=== PATIENT | male | born 1955 | race Caucasian/White ===

== ENCOUNTER 2023-06-02 18:58 | Emergency (ER) | payer MEDICARE, OTHER, SELFPAY ==
[2023-06-02 19:00] VITALS: BP 124/78
[2023-06-02 23:23] VITALS: BP 130/84
[2023-06-02 23:24] VITALS: BMI 22.1
[2023-06-02] MEDS: NSS 500 IV (23:45)
[2023-06-02] MEDS: DILAUDID 0.5 MG IV (23:45)
--- NOTE | 2023-06-02 23:48 | ED.GENMED ---
History of Present Illness
General
Chief Complaint: Abdominal Pain
Source: patient
Exam Limitations: none
Time Seen by Provider: 06/02/23 23:02
Nursing documentation reviewed up to this point in time: agreed with
Travel History
Have you had any contact with someone who has COVID-19?: No
Do you have any symptoms of coronavirus? Fever > 100 degrees, chills, cough, shortness of breath, sore throat, loss of taste or smell, muscle aches, or headache?: No
History of Present Illness
History of Present Illness:
Patient with history of colon cancer, currently receiving chemotherapy, and diverticulitis, presents to ED secondary to persistent left-sided abdominal pain over the past 2 days. Denies fever or chills. Denies nausea or vomiting. Denies loss of
appetite. Denies trauma. Denies back pain. Denies difficulty with urination. Abdominal pain described as sharp, nonradiating, without any alleviating or exacerbating factors. Patient states that his symptoms are similar to an episode of
diverticulitis 1 year ago. Patient does report having had bowel movement today, which did not change his symptoms.
Past History
Past History
ED Past Medical History: Cancer (Colon cancer), HTN, Psychiatric (Anxiety, depression), Other (Diverticulitis) and Other (Sciatica)
ED Past Surgical History: Bowel resection, Orthopedic (Left hand surgery, laminectomy), Urological (Vasectomy) and Other (Left arm cyst)
Review of Systems
Review of Systems
Allergies reviewed?: Yes
All Other Systems: ROS reviewed and negative except as documented in HPI and ROS
Constitutional: Reports no symptoms; Denies fever or chills
ABD/GI: Reports abdominal pain; Denies nausea, vomiting, diarrhea or bloody stools
: Reports no symptoms
Musculoskeletal: Reports no symptoms
Skin: Reports no symptoms
Neurological: Reports no symptoms
Phy Exam
Physical Exam
Physical Exam:
Physical Exam
General: mild painful distress, not acutely ill. afebrile
Head: nc/at. eomi
Neck: supple. no meningeal signs.
Heart: s1/s2 regular rate and rhythm, no murmur. equal radial pulses.
Lungs: no acute respiratory distress. clear bilaterally
Abdomen: normal bowel sounds. no distention. mild LLQ tenderness to palpation.
Neuro: alert and oriented. no focal neurological deficits
Skin: no rash
Psychiatric: well kept. interactive and cooperative
Extremities: no edema. no calf tenderness.
Course
Orders/Labs/Results
Orders:
Orders
06/02/23 23:17
0.9% Sodium Chloride 500 ml [Nss] 500 ml IV BOLUS
HYDROmorphone [Dilaudid] 0.5 mg IV NOW STA
06/02/23 23:44
Complete Blood Count/With Diff Urgent
Comprehensive Metabolic Panel Urgent
Lipase Urgent
06/03/23 00:00
CT Abd/pelvis W Iv Cont Urgent
Reason For Exam: LLQ pain
Abnormal Lab Results
06/02/23
23:44
WBC 16.6 H 10^3/uL
(4.8-10.8)
RBC 3.21 L 10^6/uL
(4.70-6.10)
Hgb 10.9 L g/dL
(13.0-18.0)
Hct 32.5 L %
(39.0-52.0)
MCV 101.2 H fL
(80.0-94.0)
MCH 34.0 H pg
(27.0-31.0)
RDW 14.6 H %
(11.5-14.5)
MPV 10.9 H fL
(7.4-10.4)
Abs Immat Gran (auto) 0.4 H 10^3/uL
(0-0.05)
Absolute Neuts (auto) 13.0 H 10^3/uL
(1.4-6.5)
Absolute Monos (auto) 1.0 H 10^3/uL
(0.1-0.6)
Immature Gran % 2.1 H %
(0-0.5)
Neutrophils % 78.3 H %
(42.2-75.2)
Lymphocytes % 10.5 L %
(20.5-51.1)
Sodium 134 L mmol/L
(135-145)
Alkaline Phosphatase 186 H U/L
(38-126)
06/02/23 23:44
06/02/23 23:44
Vital Signs
Initial and Last Documented VS:
Initial Vital Signs
Temp Pulse Resp BP Pulse Ox
97.9 F 70 18 124/78 100
06/02/23 19:00 06/02/23 19:00 06/02/23 19:00 06/02/23 19:00 06/02/23 19:00
Last Documented Vital Signs
Temp Pulse Resp BP Pulse Ox
97.9 F 68 16 120/81 98
06/02/23 19:00 06/03/23 01:44 06/02/23 23:24 06/03/23 01:44 06/03/23 01:44
MDM/Problems Addressed
MDM/Problems Addressed:
CT abdomen pelvis: Possible enteritis noted, without any evidence diverticulitis nor any obstructive signs.
Patient is afebrile, hemodynamically stable, and nontoxic-appearing, at time of discharge, to the care of his family. Advised PCP follow-up as an outpatient or return to ED with worsening symptoms, i.e. fever/worsening pain/vomiting. However, in
light of patient's previous history of diverticulitis, with clinical concern for potentially early diverticulitis, not seen on initial CT scan, patient given prescription for Augmentin, to be taken in 24 hours, if symptoms persist.
*Critical Care Note
Total Time (30-74mins, 75-104mins- exclusive of procedures): Not Applicable
ED Attending Note
-
Portions of this chart may have been created with voice recognition software.� Occasional wrong word or��sound alike� substitutions may have occurred due to the inherent limitations of voice recognition software.
Discharge Plan
Departure
Patient Disposition: Home (Routine Discharge)
Date of Disposition: 06/03/23
Time of Disposition: 01:33
Patient with high blood pressure during this ER visit?: Yes
Condition: Good
Discharge Problem:
Abdominal pain, Enteritis
Instructions: Abdominal Pain
Prescriptions:
No Action
lamotrigine 100 MG tablet
200 mg PO DAILY
metoprolol succinate 100 MG tablet extended release 24 hr
100 mg PO DAILY
mirtazapine 30 mg Tablet
15 mg PO HS
doxylamine succinate 25 mg Tablet
25 mg PO HS PRN (Reason: sleep aide)
acetaminophen [Tylenol] 325 mg Capsule
650 mg PO Q6H PRN (Reason: pain)
Referrals:
Jacky Guillaume MD [Family Provider] -
Activity Restrictions/Additional Instructions:
As discussed, please follow-up with your primary care physician for reevaluation next week. Please consider returning to ED with worsening symptoms, i.e. fever/worsening pain/vomiting.
Interventions
Interventions:
*Risk Screen - Suicide Last Done: 06/02/23 19:00
*General Assessment Last Done: 06/02/23 19:00
*Neglect/Abuse Screening Last Done: 06/02/23 19:00
*ED COVID-19 Vaccine History Last Done: 06/02/23 19:00
*Nursing Disposition Last Done: 06/03/23 01:58
GI-Dddwvn-Cncfjwbodj Assessment Last Done: 06/02/23 23:24
Discharge Date and Time
Discharge Date/Time: 06/03/23 01:59
[2023-06-02 23:54] LABS: % Basophils 0.8 % (0-2); % Eosinophils 2.5 % (0-6); % Immature Granulocytes 2.1 % (0-0.5); % Lymphocytes 10.5 % (20.5-51.1); % Monocytes 5.8 % (1.7-9.3); % Neutrophils 78.3 % (42.2-75.2); Absolute Basophils 0.1 10^3/uL (0-0.2); Absolute Eosinophils 0.4 10^3/uL (0-0.7); Absolute Immature Granulocytes 0.4 10^3/uL (0-0.05); Absolute Lymphocytes 1.7 10^3/uL (1.2-3.4); Hematocrit 32.5 % (39.0-52.0); Hemoglobin 10.9 g/dL (13.0-18.0); Mean Corp Hgb Conc. 33.5 g/dL (33.0-37.0); Mean Corpuscular Volume 101.2 fL (80.0-94.0); Mean Platelet Volume 10.9 fL (7.4-10.4); Nucleated Red Blood Cells % 0.1 % (-); Platelet Count 244 10^3/uL (130-400); Red Blood Cell Count 3.21 10^6/uL (4.70-6.10); Red Cell Dist. Width 14.6 % (11.5-14.5); White Blood Cell Count 16.6 10^3/uL (4.8-10.8)
[2023-06-03 00:14] LABS: ALT (SGPT) 16 U/L (0-50); AST (SGOT) 27 U/L (17-59); Albumin 4.1 g/dl (3.5-5.0); Alkaline Phosphatase 186 U/L (38-126); Blood Urea Nitrogen 15 mg/dl (9-20); Carbon Dioxide 22 mmol/L (22-30); Chloride 105 mmol/L (98-107); Estimated Creatinine Clearance 62 ml/min; Glucose 75 mg/dl (70-99); Lipase 260 U/L (23-300); Potassium 4.5 mmol/L (3.5-5.1); Sodium 134 mmol/L (135-145); Total Bilirubin 0.7 mg/dl (0.2-1.3); Total Protein 6.5 g/dl (6.3-8.2); eGFR > 60.00
[2023-06-03 01:44] VITALS: BP 120/81
== END 2023-06-03 01:59 | disposition home or self-care (01) ==
LOC: EMR 18:58
PROVIDERS: Student in an Organized Health Care Education/Training Program; EMERGENCY PHYSICIAN Emergency Medicine; FAMILY PHYSICIAN Internal Medicine
DX: R10.32 Left lower quadrant pain (principal); K52.9 Noninfective gastroenteritis and colitis, unspecified; C18.9 Malignant neoplasm of colon, unspecified; K57.92 Diverticulitis of intestine, part unspecified, without perforation or abscess without bleeding; I10 Essential (primary) hypertension; F41.9 Anxiety disorder, unspecified; F32.A Depression, unspecified; M54.30 Sciatica, unspecified side; Z98.0 Intestinal bypass and anastomosis status
CPT/HCPCS: 99285; 96374; 74177; 80053; 83690; 85025; Q9967

== ENCOUNTER → 2023-06-18 12:48 | Outpatient (REF) | payer MEDICARE, OTHER, SELFPAY ==
[2023-06-18 14:14] LABS: % Basophils 1.6 % (0-2); % Eosinophils 5.6 % (0-6); % Immature Granulocytes 8.1 % (0-0.5); % Lymphocytes 13.5 % (20.5-51.1); % Neutrophils 64.2 % (42.2-75.2); Absolute Basophils 0.2 10^3/uL (0-0.2); Absolute Eosinophils 0.6 10^3/uL (0-0.7); Absolute Immature Granulocytes 0.9 10^3/uL (0-0.05); Absolute Lymphocytes 1.5 10^3/uL (1.2-3.4); Absolute Monocytes 0.8 10^3/uL (0.1-0.6); Absolute Neutrophils 6.9 10^3/uL (1.4-6.5); Hematocrit 35.3 % (39.0-52.0); Hemoglobin 11.7 g/dL (13.0-18.0); Mean Corp Hgb Conc. 33.1 g/dL (33.0-37.0); Mean Corpuscular Hgb 33.7 pg (27.0-31.0); Mean Corpuscular Volume 101.7 fL (80.0-94.0); Mean Platelet Volume 10.4 fL (7.4-10.4); Nucleated Red Blood Cells % 0.2 % (-); Platelet Count 285 10^3/uL (130-400); Red Blood Cell Count 3.47 10^6/uL (4.70-6.10); Red Cell Dist. Width 14.3 % (11.5-14.5); White Blood Cell Count 10.7 10^3/uL (4.8-10.8)
[2023-06-18 14:34] LABS: ALT (SGPT) 15 U/L (0-50); AST (SGOT) 27 U/L (17-59); Alkaline Phosphatase 175 U/L (38-126); Blood Urea Nitrogen 19 mg/dl (9-20); Calcium 9.1 mg/dl (8.4-10.2); Carbon Dioxide 28 mmol/L (22-30); Chloride 102 mmol/L (98-107); Glucose 104 mg/dl (70-99); Potassium 3.9 mmol/L (3.5-5.1); Sodium 136 mmol/L (135-145); Total Bilirubin 0.4 mg/dl (0.2-1.3); Total Protein 6.5 g/dl (6.3-8.2); eGFR > 60.00
== END ==
LOC: REG 12:48
PROVIDERS: ATTENDING PHYSICIAN Internal Medicine Hematology & Oncology; FAMILY PHYSICIAN Internal Medicine
DX: C18.2 Malignant neoplasm of ascending colon (principal); D50.9 Iron deficiency anemia, unspecified; D69.3 Immune thrombocytopenic purpura
CPT/HCPCS: 36415; 80053; 85025

== ENCOUNTER → 2023-06-19 14:53 | Outpatient (REF) | payer MEDICARE, OTHER, SELFPAY ==
[2023-06-19 16:30] LABS: Protein/creatinine Ratio 0.5; Urine Protein 69 mg/dl
== END ==
LOC: OIDL 14:53
PROVIDERS: ATTENDING PHYSICIAN Internal Medicine Hematology & Oncology
DX: C18.2 Malignant neoplasm of ascending colon (principal)
CPT/HCPCS: 82570; 84156

== ENCOUNTER → 2023-07-09 13:45 | Outpatient (REF) | payer MEDICARE, OTHER, SELFPAY ==
[2023-07-09 12:52] LABS: % Basophils 1.4 % (0-2); % Eosinophils 5.3 % (0-6); % Immature Granulocytes 1.2 % (0-0.5); % Lymphocytes 11.8 % (20.5-51.1); % Monocytes 5.7 % (1.7-9.3); % Neutrophils 74.6 % (42.2-75.2); Absolute Basophils 0.1 10^3/uL (0-0.2); Absolute Eosinophils 0.4 10^3/uL (0-0.7); Absolute Immature Granulocytes 0.1 10^3/uL (0-0.05); Absolute Monocytes 0.5 10^3/uL (0.1-0.6); Absolute Neutrophils 6.1 10^3/uL (1.4-6.5); Hematocrit 34.1 % (39.0-52.0); Hemoglobin 11.2 g/dL (13.0-18.0); Mean Corp Hgb Conc. 32.8 g/dL (33.0-37.0); Mean Corpuscular Hgb 33.1 pg (27.0-31.0); Mean Corpuscular Volume 100.9 fL (80.0-94.0); Mean Platelet Volume 10.5 fL (7.4-10.4); Nucleated Red Blood Cells % 0 % (-); Platelet Count 195 10^3/uL (130-400); Red Blood Cell Count 3.38 10^6/uL (4.70-6.10); Red Cell Dist. Width 14.3 % (11.5-14.5); White Blood Cell Count 8.1 10^3/uL (4.8-10.8)
[2023-07-09 13:03] LABS: ALT (SGPT) 17 U/L (0-50); AST (SGOT) 26 U/L (17-59); Albumin 4.2 g/dl (3.5-5.0); Alkaline Phosphatase 150 U/L (38-126); Blood Urea Nitrogen 17 mg/dl (9-20); Calcium 9.3 mg/dl (8.4-10.2); Carbon Dioxide 24 mmol/L (22-30); Chloride 101 mmol/L (98-107); Glucose 153 mg/dl (70-99); Potassium 4.3 mmol/L (3.5-5.1); Sodium 131 mmol/L (135-145); Total Bilirubin 0.5 mg/dl (0.2-1.3); Total Protein 6.7 g/dl (6.3-8.2); eGFR > 60.00
[2023-07-09 13:58] LABS: Protein/creatinine Ratio 0.3; Urine Protein 28 mg/dl
== END ==
LOC: OIDL 13:45
PROVIDERS: ATTENDING PHYSICIAN Internal Medicine Hematology & Oncology
DX: C18.2 Malignant neoplasm of ascending colon (principal)
CPT/HCPCS: 80053; 82570; 84156; 85025

== ENCOUNTER → 2023-07-23 12:54 | Outpatient (REF) | payer MEDICARE, OTHER, SELFPAY ==
[2023-07-23 13:15] LABS: % Basophils 1.4 % (0-2); % Eosinophils 3.4 % (0-6); % Immature Granulocytes 1.5 % (0-0.5); % Lymphocytes 9.2 % (20.5-51.1); % Monocytes 4.4 % (1.7-9.3); % Neutrophils 80.1 % (42.2-75.2); Absolute Basophils 0.2 10^3/uL (0-0.2); Absolute Eosinophils 0.5 10^3/uL (0-0.7); Absolute Immature Granulocytes 0.2 10^3/uL (0-0.05); Absolute Lymphocytes 1.2 10^3/uL (1.2-3.4); Absolute Monocytes 0.6 10^3/uL (0.1-0.6); Absolute Neutrophils 10.5 10^3/uL (1.4-6.5); Hematocrit 34.4 % (39.0-52.0); Hemoglobin 11.4 g/dL (13.0-18.0); Mean Corp Hgb Conc. 33.1 g/dL (33.0-37.0); Mean Corpuscular Hgb 32.7 pg (27.0-31.0); Mean Corpuscular Volume 98.6 fL (80.0-94.0); Mean Platelet Volume 10.3 fL (7.4-10.4); Nucleated Red Blood Cells % 0 % (-); Platelet Count 208 10^3/uL (130-400); Red Blood Cell Count 3.49 10^6/uL (4.70-6.10); White Blood Cell Count 13.1 10^3/uL (4.8-10.8)
[2023-07-23 13:52] LABS: ALT (SGPT) 13 U/L (0-50); AST (SGOT) 24 U/L (17-59); Albumin 4.2 g/dl (3.5-5.0); Alkaline Phosphatase 159 U/L (38-126); Blood Urea Nitrogen 15 mg/dl (9-20); Calcium 8.8 mg/dl (8.4-10.2); Carbon Dioxide 23 mmol/L (22-30); Chloride 106 mmol/L (98-107); Glucose 102 mg/dl (70-99); Potassium 3.4 mmol/L (3.5-5.1); Sodium 136 mmol/L (135-145); Total Bilirubin 0.4 mg/dl (0.2-1.3); Total Protein 6.8 g/dl (6.3-8.2); eGFR > 60.00
== END ==
LOC: REG 12:54
PROVIDERS: ATTENDING PHYSICIAN Internal Medicine Hematology & Oncology; FAMILY PHYSICIAN Internal Medicine
DX: C18.2 Malignant neoplasm of ascending colon (principal); D50.9 Iron deficiency anemia, unspecified; D69.3 Immune thrombocytopenic purpura
CPT/HCPCS: 36415; 80053; 85025

== ENCOUNTER → 2023-08-06 12:23 | Outpatient (REF) | payer MEDICARE, OTHER, SELFPAY ==
[2023-08-06 13:22] LABS: % Basophils 1.5 % (0-2); % Eosinophils 4.5 % (0-6); % Immature Granulocytes 6.4 % (0-0.5); % Lymphocytes 9.7 % (20.5-51.1); % Monocytes 8.8 % (1.7-9.3); % Neutrophils 69.1 % (42.2-75.2); Absolute Basophils 0.2 10^3/uL (0-0.2); Absolute Eosinophils 0.5 10^3/uL (0-0.7); Absolute Immature Granulocytes 0.7 10^3/uL (0-0.05); Absolute Monocytes 0.9 10^3/uL (0.1-0.6); Absolute Neutrophils 7.1 10^3/uL (1.4-6.5); Hematocrit 32.8 % (39.0-52.0); Hemoglobin 10.9 g/dL (13.0-18.0); Mean Corp Hgb Conc. 33.2 g/dL (33.0-37.0); Mean Corpuscular Hgb 33.4 pg (27.0-31.0); Mean Corpuscular Volume 100.6 fL (80.0-94.0); Mean Platelet Volume 10.2 fL (7.4-10.4); Nucleated Red Blood Cells % 0 % (-); Platelet Count 170 10^3/uL (130-400); Red Blood Cell Count 3.26 10^6/uL (4.70-6.10); White Blood Cell Count 10.2 10^3/uL (4.8-10.8)
[2023-08-06 13:46] LABS: ALT (SGPT) 14 U/L (0-50); AST (SGOT) 22 U/L (17-59); Albumin 3.9 g/dl (3.5-5.0); Alkaline Phosphatase 164 U/L (38-126); Blood Urea Nitrogen 15 mg/dl (9-20); Carbon Dioxide 27 mmol/L (22-30); Chloride 102 mmol/L (98-107); Glucose 101 mg/dl (70-99); Potassium 3.9 mmol/L (3.5-5.1); Sodium 133 mmol/L (135-145); Total Bilirubin 0.4 mg/dl (0.2-1.3); Total Protein 6.3 g/dl (6.3-8.2); eGFR > 60.00
== END ==
LOC: REG 12:23
PROVIDERS: ATTENDING PHYSICIAN Internal Medicine Hematology & Oncology; FAMILY PHYSICIAN Internal Medicine
DX: C18.2 Malignant neoplasm of ascending colon (principal); D50.9 Iron deficiency anemia, unspecified; D69.3 Immune thrombocytopenic purpura
CPT/HCPCS: 36415; 80053; 85025

== ENCOUNTER 2023-08-16 04:07 | Inpatient (IN) | payer MEDICARE, OTHER, SELFPAY ==
[2023-08-15 16:50] VITALS: BP 143/88
--- NOTE | 2023-08-15 21:12 | ED.GENMED ---
History of Present Illness
General
Chief Complaint: Esophageal Problem
Source: patient
Exam Limitations: none
Time Seen by Provider: 08/15/23 20:33
Travel History
Have you had any contact with someone who has COVID-19?: No
Do you have any symptoms of coronavirus? Fever > 100 degrees, chills, cough, shortness of breath, sore throat, loss of taste or smell, muscle aches, or headache?: No
History of Present Illness
History of Present Illness:
This is a 68 year old male that comes in with c/o heart burn. States that he has heart burn that doesn't stop. States that this has been going on for the past month on and off. States that now it is so bad that he can't eat or drink. State that even
if he stands he has pain. State that [facility] sent him in. States that none of the medication he has been given helps. States that he feels SOB and that he also has sores in his mouth. Patient is getting chemo and his Pump came off on
. States that he is due next week for Chemo. Denies any fever, chills, chest pain, abd pain, nausea, vomiting, diarrhea, headache, dizziness, urinary burning.
Past History
Past History
ED Past Medical History: Cancer (Colon cancer), HTN, Psychiatric (Anxiety, depression, bipolar), Other (Diverticulitis, Sciatica, Anemia, ) and Other (Sciatica)
ED Past Surgical History: Bowel resection, Orthopedic (Left hand surgery, laminectomy), Urological (Vasectomy) and Other (Left arm cyst, Port)
Social History
Tobacco: Former smoker
Alcohol: Former
Personal:
Living: alone
Review of Systems
Review of Systems
All Other Systems: ROS reviewed and negative except as documented in HPI and ROS
Constitutional: Reports no symptoms; Denies fever or chills
EENT: Reports other (the worse heart burn that doesn't stop)
Respiratory: Reports trouble breathing; Denies cough
Cardiac: Reports no symptoms; Denies chest pain
ABD/GI: Denies abdominal pain, nausea, vomiting or diarrhea
: Reports no symptoms; Denies dysuria, frequency or urgency
Musculoskeletal: Reports no symptoms
Skin: Reports no symptoms
Neurological: Reports no symptoms; Denies dizzy or headache
Psychiatric: Reports no symptoms
Phy Exam
General Physical Exam
General Presentation: no apparent distress
General age: appears stated age
General Skin: warm and dry
General Habitus: normal
General Mental: alert
General Hydration: appears well hydrated
ENT Exam
ENT Exam: TM's normal, pharynx normal and neck supple
Eye Exam
Eye Exam: EOMI
Cardiovascular Exam
Cardiovascular Exam: regular rate/rhythm, no edema, no murmur and normal peripheral pulses
Pulmonary Exam
Pulmonary Exam: lungs clear, no respiratory distress, no rales, chest non tender, no crackles, no rhonchi, no wheezing and no cough
Gastrointestinal Exam
Gastrointestinal Exam: non tender, soft, no organomegaly, no pulsatile mass, non distended and other (Hyperactive bowel sounds)
Musculoskeletal Exam
Musculoskeletal Exam: full ROM and no edema
Skin Exam
Skin Exam: normal color, warm/dry and no petechia
Psychiatric Exam
Psychiatric Exam: normal mood/affect
Course
Orders/Labs/Results
Orders:
Orders
08/15/23 16:42
EKG [Electrocardiogram (*1)] Urgent
Reason for Study: Chest Pain
EKG- Treatment ONCE
08/15/23 20:48
0.9% Sodium Chloride 1000 ml [Nss] 1,000 ml IV BOLUS
Pantoprazole [Protonix IV] 40 mg IV NOW STA
Sucralfate Suspension [Carafate Suspension] 1 gm PO NOW STA
08/15/23 21:13
Complete Blood Count/With Diff Urgent
Comprehensive Metabolic Panel Urgent
08/15/23 21:24
Troponin I Urgent
Abnormal Lab Results
08/15/23
21:13
WBC 16.1 H 10^3/uL
(4.8-10.8)
RBC 3.27 L 10^6/uL
(4.70-6.10)
Hgb 10.7 L g/dL
(13.0-18.0)
Hct 31.2 L %
(39.0-52.0)
MCV 95.4 H fL
(80.0-94.0)
MCH 32.7 H pg
(27.0-31.0)
MPV 10.9 H fL
(7.4-10.4)
Abs Immat Gran (auto) 0.2 H 10^3/uL
(0-0.05)
Absolute Neuts (auto) 13.4 H 10^3/uL
(1.4-6.5)
Absolute Lymphs (auto) 1.0 L 10^3/uL
(1.2-3.4)
Absolute Monos (auto) 1.0 H 10^3/uL
(0.1-0.6)
Immature Gran % 1.2 H %
(0-0.5)
Neutrophils % 83.2 H %
(42.2-75.2)
Lymphocytes % 6.4 L %
(20.5-51.1)
Sodium 131 L mmol/L
(135-145)
Carbon Dioxide 21 L mmol/L
(22-30)
Alkaline Phosphatase 171 H U/L
(38-126)
08/15/23 21:13
08/15/23 21:13
Leukocytosis, H/H low but consistent with prior labs. Anemia, Sodium slightly low. Alk phos elevation. Troponin <0.012
Vital Signs
Initial and Last Documented VS:
Initial Vital Signs
Temp Pulse Resp BP Pulse Ox
98.3 F 60 16 143/88 97
08/15/23 16:50 08/15/23 16:50 08/15/23 16:50 08/15/23 16:50 08/15/23 16:50
Last Documented Vital Signs
Temp Pulse Resp BP Pulse Ox
98.3 F 70 13 146/105 97
08/15/23 16:50 08/15/23 22:15 08/15/23 22:15 08/15/23 22:00 08/15/23 22:15
MDM/Problems Addressed
Differential Diagnosis Includes:
Esophageal cancer, GERD, Esophagitis
MDM/Problems Addressed:
This is a 68 year old male that comes in with c/o the worst heart burn that never goes away. States that he is actively getting chemo. States that this started a month ago after his Chemo started. States that he can't eat or drink and they have
tried all kind of medication but nothing works.
Will get labs, Medicate with Protonix and Carafate. Explained to patient that since he is unable to eat or drink he may need admission for further evaluation with the GI specialist for Endoscopy.
Back into see patient. Patient states that the medication he was given did not help. Will admit patient for further evaluation.
Chronic conditions affecting care: Cancer
Acute Exacerbation and/or Progression of Chronic Illness: Cancer
*Pulse Oximetry
Patient hypoxic: no
*EKG
Interpreted by ED Provider?: Yes
Heart Rate: 58
Rate: bradycardiac
Rhythm: sinus
Speed: normal axis
Interval: normal interval
QRS Pattern: right bundle branch block (incomplete)
Ischemia: T-wave inversion (I, V1, V2, V4, V5, V6, )
*Loss Prevention Coordinator Interpretation
Rate: bradycardiac
Heart Rate: 59
Rhythm: sinus (Roque) and PAC's
*Critical Care Note
Total Time (30-74mins, 75-104mins- exclusive of procedures): Not Applicable
ED Attending Note
-
Portions of this chart may have been created with voice recognition software.� Occasional wrong word or��sound alike� substitutions may have occurred due to the inherent limitations of voice recognition software.
Discharge Plan
Departure
Patient Disposition: Admit
Date of Disposition: 08/15/23
Time of Disposition: 23:26
Admit to: Med/Surg
Presentation/result/management discussed w/ accepting MD/DO: Hospitalist
Patient with high blood pressure during this ER visit?: Yes
Condition: Good
Covid-19: Not Applicable
Discharge Problem:
Throat pain acute
Prescriptions:
No Action
lamotrigine 100 MG tablet
200 mg PO DAILY
metoprolol succinate 100 MG tablet extended release 24 hr
100 mg PO DAILY
mirtazapine 30 mg Tablet
15 mg PO HS
doxylamine succinate 25 mg Tablet
25 mg PO HS PRN (Reason: sleep aide)
acetaminophen [Tylenol] 325 mg Capsule
650 mg PO Q6H PRN (Reason: pain)
Referrals:
Jacky Guillaume MD [Family Provider] -
Interventions
Interventions:
*Risk Screen - Suicide Last Done: 08/15/23 21:29
*General Assessment Last Done: 08/15/23 21:25
*Neglect/Abuse Screening Last Done: 08/15/23 21:29
ED- Fall Risk Assessment Last Done: 08/15/23 21:29
*ED COVID-19 Vaccine History Last Done: 08/15/23 21:25
UN-Zmqfvp-Xopicbdtgl Assessment Last Done: 08/15/23 21:26
ED- Cardiac Assessment Last Done: 08/15/23 21:26
ED-EENT Assessment Last Done: 08/15/23 21:26
Discharge Date and Time
Print Language: MALTESE
[2023-08-15] MEDS: NSS 1000 IV (21:17)
[2023-08-15 21:21] LABS: % Basophils 0.2 % (0-2); % Eosinophils 2.6 % (0-6); % Immature Granulocytes 1.2 % (0-0.5); % Lymphocytes 6.4 % (20.5-51.1); % Monocytes 6.4 % (1.7-9.3); % Neutrophils 83.2 % (42.2-75.2); Absolute Eosinophils 0.4 10^3/uL (0-0.7); Absolute Immature Granulocytes 0.2 10^3/uL (0-0.05); Absolute Neutrophils 13.4 10^3/uL (1.4-6.5); Hematocrit 31.2 % (39.0-52.0); Hemoglobin 10.7 g/dL (13.0-18.0); Mean Corp Hgb Conc. 34.3 g/dL (33.0-37.0); Mean Corpuscular Hgb 32.7 pg (27.0-31.0); Mean Corpuscular Volume 95.4 fL (80.0-94.0); Mean Platelet Volume 10.9 fL (7.4-10.4); Nucleated Red Blood Cells % 0 % (-); Platelet Count 161 10^3/uL (130-400); Red Blood Cell Count 3.27 10^6/uL (4.70-6.10); Red Cell Dist. Width 14.1 % (11.5-14.5); White Blood Cell Count 16.1 10^3/uL (4.8-10.8)
[2023-08-15] MEDS: CARAFATE SUSPENSION 1 GM PO (21:21)
[2023-08-15] MEDS: PROTONIX IV 40 MG IV (21:21)
[2023-08-15 21:25] VITALS: BMI 20.8
[2023-08-15 21:44] LABS: ALT (SGPT) 13 U/L (0-50); AST (SGOT) 20 U/L (17-59); Albumin 4.1 g/dl (3.5-5.0); Alkaline Phosphatase 171 U/L (38-126); Blood Urea Nitrogen 18 mg/dl (9-20); Calcium 9.1 mg/dl (8.4-10.2); Carbon Dioxide 21 mmol/L (22-30); Chloride 103 mmol/L (98-107); Estimated Creatinine Clearance 71 ml/min; Glucose 76 mg/dl (70-99); Potassium 3.6 mmol/L (3.5-5.1); Sodium 131 mmol/L (135-145); Total Bilirubin 0.6 mg/dl (0.2-1.3); Total Protein 6.5 g/dl (6.3-8.2); eGFR > 60.00
[2023-08-15 22:00] VITALS: BP 146/105
[2023-08-15 22:42] LABS: Troponin I < 0.012 ng/ml
[2023-08-15 23:00] VITALS: BP 124/69
[2023-08-16] VITALS (8 sets, daily range): BP systolic 119–138; BP diastolic 69–81; BMI 19.6
--- NOTE | 2023-08-16 01:50 | HPS.HSE ---
Family Physician
-
Family Physician: Jacky Guillaume
Chief Complaint
-
Odynophagia
History of Present Illness
Patient is a 68y M with PMH significant for colon cancer who presents to ED complaining of pain with swallowing. Pateint reports 'heartburn' symptoms for the past several weeks. He notes that his symptoms have gradually progressed. He has been
tried on PPI, Carafate, etc with no improvement in his symptoms. He reports pain in this mid chest that occurs with any swallowing - solids or liquids. He has no difficulty swallowing other than the discomfort. No N/V. No hematemesis.
Patient is currently on chemotherapy for colon cancer. His last session ended last . he has some oral pain that he attributes to the chemo, but he feels that the chest / heartburn symptoms are distinct from this.
No fevers or chills.
Patient does not smoke, does not currently drink alcohol or coffee - mostly due to his symptoms.
Medical History
Past Medical History
Past Medical History: Reports Other
Additional Past Medical History:
Colon Cancer with Recurrence
Hypertension
GERD
Anxiety / Depression
Past Surgical History: Reports Other
Additional Past Surgical History:
Robotic Right Hemicolectomy
Chemo Port Placement
Lumbar Laminectomy
Vasectomy
Social History
Tobacco: Non-smoker
Alcohol: Occasional
Drug: None
Family History
Family History: Not pertinent
Allergies / Home Medications
Allergies reflects when Allergies were last updated in [facility].
Home Medications with original date entered in [facility]
Allergy/Medication List:
Allergies
Allergy/AdvReac Type Severity Reaction Status Date / Time
No Known Allergies Allergy Verified 03/19/23 09:21
Home Medications
lamotrigine 100 mg tablet 200 mg PO DAILY Mental Health/Anxiety 01/19/21
metoprolol succinate 100 mg tablet,extended release 24 hr 100 mg PO DAILY Blood pressure 10/05/21
mirtazapine 30 mg tablet 30 mg PO HS 05/02/22
doxylamine succinate 25 mg tablet 25 mg PO HS PRN sleep 05/04/22
acetaminophen 325 mg capsule (Tylenol) 650 mg PO Q6H PRN mild pain 03/21/23
dexamethasone 4 mg tablet 4 mg PO . DIRECTED 08/15/23
esomeprazole magnesium 40 mg capsule,delayed release 40 mg PO BID 08/15/23
sucralfate 1 gram tablet 1 g PO ACHS 08/15/23
Review of Systems
-
History Source: Patient
A 12 point ROS was completed and negative except as noted: Yes
Constitutional: Denies Fever or Chills
EENT: Reports Sore Throat and Mouth Pain
Respiratory: Denies Cough or Trouble Breathing
Cardiac: Reports Chest Pain; Denies Diaphoresis, Palpitations or Syncope
Abdomen/GI: Reports Constipated; Denies Abdominal Pain, Nausea, Vomiting, Diarrhea, Bloody Stools or Black Stools
: Denies Dysuria or Frequency
Musculoskeletal: Denies Joint Pain or Edema
Neurological: Denies Dizzy or Headache
Physical Exam
Vital Signs
Vital Signs
Temp Pulse Resp BP Pulse Ox
98.3 F 66 22 138/72 98
08/15/23 16:50 08/16/23 01:15 08/16/23 01:15 08/16/23 00:00 08/16/23 01:15
Physical Exam
General: Other (68y M in no acute distress.)
HEENT: Moist mucous membranes and PERRLA
Respiratory: Clear; No Wheezes, Rales or Rhonchi
Cardiac: S1/S2 and Regular Rhythm; No Murmur
GI: Soft, Non Tender, Non Distended and Normal Bowel Sounds
Musculoskeletal: No Clubbing, No Cyanosis and No Edema
Neuro: AO x 3
Laboratory Results
-
08/15/23 21:13
08/15/23 21:13
Laboratory Results
Total Bilirubin 0.6 mg/dl (0.2-1.3) 08/15/23 21:13
AST 20 U/L (17-59) 08/15/23 21:13
ALT 13 U/L (0-50) 08/15/23 21:13
Alkaline Phosphatase 171 U/L (38-126) H 08/15/23 21:13
Troponin I < 0.012 ng/ml 08/15/23 21:24
Impression/Plan
-
A/P: Patient is a 68y M with PMH significant for colon cancer on active chemotherapy who presents to ED complaining of pain with swallowing.
Esophagitis / Odynophagia
- Admit for further evaluation and treatment.
- No improvement with symptoms as an outpatient on acid-suppression regimen.
- Continue BID PPI, Carafate, etc.
- GI evaluation for additional recommendations / possible endoscopic examination.
- On active chemo ? infectious etiology such as ortega, HSV, etc.
- Follow for any new / worsening symptoms.
Benign Hypertension
- Stable. Continue home med regimen.
Colon Cancer on Chemotherapy
Chronic Anemia
- Stable. Scheduled for last session of chemo to begin next week.
- Follow for changes in H&H / cell counts during stay.
- Follow-up with Oncology as an outpatient.
Anxiety / Depression
Insomnia
- Stable. Continue home med regimen.
DVT Prophylaxis: SCDs
Code Status: Full
[2023-08-16] MEDS: REMERON 30 MG PO ×2 (02:19→21:26)
[2023-08-16] MEDS: NSS 1000 IV ×2 (02:26→11:53)
[2023-08-16] MEDS: NSS IV (05:17)
[2023-08-16 05:51] LABS: Hematocrit 29.7 % (39.0-52.0); Hemoglobin 10.1 g/dL (13.0-18.0); Mean Corpuscular Hgb 32.9 pg (27.0-31.0); Mean Corpuscular Volume 96.7 fL (80.0-94.0); Mean Platelet Volume 10.7 fL (7.4-10.4); Platelet Count 161 10^3/uL (130-400); Red Blood Cell Count 3.07 10^6/uL (4.70-6.10)
[2023-08-16 06:26] LABS: Blood Urea Nitrogen 15 mg/dl (9-20); Calcium 8.3 mg/dl (8.4-10.2); Carbon Dioxide 22 mmol/L (22-30); Chloride 104 mmol/L (98-107); Estimated Creatinine Clearance 71 ml/min; Glucose 68 mg/dl (70-99); Potassium 3.6 mmol/L (3.5-5.1); Sodium 133 mmol/L (135-145); eGFR > 60.00
[2023-08-16] MEDS: CARAFATE 1 GRAM PO ×3 (08:29→16:59)
[2023-08-16] MEDS: NSS (PRESERVATIVE FREE) 10 ML IV ×2 (08:29→20:31)
[2023-08-16] MEDS: PROTONIX IV 40 MG IV ×2 (08:30→20:31)
--- NOTE | 2023-08-16 08:30 | W.PN.HOSP.TC ---
Today's Communication/Plan
-
GI consult. Plan for EGD
Assessment / Plan
Assessment / Plan
Physical Exam
General: Other (68y M in no acute distress.)
HEENT: Moist mucous membranes and PERRLA
Respiratory: Clear; No Wheezes, Rales or Rhonchi
Cardiac: S1/S2 and Regular Rhythm; No Murmur
GI: Soft, Non Tender, Non Distended and Normal Bowel Sounds
Musculoskeletal: No Clubbing, No Cyanosis and No Edema
Neuro: AO x 3
A/P:
Esophagitis / Odynophagia
- Admit for further evaluation and treatment.
- No improvement with symptoms as an outpatient on acid-suppression regimen.
- Continue BID PPI, Carafate, etc.
- GI consult appreciated. Plan for upper endoscopy today
- On active chemo ? infectious etiology such as ortega, HSV, etc.
- Follow for any new / worsening symptoms.
Benign Hypertension
- Stable. Continue home med regimen.
Colon Cancer on Chemotherapy
Chronic Anemia
- Stable. Scheduled for last session of chemo to begin next week.
- Follow for changes in H&H / cell counts during stay.
- Follow-up with Oncology as an outpatient.
Anxiety / Depression
Insomnia
- Stable. Continue home med regimen.
DVT Prophylaxis: SCDs
Code Status: Full
Anticipated Discharge: 24 - 48 hours
Subjective/Interval History
-
Date of Service: August 16, 2023
pte with odynophagia, c/o abd pain. Afebrile
Objective Data
-
Labs:
Laboratory Results
08/15/23 08/16/23
21:13 05:39
WBC 16.1 H 11.0 H
Hgb 10.7 L 10.1 L
Hct 31.2 L 29.7 L
Plt Count 161 161
Sodium 131 L 133 L
Potassium 3.6 3.6
Chloride 103 104
Carbon Dioxide 21 L 22
BUN 18 15
Creatinine 0.9 0.9
Glucose 76 68 L
Calcium 9.1 8.3 L
Total Bilirubin 0.6
AST 20
ALT 13
Alkaline Phosphatase 171 H
Vital Signs:
Vital Signs
Temp Pulse Resp BP Pulse Ox
98.3 F 64 9 127/69 99
08/15/23 16:50 08/16/23 08:15 08/16/23 08:15 08/16/23 08:00 08/16/23 08:00
[2023-08-16] MEDS: DILAUDID 0.5 MG IV ×3 (08:31→16:59)
--- NOTE | 2023-08-16 08:57 | CON.GI ---
Addendum entered and electronically signed by Priscilla Krishnan DO 08/16/23 13:37:
Patient seen and examined independently of ELIZABETH. I agree with her note with my additions below
Gavin is a 68-year-old male with recurrent stage IV colon cancer on chemotherapy with recurrence in February 2023. He is in the emergency room for 1 month of odynophagia. Feels pain in the mid to distal chest every time he swallows both food and
liquid. It is a burning sensation. He denies any dysphagia. No history of reflux. Has tried multiple different medications including PPIs, sucralfate, steroids. Unclear if he was treated for candidiasis. Unclear if he is use viscous lidocaine.
No oral thrush or ulcers inside the mouth.
Reviewed labs which includes some mild anemia, mild leukocytosis otherwise nothing significant.
Plan:
EGD with biopsies
EGD done. See report for details but overall, this does not appear to be typical mucositis as it does not involve his mouth or proximal esophagus. The proximal esophagus showed some very scant white lesions that may be mild yeast but that is
unlikely the cause of his odynophagia. In the mid esophagus there is roughly a 4 cm area of thickened ulcerated esophagus. This area was biopsied for CMV/HSV. Small hiatal hernia otherwise no significant findings. The distal esophagus mucosa was
normal.
--Twice daily PPI, sucralfate 4 times daily, viscous lidocaine every 3 as needed and await biopsies.
--Discussed with Dr. Venegas including pictures
Original Note:
Consultation
-
Date/Time Consultation Requested: 08/16/23 0210
Date/Time Consultation Performed: 08/16/23 0900
Requesting Provider: Dr. Richmond
Performing Provider: Dr. Krishnan / Ilene Adams PA-C
Reason for Consultation: painful swallowing
Medical History
Chief Complaint / HPI
Chief Complaint: painful swallowing, heartburn
History of Present Illness:
This is a 68 year old male with a past medical history of recurrent stage 4 colon cancer, diagnosed initially in 2020 s/p right hemicolectomy and chemo with recurrence 02/2023 and now on chemotherapy, who presents to the hospital for heartburn and
painful swallowing for the past month. He states he feels pain in the lower chest/distal sternum any time he swallows - both food and liquids. The pain is described as a 'burning' discomfort, that does not radiate anywhere and without associated
nausea, vomiting or abdominal pain. He denies dysphagia or food sticking sensation. He has no prior history of reflux, states he would very rarely feel heartburn. Symptoms have progressively worsened over the past month. He has had difficulty
eating/drinking due to the pain and also complains of mouth sores. He was recently prescribed course of steroids. He believes he has lost weight but is uncertain as he does not weigh himself at home. He tried multiple therapies - omeprazole, Nexium,
Pepcid, carafate - all without any relief. He has never had an endoscopy. He does not smoke. He drinks 2 beers/day. He occasionally takes cannabis gummies, but denies other drug use. He does take NSAIDs - takes ibuprofen before and during hikes and
states he has been hiking more recently. There is no family history of GI malignancies. He follows with Oncology, Dr. Venegas, as well as Dr. Granger at [facility]. Labs reviewed: WBC on admission 16.1, down to 11.0 today; Hgb 10.1, MCV 96.7, MCH 32.9,
platelets 161, PT 13.1, INR 1.02, Na 133, K 3.6, BUN 15, creatinine 0.9. His other medical history includes HTN, anxiety, depression, bipolar disorder, sciatica.
Past Medical History
Past Medical History: HTN and Other (recurrent stage 4 colon cancer, anxiety, depression, bipolar disorder, sciatica)
Past Surgical History: Other (right hemicolectomy (2020), left hand surgery, laminectomy, vasectomy, chemo port)
Social History
Tobacco: Non-Smoker
Alcohol: Former (none now due to his symptoms, but was previously drinking 2 beers/day)
Drug: Marijuana (gummies - occasional)
Living: Alone
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
Family History
Family History: Other (No family history of GI malignancies)
Allergies / Home Medications
Allergy/AdvReac Type Severity Reaction Status Date / Time
No Known Allergies Allergy Verified 03/19/23 09:21
�Medication �Instructions �Recorded
lamotrigine 100 mg tablet 200 mg PO DAILY Mental 01/19/21
Health/Anxiety
metoprolol succinate 100 mg 100 mg PO DAILY Blood pressure 02/08/21
tablet,extended release 24 hr
mirtazapine 30 mg tablet 30 mg PO HS 05/02/22
doxylamine succinate 25 mg tablet 25 mg PO HS PRN sleep 05/04/22
acetaminophen 325 mg capsule 650 mg PO Q6H PRN mild pain 03/21/23
(Tylenol)
dexamethasone 4 mg tablet 4 mg PO UD 08/15/23
esomeprazole magnesium 40 mg 40 mg PO BID 08/15/23
capsule,delayed release
sucralfate 1 gram tablet 1 g PO ACHS 08/15/23
Review of Systems
-
History Source: Patient
All other systems: A 12 pt ROS was Negative except as stated above in HPI
Abdomen/GI: Reports Constipated (chronic, managed with stool softeners/Miralax )
Vital Signs
Temp Pulse Resp BP Pulse Ox
98.3 F 64 9 127/69 99
08/15/23 16:50 08/16/23 08:15 08/16/23 08:15 08/16/23 08:00 08/16/23 08:00
Physical Exam
Exam
General: No Apparent Distress and Other (thin-appearing male)
HEENT: Normocephalic
Respiratory: Clear
Cardiac: Regular Rhythm
GI: Soft, Non Tender, Non Distended and Normal Bowel Sounds
Skin: Warm, Dry and Other (+dry, peeling lips with scabs)
Neuro: Awake, Alert and Oriented
Psych: Calm
Results
WBC 11.0 10^3/uL (4.8-10.8) H 08/16/23 05:39
Hgb 10.1 g/dL (13.0-18.0) L 08/16/23 05:39
Hct 29.7 % (39.0-52.0) L 08/16/23 05:39
MCV 96.7 fL (80.0-94.0) H 08/16/23 05:39
Plt Count 161 10^3/uL (130-400) 08/16/23 05:39
Absolute Neuts (auto) 13.4 10^3/uL (1.4-6.5) H 08/15/23 21:13
Sodium 133 mmol/L (135-145) L 08/16/23 05:39
Potassium 3.6 mmol/L (3.5-5.1) 08/16/23 05:39
Chloride 104 mmol/L (98-107) 08/16/23 05:39
Carbon Dioxide 22 mmol/L (22-30) 08/16/23 05:39
BUN 15 mg/dl (9-20) 08/16/23 05:39
Creatinine 0.9 mg/dL (0.7-1.3) 08/16/23 05:39
Calcium 8.3 mg/dl (8.4-10.2) L 08/16/23 05:39
Total Bilirubin 0.6 mg/dl (0.2-1.3) 08/15/23 21:13
AST 20 U/L (17-59) 08/15/23 21:13
ALT 13 U/L (0-50) 08/15/23 21:13
Alkaline Phosphatase 171 U/L (38-126) H 08/15/23 21:13
Diagnostic Image Results:
Chest x-ray: 03/21/2023
-Right-sided port has been placed with its tip within the SVC.
-There is no evidence for pneumothorax.
-There is a thin oblique band of increased opacity in the lateral aspect of the left lower lung, which is likely discoid atelectasis.
-Overall cardiac silhouette size is within normal limits with no evidence for pulmonary edema. No significant pleural effusion is evident.
Prior GI Procedures:
EGD: Never
Colonoscopy:
02/21/2023: Flexible sigmoidoscopy, Dr. Simeon: Indication: abnormal CT of GI tract.
+extrinsic moderate stenosis measuring of unknown length x 6 mm (inner diameter) was found in the proximal sigmoid colon and was non-traversed. Diverticulosis.
08/31/2021: Colonoscopy, Dr. Simeon: Indication: high risk colon cancer surveillance (personal history of colon cancer), follow up of diverticulitis.
- Patent [id number] ileo-colonic anastomosis,
characterized by healthy appearing mucosa.
- Diverticulosis in the entire examined colon.
- The examination was otherwise normal.
04/29/2012: Colonoscopy, Dr. Carrillo: Indication: clinically significant diarrhea of unexplained origin
- Diverticulosis in the sigmoid colon.
- Diffuse mild inflammation was found in the sigmoid
colon secondary to colitis. Biopsied.
- The examination was otherwise normal.
- Several biopsies were obtained randomly.
Assessment / Plan
-
68 yo male with a history of recurrent stage 4 colon cancer, diagnosed initially in 2020 s/p right hemicolectomy and chemo with recurrence 02/2023 and now on chemotherapy, who presents to the hospital for heartburn and painful swallowing for the
past month. He states he feels pain in the lower chest/distal sternum any time he swallows - both food and liquids. The pain is described as a 'burning' discomfort, that does not radiate anywhere and without associated nausea, vomiting or abdominal
pain. No dysphagia or food sticking. No prior history of reflux. Symptoms progressively worsened over the past month, now with difficulty eating/drinking due to the pain and also complains of mouth sores. He was recently prescribed course of
steroids. He believes he has lost weight but is uncertain as he does not weigh himself at home. He tried multiple therapies - omeprazole, Nexium, Pepcid, carafate - all without any relief. Pt has never had an endoscopy. He does not smoke. He drinks
2 beers/day. He occasionally takes cannabis gummies, but denies other drug use. He does take NSAIDs - takes ibuprofen before and during hikes and states he has been hiking more recently. There is no family history of GI malignancies. He follows with
Oncology, Dr. Venegas, as well as Dr. Granger at [facility].
Labs reviewed: WBC on admission 16.1, down to 11.0 today; Hgb 10.1, MCV 96.7, MCH 32.9, platelets 161, PT 13.1, INR 1.02, Na 133, K 3.6, BUN 15, creatinine 0.9. His other medical history includes HTN, anxiety, depression, bipolar disorder, sciatica.
IMPRESSION / PLAN:
Odynophagia - suspect esophagitis, possible etiologies include ortega, HSV, CMV as he is immunosuppressed/on chemotherapy
-continue Protonix IV
-NPO
-will plan for endoscopy today for further evaluation
Colon Cancer, stage 4 recurrent, on chemo
-Followed by Oncology, Dr. Venegas and Dr. Granger
Chronic Constipation
-managed at home with stool softeners, Miralax
-continue bowel regimen while admitted
Other medical issues managed as per hospitalist.
-
-
Thank you for consultation and allowing me to participate in the patient's care. Please call the contact center assistant GI physician during the after hours with any questions or concerns.
[2023-08-16] MEDS: TOPROL XL PO (09:09)
[2023-08-16] MEDS: LAMICTAL 200 MG PO (09:12)
--- NOTE | 2023-08-16 18:19 | PTCARENOTE ---
pt arrived to unit at 1400 via stretcher from GI lab post endoscopy. Pt AAOx3, but drowsy from sedation, pulled over from stretcher to bed. VSS. NSS running. Admission and assessment completed.
[2023-08-16] MEDS: CARAFATE SUSPENSION 1 GM PO (21:26)
[2023-08-17] MEDS: NSS 1000 IV ×2 (01:08→10:20)
[2023-08-17 05:34] LABS: % Basophils 0.7 % (0-2); % Eosinophils 1.5 % (0-6); % Immature Granulocytes 2.2 % (0-0.5); % Lymphocytes 6.2 % (20.5-51.1); % Monocytes 7.8 % (1.7-9.3); % Neutrophils 81.6 % (42.2-75.2); Absolute Basophils 0.1 10^3/uL (0-0.2); Absolute Eosinophils 0.2 10^3/uL (0-0.7); Absolute Immature Granulocytes 0.3 10^3/uL (0-0.05); Absolute Lymphocytes 0.8 10^3/uL (1.2-3.4); Hematocrit 30.3 % (39.0-52.0); Hemoglobin 9.8 g/dL (13.0-18.0); Mean Corp Hgb Conc. 32.3 g/dL (33.0-37.0); Mean Platelet Volume 10.6 fL (7.4-10.4); Nucleated Red Blood Cells % 0 % (-); Platelet Count 158 10^3/uL (130-400); Red Blood Cell Count 3.06 10^6/uL (4.70-6.10); Red Cell Dist. Width 14.2 % (11.5-14.5); White Blood Cell Count 12.3 10^3/uL (4.8-10.8)
[2023-08-17 05:59] LABS: Blood Urea Nitrogen 8 mg/dl (9-20); Calcium 8.3 mg/dl (8.4-10.2); Carbon Dioxide 18 mmol/L (22-30); Chloride 107 mmol/L (98-107); Estimated Creatinine Clearance 86 ml/min; Glucose 86 mg/dl (70-99); Potassium 3.3 mmol/L (3.5-5.1); Sodium 133 mmol/L (135-145); eGFR > 60.00
[2023-08-17 06:52] VITALS: BMI 20.2
[2023-08-17 07:31] VITALS: BP 140/80
--- NOTE | 2023-08-17 08:40 | W.PN.HOSP.TC ---
Addendum entered and electronically signed by David Winkler MD 08/17/23 14:25:
Hyponatremia
Original Note:
Today's Communication/Plan
-
Continue current management.
Assessment / Plan
Assessment / Plan
Physical Exam
General: Other (68y M in no acute distress.)
HEENT: Moist mucous membranes and PERRLA
Respiratory: Clear; No Wheezes, Rales or Rhonchi
Cardiac: S1/S2 and Regular Rhythm; No Murmur
GI: Soft, Non Tender, Non Distended and Normal Bowel Sounds
Musculoskeletal: No Clubbing, No Cyanosis and No Edema
Neuro: AO x 3
EGD:
Normal oropharynx - no mucosal ulcerations and no
thrush. Not typical for mucositis
- Very few specks of white material in the proximal
esophagus. Doubt this is the cause of his odynophagia.
- Diffuse mid esophageal ulcers (more of a thick area
covered in exudate) with no bleeding and no stigmata
of recent bleeding. Biopsied for CMV/HSV - no deep
ulcerations.
- The mucosa in the proximal and distal esophagus are
normal.
- Small hiatal hernia.
- No gross lesions in the entire stomach.
- Normal examined duodenum.
A/P:
Esophagitis / Odynophagia
- Status post EGD yesterday
- Continue BID PPI, Carafate, etc.
- GI consult appreciated. Plan for upper endoscopy today
- On active chemo ? infectious etiology such as ortega, HSV, etc.
- Follow for any new / worsening symptoms.
-Stop IV fluids. Might restart if oral intake is poor
-GI advancing diet
Benign Hypertension
- Stable. Continue home med regimen.
Colon Cancer on Chemotherapy
Chronic Anemia
- Stable. Scheduled for last session of chemo to begin next week.
- Follow for changes in H&H / cell counts during stay.
- Follow-up with Oncology as an outpatient.
Anxiety / Depression
Insomnia
- Stable. Continue home med regimen.
DVT Prophylaxis: SCDs
Code Status: Full
Anticipated Discharge: 24 - 48 hours
Subjective/Interval History
-
Date of Service: August 17, 2023
Patient feels better but he has not tried eating yet. Afebrile
Objective Data
-
Labs:
Laboratory Results
08/17/23
05:25
WBC 12.3 H
Hgb 9.8 L
Hct 30.3 L
Plt Count 158
Sodium 133 L
Potassium 3.3 L
Chloride 107
Carbon Dioxide 18 L
BUN 8 L
Creatinine 0.7
Glucose 86
Calcium 8.3 L
Vital Signs:
Vital Signs
Temp Pulse Resp BP Pulse Ox
98 F 73 16 140/80 97
08/17/23 07:31 08/17/23 07:31 08/17/23 07:31 08/17/23 07:31 08/17/23 07:31
I&O
08/16/23 08/17/23 08/18/23
06:59 06:59 06:59
Intake Total 480 / 480
Balance 480 / 480
--- NOTE | 2023-08-17 09:20 | PN.CDI ---
CDI
- -
CDI:
Physician Documentation Request
Admit Date: 08/16/23 04:07
Dear Doctor Peterson,
Clinical Indicators:
Patient admitted with esophagitis; currently undergoing chemo for stage IV colon cancer.
NSS 1L bolus + maintenance fluids given.
Sodium levels:
08/15/23 08/16/23
21:13 05:39
Sodium 131 L 133 L
Based on the above, could you clarify in the progress notes, the appropriate diagnosis, if significant, that supports the above lab abnormalities and additional evaluation, monitoring and/or treatment rendered:
Hyponatremia
Abnormal lab values, clinically insignificant
Other, please specify
Use of terms such as suspected, likely, concern for, or probable (associated with a specific diagnosis that is being evaluated, monitored, or treated as if it exists) are acceptable and can be coded in the inpatient setting, when documented at the
time of discharge.
Thank you,
SINDY Cervantes RN
CDI Specialist
available via tiger text
Please use your independent medical judgment in providing your response.
[2023-08-17] MEDS: LAMICTAL 200 MG PO (10:18)
[2023-08-17] MEDS: KCL 40 MEQ PO ×2 (10:18→13:02)
[2023-08-17] MEDS: CARAFATE SUSPENSION 1 GM PO ×4 (10:18→21:43)
[2023-08-17] MEDS: XYLOCAINE VISCOUS CUP 15 ML PO ×3 (10:18→18:51)
[2023-08-17] MEDS: TOPROL XL 100 MG PO (10:19)
[2023-08-17] MEDS: PROTONIX IV 40 MG IV ×2 (10:20→20:03)
[2023-08-17] MEDS: NSS (PRESERVATIVE FREE) 10 ML IV ×2 (10:20→20:03)
--- NOTE | 2023-08-17 10:20 | W.PN.GI.CBS2 ---
Addendum entered and electronically signed by Caitlyn Girffin Do, MD 08/17/23 14:34:
I saw and examined the patient.
The INDUSTRIAL SERVICER's note was reviewed and I agree with the note.
Comment: He is tolerating some lunch but still with painful swallowing. Not much improved compared to prior to admission. Last chemo was . Exam NTTP, NABS, white tongue without exudates. Labs reviewed Hbg 9.8
Recommendations
- C/w PPI change to IV BID
- C/w carafate and viscous lidocaine
- C/w soft diet
- CT chest with contrast
- Await bx results.
Will folow with you
Addendum entered and electronically signed by ELIZABETH Vasquez 08/17/23 11:22:
K repletion ordered
Original Note:
Today's Communication / Plan
-
still with odynophagia with minimal oral intakes
s/p EGD as noted
await biopsy
wt down 8 kg since May
encouraged supplement use
remain on carafate QID, PPI BID and viscous lidocaine
cont Miralax PRN for constipation
discussed other medications and side effects
Pt asking fo med for headache -- continue Tylenol PRN as needed
Assessment / Plan
-
68 yo male with a history of recurrent stage 4 colon cancer, diagnosed initially in 2020 s/p right hemicolectomy and chemo with recurrence 02/2023 and now on chemotherapy, who presents to the hospital for heartburn and painful swallowing for the
past month. He states he feels pain in the lower chest/distal sternum any time he swallows - both food and liquids. The pain is described as a 'burning' discomfort, that does not radiate anywhere and without associated nausea, vomiting or abdominal
pain. No dysphagia or food sticking. No prior history of reflux. Symptoms progressively worsened over the past month, now with difficulty eating/drinking due to the pain and also complains of mouth sores. He was recently prescribed course of
steroids. He believes he has lost weight but is uncertain as he does not weigh himself at home. He tried multiple therapies - omeprazole, Nexium, Pepcid, carafate - all without any relief. Pt has never had an endoscopy. He does not smoke. He drinks
2 beers/day. He occasionally takes cannabis gummies, but denies other drug use. He does take NSAIDs - takes ibuprofen before and during hikes and states he has been hiking more recently. There is no family history of GI malignancies. He follows with
Oncology, Dr. Venegas, as well as Dr. Granger at [facility] [place].
His other medical history includes HTN, anxiety, depression, bipolar disorder, sciatica.
08/15 EGD with - Normal oropharynx - no mucosal ulcerations and no thrush. Not typical for mucositis
- Very few specks of white material in the proximal
esophagus. Doubt this is the cause of his odynophagia.
- Diffuse mid esophageal ulcers (more of a thick area
covered in exudate) with no bleeding and no stigmata
of recent bleeding. Biopsied for CMV/HSV - no deep
ulcerations.
- The mucosa in the proximal and distal esophagus are
normal.
- Small hiatal hernia.
- No gross lesions in the entire stomach.
- Normal examined duodenum
IMPRESSION / PLAN:
Odynophagia
EGD with esophageal ulcers
colon CA stable 4 recurrent on chemo
wt loss
constipation
PLAN:
still with odynophagia with minimal oral intakes
s/p EGD as noted
wt down 8 kg since May
encouraged supplement use
await biopsy
remain on carafate QID, PPI BID and viscous lidocaine
cont Miralax PRN for constipation
discussed other medications and side effects
Pt asking fo med for headache -- continue Tylenol PRN as needed
Subjective
Subjective
Date of Service: August 17, 2023
08/15 brown stool on IDDS6 diet but low intakes as still with odynophagia taking minimal water to drink
Objective
Data Reviewed
Laboratory Data:
Laboratory Results
08/17/23 05:25
08/17/23 05:25
Laboratory Results
Total Bilirubin 0.6 mg/dl (0.2-1.3) 08/15/23 21:13
AST 20 U/L (17-59) 08/15/23 21:13
ALT 13 U/L (0-50) 08/15/23 21:13
Alkaline Phosphatase 171 U/L (38-126) H 08/15/23 21:13
Vital Signs and I&O:
Vital Signs
Temp Pulse Resp BP Pulse Ox
98 F 73 16 140/80 97
08/17/23 07:31 08/17/23 07:31 08/17/23 07:31 08/17/23 07:31 08/17/23 07:31
I&O
08/16/23 08/17/23 08/18/23
06:59 06:59 06:59
Intake Total 480 / 480
Balance 480 / 480
Physical Exam
Physical Exam
HEENT: Anicteric, Moist mucous membranes and Other (crusting on lips)
Cardiology: Normal Sinus Rhythm
Pulmonary: Clear
GI: Soft, Non Distended and Non Tender
Extremities: No Edema
Neuro: Non Focal
[2023-08-17] MEDS: DILAUDID 0.5 MG IV ×2 (13:29→18:56)
[2023-08-17 13:42] VITALS: BMI 20.2
--- NOTE | 2023-08-17 13:57 | CM ---
Met with pt at bedside
Reports lives in a 2 story home with room mates
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
Recently receiving chemo for colon Ca
Denies DME in home, past SNF/HH
Has ride at d/c
PCP - Dr Leonardo Guillaume
Pharm - [facility]
Plan - anticipate home no needs
[2023-08-17 15:52] VITALS: BP 158/91
[2023-08-17] MEDS: REMERON 30 MG PO (21:43)
[2023-08-17 23:00] VITALS: BP 152/91
[2023-08-18 07:25] VITALS: BP 131/81
[2023-08-18 07:55] LABS: % Basophils 0.4 % (0-2); % Eosinophils 2.5 % (0-6); % Immature Granulocytes 1.6 % (0-0.5); % Lymphocytes 10.8 % (20.5-51.1); % Monocytes 8.1 % (1.7-9.3); % Neutrophils 76.6 % (42.2-75.2); Absolute Basophils 0.1 10^3/uL (0-0.2); Absolute Eosinophils 0.3 10^3/uL (0-0.7); Absolute Immature Granulocytes 0.2 10^3/uL (0-0.05); Absolute Lymphocytes 1.3 10^3/uL (1.2-3.4); Hematocrit 29.8 % (39.0-52.0); Hemoglobin 10.5 g/dL (13.0-18.0); Mean Corp Hgb Conc. 35.2 g/dL (33.0-37.0); Mean Corpuscular Hgb 33.2 pg (27.0-31.0); Mean Corpuscular Volume 94.3 fL (80.0-94.0); Mean Platelet Volume 10.5 fL (7.4-10.4); Nucleated Red Blood Cells % 0 % (-); Platelet Count 186 10^3/uL (130-400); Red Blood Cell Count 3.16 10^6/uL (4.70-6.10); Red Cell Dist. Width 14.1 % (11.5-14.5); White Blood Cell Count 11.8 10^3/uL (4.8-10.8)
[2023-08-18 08:12] LABS: Blood Urea Nitrogen 5 mg/dl (9-20); Calcium 8.6 mg/dl (8.4-10.2); Carbon Dioxide 22 mmol/L (22-30); Chloride 106 mmol/L (98-107); Estimated Creatinine Clearance 77 ml/min; Glucose 99 mg/dl (70-99); Potassium 3.7 mmol/L (3.5-5.1); Sodium 131 mmol/L (135-145); eGFR > 60.00
--- NOTE | 2023-08-18 08:40 | W.PN.HOSP.TC ---
Today's Communication/Plan
-
Advancing diet. CT of the chest.
Assessment / Plan
Assessment / Plan
Physical Exam
General: Other (68y M in no acute distress.)
HEENT: Moist mucous membranes and PERRLA
Respiratory: Clear; No Wheezes, Rales or Rhonchi
Cardiac: S1/S2 and Regular Rhythm; No Murmur
GI: Soft, Non Tender, Non Distended and Normal Bowel Sounds
Musculoskeletal: No Clubbing, No Cyanosis and No Edema
Neuro: AO x 3
EGD:
Normal oropharynx - no mucosal ulcerations and no
thrush. Not typical for mucositis
- Very few specks of white material in the proximal
esophagus. Doubt this is the cause of his odynophagia.
- Diffuse mid esophageal ulcers (more of a thick area
covered in exudate) with no bleeding and no stigmata
of recent bleeding. Biopsied for CMV/HSV - no deep
ulcerations.
- The mucosa in the proximal and distal esophagus are
normal.
- Small hiatal hernia.
- No gross lesions in the entire stomach.
- Normal examined duodenum.
A/P:
Esophagitis / Odynophagia
- Status post EGD and results as above
- Continue BID PPI, Carafate, etc.
- GI consult appreciated.
- On active chemo ? infectious etiology such as ortega, HSV, etc.
- Follow for any new / worsening symptoms.
-Stop IV fluids. Might restart if oral intake is poor
-GI advancing diet
-Plan for CT scan of the chest today
-If he tolerates diet possible discharge over the next 24 hours
-PT OT eval
Benign Hypertension
- Stable. Continue home med regimen.
Colon Cancer on Chemotherapy
Chronic Anemia
- Stable. Scheduled for last session of chemo to begin next week.
- Follow for changes in H&H / cell counts during stay.
- Follow-up with Oncology as an outpatient.
Anxiety / Depression
Insomnia
- Stable. Continue home med regimen.
DVT Prophylaxis: SCDs
Code Status: Full
Anticipated Discharge: Within 24 hours
Subjective/Interval History
-
Date of Service: August 18, 2023
Patient feels better but not quite as he would like to in terms of his oral intake. Afebrile
Objective Data
-
Labs:
Laboratory Results
08/18/23
07:34
WBC 11.8 H
Hgb 10.5 L
Hct 29.8 L
Plt Count 186
Sodium 131 L
Potassium 3.7
Chloride 106
Carbon Dioxide 22
BUN 5 L
Creatinine 0.8
Glucose 99
Calcium 8.6
Vital Signs:
Vital Signs
Temp Pulse Resp BP Pulse Ox
98 F 63 16 131/81 99
08/18/23 07:25 08/18/23 07:25 08/18/23 07:25 08/18/23 07:25 08/18/23 07:25
I&O
08/17/23 08/18/23 08/19/23
06:59 06:59 06:59
Intake Total 480 / 480
Balance 480 / 480
[2023-08-18] MEDS: TOPROL XL 100 MG PO (09:48)
[2023-08-18] MEDS: NSS (PRESERVATIVE FREE) 10 ML IV ×2 (09:49→20:11)
[2023-08-18] MEDS: LAMICTAL 200 MG PO (09:49)
[2023-08-18] MEDS: PROTONIX IV 40 MG IV ×2 (09:49→20:11)
[2023-08-18] MEDS: XYLOCAINE VISCOUS CUP 15 ML PO ×2 (09:49→17:33)
[2023-08-18] MEDS: CARAFATE SUSPENSION 1 GM PO ×3 (09:49→21:40)
[2023-08-18] MEDS: DILAUDID 0.5 MG IV ×2 (09:52→20:22)
--- NOTE | 2023-08-18 10:42 | W.PN.GI.CBS2 ---
Today's Communication / Plan
-
Tolerating soft diet
C/w PPI BID, carafate QID and viscous lidocaine PRN
Results of CT chest d/w pt --no mets or compression
Ok from GI perspective for hosp d/c with above regimen. Will arrange OP FU with Dr Krishnan and she will call with his path
Will sign off please call for questions
Assessment / Plan
-
68 yo male with a history of recurrent stage 4 colon cancer, diagnosed initially in 2020 s/p right hemicolectomy and chemo with recurrence 02/2023 and now on chemotherapy, who presents to the hospital for heartburn and painful swallowing for the
past month. He states he feels pain in the lower chest/distal sternum any time he swallows - both food and liquids. The pain is described as a 'burning' discomfort, that does not radiate anywhere and without associated nausea, vomiting or abdominal
pain. No dysphagia or food sticking. No prior history of reflux. Symptoms progressively worsened over the past month, now with difficulty eating/drinking due to the pain and also complains of mouth sores. He was recently prescribed course of
steroids. He believes he has lost weight but is uncertain as he does not weigh himself at home. He tried multiple therapies - omeprazole, Nexium, Pepcid, carafate - all without any relief. Pt has never had an endoscopy. He does not smoke. He drinks
2 beers/day. He occasionally takes cannabis gummies, but denies other drug use. He does take NSAIDs - takes ibuprofen before and during hikes and states he has been hiking more recently. There is no family history of GI malignancies. He follows with
Oncology, Dr. Venegas, as well as Dr. Granger at [facility].
His other medical history includes HTN, anxiety, depression, bipolar disorder, sciatica.
08/15 EGD with - Normal oropharynx - no mucosal ulcerations and no thrush. Not typical for mucositis
- Very few specks of white material in the proximal
esophagus. Doubt this is the cause of his odynophagia.
- Diffuse mid esophageal ulcers (more of a thick area
covered in exudate) with no bleeding and no stigmata
of recent bleeding. Biopsied for CMV/HSV - no deep
ulcerations.
- The mucosa in the proximal and distal esophagus are
normal.
- Small hiatal hernia.
- No gross lesions in the entire stomach.
- Normal examined duodenum
IMPRESSION:
Odynophagia
EGD with esophageal ulcers
colon CA stable 4 recurrent on chemo
wt loss
constipation
PLAN:
- C/w carafate QID, PPI BID and viscous lidocaine
- Results of CT chest neg for metastasis or compression on esophagus. Results d/w pt by me.
- At this juncture given tolerance of oral intake ok from GI perspective for hosp d/c
- Biopsies from EGD still pending. Dr Krishnan will call with results next week.
GI will sign off please call with questions
Subjective
Subjective
Date of Service: August 18, 2023
He continues to have some odynophagia. However ate mash potatoes and meatloaf. Tolerating liquids.
Objective
Data Reviewed
Laboratory Data:
Laboratory Results
08/18/23 07:34
08/18/23 07:34
Laboratory Results
Total Bilirubin 0.6 mg/dl (0.2-1.3) 08/15/23 21:13
AST 20 U/L (17-59) 08/15/23 21:13
ALT 13 U/L (0-50) 08/15/23 21:13
Alkaline Phosphatase 171 U/L (38-126) H 08/15/23 21:13
Vital Signs and I&O:
Vital Signs
Temp Pulse Resp BP Pulse Ox
98 F 63 16 131/81 99
08/18/23 07:25 08/18/23 07:25 08/18/23 07:25 08/18/23 07:25 08/18/23 07:25
I&O
08/17/23 08/18/23 08/19/23
06:59 06:59 06:59
Intake Total 480 / 480
Balance 480 / 480
Physical Exam
Physical Exam
GEN: No acute distress, conversant, pleasant
HEENT: anicteric, extraocular movements intact, clear oropharynx without exudates
GI: soft, non-distended, not tender to palpation, normal active bowel sounds, no hepatosplenomegaly
EXT: warm, well perfused, no edema bilaterally
NEURO: AAOx3, non-focal
[2023-08-18 15:26] VITALS: BP 143/88
[2023-08-18] MEDS: CARAFATE SUSPENSION PO (15:54)
[2023-08-18] MEDS: REMERON 30 MG PO (21:40)
[2023-08-18 23:35] VITALS: BP 122/72
[2023-08-19 05:48] LABS: % Basophils 1.2 % (0-2); % Eosinophils 2.3 % (0-6); % Immature Granulocytes 3.8 % (0-0.5); % Lymphocytes 12.5 % (20.5-51.1); % Monocytes 7.9 % (1.7-9.3); % Neutrophils 72.3 % (42.2-75.2); Absolute Basophils 0.2 10^3/uL (0-0.2); Absolute Eosinophils 0.3 10^3/uL (0-0.7); Absolute Immature Granulocytes 0.5 10^3/uL (0-0.05); Absolute Lymphocytes 1.6 10^3/uL (1.2-3.4); Absolute Neutrophils 9.1 10^3/uL (1.4-6.5); Hematocrit 29.4 % (39.0-52.0); Hemoglobin 10.1 g/dL (13.0-18.0); Mean Corp Hgb Conc. 34.4 g/dL (33.0-37.0); Mean Corpuscular Hgb 32.9 pg (27.0-31.0); Mean Corpuscular Volume 95.8 fL (80.0-94.0); Mean Platelet Volume 10.6 fL (7.4-10.4); Nucleated Red Blood Cells % 0 % (-); Platelet Count 201 10^3/uL (130-400); Red Blood Cell Count 3.07 10^6/uL (4.70-6.10); Red Cell Dist. Width 14.2 % (11.5-14.5); White Blood Cell Count 12.6 10^3/uL (4.8-10.8)
[2023-08-19 06:33] LABS: Blood Urea Nitrogen 6 mg/dl (9-20); Calcium 8.7 mg/dl (8.4-10.2); Carbon Dioxide 26 mmol/L (22-30); Chloride 102 mmol/L (98-107); Estimated Creatinine Clearance 69 ml/min; Glucose 84 mg/dl (70-99); Potassium 3.5 mmol/L (3.5-5.1); Sodium 132 mmol/L (135-145); eGFR > 60.00
[2023-08-19 07:37] VITALS: BP 123/61
[2023-08-19] MEDS: LAMICTAL 200 MG PO (08:16)
[2023-08-19] MEDS: PROTONIX IV 40 MG IV (08:17)
[2023-08-19] MEDS: CARAFATE SUSPENSION 1 GM PO ×2 (08:17→11:46)
[2023-08-19] MEDS: NSS (PRESERVATIVE FREE) 10 ML IV (08:18)
[2023-08-19] MEDS: TOPROL XL 100 MG PO (08:18)
--- NOTE | 2023-08-19 08:53 | W.PN.HOSP.TC ---
Addendum entered and electronically signed by David Winkler MD 08/20/23 21:23:
Moderate protein calorie malnutrition
Original Note:
Today's Communication/Plan
-
Discharge planning today.
Assessment / Plan
Assessment / Plan
Physical Exam
General: Other (68y M in no acute distress.)
HEENT: Moist mucous membranes and PERRLA
Respiratory: Clear; No Wheezes, Rales or Rhonchi
Cardiac: S1/S2 and Regular Rhythm; No Murmur
GI: Soft, Non Tender, Non Distended and Normal Bowel Sounds
Musculoskeletal: No Clubbing, No Cyanosis and No Edema
Neuro: AO x 3
EGD:
Normal oropharynx - no mucosal ulcerations and no
thrush. Not typical for mucositis
- Very few specks of white material in the proximal
esophagus. Doubt this is the cause of his odynophagia.
- Diffuse mid esophageal ulcers (more of a thick area
covered in exudate) with no bleeding and no stigmata
of recent bleeding. Biopsied for CMV/HSV - no deep
ulcerations.
- The mucosa in the proximal and distal esophagus are
normal.
- Small hiatal hernia.
- No gross lesions in the entire stomach.
- Normal examined duodenum.
A/P:
Esophagitis / Odynophagia
- Status post EGD and results as above
- Continue BID PPI, Carafate, etc.
- GI consult appreciated.
- On active chemo ? infectious etiology such as ortega, HSV, etc.
- Follow for any new / worsening symptoms.
-Stop IV fluids.
-GI advancing diet
-Plan for CT scan of the chest yesterday and unremarkable
-Tolerating diet so plan to discharge today
-PT OT eval
Benign Hypertension
- Stable. Continue home med regimen.
Colon Cancer on Chemotherapy
Chronic Anemia
- Stable. Scheduled for last session of chemo to begin next week.
- Follow for changes in H&H / cell counts during stay.
- Follow-up with Oncology as an outpatient.
Anxiety / Depression
Insomnia
- Stable. Continue home med regimen.
DVT Prophylaxis: SCDs
Code Status: Full
Anticipated Discharge: Today
Subjective/Interval History
-
Date of Service: August 19, 2023
He is able to tolerate food today. Afebrile
Objective Data
-
Labs:
Laboratory Results
08/19/23
05:28
WBC 12.6 H
Hgb 10.1 L
Hct 29.4 L
Plt Count 201
Sodium 132 L
Potassium 3.5
Chloride 102
Carbon Dioxide 26
BUN 6 L
Creatinine 0.9
Glucose 84
Calcium 8.7
Vital Signs:
Vital Signs
Temp Pulse Resp BP Pulse Ox
98 F 63 16 123/61 99
08/19/23 07:37 08/19/23 07:37 08/19/23 07:37 08/19/23 07:37 08/19/23 07:37
I&O
08/18/23 08/19/23 08/20/23
06:59 06:59 06:59
Intake Total 1800 / 1800
Balance 1800 / 1800
[2023-08-19] MEDS: XYLOCAINE VISCOUS CUP 15 ML PO (11:46)
--- NOTE | 2023-08-19 13:39 | W.DCSUMMARY ---
Discharge Summary
Discharge Data
Date of Admission: 08/16/23
Date of Discharge: 08/19/23
-
Pending Results: No
Hospital Course
Patient 68-year-old male with history of recurrent stage IV colon cancer status post right hemicolectomy and chemo with recurrence back on chemotherapy, hypertension, depression and anxiety, bipolar, sciatica, presented to the hospital with
significant odynophagia. Patient was unable to swallow well. GI was consulted. He was given IV fluids and kept NPO. He had an upper endoscopy on 08/15 and it showed normal oropharynx, very few specks of white material in the proximal esophagus
not to be related to his constipation and aphasia, mild mid esophageal ulcers with no bleeding and no stigmata of recent bleeding and status post biopsies for CMV/HSV but no deep ulcerations, and the mucosa in the proximal distal esophagus were
normal, also small hiatal hernia and no gross lesions in the entire stomach and normal duodenum. GI recommended PPI twice daily for a month and then once daily, sucralfate 4 times daily for a week, continue lidocaine orally, and follow-up for
pathology of esophageal biopsies. Patient was able to tolerate food. He improved substantially. GI cleared for discharge. He is going to be discharged in stable condition today.
Discharge duration: 35 minutes
Discharge Plan
-
Patient Disposition: Home (Routine Discharge)
Discharge Diagnosis/Procedures: Odynophagia. Esophageal ulcers. History of colon cancer.
Diet: Other diet
Additional Diets: Soft and bite-size as recommended by GI.
Activity: As tolerated
Driving Restrictions: As prior to admission
Blood Work: Please PCP to order CBC, BMP within 1 week.
Referrals:
Jacky Guillaume MD [Family Provider] - in less than 1 week
Priscilla Krishnan DO [Active] - (in 3-4wks for esophagitis)
Prescriptions:
New
sucralfate 100 mg/mL Suspension
1 g PO ACHS Qty: 1000 0RF
lidocaine HCl [Lidocaine Viscous] 2 % Solution
15 ml PO Q3HPRN PRN (Reason: odynophagia) Qty: 600 0RF
pantoprazole [Protonix] 40 mg tablet,delayed release (DR/EC)
40 mg PO BID Qty: 60 0RF
Continued
lamotrigine 100 MG tablet
200 mg PO DAILY
metoprolol succinate 100 MG tablet extended release 24 hr
100 mg PO DAILY
mirtazapine 30 mg Tablet
30 mg PO HS
doxylamine succinate 25 mg Tablet
25 mg PO HS
acetaminophen [Tylenol] 325 mg Capsule
650 mg PO Q6H PRN (Reason: mild pain)
dexamethasone 4 mg tablet
4 mg PO UD PRN (Reason: Nausea/Oncology)
Patient Comments:
Last chemo was 08/08
Rx Instructions:
take 1 tablet by mouth twice daily on days 2-4 after chemo
hydrocodone-acetaminophen 5-325 mg tablet
1 tab PO Q6H PRN (Reason: Pain)
dexamethasone 0.5 mg/5 mL solution
1 mg PO UD
Rx Instructions:
TAKE 10ML BY MOUTH 3 TIMES DAILY. HOLD SOLUTION IN MOUTH FOR 2 MINUTES, THEN SPIT OUT
modafinil 100 mg tablet
200 mg PO DAILYPRN PRN (Reason: Energy)
Patient Comments:
Patient takes when he needs energy for hiking
Discontinued
sucralfate 1 gram tablet
1 g PO ACHS
famotidine 20 mg Tablet
20 mg PO HS
omeprazole 20 mg Capsule,Delayed Release(Dr/Ec)
20 mg PO DAILY
Discharge Orders:
Discharge Patient (As Directed); Ordered 08/19/23
Ordered By: David Winkler
Discharge Date and Time
Discharge Date/Time: 08/19/23 15:30
Print Language: ANDORRAN
--- NOTE | 2023-08-20 11:36 | PN.CDI ---
CDI
- -
CDI:
Physician Documentation Request
Admit Date: 08/16/23 04:07
Dear Doctor Peterson,
Clinical Indicators:
Patient admitted with Esophagitis / Odynophagia; PMH includes stage IV colon cancer, currently undergoing chemotherapy.
08/16 RN note/assessment: -'Pt reports due to pain with swallowing poor intakes for 1 month with weight loss...
reflective of 13 lb (9%) in 3 months, significant.'
-'With weight loss of > 7.5% in 3 months and < 75% estimated needs > 1 month pt
meets AND/ASPEN criteria for moderate protein calorie malnutrition.'
Based on the information, which of the following most accurately represents the patient's nutritional status?
Moderate Protein Calorie Malnutrition
Mild Protein Calorie Malnutrition
Other (please specify)
[place] Criteria ([facility] Hospitalist 2017)
2 or more criteria must be present for either
non severe or severe malnutrition
Note that the criteria differs related to the
presence of an acute or chronic illness
Acute Illness Chronic Illness
Energy Intake Non Severe: <75% for >7 days Non Severe: <75% for >1 month
Severe: <50% for >5 days Severe: <75% for >1 month
Weight Loss Non Severe: 1-2% over 1 week Non Severe: 5% over 1 month
5% over 1 month 7.5% over 3 months
7.5% over 3 months 10% over 6 months
1 year N/A 20% over 1 year
Severe: >2% over 1 week Severe: >5% over 1 month
>5% over 1 month >7.5% over 3 months
>7.5% over 3 months >10% over 6 months
1 year N/A >20% over 1 year
Body Fat Non Severe: Mild Decrease Non Severe: Mild Loss
Severe: Moderate Decrease Severe: Severe Loss
Muscle Mass Non Severe: Mild Decrease Non Severe: Mild Loss
Severe: Moderate Decrease Severe: Severe Loss
Fluid Accumulation Non Severe: Mild Accumulation Non Severe: Mild Accumulation
Severe: Moderate to severe Severe: Moderate to severe
accumulation accumulation
Reduced Clinical Haematologist Strength Non Severe: N/A Non Severe: N/A
Severe: Measurably reduced Severe: Measurably reduced
Additional criteria that can be used to Determine if Mild or Moderate Malnutrition (Merck Manual 2018)
Mild Moderate Severe
Albumin gm/dl <3.0 gm/dl <2.5 gm/dl <2.0 gm/dl
Pre Albumin mg/dl <15 gm/dl <10 mg/dl <5.0 mg/dl
BMI <18.5 <17 <16
Use of terms such as suspected, likely, concern for, or probable (associated with a specific diagnosis that is being evaluated, monitored, or treated as if it exists) are acceptable and can be coded in the inpatient setting, when documented at the
time of discharge.
Thank you,
SINDY Cervantes RN
CDI Specialist
available via tiger text
Please use your independent medical judgment in providing your response.
== END 2023-08-19 15:30 | disposition home or self-care (01) | DRG 392 ==
LOC: 3 WEST ACU 04:07
PROVIDERS: Clinical Nurse Specialist Family Health; ADMITTING PHYSICIAN Hospitalist; ATTENDING PHYSICIAN Hospitalist; CONSULT PHYSICIAN Internal Medicine; EMERGENCY PHYSICIAN Emergency Medicine; FAMILY PHYSICIAN Internal Medicine; REFERRING PHYSICIAN Internal Medicine Hematology & Oncology
PROC: 0DB58ZX Excision of Esophagus, Via Natural or Artificial Opening Endoscopic, Diagnostic (ICD-10-PCS; 2023-08-16)
DX: K20.90 Esophagitis, unspecified without bleeding (principal); C18.9 Malignant neoplasm of colon, unspecified; E87.1 Hypo-osmolality and hyponatremia; E44.0 Moderate protein-calorie malnutrition; Z87.891 Personal history of nicotine dependence; I10 Essential (primary) hypertension; D64.9 Anemia, unspecified; F31.9 Bipolar disorder, unspecified; F51.05 Insomnia due to other mental disorder; F41.9 Anxiety disorder, unspecified; Z68.20 Body mass index [BMI] 20.0-20.9, adult; K44.9 Diaphragmatic hernia without obstruction or gangrene
CPT/HCPCS: 88305; 71260; 80048; 80053; 84484; 85025; 85027; 88342; 93005; 96361; 96374; 97165; 99284; Q9967

== ENCOUNTER → 2023-08-20 13:47 | Outpatient (REF) | payer MEDICARE, OTHER, SELFPAY ==
[2023-08-20 14:34] LABS: % Eosinophils 1.4 % (0-6); % Immature Granulocytes 4.7 % (0-0.5); % Lymphocytes 6.8 % (20.5-51.1); % Monocytes 6.5 % (1.7-9.3); % Neutrophils 79.6 % (42.2-75.2); Absolute Basophils 0.2 10^3/uL (0-0.2); Absolute Eosinophils 0.3 10^3/uL (0-0.7); Absolute Immature Granulocytes 0.8 10^3/uL (0-0.05); Absolute Lymphocytes 1.2 10^3/uL (1.2-3.4); Absolute Monocytes 1.1 10^3/uL (0.1-0.6); Absolute Neutrophils 13.7 10^3/uL (1.4-6.5); Hematocrit 32.6 % (39.0-52.0); Hemoglobin 10.8 g/dL (13.0-18.0); Mean Corp Hgb Conc. 33.1 g/dL (33.0-37.0); Mean Corpuscular Hgb 32.5 pg (27.0-31.0); Mean Corpuscular Volume 98.2 fL (80.0-94.0); Mean Platelet Volume 10.2 fL (7.4-10.4); Nucleated Red Blood Cells % 0.1 % (-); Platelet Count 237 10^3/uL (130-400); Red Blood Cell Count 3.32 10^6/uL (4.70-6.10); Red Cell Dist. Width 14.3 % (11.5-14.5); White Blood Cell Count 17.3 10^3/uL (4.8-10.8)
[2023-08-20 14:59] LABS: ALT (SGPT) 15 U/L (0-50); AST (SGOT) 24 U/L (17-59); Alkaline Phosphatase 153 U/L (38-126); Blood Urea Nitrogen 11 mg/dl (9-20); Calcium 9.2 mg/dl (8.4-10.2); Carbon Dioxide 28 mmol/L (22-30); Chloride 101 mmol/L (98-107); Glucose 97 mg/dl (70-99); Sodium 135 mmol/L (135-145); Total Bilirubin 0.3 mg/dl (0.2-1.3); Total Protein 6.3 g/dl (6.3-8.2); eGFR > 60.00
== END ==
LOC: REG 13:47
PROVIDERS: ATTENDING PHYSICIAN Internal Medicine Hematology & Oncology; FAMILY PHYSICIAN Internal Medicine
DX: C18.2 Malignant neoplasm of ascending colon (principal); D50.9 Iron deficiency anemia, unspecified; D69.3 Immune thrombocytopenic purpura
CPT/HCPCS: 36415; 80053; 85025

== ENCOUNTER → 2023-08-31 08:59 | Outpatient (REF) | payer MEDICARE, OTHER, SELFPAY | LOC: PET 08:59 | PROVIDERS: ATTENDING PHYSICIAN Internal Medicine Hematology & Oncology | DX: C18.2 Malignant neoplasm of ascending colon (principal) | CPT/HCPCS: 36415; 80053; 85025 ==

== ENCOUNTER → 2023-08-31 10:53 | Outpatient (REF) | payer MEDICARE, OTHER, SELFPAY ==
[2023-08-31 11:58] LABS: % Basophils 0.8 % (0-2); % Eosinophils 4.1 % (0-6); % Immature Granulocytes 0.4 % (0-0.5); % Lymphocytes 7.9 % (20.5-51.1); % Monocytes 6.1 % (1.7-9.3); % Neutrophils 80.7 % (42.2-75.2); Absolute Basophils 0.1 10^3/uL (0-0.2); Absolute Eosinophils 0.4 10^3/uL (0-0.7); Absolute Lymphocytes 0.7 10^3/uL (1.2-3.4); Absolute Monocytes 0.5 10^3/uL (0.1-0.6); Absolute Neutrophils 6.8 10^3/uL (1.4-6.5); Hematocrit 36.4 % (39.0-52.0); Hemoglobin 11.8 g/dL (13.0-18.0); Mean Corp Hgb Conc. 32.4 g/dL (33.0-37.0); Mean Corpuscular Hgb 31.6 pg (27.0-31.0); Mean Corpuscular Volume 97.3 fL (80.0-94.0); Mean Platelet Volume 10.4 fL (7.4-10.4); Nucleated Red Blood Cells % 0 % (-); Platelet Count 261 10^3/uL (130-400); Red Blood Cell Count 3.74 10^6/uL (4.70-6.10); Red Cell Dist. Width 14.4 % (11.5-14.5); White Blood Cell Count 8.5 10^3/uL (4.8-10.8)
[2023-08-31 12:33] LABS: ALT (SGPT) 15 U/L (0-50); AST (SGOT) 24 U/L (17-59); Albumin 3.9 g/dl (3.5-5.0); Alkaline Phosphatase 100 U/L (38-126); Blood Urea Nitrogen 12 mg/dl (9-20); Calcium 9.4 mg/dl (8.4-10.2); Carbon Dioxide 28 mmol/L (22-30); Chloride 102 mmol/L (98-107); Glucose 94 mg/dl (70-99); Potassium 4.3 mmol/L (3.5-5.1); Sodium 134 mmol/L (135-145); Total Bilirubin 0.4 mg/dl (0.2-1.3); Total Protein 6.2 g/dl (6.3-8.2); eGFR > 60.00
== END ==
LOC: REG 10:53
PROVIDERS: ATTENDING PHYSICIAN Internal Medicine Hematology & Oncology; FAMILY PHYSICIAN Internal Medicine
DX: C18.2 Malignant neoplasm of ascending colon (principal); D50.9 Iron deficiency anemia, unspecified; D69.3 Immune thrombocytopenic purpura
CPT/HCPCS: 36415; 80053; 85025

== ENCOUNTER → 2023-09-07 16:18 | Outpatient (REF) | payer MEDICARE, OTHER, SELFPAY ==
[2023-09-07 17:31] LABS: % Basophils 2.1 % (0-2); % Eosinophils 7.2 % (0-6); % Immature Granulocytes 0.3 % (0-0.5); % Monocytes 14.1 % (1.7-9.3); % Neutrophils 59.3 % (42.2-75.2); Absolute Basophils 0.1 10^3/uL (0-0.2); Absolute Eosinophils 0.3 10^3/uL (0-0.7); Absolute Lymphocytes 0.6 10^3/uL (1.2-3.4); Absolute Monocytes 0.5 10^3/uL (0.1-0.6); Absolute Neutrophils 2.2 10^3/uL (1.4-6.5); Hematocrit 33.7 % (39.0-52.0); Hemoglobin 11.2 g/dL (13.0-18.0); Mean Corp Hgb Conc. 33.2 g/dL (33.0-37.0); Mean Corpuscular Hgb 32.3 pg (27.0-31.0); Mean Corpuscular Volume 97.1 fL (80.0-94.0); Mean Platelet Volume 10.7 fL (7.4-10.4); Nucleated Red Blood Cells % 0 % (-); Platelet Count 251 10^3/uL (130-400); Red Blood Cell Count 3.47 10^6/uL (4.70-6.10); Red Cell Dist. Width 14.3 % (11.5-14.5); White Blood Cell Count 3.8 10^3/uL (4.8-10.8)
[2023-09-07 17:55] LABS: ALT (SGPT) 13 U/L (0-50); AST (SGOT) 23 U/L (17-59); Albumin 3.8 g/dl (3.5-5.0); Alkaline Phosphatase 95 U/L (38-126); Blood Urea Nitrogen 16 mg/dl (9-20); Calcium 9.4 mg/dl (8.4-10.2); Carbon Dioxide 29 mmol/L (22-30); Chloride 99 mmol/L (98-107); Glucose 91 mg/dl (70-99); Potassium 5.4 mmol/L (3.5-5.1); Sodium 132 mmol/L (135-145); Total Bilirubin 0.5 mg/dl (0.2-1.3); Total Protein 6.2 g/dl (6.3-8.2); eGFR 51.03
== END ==
LOC: REG 16:18
PROVIDERS: ATTENDING PHYSICIAN Internal Medicine Hematology & Oncology; FAMILY PHYSICIAN Internal Medicine
DX: C18.2 Malignant neoplasm of ascending colon (principal); D50.9 Iron deficiency anemia, unspecified; D69.3 Immune thrombocytopenic purpura
CPT/HCPCS: 36415; 80053; 85025

== ENCOUNTER → 2023-09-10 13:54 | Outpatient (REF) | payer MEDICARE, OTHER, SELFPAY ==
[2023-09-10 13:30] LABS: % Basophils 2.4 % (0-2); % Eosinophils 10.9 % (0-6); % Immature Granulocytes 0.2 % (0-0.5); % Lymphocytes 12.1 % (20.5-51.1); % Monocytes 11.1 % (1.7-9.3); % Neutrophils 63.3 % (42.2-75.2); Absolute Basophils 0.1 10^3/uL (0-0.2); Absolute Eosinophils 0.5 10^3/uL (0-0.7); Absolute Lymphocytes 0.5 10^3/uL (1.2-3.4); Absolute Monocytes 0.5 10^3/uL (0.1-0.6); Absolute Neutrophils 2.6 10^3/uL (1.4-6.5); Hemoglobin 11.2 g/dL (13.0-18.0); Mean Corpuscular Hgb 31.7 pg (27.0-31.0); Mean Corpuscular Volume 99.2 fL (80.0-94.0); Mean Platelet Volume 10.6 fL (7.4-10.4); Nucleated Red Blood Cells % 0 % (-); Platelet Count 223 10^3/uL (130-400); Red Blood Cell Count 3.53 10^6/uL (4.70-6.10); White Blood Cell Count 4.1 10^3/uL (4.8-10.8)
[2023-09-10 13:53] LABS: ALT (SGPT) 10 U/L (0-50); AST (SGOT) 22 U/L (17-59); Albumin 3.6 g/dl (3.5-5.0); Alkaline Phosphatase 103 U/L (38-126); Blood Urea Nitrogen 16 mg/dl (9-20); Calcium 9.5 mg/dl (8.4-10.2); Carbon Dioxide 25 mmol/L (22-30); Chloride 103 mmol/L (98-107); Glucose 121 mg/dl (70-99); Sodium 134 mmol/L (135-145); Total Bilirubin 0.4 mg/dl (0.2-1.3); eGFR > 60.00
[2023-09-10 14:16] LABS: Protein/creatinine Ratio 0.1; Urine Protein 12 mg/dl
== END ==
LOC: OIDL 13:54
PROVIDERS: ATTENDING PHYSICIAN Nurse Practitioner Adult Health
DX: C18.2 Malignant neoplasm of ascending colon (principal); D50.9 Iron deficiency anemia, unspecified; D69.3 Immune thrombocytopenic purpura; K12.31 Oral mucositis (ulcerative) due to antineoplastic therapy
CPT/HCPCS: 80053; 82570; 84156; 85025

== ENCOUNTER → 2023-09-24 12:07 | Outpatient (REF) | payer MEDICARE, OTHER, SELFPAY ==
[2023-09-24 12:45] LABS: % Basophils 1.7 % (0-2); % Eosinophils 6.2 % (0-6); % Immature Granulocytes 0.4 % (0-0.5); % Monocytes 9.6 % (1.7-9.3); % Neutrophils 62.1 % (42.2-75.2); Absolute Basophils 0.1 10^3/uL (0-0.2); Absolute Eosinophils 0.3 10^3/uL (0-0.7); Absolute Lymphocytes 0.9 10^3/uL (1.2-3.4); Absolute Monocytes 0.5 10^3/uL (0.1-0.6); Absolute Neutrophils 2.9 10^3/uL (1.4-6.5); Hematocrit 41.6 % (39.0-52.0); Hemoglobin 13.5 g/dL (13.0-18.0); Mean Corp Hgb Conc. 32.5 g/dL (33.0-37.0); Mean Corpuscular Volume 98.6 fL (80.0-94.0); Mean Platelet Volume 10.2 fL (7.4-10.4); Nucleated Red Blood Cells % 0 % (-); Platelet Count 192 10^3/uL (130-400); Red Blood Cell Count 4.22 10^6/uL (4.70-6.10); White Blood Cell Count 4.7 10^3/uL (4.8-10.8)
[2023-09-24 12:58] LABS: ALT (SGPT) 14 U/L (0-50); AST (SGOT) 25 U/L (17-59); Albumin 4.2 g/dl (3.5-5.0); Alkaline Phosphatase 99 U/L (38-126); Blood Urea Nitrogen 13 mg/dl (9-20); Calcium 9.7 mg/dl (8.4-10.2); Carbon Dioxide 27 mmol/L (22-30); Chloride 101 mmol/L (98-107); Glucose 103 mg/dl (70-99); Potassium 4.5 mmol/L (3.5-5.1); Sodium 137 mmol/L (135-145); Total Bilirubin 0.6 mg/dl (0.2-1.3); Total Protein 6.8 g/dl (6.3-8.2); eGFR > 60.00
== END ==
LOC: REG 12:07
PROVIDERS: ATTENDING PHYSICIAN Internal Medicine Hematology & Oncology; FAMILY PHYSICIAN Internal Medicine
DX: C18.2 Malignant neoplasm of ascending colon (principal); D50.9 Iron deficiency anemia, unspecified; D69.3 Immune thrombocytopenic purpura
CPT/HCPCS: 36415; 80053; 85025

== ENCOUNTER → 2023-10-09 13:52 | Outpatient (REF) | payer MEDICARE, OTHER, SELFPAY ==
[2023-10-09 13:55] LABS: % Basophils 0.9 % (0-2); % Eosinophils 10.1 % (0-6); % Lymphocytes 24.9 % (20.5-51.1); % Monocytes 7.8 % (1.7-9.3); % Neutrophils 56.3 % (42.2-75.2); Absolute Eosinophils 0.4 10^3/uL (0-0.7); Absolute Lymphocytes 0.9 10^3/uL (1.2-3.4); Absolute Monocytes 0.3 10^3/uL (0.1-0.6); Hematocrit 39.1 % (39.0-52.0); Hemoglobin 13.3 g/dL (13.0-18.0); Mean Corpuscular Hgb 32.1 pg (27.0-31.0); Mean Corpuscular Volume 94.4 fL (80.0-94.0); Mean Platelet Volume 9.8 fL (7.4-10.4); Platelet Count 198 10^3/uL (130-400); Red Blood Cell Count 4.14 10^6/uL (4.70-6.10); Red Cell Dist. Width 12.1 % (11.5-14.5); White Blood Cell Count 3.5 10^3/uL (4.8-10.8)
[2023-10-09 16:05] LABS: Protein/creatinine Ratio 0.1; Urine Protein 13 mg/dl
== END ==
LOC: OIDL 13:52
PROVIDERS: ATTENDING PHYSICIAN Internal Medicine Hematology & Oncology
DX: C18.2 Malignant neoplasm of ascending colon (principal)
CPT/HCPCS: 82570; 84156; 85025

== ENCOUNTER → 2023-10-22 13:45 | Outpatient (REF) | payer MEDICARE, OTHER, SELFPAY ==
[2023-10-22 14:58] LABS: % Basophils 0.8 % (0-2); % Eosinophils 5.4 % (0-6); % Immature Granulocytes 0.3 % (0-0.5); % Lymphocytes 25.1 % (20.5-51.1); % Neutrophils 59.4 % (42.2-75.2); Absolute Eosinophils 0.2 10^3/uL (0-0.7); Absolute Lymphocytes 0.9 10^3/uL (1.2-3.4); Absolute Monocytes 0.3 10^3/uL (0.1-0.6); Absolute Neutrophils 2.2 10^3/uL (1.4-6.5); Hematocrit 39.8 % (39.0-52.0); Hemoglobin 13.7 g/dL (13.0-18.0); Mean Corp Hgb Conc. 34.4 g/dL (33.0-37.0); Mean Corpuscular Hgb 31.4 pg (27.0-31.0); Mean Corpuscular Volume 91.1 fL (80.0-94.0); Nucleated Red Blood Cells % 0 % (-); Platelet Count 185 10^3/uL (130-400); Red Blood Cell Count 4.37 10^6/uL (4.70-6.10); Red Cell Dist. Width 12.1 % (11.5-14.5); White Blood Cell Count 3.7 10^3/uL (4.8-10.8)
[2023-10-22 15:23] LABS: ALT (SGPT) 15 U/L (0-50); AST (SGOT) 35 U/L (17-59); Alkaline Phosphatase 120 U/L (38-126); Blood Urea Nitrogen 22 mg/dl (9-20); Calcium 9.5 mg/dl (8.4-10.2); Carbon Dioxide 29 mmol/L (22-30); Chloride 102 mmol/L (98-107); Glucose 123 mg/dl (70-99); Sodium 137 mmol/L (135-145); Total Bilirubin 0.5 mg/dl (0.2-1.3); Total Protein 6.9 g/dl (6.3-8.2); eGFR > 60.00
== END ==
LOC: REG 13:45
PROVIDERS: ATTENDING PHYSICIAN Internal Medicine Hematology & Oncology
DX: C18.2 Malignant neoplasm of ascending colon (principal); D50.9 Iron deficiency anemia, unspecified; D69.3 Immune thrombocytopenic purpura
CPT/HCPCS: 36415; 80053; 85025

== ENCOUNTER → 2023-11-05 10:49 | Outpatient (REF) | payer MEDICARE, OTHER, SELFPAY ==
[2023-11-05 11:29] LABS: % Basophils 0.4 % (0-2); % Eosinophils 5.1 % (0-6); % Immature Granulocytes 0.2 % (0-0.5); % Lymphocytes 24.9 % (20.5-51.1); % Neutrophils 61.4 % (42.2-75.2); Absolute Eosinophils 0.2 10^3/uL (0-0.7); Absolute Lymphocytes 1.2 10^3/uL (1.2-3.4); Absolute Monocytes 0.4 10^3/uL (0.1-0.6); Absolute Neutrophils 2.9 10^3/uL (1.4-6.5); Hematocrit 38.4 % (39.0-52.0); Hemoglobin 12.8 g/dL (13.0-18.0); Mean Corp Hgb Conc. 33.3 g/dL (33.0-37.0); Mean Corpuscular Hgb 31.1 pg (27.0-31.0); Mean Corpuscular Volume 93.4 fL (80.0-94.0); Mean Platelet Volume 11.4 fL (7.4-10.4); Nucleated Red Blood Cells % 0 % (-); Platelet Count 176 10^3/uL (130-400); Red Blood Cell Count 4.11 10^6/uL (4.70-6.10); Red Cell Dist. Width 11.7 % (11.5-14.5); White Blood Cell Count 4.7 10^3/uL (4.8-10.8)
[2023-11-05 11:55] LABS: ALT (SGPT) 30 U/L (0-50); AST (SGOT) 47 U/L (17-59); Albumin 3.9 g/dl (3.5-5.0); Alkaline Phosphatase 148 U/L (38-126); Blood Urea Nitrogen 16 mg/dl (9-20); Calcium 9.5 mg/dl (8.4-10.2); Carbon Dioxide 25 mmol/L (22-30); Chloride 103 mmol/L (98-107); Glucose 82 mg/dl (70-99); Potassium 4.9 mmol/L (3.5-5.1); Sodium 137 mmol/L (135-145); Total Bilirubin 0.4 mg/dl (0.2-1.3); Total Protein 6.3 g/dl (6.3-8.2); eGFR > 60.00
== END ==
LOC: REG 10:49
PROVIDERS: ATTENDING PHYSICIAN Internal Medicine Hematology & Oncology
DX: C18.2 Malignant neoplasm of ascending colon (principal); D50.9 Iron deficiency anemia, unspecified; D69.3 Immune thrombocytopenic purpura; K12.31 Oral mucositis (ulcerative) due to antineoplastic therapy; E87.6 Hypokalemia; K21.9 Gastro-esophageal reflux disease without esophagitis; M54.32 Sciatica, left side
CPT/HCPCS: 36415; 80053; 85025

== ENCOUNTER → 2023-11-12 14:05 | Outpatient (REF) | payer MEDICARE, OTHER, SELFPAY | LOC: RAD 14:05 | PROVIDERS: ATTENDING PHYSICIAN Internal Medicine Hematology & Oncology; FAMILY PHYSICIAN Internal Medicine | DX: C18.2 Malignant neoplasm of ascending colon (principal); D69.3 Immune thrombocytopenic purpura; K12.31 Oral mucositis (ulcerative) due to antineoplastic therapy; E87.6 Hypokalemia; M54.32 Sciatica, left side | CPT/HCPCS: 71260; 74177; Q9967 ==

== ENCOUNTER → 2023-11-19 11:42 | Outpatient (REF) | payer MEDICARE, OTHER, SELFPAY ==
[2023-11-19 13:20] LABS: % Basophils 0.9 % (0-2); % Eosinophils 4.5 % (0-6); % Immature Granulocytes 0.3 % (0-0.5); % Lymphocytes 23.5 % (20.5-51.1); % Monocytes 11.9 % (1.7-9.3); % Neutrophils 58.9 % (42.2-75.2); Absolute Eosinophils 0.2 10^3/uL (0-0.7); Absolute Lymphocytes 0.8 10^3/uL (1.2-3.4); Absolute Monocytes 0.4 10^3/uL (0.1-0.6); Hematocrit 39.5 % (39.0-52.0); Hemoglobin 13.7 g/dL (13.0-18.0); Mean Corp Hgb Conc. 34.7 g/dL (33.0-37.0); Mean Corpuscular Hgb 31.9 pg (27.0-31.0); Mean Corpuscular Volume 91.9 fL (80.0-94.0); Mean Platelet Volume 11.4 fL (7.4-10.4); Nucleated Red Blood Cells % 0 % (-); Platelet Count 181 10^3/uL (130-400); Red Cell Dist. Width 12.6 % (11.5-14.5); White Blood Cell Count 3.4 10^3/uL (4.8-10.8)
[2023-11-19 13:22] LABS: ALT (SGPT) 34 U/L (0-50); AST (SGOT) 45 U/L (17-59); Albumin 3.9 g/dl (3.5-5.0); Alkaline Phosphatase 94 U/L (38-126); Blood Urea Nitrogen 12 mg/dl (9-20); Calcium 9.3 mg/dl (8.4-10.2); Carbon Dioxide 28 mmol/L (22-30); Chloride 103 mmol/L (98-107); Glucose 98 mg/dl (70-99); Potassium 4.9 mmol/L (3.5-5.1); Sodium 137 mmol/L (135-145); Total Bilirubin 0.5 mg/dl (0.2-1.3); Total Protein 6.3 g/dl (6.3-8.2); eGFR > 60.00
[2023-11-19 14:51] LABS: Protein/creatinine Ratio 0.1; Urine Protein 25 mg/dl
== END ==
LOC: REG 11:42
PROVIDERS: ATTENDING PHYSICIAN Internal Medicine Hematology & Oncology; FAMILY PHYSICIAN Internal Medicine
DX: C18.2 Malignant neoplasm of ascending colon (principal); D50.9 Iron deficiency anemia, unspecified; D69.3 Immune thrombocytopenic purpura; K12.31 Oral mucositis (ulcerative) due to antineoplastic therapy; E87.6 Hypokalemia; K21.9 Gastro-esophageal reflux disease without esophagitis; M54.32 Sciatica, left side
CPT/HCPCS: 36415; 80053; 82570; 84156; 85025

== ENCOUNTER → 2023-11-21 15:49 | Outpatient (REF) | payer MEDICARE, OTHER, SELFPAY | LOC: REG 15:49 | PROVIDERS: ATTENDING PHYSICIAN Nurse Practitioner | DX: R19.7 Diarrhea, unspecified (principal); A04.72 Enterocolitis due to Clostridium difficile, not specified as recurrent; C18.0 Malignant neoplasm of cecum | CPT/HCPCS: 87045; 87046; 87077; 87177; 87209; 87324; 87328; 87329; 87427; 87449; 89055 ==

== ENCOUNTER → 2023-12-03 13:15 | Outpatient (REF) | payer MEDICARE, OTHER, SELFPAY ==
[2023-12-03 14:23] LABS: Protein/creatinine Ratio 0.1; Urine Protein 10 mg/dl
[2023-12-03 14:28] LABS: % Basophils 0.9 % (0-2); % Eosinophils 4.7 % (0-6); % Immature Granulocytes 0.2 % (0-0.5); % Lymphocytes 19.7 % (20.5-51.1); % Monocytes 9.5 % (1.7-9.3); Absolute Eosinophils 0.2 10^3/uL (0-0.7); Absolute Lymphocytes 0.9 10^3/uL (1.2-3.4); Absolute Monocytes 0.4 10^3/uL (0.1-0.6); Absolute Neutrophils 2.9 10^3/uL (1.4-6.5); Hematocrit 36.9 % (39.0-52.0); Hemoglobin 12.9 g/dL (13.0-18.0); Mean Corpuscular Hgb 31.7 pg (27.0-31.0); Mean Corpuscular Volume 90.7 fL (80.0-94.0); Mean Platelet Volume 11.7 fL (7.4-10.4); Nucleated Red Blood Cells % 0 % (-); Platelet Count 198 10^3/uL (130-400); Red Blood Cell Count 4.07 10^6/uL (4.70-6.10); White Blood Cell Count 4.5 10^3/uL (4.8-10.8)
[2023-12-03 14:53] LABS: ALT (SGPT) 17 U/L (0-50); AST (SGOT) 31 U/L (17-59); Alkaline Phosphatase 114 U/L (38-126); Blood Urea Nitrogen 13 mg/dl (9-20); Calcium 9.4 mg/dl (8.4-10.2); Carbon Dioxide 25 mmol/L (22-30); Chloride 103 mmol/L (98-107); Glucose 110 mg/dl (70-99); Sodium 135 mmol/L (135-145); Total Bilirubin 0.5 mg/dl (0.2-1.3); Total Protein 6.4 g/dl (6.3-8.2); eGFR > 60.00
== END ==
LOC: REG 13:15
PROVIDERS: ATTENDING PHYSICIAN Internal Medicine Hematology & Oncology; FAMILY PHYSICIAN Internal Medicine
DX: C18.2 Malignant neoplasm of ascending colon (principal); D50.9 Iron deficiency anemia, unspecified; D69.3 Immune thrombocytopenic purpura; K12.31 Oral mucositis (ulcerative) due to antineoplastic therapy; E87.6 Hypokalemia; K21.9 Gastro-esophageal reflux disease without esophagitis; M54.32 Sciatica, left side
CPT/HCPCS: 36415; 80053; 82570; 84156; 85025

== ENCOUNTER → 2023-12-17 10:38 | Outpatient (REF) | payer MEDICARE, OTHER, SELFPAY ==
[2023-12-17 13:05] LABS: % Basophils 1.1 % (0-2); % Eosinophils 7.2 % (0-6); % Immature Granulocytes 0.6 % (0-0.5); % Lymphocytes 16.7 % (20.5-51.1); % Monocytes 9.2 % (1.7-9.3); % Neutrophils 65.2 % (42.2-75.2); Absolute Basophils 0.1 10^3/uL (0-0.2); Absolute Eosinophils 0.4 10^3/uL (0-0.7); Absolute Lymphocytes 0.9 10^3/uL (1.2-3.4); Absolute Monocytes 0.5 10^3/uL (0.1-0.6); Absolute Neutrophils 3.6 10^3/uL (1.4-6.5); Hematocrit 38.8 % (39.0-52.0); Hemoglobin 13.1 g/dL (13.0-18.0); Mean Corp Hgb Conc. 33.8 g/dL (33.0-37.0); Mean Corpuscular Hgb 31.8 pg (27.0-31.0); Mean Corpuscular Volume 94.2 fL (80.0-94.0); Mean Platelet Volume 11.3 fL (7.4-10.4); Nucleated Red Blood Cells % 0 % (-); Platelet Count 187 10^3/uL (130-400); Red Blood Cell Count 4.12 10^6/uL (4.70-6.10); Red Cell Dist. Width 13.5 % (11.5-14.5); White Blood Cell Count 5.5 10^3/uL (4.8-10.8)
[2023-12-17 13:41] LABS: ALT (SGPT) 15 U/L (0-50); AST (SGOT) 30 U/L (17-59); Albumin 4.1 g/dl (3.5-5.0); Alkaline Phosphatase 114 U/L (38-126); Blood Urea Nitrogen 13 mg/dl (9-20); Calcium 9.3 mg/dl (8.4-10.2); Carbon Dioxide 26 mmol/L (22-30); Chloride 99 mmol/L (98-107); Glucose 97 mg/dl (70-99); Potassium 5.3 mmol/L (3.5-5.1); Sodium 134 mmol/L (135-145); Total Protein 6.6 g/dl (6.3-8.2); eGFR > 60.00
[2023-12-17 14:00] LABS: Total Bilirubin 0.5 mg/dl (0.2-1.3)
[2023-12-17 14:09] LABS: Protein/creatinine Ratio 0.2; Urine Protein 14 mg/dl
== END ==
LOC: REG 10:38
PROVIDERS: ATTENDING PHYSICIAN Internal Medicine Hematology & Oncology; FAMILY PHYSICIAN Internal Medicine
DX: C18.2 Malignant neoplasm of ascending colon (principal); D50.9 Iron deficiency anemia, unspecified; D69.3 Immune thrombocytopenic purpura; K12.31 Oral mucositis (ulcerative) due to antineoplastic therapy; E87.6 Hypokalemia; K21.9 Gastro-esophageal reflux disease without esophagitis; M54.32 Sciatica, left side
CPT/HCPCS: 36415; 80053; 82570; 84156; 85025

== ENCOUNTER → 2024-04-07 15:37 | Outpatient (REF) | payer MEDICARE, OTHER, SELFPAY ==
[2024-04-07 17:10] LABS: % Basophils 0.8 % (0-2); % Eosinophils 2.8 % (0-6); % Immature Granulocytes 0.4 % (0-0.5); % Lymphocytes 8.5 % (20.5-51.1); % Monocytes 9.8 % (1.7-9.3); % Neutrophils 77.7 % (42.2-75.2); Absolute Basophils 0.1 10^3/uL (0-0.2); Absolute Eosinophils 0.4 10^3/uL (0-0.7); Absolute Immature Granulocytes 0.1 10^3/uL (0-0.05); Absolute Lymphocytes 1.1 10^3/uL (1.2-3.4); Absolute Monocytes 1.3 10^3/uL (0.1-0.6); Absolute Neutrophils 10.1 10^3/uL (1.4-6.5); Hematocrit 31.1 % (39.0-52.0); Hemoglobin 10.1 g/dL (13.0-18.0); Mean Corp Hgb Conc. 32.5 g/dL (33.0-37.0); Mean Corpuscular Volume 98.4 fL (80.0-94.0); Nucleated Red Blood Cells % 0.2 % (-); Red Blood Cell Count 3.16 10^6/uL (4.70-6.10); Red Cell Dist. Width 15.5 % (11.5-14.5)
[2024-04-07 17:13] LABS: ALT (SGPT) 16 U/L (0-50); AST (SGOT) 25 U/L (17-59); Albumin 3.4 g/dl (3.5-5.0); Alkaline Phosphatase 348 U/L (38-126); Blood Urea Nitrogen 27 mg/dl (9-20); Calcium 9.6 mg/dl (8.4-10.2); Carbon Dioxide 20 mmol/L (22-30); Chloride 99 mmol/L (98-107); Glucose 139 mg/dl (70-99); Potassium 4.6 mmol/L (3.5-5.1); Sodium 135 mmol/L (135-145); Total Bilirubin 0.4 mg/dl (0.2-1.3); Total Protein 7.1 g/dl (6.3-8.2); eGFR > 60.00
[2024-04-07 18:04] LABS: Mean Platelet Volume 9.7 fL (7.4-10.4)
[2024-04-07 18:05] LABS: Normal RBC Morphology No; Platelet Count 687 10^3/uL (130-400)
[2024-04-07 18:06] LABS: Anisocytosis 1+; Macrocytosis 1+; Target Cells 1+
[2024-04-07 18:07] LABS: Howell Jolly Bodies 1+; Hypochromasia 2+
== END ==
LOC: RAD 15:37
PROVIDERS: ATTENDING PHYSICIAN Hospitalist
DX: J90 Pleural effusion, not elsewhere classified (principal); R53.1 Weakness; R62.7 Adult failure to thrive; R31.0 Gross hematuria
CPT/HCPCS: 36415; 71046; 80053; 85025

== ENCOUNTER 2024-04-24 18:37 | Inpatient (IN) | payer MEDICARE, OTHER, SELFPAY ==
[2024-04-24 18:41] VITALS: BP 141/94
--- NOTE | 2024-04-24 18:50 | PTCARENOTE ---
pt arrived on unit via ambulance stretcher. On 2L, VS WNL. Pt oriented to unit and placed on tele. call crouch within reach. will continue to monitor.
[2024-04-24 19:02] VITALS: BP 141/94
--- NOTE | 2024-04-24 19:27 | HPS.HSE ---
Addendum entered and electronically signed by Eloise Dow MD 04/28/24 07:10:
Underweight
-dietary consult
Original Note:
Family Physician
-
Family Physician: INTERVIEWE UNKNOWN - PT NOT
Chief Complaint
-
shortness of breath
History of Present Illness
Mr. Gavin Blanton is a 68 yo man with hx stage IV colon cancer s/p right hemicolectomy and chemotherapy (2020) with recurrence s/p chemothereapy and surgery 8 weeks ago complicated by abscess s/p 2 week hospitalization at [facility] presented to
[facility] ER yesterday evening complaining of shortness of breath.
At presentation patient afebrile, BP 104/68, RR 18, tachycardic. SpO2 85% on RA, placed on 3L Labs with WBC 12.4, Hg 8.8, PLT 562. EKG with aflutter and variable AV block. covid and Flu negative
CTA Chest without e/o PE (limited evaluation of some of the subsegmental pulmonary artery divisions), small to moderate bilateral pleural effusions with interstitial thickening and cardiomegaly suggest pulmonary edema, bibasilar dependent
consolidation consider atelectasis versus pneumonia.
Patient was given Levaquin 750mg for PNA.
Patient reports progressive shortness of breath occurring yesterday evening prompting ER visit. States he feels better now on oxygen. Denies cough or congestion. He had dry heaves. No fevers/chills. + normal ostomy output. Chronic abdominal
pain post surgery. Denies chest pain.
Medical History
Past Medical History
Past Medical History: Reports Other
Additional Past Medical History:
Colon Cancer with Recurrence
Hypertension
GERD
Anxiety / Depression
Past Surgical History: Reports Other
Additional Past Surgical History:
Robotic Right Hemicolectomy
Chemo Port Placement
Lumbar Laminectomy
Vasectomy
Social History
Tobacco: Non-smoker
Alcohol: Occasional
Drug: None
Family History
Family History: Not pertinent
Allergies / Home Medications
Allergies reflects when Allergies were last updated in [employer].
Home Medications with original date entered in [employer]
Allergy/Medication List:
Allergies
Allergy/AdvReac Type Severity Reaction Status Date / Time
No Known Allergies Allergy Verified 03/19/23 09:21
Home Medications
lamotrigine 100 mg tablet 200 mg PO DAILY Mental Health/Anxiety 01/19/21
metoprolol succinate 100 mg tablet,extended release 24 hr 100 mg PO DAILY Blood pressure 02/08/21
mirtazapine 30 mg tablet 30 mg PO HS Sleep 05/02/22
doxylamine succinate 25 mg tablet 25 mg PO HS sleep 05/04/22
acetaminophen 325 mg capsule (Tylenol) 650 mg PO Q6H PRN mild pain 03/21/23
dexamethasone 4 mg tablet 4 mg PO UD PRN Nausea/Oncology 08/15/23
dexamethasone 0.5 mg/5 mL oral solution 1 mg PO UD Sores in mouth 08/16/23
hydrocodone 5 mg-acetaminophen 325 mg tablet 1 tab PO Q6H PRN Pain 08/16/23
modafinil 100 mg tablet 200 mg PO DAILYPRN PRN Energy 08/16/23
lidocaine HCl 2 % mucosal solution (Lidocaine Viscous) 15 ml PO Q3HPRN PRN odynophagia #600 mL 08/19/23
pantoprazole 40 mg tablet,delayed release (Protonix) 40 mg PO BID #60 tabs 08/19/23
sucralfate 100 mg/mL oral suspension 1 g (10 mL) PO ACHS #1,000 mL 08/19/23
awaiting med rec
Review of Systems
-
History Source: Patient
A 12 point ROS was completed and negative except as noted: Yes
Physical Exam
Vital Signs
Vital Signs
Temp Pulse Resp BP Pulse Ox
98.3 F 106 17 141/94 98
04/24/24 19:02 04/24/24 19:02 04/24/24 19:02 04/24/24 19:02 04/24/24 19:02
Physical Exam
General: Other (frail appearing)
HEENT: PERRLA
Respiratory: Clear; No Wheezes
Cardiac: S1/S2 and Regular Rhythm
GI: Other (mid-line surgical incision with packing, ostomy + brown stool)
Musculoskeletal: No Edema
Skin: Warm and Dry; No Rash
Neuro: AO x 3
Psych: Calm
Data Reviewed
-
Diagnostic Radiology: Report Reviewed by me
Impression/Plan
-
Mr. Gavin Blanton is a 68 yo man with hx stage IV colon cancer s/p right hemicolectomy and chemotherapy (2020) with recurrence s/p chemothereapy and surgery 8 weeks ago complicated by abscess s/p 2 week hospitalization at [facility] presented to
[facility] ER yesterday evening complaining of shortness of breath. CTA without PE, possible CHF versus pneumonia. History more suggestive of CHF, difficult to assess JVP on exam; imaging with bilateral interstitial markings and pleural effusions.
Will admit and treat for both, monitor response to Lasix and obtain TTE.
Hypoxic Respiratory Insufficiency
Community Acquired Pneumonia
-O2 support as needed
-received Levaquin yesterday evening, will order Ceftriaxone/Azithro
-Flu and Covid tested at [facility] and negative
-Mucinex
Heart Failure, preserved EF
-patient states he has been on and off of Lasix in past
-imaging suggestive of heart failure
-will trial a dose of IV lasix this evening (post labs to ensure K OK), transfer to telemetry
-TTE
Hx stage IV Colon Cancer with Recurrent
Recent OR 8 weeks ago complicated by abscess requiring 2 week hospitalization at [facility]
-consult Oncology
-wound care consult for abdominal wound
Atrial Flutter
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
GERD
Essential Hypertension
Anxiety/Depression
*awaiting home med rec
DVT PPx: EMISSIONS TESTING TECHNICIAN Eliquis - patient confirms last dose earlier today
FULL CODE
[2024-04-24 20:40] LABS: Blood Urea Nitrogen 20 mg/dl (9-20); Calcium 8.5 mg/dl (8.4-10.2); Carbon Dioxide 29 mmol/L (22-30); Chloride 98 mmol/L (98-107); Glucose 77 mg/dl (70-99); Potassium 3.9 mmol/L (3.5-5.1); Sodium 132 mmol/L (135-145); eGFR > 60.00
[2024-04-24 20:49] LABS: NT-proBNP 3330 pg/ml
[2024-04-24 20:53] LABS: Troponin I < 0.012 ng/ml
[2024-04-24 20:57] VITALS: BMI 19.0
[2024-04-24] MEDS: ROCEPHIN 1000 MG IV (21:46)
[2024-04-24] MEDS: STERILE WATER FOR INJECTION 10 ML IV (21:46)
[2024-04-24] MEDS: ELIQUIS 5 MG PO (21:54)
[2024-04-24] MEDS: ZITHROMAX 500 MG PO (21:54)
[2024-04-24] MEDS: REMERON 30 MG PO (21:54)
[2024-04-24] MEDS: MUCINEX 600 MG PO (21:54)
[2024-04-24] MEDS: KCL 260 MEQ IV (21:56)
--- NOTE | 2024-04-24 22:00 | PTCARENOTE ---
while completing admission questions, pt stated he was receiving TPN via LUE PICC, hasn't received TPN in 2 days
CXR completed to verify placement of LUE PICC, VAT RN on floor.
wound care completed to midline abdominal wound. colostomy with moderate output, stoma red and budded.
call crouch within reach
[2024-04-24] MEDS: COREG 25 MG PO (22:04)
[2024-04-24] MEDS: LASIX 40 MG IV (22:05)
[2024-04-24] MEDS: BENADRYL 6.25 MG IV (22:40)
[2024-04-24] MEDS: ROXICODONE 5 MG PO (22:40)
[2024-04-24 23:50] VITALS: BP 148/90
[2024-04-25 02:11] LABS: Troponin I < 0.012 ng/ml
[2024-04-25 03:48] VITALS: BP 121/75
[2024-04-25] MEDS: ROXICODONE 5 MG PO ×3 (07:50→20:13)
[2024-04-25] MEDS: COREG 25 MG PO ×2 (07:52→21:08)
[2024-04-25] MEDS: MUCINEX 600 MG PO ×2 (07:52→21:06)
[2024-04-25] MEDS: ELIQUIS 5 MG PO ×2 (07:53→21:08)
[2024-04-25] MEDS: LAMICTAL 200 MG PO (07:53)
[2024-04-25 07:55] VITALS: BP 133/95
[2024-04-25 08:23] LABS: % Basophils 1.3 % (0-2); % Immature Granulocytes 0.4 % (0-0.5); % Lymphocytes 10.1 % (20.5-51.1); % Monocytes 12.1 % (1.7-9.3); % Neutrophils 70.1 % (42.2-75.2); Absolute Basophils 0.1 10^3/uL (0-0.2); Absolute Eosinophils 0.6 10^3/uL (0-0.7); Absolute Monocytes 1.2 10^3/uL (0.1-0.6); Absolute Neutrophils 7.1 10^3/uL (1.4-6.5); Hematocrit 24.9 % (39.0-52.0); Hemoglobin 8.1 g/dL (13.0-18.0); Mean Corp Hgb Conc. 32.5 g/dL (33.0-37.0); Mean Corpuscular Hgb 30.1 pg (27.0-31.0); Mean Corpuscular Volume 92.6 fL (80.0-94.0); Mean Platelet Volume 9.5 fL (7.4-10.4); Nucleated Red Blood Cells % 0 % (-); Platelet Count 475 10^3/uL (130-400); Red Blood Cell Count 2.69 10^6/uL (4.70-6.10); Red Cell Dist. Width 15.8 % (11.5-14.5); White Blood Cell Count 10.1 10^3/uL (4.8-10.8)
[2024-04-25 08:55] LABS: Blood Urea Nitrogen 15 mg/dl (9-20); Calcium 8.5 mg/dl (8.4-10.2); Carbon Dioxide 27 mmol/L (22-30); Chloride 98 mmol/L (98-107); Estimated Creatinine Clearance 97 ml/min; Glucose 88 mg/dl (70-99); Magnesium 1.6 mg/dl (1.6-2.3); Potassium 4.4 mmol/L (3.5-5.1); Sodium 131 mmol/L (135-145); eGFR > 60.00
--- NOTE | 2024-04-25 09:23 | WOUNDNOTE ---
[facility] RN note: Patient admitted with pneumonia. His sister help with ostomy and wound care. Patient is current with VN and home IV infusion for TPN.
See H&P for complete history.
PMH: stage 4 colon cancer, s/p hemicolectomy with ileostomy complicated with abscess with another admission at [facility] s/p abdominal surgery 03/06/24 as per patient. He follows [facility] surgeon Dr. Lior Shaffer [phone] (surgeon nurse Ranie
[phone]). Patient stated he saw his surgeon a week ago.
Wound Location and type/assessment: Patient admitted with: full thickness mid abdominal wound to subcutaneous layer or deeper, pink with yellow slough. Minimal local erythema proximally. Current wound care as per sister Eleni is cleans with Vashe,
Santyl ointment, Vashe soaked gauze packing, cover with dry gauze and ABD pad, change daily. Blanchable red R sacral/buttocks. Scattered peristomal pinpoint rash/excoriations suspect from yeast and/or adhesive. Stoma pink, oval shaped 1 1/8 x 1 1/2
inches and budded.
Appetite: good. Patient thin.
Pressure redistribution devices in place: [employer] Accumax. LAKEISHA Feldman to coordinate switching to an air mattress. t/c Bed tech Higinio who will bring up an air bed.
Plan: Ileostomy appliance change using Lucina wafer # [id number], Taj seal, Lucina pouch # [id number]. Extra supplies left in room. Patient using a Coloplast 1 piece drainable pouch with an Taj seal. Will order miconazole powder for peristomal
skin. Discussed with patient and sister (spoke to sister on phone).
Will confirm orders with Dr. Dow and updated LAKEISHA Feldman and DEN Sena.
Care plan to be updated and will follow as needed. Patient to follow up with his surgeon.
[2024-04-25 09:39] LABS: Hepatitis C Antibody Negative (Negative)
[2024-04-25 10:27] LABS: Troponin I < 0.012 ng/ml
--- NOTE | 2024-04-25 10:52 | PN.CDI ---
CDI
- -
CDI:
Physician Documentation Request
Admit Date: 04/24/24 18:37
Dear Doctor Victor M,
Patient admitted with shortness of breath.
H&P: 'Physical Exam, General: Other (frail appearing)'
Please review the following and provide your response in the progress notes.
Clinical Indicators:
Height: 5' 8'
Weight: 125 lbs
BMI: 19.0
If possible, please provide an associated diagnosis related to the abnormal BMI, such as:
Underweight
Cachectic
BMI is not significant
Other
BMI < or = to 19.9
Underweight
Weight Loss
Cachectic
Anorexia
Use of terms such as suspected, likely, concern for, or probable (associated with a specific diagnosis that is being evaluated, monitored, or treated as if it exists) are acceptable and can be coded in the inpatient setting, when documented at the
time of discharge.
Thank you,
Jo Donovan RN, BSN
CDI Specialist
Available via [place] text
Please use your independent medical judgment in providing your response.
[2024-04-25 11:04] VITALS: BP 119/82
--- NOTE | 2024-04-25 11:05 | CON.ONC ---
Impression
Impression
SOB
pneumonia
stage IV colon - s/p recent surgery - w/ post-op abscess w/ wound/ ostomy
Plan
Plan
1. SOB/ pneumonia - antibiotics as per primary service
2. stage IV colon - known to Dr. Venegas
-s/p recent surgical debulking at [facility] w/ post-op abscess / ostomy
-wound care consult has been placed
-will arrange outpt f/u w/ Dr. Venegas
3. Anemia - Hb 8.1 - likely multifactorial - anemia inflammation - possible blood loss
-check iron studies/ B12/ folic acid levels
-follow CBC
Will continue to follow with you.
Patient History
History of Present Illness
68y/o male seen in oncology consultation today regarding stage IV colon cancer, followed by Dr. Venegas.
He was initially diagnosed in 2020, w/ recurrence in the fall of 2022, treated w/ FOLFIRI/ Avastin until August 2023, when he was transitioned to maintenance avastin, which was held in December. He subsequently underwent debulking surgery at [facility]
about 8 weeks ago, complicated by abscess.
He is now admitted w/ pneumonia.
CTA Chest yesterday at [facility] revealed a small to moderate bilateral pleural effusions with interstitial thickening and cardiomegaly suggest pulmonary edema, bibasilar dependent consolidation consider atelectasis versus pneumonia.
He has been placed in antibiotics w/ some improvement this am. Pulse ox 96% on RA.
Clinically, he feels tired. He notes SOB on exertion. No chest pain. No fevers/chills. Chronic abdominal pain post surgery. Denies chest pain.
Past-Medical/Surgical History
PMH:
stage IV colon cancer - dx 2020 - surgery/ adjuvant FOLFOX - recurrence 2022 - FOLFIRI/ Avastin - Avastin maintenance followed by surgery [facility] fall 2023
HTN
depression
anemia
PSH:
s/p right hemicolectomy - 2020
s/p debulking [facility]
Chemo Port Placement
Lumbar Laminectomy
Vasectomy
SH: no tobacco, no ETOH
FH: non-contributory
Allegies: NKDA
Patient Medication
�Medication �Instructions �Recorded �Confirmed �Last Taken �Type
lamotrigine 100 mg tablet 100 mg PO DAILY Mental 01/19/21 04/24/24 08/15/23 History
Health/Anxiety
mirtazapine 30 mg tablet 30 mg PO HS Sleep 05/02/22 04/24/24 08/14/23 History
doxylamine succinate 25 mg tablet 25 mg PO HS sleep 05/04/22 04/24/24 05/03/22 History
acetaminophen 325 mg capsule 650 mg PO Q6H PRN mild pain 03/21/23 04/24/24 03/21/23 10:00 History
(Tylenol)
hydrocodone 5 mg-acetaminophen 325 1 tab PO Q6H PRN Pain 08/16/23 04/24/24 Unknown History
mg tablet
modafinil 100 mg tablet 200 mg PO DAILYPRN PRN Energy 08/16/23 04/24/24 Unknown History
apixaban 5 mg tablet (Eliquis) 5 mg PO BID Blood Clot 04/24/24 04/24/24 04/23/24 History
Prevention/Tx
carvedilol 25 mg tablet 25 mg PO BID Blood Pressure 04/24/24 04/24/24 Unknown History
collagenase clostridium histo. 250 1 applic topical DAILY abdominal 04/24/24 04/24/24 Unknown History
unit/gram topical ointment (Santyl) wound
loperamide 2 mg capsule 4 mg PO QID PRN diarrhea 04/24/24 04/24/24 Unknown History
oxycodone 5 mg tablet 5 mg PO Q4H PRN pain 04/24/24 04/24/24 04/23/24 History
Active Medications
Generic Name Dose Route Start Last Admin
Trade Name Freq PRN Reason Stop Dose Admin
Acetaminophen 650 mg 04/24/24 19:51
Acetaminophen 325 Mg Tablet PO 05/22/24 19:50
Q4HPRN PRN
mild pain/DE LA O/temp> 100.4F
Apixaban 5 mg 04/24/24 20:00 04/25/24 07:53
Apixaban (Eliquis) 5 Mg Tablet PO 05/22/24 19:59 5 mg
BID RICH Administration
Azithromycin 500 mg 04/24/24 20:00 04/24/24 21:54
Azithromycin 250 Mg Tablet PO 500 mg
DAILY@2000 RICH Administration
Bisacodyl 10 mg 04/24/24 19:40
Bisacodyl 10 Mg Rectal Suppository RECTAL 05/22/24 19:39
[id number] PRN
constipation
Carvedilol 25 mg 04/24/24 21:00 04/25/24 07:52
Carvedilol 25 Mg Tablet PO 05/22/24 20:59 25 mg
BID RICH Administration
Ceftriaxone Sodium 1,000 mg 04/24/24 20:00 04/24/24 21:46
Ceftriaxone 1000 Mg / 10 Ml Vial IV 1,000 mg
Q24H RICH Administration
Furosemide 40 mg 04/25/24 12:00
Furosemide 40 Mg (10 Mg/Ml) 4 Ml Vial IV 05/23/24 11:59
DAILY RICH
Guaifenesin 600 mg 04/24/24 21:00 04/25/24 07:52
Guaifenesin 600 Mg Extended Release Tablet PO 05/22/24 20:59 600 mg
Q12 RICH Administration
Lamotrigine 200 mg 04/25/24 08:00 04/25/24 07:53
Lamotrigine 100 Mg Tablet PO 05/23/24 07:59 200 mg
DAILY RICH Administration
Miconazole Nitrate 0 applic 04/25/24 09:54
Miconazole Powder Bottle TOPICAL 05/23/24 09:53
PRN PRN
peristomal rash
Mirtazapine 30 mg 04/24/24 22:00 04/24/24 21:54
Mirtazapine 30 Mg Tablet PO 05/22/24 21:59 30 mg
HS RICH Administration
Oxycodone HCl 5 mg 04/24/24 20:11 04/25/24 07:50
Oxycodone 5 Mg Regular Release Tablet PO 05/08/24 20:10 5 mg
Q6HPRN PRN Administration
severe pain
Polyethylene Glycol 17 grams 04/24/24 19:40
Polyethylene Glycol Powder 17 Grams Packet PO 05/22/24 19:39
DAILYPRN PRN
constipation
Senna/Docusate Sodium 1 tablet 04/24/24 19:40
Docusate W/Senna (Dania-Colace) Tablet PO 05/22/24 19:39
BIDPRN PRN
constipation
Sodium Chloride 0 flush 04/24/24 21:00
Sodium Chloride 0.9% (Flush) Syringe IV 05/22/24 20:59
PER PROTOCOL RICH
Sterile Water 10 ml 04/24/24 20:00 04/24/24 21:46
Sterile Water For Injection 10 Ml Vial IV 05/22/24 19:59 10 ml
Q24H RICH Administration
Review of Systems
-
As per HPI.
Physical Exam
-
General: Appears Chronically Ill
HEENT: Negative Jaundice
Cardiology: Normal Sinus Rhythm
Pulmonary: Clear
GI: Other (midline incision w/ packing - ostomy)
Extremities: No C/C/E
Neurology: Non Focal
Labs
Lab Results
WBC 10.1 10^3/uL (4.8-10.8) 04/25/24 08:07
RBC 2.69 10^6/uL (4.70-6.10) L 04/25/24 08:07
Hgb 8.1 g/dL (13.0-18.0) L 04/25/24 08:07
Hct 24.9 % (39.0-52.0) L 04/25/24 08:07
MCV 92.6 fL (80.0-94.0) 04/25/24 08:07
MCH 30.1 pg (27.0-31.0) 04/25/24 08:07
MCHC 32.5 g/dL (33.0-37.0) L 04/25/24 08:07
RDW 15.8 % (11.5-14.5) H 04/25/24 08:07
Plt Count 475 10^3/uL (130-400) H 04/25/24 08:07
MPV 9.5 fL (7.4-10.4) 04/25/24 08:07
Abs Immat Gran (auto) 0.0 10^3/uL (0-0.05) 04/25/24 08:07
Absolute Neuts (auto) 7.1 10^3/uL (1.4-6.5) H 04/25/24 08:07
Absolute Lymphs (auto) 1.0 10^3/uL (1.2-3.4) L 04/25/24 08:07
Absolute Monos (auto) 1.2 10^3/uL (0.1-0.6) H 04/25/24 08:07
Absolute Eos (auto) 0.6 10^3/uL (0-0.7) 04/25/24 08:07
Absolute Basos (auto) 0.1 10^3/uL (0-0.2) 04/25/24 08:07
Immature Gran % 0.4 % (0-0.5) 04/25/24 08:07
Neutrophils % 70.1 % (42.2-75.2) 04/25/24 08:07
Lymphocytes % 10.1 % (20.5-51.1) L 04/25/24 08:07
Monocytes % 12.1 % (1.7-9.3) H 04/25/24 08:07
Eosinophils % 6.0 % (0-6) 04/25/24 08:07
Basophils % 1.3 % (0-2) 04/25/24 08:07
Creatinine 0.6 mg/dL (0.7-1.3) L 04/25/24 08:07
Vital Signs
Vital Signs
Temp Pulse Resp BP Pulse Ox
98.0 F 93 17 119/82 98
04/25/24 11:04 04/25/24 11:04 04/25/24 11:04 04/25/24 11:04 04/25/24 11:04
[2024-04-25] MEDS: LASIX 40 MG IV (12:25)
--- NOTE | 2024-04-25 12:56 | W.PN.HOSP.TC ---
Today's Communication/Plan
-
Monitor vital signs see plan
Follow-up iron panel, B12, folate
Start IV Lasix
Echocardiogram
Consult cardiology
Wean oxygen as tolerated
Assessment / Plan
Assessment / Plan
General: Other (frail appearing)
HEENT: PERRLA
Respiratory: Clear; No Wheezes
Cardiac: S1/S2 and Regular Rhythm
GI: Other (mid-line surgical incision with packing, ostomy + brown stool)
Musculoskeletal: No Edema
Neuro: AO x 3
Psych: Calm
Acute Hypoxic Respiratory Insufficiency likely multifactorial secondary to pneumonia and acute CHF exacerbation
Community Acquired Pneumonia
-O2 support as needed
Continue with ceftriaxone and azithromycin
-Flu and Covid tested at [place] and negative
-Mucinex
Acute heart Failure, preserved EF
-patient states he has been on and off of Lasix in past
-imaging suggestive of heart failure
Continue with IV Lasix
-TTE
Cardiology evaluation, has seen Dr. Virk in past
Hx stage IV Colon Cancer with Recurrent
Recent OR 8 weeks ago complicated by abscess requiring 2 week hospitalization at [place]
Oncology following
Recent surgical debulking at [place] with postop abscess/ostomy
-wound care consult following for abdominal wound
Per patient he is also on TPN at home, will hold TPN at this time. Patient is tolerating p.o. intake
Anemia likely multifactorial, suspect anemia chronic disease
Atrial Flutter
Suspect history of paroxysmal, per patient had cardioversion on last admission at [place]
Requested records
Continue with amiodarone
-continue CLINICAL NURSE OCCUPATIONAL MEDICINE Eliquis
Cardiology consulted
echo pending
Hyponatremia
Monitor
TSH high, check reflective free T4
Monitor
GERD
Essential Hypertension
Anxiety/Depression
DVT PPx: CLINICAL NURSE OCCUPATIONAL MEDICINE Eliquis
FULL CODE
I spent a total of 52 minutes with the patient or on the floor. More than 50% of this time involved counseling and coordination of care.
Anticipated Discharge: 24 - 48 hours
Subjective/Interval History
-
Date of Service: April 25, 2024
denies pain
Objective Data
-
Labs:
Laboratory Results
04/25/24
08:07
WBC 10.1
Hgb 8.1 L
Hct 24.9 L
Plt Count 475 H
Sodium 131 L
Potassium 4.4
Chloride 98
Carbon Dioxide 27
BUN 15
Creatinine 0.6 L
Glucose 88
Calcium 8.5
Vital Signs:
Vital Signs
Temp Pulse Resp BP Pulse Ox
98.0 F 93 17 119/82 98
04/25/24 11:04 04/25/24 11:04 04/25/24 11:04 04/25/24 11:04 04/25/24 11:04
I&O
04/24/24 04/25/24 04/26/24
06:59 06:59 06:59
Intake Total 520 / 520
Output Total 1850 / 1850
Balance -1330 / -1330
[2024-04-25 12:59] LABS: Iron 28 ug/dl (49-181)
[2024-04-25 13:14] LABS: Percent Saturation 12 % (20-50); Total Iron Binding Capacity 220 ug/dl (261-462)
[2024-04-25 13:34] LABS: Ferritin 77.2 ng/ml (17.9-464.0)
--- NOTE | 2024-04-25 13:45 | CON.CAR ---
Addendum entered and electronically signed by Torin De La Cruz MD 04/25/24 17:01:
I saw and examined the patient.
The Talent Management Manager's note was reviewed and I agree with the note.
Comment:
GEN: No distress, awake, Ox3
HEENT: supple, anicteric, mmm
LUNGS: CTA, no wheezes/rales
CV: Irreg, S1/S2, 1/6 syst LSB, no gallop
ABD: soft, BS+, mild tend
EXT: No edema
NEURO: Gross non-focal
SKIN: No rash
Plan:
68-year-old male with past medical history of stage IV colon cancer status post hemicolectomy, splenectomy, cholecystectomy insertion of ureteral stent in February 2024 now on chemotherapy presents with progressive shortness of breath, continued
pleural effusions and possible pulmonary edema. In April he was readmitted to [place] with new onset atrial fibrillation rapid ventricular response. He had a MAY cardioversion at the time and was placed on amiodarone Coreg and Eliquis.
Amiodarone was eventually stopped.
He presents now with acute heart failure with preserved ejection fraction, recurrent atrial flutter, pneumonia, recurrent pleural effusions, and shortness of breath.
Echocardiogram performed today reveals EF of 60% with mild LVH, mild MR and mild to moderate TR.
Continue IV Lasix start 40 mg IV twice daily. Creatinine overall normal. Follow electrolytes.
Will restart amiodarone 200 mg p.o. 3 times daily to help with rate control. Continue Eliquis.
Pending hospital course will consider MAY cardioversion next week, although would also be reasonable to rate control him.
Continue Coreg 25 mg p.o. twice daily.
Continue antibiotics for pneumonia..
Original Note:
Consultation
Consultation Request
Date/Time Consultation Requested: 04/25/2024
Date/Time Consultation Performed: 04/25/2024
Requesting Provider: Dr. Petty
Performing Provider: Mile Goyal PA-C for Dr. De La Cruz
Reason for Consultation: Shortness of breath
Medical History
-
History of Present Illness:
Patient is a 68-year-old male with history of recurrent stage IV colon cancer status post right hemicolectomy on chemotherapy followed with Dr. Venegas, hypertension, abnormal EKG, paroxysmal atrial fibrillation who recently underwent right sigmoid
resection, splenectomy, cholecystectomy, splenectomy and bilateral cystoscopy with insertion of bilateral stent ureter in mid to late February 2024 at [place]. He then presented back to [facility] March 03, 2024 with worsening abdominal
discomfort and CT showed concern for anastomotic leak versus bowel perforation/abscess and possible pneumonia. He returned to the OR for washout and got ileostomy. He had pleural effusion requiring multiple thoracentesis and was discharged home
with left sided chest tube but later removed n early April. He was found to have new onset atrial fibrillation with rapid ventricular response. Ultimately he underwent cardioversion and was placed on Amiodarone, Coreg and Eliquis. Amiodarone
stopped 04/10/24 .
Patient had worsening shortness of breath over the last 1-2 weeks and had CTA of chest at [place] 04/24/2024 which showed small to moderate bilateral pleural effusions with interstitial thickening and cardiomegaly suggestive of pulmonary edema.
Patient now presenting to [facility] 04/24/2024 with worsening shortness of breath and cough and pneumonia. EKG on admission showed atrial flutter. Chest x-ray concerning for pneumonia. There was bilateral pleural effusions left small to
moderate and right small. proBNP elevated at 3300. Patient received IV Lasix in emergency department and was placed on antibiotics. At time of this evaluation patient reports breathing has improved some but still not back to baseline. He
denies shortness of breath at rest, chest pain, dizziness or lightheadedness. He reports he is rather asymptomatic with his atrial fibrillation/flutter.
PMH:
Recurrent stage IV colon cancer, dx 2020
Right hemicolectomy surgery/ adjuvant FOLFOX 2020
recurrence 2022 - FOLFIRI/ Avastin - Avastin maintenance followed by surgery [facility] fall 2023 with debulking surgery at [facility] 02/27 complicated by Abscess
Recurrent pleural effusion requiring chest tube March 2024
Urethral stent placement February 2024
Paroxysmal atrial fibrillation post colon surgery
Anticoagulation with Eliquis
Hypertension
Abnormal EKG
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
Esophageal ulcers August 2023
GERD
Anxiety depression
Past Medical History
Past Medical History: Other (See HPI)
Past Surgical History: Bowel Resection (Right colectomy 12/24/2020, debulking colon resection with abscess/ostomy 02/2024), Cholecystectomy, Orthopedic (Lumbar laminectomy), Urological (Vasectomy, ureter stent February 2024) and Other (Chemo-Port
placement, splenectomy)
Social History
Tobacco: Former Smoker
Alcohol: None (used to drink several beers daily, none recently)
Drug: None
Personal:
Living: With Family
Family History
Family History: Other (Father prostate cancer)
Allergies / Home Medications
Allergy/AdvReac Type Severity Reaction Status Date / Time
No Known Allergies Allergy Verified 03/19/23 09:21
�Medication �Instructions �Recorded �Confirmed �Type
lamotrigine 100 mg tablet 200 mg PO DAILY Mental 01/19/21 04/25/24 History
Health/Anxiety
mirtazapine 30 mg tablet 15 mg PO HS Sleep 05/02/22 04/25/24 History
doxylamine succinate 25 mg tablet 25 mg PO HS sleep 05/04/22 04/25/24 History
modafinil 100 mg tablet 200 mg PO DAILYPRN PRN Energy 08/16/23 04/25/24 History
apixaban 5 mg tablet (Eliquis) 5 mg PO BID Blood Clot 04/24/24 04/25/24 History
Prevention/Tx
carvedilol 25 mg tablet 25 mg PO BID Blood Pressure 04/24/24 04/25/24 History
collagenase clostridium histo. 250 1 applic topical DAILY abdominal 04/24/24 04/25/24 History
unit/gram topical ointment (Santyl) wound
loperamide 2 mg capsule 4 mg PO QID PRN diarrhea 04/24/24 04/25/24 History
oxycodone 5 mg tablet 5 mg PO Q4H PRN pain 04/24/24 04/25/24 History
acetaminophen 325 mg tablet 650 mg PO Q6H PRN mild pain 04/25/24 04/25/24 History
amiodarone 200 mg tablet 200 mg PO DAILY Arrhythmia 04/25/24 04/25/24 History
diphenoxylate-atropine 2.5 1 tab PO QID loose BM 04/25/24 04/25/24 History
mg-0.025 mg tablet
furosemide 40 mg tablet 40 mg PO DAILYPRN PRN fluid 04/25/24 04/25/24 History
retention/weight gain
Review of Systems
-
History Source: Patient
All other systems: Negative unless noted
Physical Exam
Vital Signs
Temp Pulse Resp BP Pulse Ox
98.0 F 93 17 119/82 95
04/25/24 11:04 04/25/24 11:04 04/25/24 11:04 04/25/24 11:04 04/25/24 13:39
GEN: No distress, awake, Ox3, frail thin gentleman lying in bed
HEENT: supple, anicteric, mmm
LUNGS: Decreased breath sounds at both bases otherwise CTA, no wheezes/rales
CV: Irregularly irregular, S1/S2, no murmur, rub or gallop
ABD: soft, BS+, NT/ND
EXT: No edema, clubbing or cyanosis
NEURO: Gross non-focal
SKIN: No rash warm and pink
Lab Results
04/25/24 08:07
04/25/24 08:07
Troponin I < 0.012 ng/ml 04/25/24 09:50
Xwr-[id number] Pept 3330 pg/ml 04/24/24 20:13
Impression / Plan
-
PCP: Jacky Guillaume
Auxiliary Operator: Estela Arthur
Impression:
Presented 04/24/2024 with shortness of breath
Acute hypoxic respiratory insufficiency suspected to be multifactorial
Community-acquired pneumonia
Acute heart failure with preserved ejection fraction, proBNP 3330
Bilateral pleural effusion left greater than right
Anemia
Atrial flutter
Hyponatremia
Abnormal TSH
Recurrent stage IV colon cancer, dx 2020
Right hemicolectomy surgery/ adjuvant FOLFOX 2020
recurrence 2022 - FOLFIRI/ Avastin - Avastin maintenance followed by surgery [place] fall 2023 with debulking surgery at [place] 02/27 complicated by Abscess
Recurrent pleural effusion requiring chest tube February 2024
Urethral stent placement February 2024
Paroxysmal atrial fibrillation post colon surgery
Anticoagulation with Eliquis
Hypertension
Abnormal EKG
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
Esophageal ulcers August 2023
GERD
Anxiety depression
2D echocardiogram 03/12/2023 without IV Definity or strain: Normal LV size, wall thickness and systolic function with no regional wall motion abnormality. EF 64%No significant valve pathology. Estimated pulmonary artery pressure 38 mmHg. No
pericardial effusion. Aortic root top normal 3.8 cm at the sinus of Valsalva.
Plan:
-Presents 04/24/2024 with worsening shortness of breath
-Acute hypoxic respiratory insufficiency felt to be multifactorial from community-acquired pneumonia and acute heart failure
-Continue IV antibiotics per primary service for pneumonia
-Heart failure with preserved ejection fraction, proBNP 3330
-Diuresing with IV Lasix 40 mg daily
-Monitor renal function and electrolytes
Creatinine stable at 0.6
-Paroxysmal atrial fibrillation flutter. This was first diagnosed in February 2024 following complicated colon resection surgeries. Patient did have cardioversion and was placed on amiodarone, carvedilol and Eliquis. He reports amiodarone was
discontinued 04/10/2024
-Continue Eliquis. Patient does report he had interruption of Eliquis and does not think he has on it continuously for 4 weeks.
-Rate control with Coreg. Consider resuming amiodarone with eventual cardioversion.
-Bilateral pleural effusions left small to moderate and right small. Monitor closely with diuresis. Patient previously had chest tube February 2024 for recurrent effusion
-Anemia likely secondary to recent surgeries. Treatment per primary team.
HPI 04/25/2024:
Patient is a 68-year-old male with history of recurrent stage IV colon cancer status post right hemicolectomy on chemotherapy followed with Dr. Venegas, hypertension, abnormal EKG, paroxysmal atrial fibrillation who recently underwent right sigmoid
resection, splenectomy, cholecystectomy, splenectomy and bilateral cystoscopy with insertion of bilateral stent ureter in mid to late February 2024 at [place]. He then presented back to [place] March 03, 2024 with worsening abdominal
discomfort and CT showed concern for anastomotic leak versus bowel perforation/abscess and possible pneumonia. He returned to the OR for washout and got ileostomy. He had pleural effusion requiring multiple thoracentesis and was discharged home
with left sided chest tube but later removed n early April. He was found to have new onset atrial fibrillation with rapid ventricular response. Ultimately he underwent cardioversion and was placed on Amiodarone, Coreg and Eliquis. Amiodarone
stopped 04/10/24 .
Patient had worsening shortness of breath over the last 1-2 weeks and had CTA of chest at [place] 04/24/2024 which showed small to moderate bilateral pleural effusions with interstitial thickening and cardiomegaly suggestive of pulmonary edema.
Patient now presenting to [facility] 04/24/2024 with worsening shortness of breath and cough and pneumonia. EKG on admission showed atrial flutter. Chest x-ray concerning for pneumonia. There was bilateral pleural effusions left small to
moderate and right small. proBNP elevated at 3300. Patient received IV Lasix in emergency department and was placed on antibiotics. At time of this evaluation patient reports breathing has improved some but still not back to baseline. He
denies shortness of breath at rest, chest pain, dizziness or lightheadedness. He reports he is rather asymptomatic with his atrial fibrillation/flutter.
Data Reviewed
-
EKG: Report Reviewed by me, Discussed with Physician and Discussed with Patient
Radiology: Report Reviewed by me, Discussed with Physician and Discussed with Patient
Labs: Labs Reviewed by me, Discussed with Physician and Discussed with Patient
Old Records: Reviewed
[2024-04-25 13:54] LABS: TSH Reflex To Free T4 4.55 uIU/ml (0.47-4.68)
[2024-04-25 14:05] LABS: Folate 13.2 ng/ml (2.76-20); Vitamin B12 545 pg/ml (239-931)
[2024-04-25 14:39] VITALS: BP 118/77
--- NOTE | 2024-04-25 17:27 | CM ---
Alert awake oriented patient who lives with his sister Sebastian who lives in a 2 story home with 4 step to enter and 8 steps to bed and bathroom. He is independent in all activities of daily living. He has a colostomy with supplies at home.He was
offered VN he is unsure of need.
[facility] VN hx / No SNF history
Pharmacy [facility]
PCP DR Wheat
PLAN Home unsure on VN
[2024-04-25] MEDS: LOMOTIL 1 TABLET PO ×2 (18:16→23:01)
[2024-04-25] MEDS: PACERONE 200 MG PO ×2 (18:16→21:07)
[2024-04-25 20:09] VITALS: BP 135/95
[2024-04-25] MEDS: ZITHROMAX 500 MG PO (21:06)
[2024-04-25] MEDS: ROCEPHIN 1000 MG IV (21:09)
[2024-04-25] MEDS: STERILE WATER FOR INJECTION 10 ML IV (21:09)
[2024-04-25 23:00] VITALS: BP 105/70
[2024-04-25] MEDS: REMERON 30 MG PO (23:01)
[2024-04-26 03:00] VITALS: BP 110/80
[2024-04-26 06:00] VITALS: BMI 18.7
[2024-04-26 06:12] LABS: % Immature Granulocytes 0.3 % (0-0.5); % Monocytes 14.1 % (1.7-9.3); % Neutrophils 64.6 % (42.2-75.2); Absolute Basophils 0.1 10^3/uL (0-0.2); Absolute Eosinophils 0.7 10^3/uL (0-0.7); Absolute Lymphocytes 1.1 10^3/uL (1.2-3.4); Absolute Monocytes 1.3 10^3/uL (0.1-0.6); Absolute Neutrophils 5.8 10^3/uL (1.4-6.5); Hematocrit 25.1 % (39.0-52.0); Hemoglobin 7.8 g/dL (13.0-18.0); Mean Corp Hgb Conc. 31.1 g/dL (33.0-37.0); Mean Corpuscular Hgb 29.4 pg (27.0-31.0); Mean Corpuscular Volume 94.7 fL (80.0-94.0); Mean Platelet Volume 9.6 fL (7.4-10.4); Nucleated Red Blood Cells % 0 % (-); Platelet Count 475 10^3/uL (130-400); Red Blood Cell Count 2.65 10^6/uL (4.70-6.10)
[2024-04-26 06:35] LABS: Blood Urea Nitrogen 14 mg/dl (9-20); Calcium 8.5 mg/dl (8.4-10.2); Carbon Dioxide 25 mmol/L (22-30); Chloride 98 mmol/L (98-107); Estimated Creatinine Clearance 97 ml/min; Glucose 83 mg/dl (70-99); Potassium 3.9 mmol/L (3.5-5.1); Sodium 129 mmol/L (135-145); eGFR > 60.00
[2024-04-26 07:00] VITALS: BP 152/95
[2024-04-26] MEDS: COREG 25 MG PO ×2 (09:05→20:53)
[2024-04-26] MEDS: LAMICTAL 200 MG PO (09:06)
[2024-04-26] MEDS: MUCINEX 600 MG PO ×2 (09:06→20:53)
[2024-04-26] MEDS: PACERONE 200 MG PO ×3 (09:08→20:54)
[2024-04-26] MEDS: ELIQUIS 5 MG PO ×2 (09:08→20:54)
[2024-04-26] MEDS: LOMOTIL 1 TABLET PO ×4 (09:08→20:54)
[2024-04-26] MEDS: LASIX 40 MG IV (09:08)
[2024-04-26] MEDS: SANTYL OINTMENT 1 APPLIC TOPICAL (09:09)
--- NOTE | 2024-04-26 11:21 | W.PN.ONC ---
Today's Communication / Plan
-
No clear evidence of infiltrate
Mild congestive heart failure diuresis
Multifactorial anemia likely component of iron deficiency postop would offer Venofer 200 mg x 2 as there is no discrete infection
Heme test stools
Impression
Impression
SOB
Mild congestive heart failure
No discrete infiltrate
Stage IV colon - s/p recent surgery - w/ post-op abscess w/ wound/ ostomy
Symptomatic anemia
Wound healing by secondary intention postop with abdominal abscess
Plan
Plan
f/u w/ Dr. Venegas
3. Anemia - Hb 8.1 - likely multifactorial - anemia inflammation - possible blood loss
-check iron studies/ B12/ folic acid levels
-follow CBC
Will continue to follow with you.
Subjective/Objective
Subjective/Objective
Less shortness of breath at rest. No productive cough.
Vital Signs:
Vital Signs
Temp Pulse Resp BP Pulse Ox
98.1 F 100 16 152/95 93
04/26/24 07:00 04/26/24 07:00 04/26/24 07:00 04/26/24 07:00 04/26/24 07:00
Lab Results:
Laboratory Data
WBC 9.0 10^3/uL (4.8-10.8) 04/26/24 06:00
Hgb 7.8 g/dL (13.0-18.0) L 04/26/24 06:00
Plt Count 475 10^3/uL (130-400) H 04/26/24 06:00
eGFR > 60.00 04/26/24 06:00
Heart irregular
Lungs decreased in the bases
Abdominal discomfort with wound healing
[2024-04-26 11:25] VITALS: BP 107/76
--- NOTE | 2024-04-26 11:50 | W.PN.CARDCBS ---
Today's Communication / Plan
-
Continue IV Lasix. Weight is improved. Creatinine is stable.
Continue amiodarone. Continue Coreg and Eliquis. Follow hemoglobin.
If hemoglobin stable tentative plan would be for repeat cardioversion Sunday.
Continue antibiotics for pneumonia.
Impression / Plan
-
PCP: Jacky Guillaume
Food Assembler: Estela Arthur
Impression:
Presented 04/24/2024 with shortness of breath
Acute hypoxic respiratory insufficiency suspected to be multifactorial
Community-acquired pneumonia
Acute heart failure with preserved ejection fraction, proBNP 3330
Bilateral pleural effusion left greater than right
Anemia
Atrial flutter
Hyponatremia
Abnormal TSH
Recurrent stage IV colon cancer, dx 2020
Right hemicolectomy surgery/ adjuvant FOLFOX 2020
recurrence 2022 - FOLFIRI/ Avastin - Avastin maintenance followed by surgery [facility] fall 2023 with debulking surgery at [facility] 02/27 complicated by Abscess
Recurrent pleural effusion requiring chest tube February 2024
Urethral stent placement February 2024
Paroxysmal atrial fibrillation post colon surgery
Anticoagulation with Eliquis
Hypertension
Abnormal EKG
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
Esophageal ulcers August 2023
GERD
Anxiety depression
2D echocardiogram 03/12/2023 without IV Definity or strain: Normal LV size, wall thickness and systolic function with no regional wall motion abnormality. EF 64%No significant valve pathology. Estimated pulmonary artery pressure 38 mmHg. No
pericardial effusion. Aortic root top normal 3.8 cm at the sinus of Valsalva.
Plan:
-Presents 04/24/2024 with worsening shortness of breath
-Acute hypoxic respiratory insufficiency felt to be multifactorial from community-acquired pneumonia and acute heart failure
-Continue IV antibiotics per primary service for pneumonia
-Heart failure with preserved ejection fraction, proBNP 3330
-Continue IV Lasix for another 24 hours.
Creatinine stable at 0.6
-Paroxysmal atrial fibrillation flutter. This was first diagnosed in February 2024 following complicated colon resection surgeries. Patient did have cardioversion and was placed on amiodarone, carvedilol and Eliquis. He reports amiodarone was
discontinued 04/10/2024. Amiodarone now restarted. Tentative plan will be for cardioversion on Sunday.
-Continue Eliquis. He states he has been compliant with his Eliquis for the past 3 to 4 weeks.
-Bilateral pleural effusions left small to moderate and right small. Monitor closely with diuresis. Patient previously had chest tube February 2024 for recurrent effusion
-Anemia likely secondary to recent surgeries. Treatment per primary team.
[facility] 04/25/2024:
Patient is a 68-year-old male with history of recurrent stage IV colon cancer status post right hemicolectomy on chemotherapy followed with Dr. Venegas, hypertension, abnormal EKG, paroxysmal atrial fibrillation who recently underwent right sigmoid
resection, splenectomy, cholecystectomy, splenectomy and bilateral cystoscopy with insertion of bilateral stent ureter in mid to late February 2024 at [facility]. He then presented back to [facility] March 03, 2024 with worsening abdominal
discomfort and CT showed concern for anastomotic leak versus bowel perforation/abscess and possible pneumonia. He returned to the OR for washout and got ileostomy. He had pleural effusion requiring multiple thoracentesis and was discharged home
with left sided chest tube but later removed n early April. He was found to have new onset atrial fibrillation with rapid ventricular response. Ultimately he underwent cardioversion and was placed on Amiodarone, Coreg and Eliquis. Amiodarone
stopped 04/10/24 .
Patient had worsening shortness of breath over the last 1-2 weeks and had CTA of chest at [facility] 04/24/2024 which showed small to moderate bilateral pleural effusions with interstitial thickening and cardiomegaly suggestive of pulmonary edema.
Patient now presenting to [facility] 04/24/2024 with worsening shortness of breath and cough and pneumonia. EKG on admission showed atrial flutter. Chest x-ray concerning for pneumonia. There was bilateral pleural effusions left small to
moderate and right small. proBNP elevated at 3300. Patient received IV Lasix in emergency department and was placed on antibiotics. At time of this evaluation patient reports breathing has improved some but still not back to baseline. He
denies shortness of breath at rest, chest pain, dizziness or lightheadedness. He reports he is rather asymptomatic with his atrial fibrillation/flutter.
Progress Note - Food Assembler
Subjective
Date of Service: April 26, 2024
Remains in rate controlled atrial flutter. Hemoglobin at 7.8. So far doing well with amiodarone.
Objective
Labs:
04/26/24 06:00
04/26/24 06:00
Labs
Hgb 7.8 g/dL (13.0-18.0) L 04/26/24 06:00
Hct 25.1 % (39.0-52.0) L 04/26/24 06:00
Plt Count 475 10^3/uL (130-400) H 04/26/24 06:00
Sodium 129 mmol/L (135-145) L 04/26/24 06:00
Potassium 3.9 mmol/L (3.5-5.1) 04/26/24 06:00
BUN 14 mg/dl (9-20) 04/26/24 06:00
Creatinine 0.6 mg/dL (0.7-1.3) L 04/26/24 06:00
Glucose 83 mg/dl (70-99) 04/26/24 06:00
Troponins
04/24/24 04/25/24 04/25/24
20:13 01:39 09:50
Troponin I < 0.012 < 0.012 < 0.012
Vital Signs and I&O:
Vital Signs
Temp Pulse Resp BP Pulse Ox
98.1 F 100 16 152/95 93
04/26/24 07:00 04/26/24 07:00 04/26/24 07:00 04/26/24 07:00 04/26/24 07:00
Vital Signs
Temp Pulse Resp BP Pulse Ox
98.1 F 100 16 152/95 93
04/26/24 07:00 04/26/24 07:00 04/26/24 07:00 04/26/24 07:00 04/26/24 07:00
Intake & Output
04/24/24 04/25/24 04/26/24 04/27/24
06:59 06:59 06:59 06:59
Intake Total 520 / 520 660 / 660
Output Total 1850 / 1849
Balance -1330 / -1330 -1400 / -1400
Physical Exam
Physical Exam
GEN: No distress, awake, Ox3
HEENT: supple, anicteric, mmm
LUNGS: CTA, no wheezes/rales
CV: irreg, S1/S2, 1/6 syst LSB, S3+
ABD: soft, BS+, NT/ND
EXT: No edema
NEURO: Gross non-focal
SKIN: No rash
[2024-04-26] MEDS: ROXICODONE 5 MG PO ×2 (12:49→20:52)
--- NOTE | 2024-04-26 13:03 | W.PN.HOSP.TC ---
Today's Communication/Plan
-
Monitor vital signs see plan
Continue with IV Lasix
Continue the amiodarone
Check Pro-Hermann
Continue antibiotics for now
Start IV iron
Assessment / Plan
Assessment / Plan
General: Other (frail appearing)
HEENT: PERRLA
Respiratory: Clear; No Wheezes
Cardiac: S1/S2 and Regular Rhythm
GI: Other (mid-line surgical incision with packing, ostomy + brown stool)
Musculoskeletal: No Edema
Neuro: AO x 3
Psych: Calm
Acute Hypoxic Respiratory Insufficiency likely multifactorial secondary to pneumonia and acute CHF exacerbation
Community Acquired Pneumonia
-O2 support as needed
Continue with ceftriaxone and azithromycin; check procal, likely will transition to PO for complete 5 day course
-Flu and Covid tested at [place] and negative
-Mucinex
Acute heart Failure, preserved EF
-patient states he has been on and off of Lasix in past
-imaging suggestive of heart failure
Continue with IV Lasix
-TTE with preserved EF
Cardiology evaluation, has seen Dr. Virk in past
Atrial Flutter
Suspect history of paroxysmal, per patient had cardioversion on last admission at [facility]
Requested records
Continue with amiodarone
-continue GRAIN COMBINE DRIVER Eliquis
Cardiology following, plan for possible cardioversion Sunday
Hx stage IV Colon Cancer with Recurrent
Recent OR 8 weeks ago complicated by abscess requiring 2 week hospitalization at [facility]
Oncology following
Recent surgical debulking at [facility] with postop abscess/ostomy
-wound care consult following for abdominal wound
Per patient he is also on TPN at home, will hold TPN at this time. Patient is tolerating p.o. intake
Anemia likely multifactorial, suspect anemia chronic disease
iron deficiency anemia, started IV iron
Hematology following
Hyponatremia
Monitor
GERD
Essential Hypertension
Anxiety/Depression
DVT PPx: GRAIN COMBINE DRIVER Eliquis
FULL CODE
I spent a total of 51 minutes with the patient or on the floor. More than 50% of this time involved counseling and coordination of care.
Anticipated Discharge: > 48 hours
Subjective/Interval History
-
Date of Service: April 26, 2024
denies pain
Objective Data
-
Labs:
Laboratory Results
04/26/24
06:00
WBC 9.0
Hgb 7.8 L
Hct 25.1 L
Plt Count 475 H
Sodium 129 L
Potassium 3.9
Chloride 98
Carbon Dioxide 25
BUN 14
Creatinine 0.6 L
Glucose 83
Calcium 8.5
Vital Signs:
Vital Signs
Temp Pulse Resp BP Pulse Ox
98.2 F 90 16 107/76 95
04/26/24 11:25 04/26/24 11:25 04/26/24 11:25 04/26/24 11:25 04/26/24 11:25
I&O
04/25/24 04/26/24 04/27/24
06:59 06:59 06:59
Intake Total 520 / 520 660 / 660
Output Total 0 / 1850 2059
Balance -1330 / -1330 -1400 / -1400
[2024-04-26] MEDS: TIGAN 200 MG IM (13:34)
[2024-04-26] MEDS: LIDOCAINE 4% PATCH 2 PATCH TOPICAL (13:34)
[2024-04-26] MEDS: FERRLECIT 110 MG IV (13:35)
[2024-04-26 15:00] VITALS: BP 109/71
[2024-04-26] MEDS: TYLENOL 650 MG PO (15:13)
[2024-04-26 19:00] VITALS: BP 114/77
[2024-04-26] MEDS: AUGMENTIN 875 MG/125 MG 1 TABLET PO (20:55)
[2024-04-26 23:00] VITALS: BP 98/61
[2024-04-26] MEDS: BENADRYL 6.25 MG IV (23:02)
[2024-04-27] VITALS (8 sets, daily range): BP systolic 83–135; BP diastolic 53–80; BMI 17.7
[2024-04-27] MEDS: REMERON 30 MG PO ×2 (00:34→20:50)
[2024-04-27] MEDS: AUGMENTIN 875 MG/125 MG 1 TABLET PO ×2 (07:38→20:44)
[2024-04-27] MEDS: MUCINEX 600 MG PO ×2 (07:38→20:44)
[2024-04-27] MEDS: ELIQUIS 5 MG PO ×2 (07:38→20:45)
[2024-04-27] MEDS: PACERONE 200 MG PO ×3 (07:38→20:45)
[2024-04-27] MEDS: LAMICTAL 200 MG PO (07:38)
[2024-04-27] MEDS: COREG 25 MG PO ×2 (07:38→20:45)
[2024-04-27] MEDS: LIDOCAINE 4% PATCH 2 PATCH TOPICAL (07:39)
[2024-04-27] MEDS: LOMOTIL 1 TABLET PO ×4 (07:39→20:50)
[2024-04-27] MEDS: LASIX 40 MG IV (07:39)
[2024-04-27] MEDS: SANTYL OINTMENT 1 APPLIC TOPICAL (07:40)
[2024-04-27 08:07] LABS: % Basophils 0.9 % (0-2); % Eosinophils 7.3 % (0-6); % Immature Granulocytes 0.5 % (0-0.5); % Lymphocytes 8.7 % (20.5-51.1); % Monocytes 13.8 % (1.7-9.3); % Neutrophils 68.8 % (42.2-75.2); Absolute Basophils 0.1 10^3/uL (0-0.2); Absolute Eosinophils 0.7 10^3/uL (0-0.7); Absolute Immature Granulocytes 0.1 10^3/uL (0-0.05); Absolute Lymphocytes 0.8 10^3/uL (1.2-3.4); Absolute Monocytes 1.3 10^3/uL (0.1-0.6); Absolute Neutrophils 6.6 10^3/uL (1.4-6.5); Hematocrit 27.4 % (39.0-52.0); Hemoglobin 8.7 g/dL (13.0-18.0); Mean Corp Hgb Conc. 31.8 g/dL (33.0-37.0); Mean Corpuscular Volume 91.3 fL (80.0-94.0); Mean Platelet Volume 9.4 fL (7.4-10.4); Nucleated Red Blood Cells % 0 % (-); Platelet Count 551 10^3/uL (130-400); Red Cell Dist. Width 15.8 % (11.5-14.5); White Blood Cell Count 9.6 10^3/uL (4.8-10.8)
[2024-04-27 08:37] LABS: Blood Urea Nitrogen 14 mg/dl (9-20); Calcium 8.6 mg/dl (8.4-10.2); Carbon Dioxide 27 mmol/L (22-30); Chloride 97 mmol/L (98-107); Estimated Creatinine Clearance 90 ml/min; Glucose 93 mg/dl (70-99); Sodium 130 mmol/L (135-145); eGFR > 60.00
--- NOTE | 2024-04-27 08:50 | W.PN.CARDCBS ---
Today's Communication / Plan
-
-Heart failure with preserved ejection fraction, proBNP 3330
-Transition to oral lasix, wt is down and cr stable at 0.6. Consider Lasix 20 mg daily PO, start after cv Apr 28.
-Paroxysmal atrial fibrillation flutter.
-This was first diagnosed in February 2024 following complicated colon resection surgeries. Patient did have cardioversion and was placed on
amiodarone, carvedilol and Eliquis. He reported amiodarone was discontinued 04/10/2024.
-Cont Amiodarone which was resumed.
-Plan will be for cardioversion on Sunday.
-Continue Eliquis. He states he has been compliant with his Eliquis for the past 3 to 4 weeks.
-Bilateral pleural effusions left small to moderate and right small.
-Monitor closely with diuresis.
-Patient previously had chest tube February 2024 for recurrent effusion
-Anemia likely secondary to recent surgeries and multifactorial
-Treatment per primary team.
-Receiving IV iron and hematology following.
Impression / Plan
-
.
PCP: Jacky Guillaume
Dimmer Board Operator: Estela Arthur
Impression:
Presented 04/24/2024 with shortness of breath
Acute hypoxic respiratory insufficiency suspected to be multifactorial
Community-acquired pneumonia
Acute heart failure with preserved ejection fraction, proBNP 3330
Bilateral pleural effusion left greater than right
Anemia
Atrial flutter
Hyponatremia
Abnormal TSH
Recurrent stage IV colon cancer, dx 2020
Right hemicolectomy surgery/ adjuvant FOLFOX 2020
recurrence 2022 - FOLFIRI/ Avastin - Avastin maintenance followed by surgery [facility] fall 2023 with debulking surgery at [facility] 02/27 complicated by Abscess
Recurrent pleural effusion requiring chest tube February 2024
Urethral stent placement February 2024
Paroxysmal atrial fibrillation post colon surgery
Anticoagulation with Eliquis
Hypertension
Abnormal EKG
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
Esophageal ulcers August 2023 / GERD
Anxiety depression
2D echocardiogram 03/12/2023 without IV Definity or strain: Normal LV size, wall thickness and systolic function with no regional wall motion abnormality. EF 64%No significant valve pathology. Estimated pulmonary artery pressure 38 mmHg. No
pericardial effusion. Aortic root top normal 3.8 cm at the sinus of Valsalva.
Plan:
-Presents 04/24/2024 with worsening shortness of breath
-Acute hypoxic respiratory insufficiency felt to be multifactorial from community-acquired pneumonia and acute heart failure
-Antibiotics per primary service for pneumonia
-Heart failure with preserved ejection fraction, proBNP 3330
-Transition to oral lasix, wt is down and cr stable at 0.6. Consider Lasix 20 mg daily PO, start after cv Apr 28.
-Paroxysmal atrial fibrillation flutter.
-This was first diagnosed in February 2024 following complicated colon resection surgeries. Patient did have cardioversion and was placed on
amiodarone, carvedilol and Eliquis. He reported amiodarone was discontinued 04/10/2024.
-Cont Amiodarone which was resumed.
-Plan will be for cardioversion on Sunday.
-Continue Eliquis. He states he has been compliant with his Eliquis for the past 3 to 4 weeks.
-Bilateral pleural effusions left small to moderate and right small.
-Monitor closely with diuresis.
-Patient previously had chest tube February 2024 for recurrent effusion
-Anemia likely secondary to recent surgeries and multifactorial
-Treatment per primary team.
-Receiving IV iron and hematology following.
Discussed with nursing.
HPI 04/25/2024:
Patient is a 68-year-old male with history of recurrent stage IV colon cancer status post right hemicolectomy on chemotherapy followed with Dr. Venegas, hypertension, abnormal EKG, paroxysmal atrial fibrillation who recently underwent right sigmoid
resection, splenectomy, cholecystectomy, splenectomy and bilateral cystoscopy with insertion of bilateral stent ureter in mid to late February 2024 at [facility]. He then presented back to [facility] March 03, 2024 with worsening abdominal
discomfort and CT showed concern for anastomotic leak versus bowel perforation/abscess and possible pneumonia. He returned to the OR for washout and got ileostomy. He had pleural effusion requiring multiple thoracentesis and was discharged home
with left sided chest tube but later removed n early April. He was found to have new onset atrial fibrillation with rapid ventricular response. Ultimately he underwent cardioversion and was placed on Amiodarone, Coreg and Eliquis. Amiodarone
stopped 04/10/24 .
Patient had worsening shortness of breath over the last 1-2 weeks and had CTA of chest at [facility] 04/24/2024 which showed small to moderate bilateral pleural effusions with interstitial thickening and cardiomegaly suggestive of pulmonary edema.
Patient now presenting to [facility] 04/24/2024 with worsening shortness of breath and cough and pneumonia. EKG on admission showed atrial flutter. Chest x-ray concerning for pneumonia. There was bilateral pleural effusions left small to
moderate and right small. proBNP elevated at 3300. Patient received IV Lasix in emergency department and was placed on antibiotics. At time of this evaluation patient reports breathing has improved some but still not back to baseline. He
denies shortness of breath at rest, chest pain, dizziness or lightheadedness. He reports he is rather asymptomatic with his atrial fibrillation/flutter.
Progress Note - Dimmer Board Operator
Subjective
Date of Service: April 27, 2024
Pt seen and examined. No complaints. No chest pain or shortness of breath. Breathing improved
Objective
Labs:
04/27/24 07:50
04/27/24 07:50
Labs
Hgb 8.7 g/dL (13.0-18.0) L 04/27/24 07:50
Hct 27.4 % (39.0-52.0) L 04/27/24 07:50
Plt Count 551 10^3/uL (130-400) H 04/27/24 07:50
Sodium 130 mmol/L (135-145) L 04/27/24 07:50
Potassium 4.0 mmol/L (3.5-5.1) 04/27/24 07:50
BUN 14 mg/dl (9-20) 04/27/24 07:50
Creatinine 0.6 mg/dL (0.7-1.3) L 04/27/24 07:50
Glucose 93 mg/dl (70-99) 04/27/24 07:50
Troponins
04/24/24 04/25/24 04/25/24
20:13 01:39 09:50
Troponin I < 0.012 < 0.012 < 0.012
Vital Signs and I&O:
Vital Signs
Temp Pulse Resp BP Pulse Ox
97.9 F 85 18 107/69 94
04/27/24 03:00 04/27/24 03:00 04/27/24 03:00 04/27/24 03:00 04/27/24 03:00
Vital Signs
Temp Pulse Resp BP Pulse Ox
97.9 F 85 18 107/69 94
04/27/24 03:00 04/27/24 03:00 04/27/24 03:00 04/27/24 03:00 04/27/24 03:00
Intake & Output
04/25/24 04/26/24 04/27/24 04/28/24
06:59 06:59 06:59 06:59
Intake Total 520 / 520 660 / 660 600 / 600 240 / 240
Output Total 1850 / 1850 2059 / 2059 1450 / 1450 375 / 375
Balance -1330 / -1330 -1400 / -1400 -850 / -850 -135 / -135
Physical Exam
Physical Exam
General: No acute distress, AAOX3
Neck: Negative JVD
Heart: Irregularly irregular, Negative S3 positive S1/S2, Negative S4, No murmur
Lungs: CTA b/l, negative wheezes/rales/rhonchi
Abd: Positive BS, NT/ND, neg rebound/rigidity/guarding
Ext: Negative cyanosis/clubbing/edema
Neuro: nonfocal
--- NOTE | 2024-04-27 11:48 | W.PN.HOSP.TC ---
Today's Communication/Plan
-
Monitor vitals
See plan
Diuresis per cardiology
Continue with amiodarone
Continue with Eliquis
Cardioversion tomorrow
Continue with IV iron
Assessment / Plan
Assessment / Plan
General: Other (frail appearing)
HEENT: PERRLA
Respiratory: Clear; No Wheezes
Cardiac: S1/S2 and Regular Rhythm
GI: Other (mid-line surgical incision with packing, ostomy + brown stool)
Musculoskeletal: No Edema
Neuro: AO x 3
Psych: Calm
Acute Hypoxic Respiratory Insufficiency likely multifactorial secondary to pneumonia and acute CHF exacerbation
Community Acquired Pneumonia
-O2 support as needed
transition to PO for complete 5 day course
-Flu and Covid tested at [place] and negative
-Mucinex
Acute heart Failure, preserved EF
-patient states he has been on and off of Lasix in past
-imaging suggestive of heart failure
Continue with IV Lasix
-TTE with preserved EF
Cardiology evaluation, has seen Dr. Virk in past
Atrial Flutter, appears persistent
Suspect history of paroxysmal, per patient had cardioversion on last admission at [facility]
Requested records
Continue with amiodarone
-continue QUALITY CONTROL HEAD Eliquis
Cardiology following, plan for possible cardioversion Sunday
Hx stage IV Colon Cancer with Recurrent
Recent OR 8 weeks ago complicated by abscess requiring 2 week hospitalization at [facility]
Oncology following
Recent surgical debulking at [facility] with postop abscess/ostomy
-wound care consult following for abdominal wound
Per patient he is also on TPN at home, will hold TPN at this time. Patient is tolerating p.o. intake
Anemia likely multifactorial, suspect anemia chronic disease
iron deficiency anemia, started IV iron
Hematology following
Hyponatremia
Monitor
GERD
Essential Hypertension
Anxiety/Depression
DVT PPx: QUALITY CONTROL HEAD Eliquis
FULL CODE
I spent a total of 52 minutes with the patient or on the floor. More than 50% of this time involved counseling and coordination of care.
Anticipated Discharge: 24 - 48 hours
Subjective/Interval History
-
Date of Service: April 27, 2024
denies pain
Objective Data
-
Labs:
Laboratory Results
04/27/24
07:50
WBC 9.6
Hgb 8.7 L
Hct 27.4 L
Plt Count 551 H
Sodium 130 L
Potassium 4.0
Chloride 97 L
Carbon Dioxide 27
BUN 14
Creatinine 0.6 L
Glucose 93
Calcium 8.6
Vital Signs:
Vital Signs
Temp Pulse Resp BP Pulse Ox
98 F 93 16 135/80 96
04/27/24 08:58 04/27/24 08:58 04/27/24 08:58 04/27/24 08:58 04/27/24 08:58
I&O
04/26/24 04/27/24 04/28/24
06:59 06:59 06:59
Intake Total 660 / 660 600 / 600 240 / 240
Output Total 2059 1450 / 1450 375 / 375
Balance -1400 / -1400 -850 / -850 -135 / -135
[2024-04-27] MEDS: FERRLECIT 110 MG IV (13:22)
[2024-04-27] MEDS: ProAmatine 5 MG PO (13:23)
[2024-04-27] MEDS: ROXICODONE 5 MG PO ×2 (15:56→22:42)
[2024-04-27] MEDS: BENADRYL 6.25 MG IV (22:57)
[2024-04-28] VITALS (7 sets, daily range): BP systolic 92–141; BP diastolic 51–81; PULSE 70; O2SAT 96; BMI 17.6
[2024-04-28 06:07] LABS: % Immature Granulocytes 0.9 % (0-0.5); % Lymphocytes 11.8 % (20.5-51.1); % Monocytes 13.7 % (1.7-9.3); % Neutrophils 61.6 % (42.2-75.2); Absolute Basophils 0.1 10^3/uL (0-0.2); Absolute Immature Granulocytes 0.1 10^3/uL (0-0.05); Absolute Lymphocytes 1.1 10^3/uL (1.2-3.4); Absolute Monocytes 1.3 10^3/uL (0.1-0.6); Absolute Neutrophils 5.7 10^3/uL (1.4-6.5); Hematocrit 25.3 % (39.0-52.0); Hemoglobin 8.3 g/dL (13.0-18.0); Mean Corp Hgb Conc. 32.8 g/dL (33.0-37.0); Mean Corpuscular Hgb 30.2 pg (27.0-31.0); Mean Platelet Volume 9.7 fL (7.4-10.4); Nucleated Red Blood Cells % 0 % (-); Platelet Count 529 10^3/uL (130-400); Red Blood Cell Count 2.75 10^6/uL (4.70-6.10); Red Cell Dist. Width 16.3 % (11.5-14.5); White Blood Cell Count 9.2 10^3/uL (4.8-10.8)
[2024-04-28 06:17] LABS: Blood Urea Nitrogen 14 mg/dl (9-20); Calcium 8.6 mg/dl (8.4-10.2); Carbon Dioxide 25 mmol/L (22-30); Chloride 99 mmol/L (98-107); Estimated Creatinine Clearance 77 ml/min; Glucose 80 mg/dl (70-99); Potassium 4.3 mmol/L (3.5-5.1); Sodium 128 mmol/L (135-145); eGFR > 60.00
[2024-04-28] MEDS: LASIX 40 MG IV (09:14)
[2024-04-28] MEDS: AUGMENTIN 875 MG/125 MG 1 TABLET PO ×2 (09:15→20:48)
[2024-04-28] MEDS: ELIQUIS 5 MG PO ×2 (09:15→20:48)
[2024-04-28] MEDS: COREG 25 MG PO ×2 (09:15→20:49)
[2024-04-28] MEDS: LAMICTAL 200 MG PO (09:15)
[2024-04-28] MEDS: LIDOCAINE 4% PATCH 2 PATCH TOPICAL (09:16)
[2024-04-28] MEDS: SANTYL OINTMENT 1 APPLIC TOPICAL (09:16)
[2024-04-28] MEDS: PACERONE 200 MG PO ×2 (09:16→20:48)
[2024-04-28] MEDS: MUCINEX 600 MG PO ×2 (09:16→20:48)
[2024-04-28] MEDS: LOMOTIL 1 TABLET PO ×4 (09:19→22:37)
--- NOTE | 2024-04-28 09:22 | W.PN.ONC ---
Today's Communication / Plan
-
Cardioversion per cardiology, today
Continue Eliquis
Monitor CBC
Continue IV iron, to finish 5 doses 04/30
PO diet, tolerating well
Wound mgmt
Outpatient f/u with Dr. Venegas 05/20/24, 3:15pm
Will sign off, please call w/ heme/onc questions
Impression
Impression
SOB
Mild congestive heart failure
No discrete infiltrate
Stage IV colon - s/p debulking surgery and [facility] (late Feb 2024, [facility] - w/ post-op abscess w/ wound/ ostomy)
Symptomatic anemia
Wound healing by secondary intention postop with abdominal abscess
Plan
Plan
Cardioversion per cardiology, today
Continue Eliquis
Monitor CBC
Continue IV iron, to finish 5 doses 04/30
PO diet, tolerating well
Wound mgmt
Outpatient f/u with Dr. Venegas 05/20/24, 3:15pm
Will sign off, please call w/ heme/onc questions
Subjective/Objective
Subjective/Objective
Eating well, managing ostomy
No palpitations, cough, dyspnea
No bleeding
Vital Signs:
Vital Signs
Temp Pulse Resp BP Pulse Ox
98.0 F 88 14 112/70 98
04/28/24 08:00 04/28/24 08:00 04/28/24 08:00 04/28/24 08:00 04/28/24 08:00
Lab Results:
Laboratory Data
WBC 9.2 10^3/uL (4.8-10.8) 04/28/24 05:41
Hgb 8.3 g/dL (13.0-18.0) L 04/28/24 05:41
Plt Count 529 10^3/uL (130-400) H 04/28/24 05:41
eGFR > 60.00 04/28/24 05:41
[2024-04-28] MEDS: ROXICODONE 5 MG PO ×2 (09:26→20:56)
--- NOTE | 2024-04-28 10:07 | W.PN.HOSP.TC ---
Today's Communication/Plan
-
see A/P
Assessment / Plan
Assessment / Plan
A/P:
# Acute Hypoxic Respiratory Insufficiency, multifactorial likely secondary to pneumonia and acute CHF exacerbation, resolved
Off O2 support
# Community Acquired Pneumonia
transitioned to PO Augmentin to complete 5 day course
Flu and Covid tests at [place] negative
Mucinex
# Acute on chronic heart Failure with preserved EF
patient states he has been on and off of Lasix in past
imaging suggestive of heart failure
Continue with IV Lasix 40 mg daily
TTE with preserved EF
Cardiology on board evaluation, pt has seen Dr. Virk in past
# Atrial Flutter, appears persistent
# Suspect history of paroxysmal, per patient had cardioversion on last admission at [place]
Requested records
Continue with amiodarone
continue DIRECTOR OF CONTENT MARKETING Eliquis
s/p successful cardioversion 04/28
Cardiology on board
# Hx stage IV Colon Cancer with Recurrent
Recent OR 8 weeks ago complicated by abscess requiring 2 week hospitalization at [place]
Recent surgical debulking at [place] with postop abscess/ostomy
wound care consult following for abdominal wound
Per patient he was also on TPN at home, hold TPN at this time.
Patient is tolerating p.o. intake/diet well
Outpatient f/u with Dr. Venegas 05/20/24, 3:15pm
# Anemia likely multifactorial, suspect anemia chronic disease
# iron deficiency anemia
IV iron x5 doses
Hematology following
# Hyponatremia
Monitor
# GERD
# Essential Hypertension
# Anxiety/Depression
DVT PPx: DIRECTOR OF CONTENT MARKETING Eliquis
FULL CODE
DW RN
Anticipated Discharge: Within 24 hours
Subjective/Interval History
-
Date of Service: April 28, 2024
Objective Data
-
Labs:
Laboratory Results
04/28/24
05:41
WBC 9.2
Hgb 8.3 L
Hct 25.3 L
Plt Count 529 H
Sodium 128 L
Potassium 4.3
Chloride 99
Carbon Dioxide 25
BUN 14
Creatinine 0.7
Glucose 80
Calcium 8.6
Vital Signs:
Vital Signs
Temp Pulse Resp BP Pulse Ox
36.7 C 88 14 112/70 98
04/28/24 08:00 04/28/24 08:00 04/28/24 08:00 04/28/24 08:00 04/28/24 08:00
I&O
04/27/24 04/28/24 04/29/24
06:59 06:59 06:59
Intake Total 600 / 600 1310 / 1310
Output Total 1450 / 1450 1575 / 1575
Balance -850 / -850 -265 / -265
Review of Systems
-
All other systems: Reviewed and negative
Physical Exam
-
General: Well Developed, Well Nourished, No Apparent Distress, Comfortable and Conversant; Negative Respiratory Distress
HEENT: Normocephalic, Atraumatic, Nose Appears Normal and Ears Appear Normal; Negative Oxygen
Respiratory: Clear to Auscultation and Non Labored Respirations; Negative Accessory Resp Muscle Use
Cardiac: Regular Rhythm and S1/S2
GI: Soft, Nontender, Nondistended and Normal Bowel Sounds
Skin: Warm and Dry
Neuro: Awake, Alert, Oriented and AO x 3
Psych: Calm and Intact Judgement/Insight
Data Reviewed
-
Labs: Labs Reviewed by me
[2024-04-28] MEDS: BENADRYL 6.25 MG IV ×2 (13:35→18:36)
[2024-04-28] MEDS: FERRLECIT 110 MG IV (13:35)
--- NOTE | 2024-04-28 14:48 | VNURNOTE ---
[facility] liaison met with patient at bedside to discuss [facility] services. Asked if he was current with another agency and he said he rec'ed [facility] prior to admission. ABIGAIL PICC noted. Patient stated he was on TPN at home prior to hospitalization. He
was unsure if he'd continue with it upon DC. Informed patient that if he wanted to discontinue [facility] services, he would need to call them and inform their office to discontinue. Informed patient that unfortunately [facility] cannot manage PICC or TPN
at home. Patient verbalized understanding. LORETTA Harrison updated. No referral placed at this time, awaiting clearer DC plans. [facility] liaison remains available.
--- NOTE | 2024-04-28 16:45 | CM ---
Spoke with pt in room .He said [place] live [place] sister [place] [address] [facility] .
Offered VN he said [facility] but had [facility] was current.
Pt had PICC line .
IMM reviewed IMM signed on chart.
Sister will drive him home.
Dgt Naomi will drive him home.
PLAN Home with [facility] if accepted
--- NOTE | 2024-04-28 17:01 | W.PN.CARDCBS ---
Today's Communication / Plan
-
Cardioversion successful with 150 J converting atrial flutter to sinus rhythm.
Impression / Plan
-
.
PCP: Jacky Guillaume
Oncology Rep: Estela Arthur
Impression:
Presented 04/24/2024 with shortness of breath
Acute hypoxic respiratory insufficiency suspected to be multifactorial
Community-acquired pneumonia
Acute heart failure with preserved ejection fraction, proBNP 3330
Bilateral pleural effusion left greater than right
Anemia
Atrial flutter
Hyponatremia
Abnormal TSH
Recurrent stage IV colon cancer, dx 2020
Right hemicolectomy surgery/ adjuvant FOLFOX 2020
recurrence 2022 - FOLFIRI/ Avastin - Avastin maintenance followed by surgery [facility] fall 2023 with debulking surgery at [facility] 02/27 complicated by Abscess
Recurrent pleural effusion requiring chest tube February 2024
Urethral stent placement February 2024
Paroxysmal atrial fibrillation post colon surgery
Anticoagulation with Eliquis
Hypertension
Abnormal EKG
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
Esophageal ulcers August 2023 / GERD
Anxiety depression
2D echocardiogram 03/12/2023 without IV Definity or strain: Normal LV size, wall thickness and systolic function with no regional wall motion abnormality. EF 64%No significant valve pathology. Estimated pulmonary artery pressure 38 mmHg. No
pericardial effusion. Aortic root top normal 3.8 cm at the sinus of Valsalva.
Plan:
Medically complex 68-year-old with stage IV colon cancer status post right hemicolectomy and chemotherapy back in 2020 with recurrence status postchemotherapy and recurrent surgery 8 weeks ago complicated by abscess at [facility] with more recent
admission at outside hospital in March found to be in atrial flutter and underwent MAY/cardioversion March 17, 2024 and placed on Eliquis anticoagulation. He was briefly on amiodarone however this was discontinued prior to his discharge.
Admitted to [facility] April 24, 2024 with Acute hypoxic respiratory insufficiency felt to be multifactorial from community-acquired pneumonia and acute HFpEF in atrial flutter
CAP
-Antibiotics per primary service for pneumonia
-Flu and COVID tested at [place] and were negative
Heart failure with preserved ejection fraction, proBNP 3330
-Will give an additional dose of IV Lasix today and transition to oral Lasix 40 mg p.o. daily starting tomorrow
-Goal-directed medical therapy is limited: Continue carvedilol 25 mg twice daily. Due to low blood pressure trends unable to add Entresto or SAILAJA/ARB or Aldactone at this time. Because of immunocompromise state with recent abscess would not add
SGLT2 inhibitor at this time.
-Goal is to maintain sinus rhythm
-Will repeat proBNP tomorrow
-Wean O2
Paroxysmal atrial fibrillation/flutter
-Continue Eliquis anticoagulation
-Cardioversion today successful with 150 J converting atrial flutter to sinus rhythm.
-Will reduce amiodarone to 200 mg twice daily.
-Check EKG tomorrow for QT interval
-Tentative plan would be to continue amiodarone 200 mg twice daily for 2 weeks and transition to 200 mg daily
-Bilateral pleural effusions left small to moderate and right small.
-Monitor closely with diuresis.
-Patient previously had chest tube February 2024 for recurrent effusion
-Consider follow-up chest x-ray, defer to primary
-Anemia likely secondary to recent surgeries and multifactorial
-Treatment per primary team.
-Receiving IV iron and hematology following.
Discussed with nursing.
HPI 04/25/2024:
Patient is a 68-year-old male with history of recurrent stage IV colon cancer status post right hemicolectomy on chemotherapy followed with Dr. Venegsa, hypertension, abnormal EKG, paroxysmal atrial fibrillation who recently underwent right sigmoid
resection, splenectomy, cholecystectomy, splenectomy and bilateral cystoscopy with insertion of bilateral stent ureter in mid to late February 2024 at [facility]. He then presented back to [facility] March 03, 2024 with worsening abdominal
discomfort and CT showed concern for anastomotic leak versus bowel perforation/abscess and possible pneumonia. He returned to the OR for washout and got ileostomy. He had pleural effusion requiring multiple thoracentesis and was discharged home
with left sided chest tube but later removed n early April. He was found to have new onset atrial fibrillation with rapid ventricular response. Ultimately he underwent cardioversion and was placed on Amiodarone, Coreg and Eliquis. Amiodarone
stopped 04/10/24 .
Patient had worsening shortness of breath over the last 1-2 weeks and had CTA of chest at [facility] 04/24/2024 which showed small to moderate bilateral pleural effusions with interstitial thickening and cardiomegaly suggestive of pulmonary edema.
Patient now presenting to [facility] 04/24/2024 with worsening shortness of breath and cough and pneumonia. EKG on admission showed atrial flutter. Chest x-ray concerning for pneumonia. There was bilateral pleural effusions left small to
moderate and right small. proBNP elevated at 3300. Patient received IV Lasix in emergency department and was placed on antibiotics. At time of this evaluation patient reports breathing has improved some but still not back to baseline. He
denies shortness of breath at rest, chest pain, dizziness or lightheadedness. He reports he is rather asymptomatic with his atrial fibrillation/flutter.
Progress Note - Oncology Rep
Subjective
Date of Service: April 28, 2024
Patient seen and examined at time of cardioversion. Denies chest pain or pressure. Shortness of breath is overall improved. He has been on anticoagulation without interruption after review of records from outside hospitals. Transesophageal
echocardiogram dated 03/17/2024 and has been on anticoagulation at least 1 month without interruption. Confirmed with patient's sister over the phone
Objective
Labs:
04/28/24 05:41
04/28/24 05:41
Labs
Hgb 8.3 g/dL (13.0-18.0) L 04/28/24 05:41
Hct 25.3 % (39.0-52.0) L 04/28/24 05:41
Plt Count 529 10^3/uL (130-400) H 04/28/24 05:41
Sodium 128 mmol/L (135-145) L 04/28/24 05:41
Potassium 4.3 mmol/L (3.5-5.1) 04/28/24 05:41
BUN 14 mg/dl (9-20) 04/28/24 05:41
Creatinine 0.7 mg/dL (0.7-1.3) 04/28/24 05:41
Glucose 80 mg/dl (70-99) 04/28/24 05:41
Vital Signs and I&O:
Vital Signs
Temp Pulse Resp BP Pulse Ox
98.0 F 74 16 141/69 96
04/28/24 15:30 04/28/24 15:30 04/28/24 15:30 04/28/24 15:30 04/28/24 15:30
Vital Signs
Temp Pulse Resp BP Pulse Ox
98.0 F 74 16 141/69 96
04/28/24 15:30 04/28/24 15:30 04/28/24 15:30 04/28/24 15:30 04/28/24 15:30
Intake & Output
04/26/24 04/27/24 04/28/24 04/29/24
06:59 06:59 06:59 06:59
Intake Total 660 / 660 600 / 600 1310 / 1310
Output Total 2059 / 2059 1450 / 1450 1575 / 1575
Balance -1400 / -1400 -850 / -850 -265 / -265
Physical Exam
Physical Exam
General: 68-year-old gentleman. Nasal cannula O2 2 L. Appears chronically ill
Heart: Irregularly irregular, Negative S3 positive S1/S2, No murmur
Lungs: Bronchovesicular breath sounds decreased at the bases but clear. Positive port
Abd:Soft. Recent surgery with surgical wounds healing.
Ext: No edema
--- NOTE | 2024-04-28 17:12 | ITS.CL.CARDI ---
[employer] - Cardioversion
Cardioversion
Procedure Report:
Date of Procedure: 04/28/24
Procedure: Cardioversion
Indication: Symptomatic atrial flutter
Performing Physician: Estela Arthur DO [facility]
Technique: The patient was brought to the holding area. Signed informed consent was obtained. A time out was called and performed. The patient was anesthetized by the anesthesia service. Anticoagulation status was reviewed and appropriate. R2 pads
were placed anteriorly and posteriorly. A 150 J synchronized biphasic shock restored normal sinus rhythm without significant bradycardia. There were no complications.
Conclusion: Uncomplicated cardioversion from atrial flutter to sinus rhythm.
Recommendation: Routine post cardioversion care. 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
[2024-04-28] MEDS: REMERON 30 MG PO (22:37)
[2024-04-29 03:55] VITALS: BP 128/70
[2024-04-29 04:52] LABS: Blood Urea Nitrogen 15 mg/dl (9-20); Calcium 8.4 mg/dl (8.4-10.2); Carbon Dioxide 23 mmol/L (22-30); Chloride 96 mmol/L (98-107); Estimated Creatinine Clearance 77 ml/min; Glucose 80 mg/dl (70-99); Magnesium 1.7 mg/dl (1.6-2.3); Potassium 3.7 mmol/L (3.5-5.1); Sodium 127 mmol/L (135-145); eGFR > 60.00
[2024-04-29 07:29] VITALS: BP 114/63
[2024-04-29] MEDS: LIDOCAINE 4% PATCH 2 PATCH TOPICAL (08:40)
[2024-04-29] MEDS: LAMICTAL 200 MG PO (08:41)
[2024-04-29] MEDS: AUGMENTIN 875 MG/125 MG 1 TABLET PO (08:41)
[2024-04-29] MEDS: ELIQUIS 5 MG PO (08:41)
[2024-04-29] MEDS: COREG 25 MG PO (08:41)
[2024-04-29] MEDS: MUCINEX 600 MG PO (08:41)
[2024-04-29] MEDS: PACERONE 200 MG PO (08:41)
[2024-04-29] MEDS: LASIX 40 MG IV (08:42)
[2024-04-29] MEDS: LOMOTIL 1 TABLET PO (08:42)
[2024-04-29] MEDS: SANTYL OINTMENT 1 APPLIC TOPICAL (08:42)
[2024-04-29] MEDS: FLUSH (NSS) 2 FLUSH IV (08:43)
[2024-04-29] MEDS: BENADRYL 6.25 MG IV (08:55)
--- NOTE | 2024-04-29 09:38 | W.PN.HOSP.TC ---
Addendum entered and electronically signed by Isha Feldman MD 04/29/24 14:20:
total DC time 38 min
Addendum entered and electronically signed by Isha Feldman MD 04/29/24 12:52:
# Moderate protein calorie malnutrition
Original Note:
Today's Communication/Plan
-
DC home today with HH
Assessment / Plan
Assessment / Plan
A/P:
# Acute Hypoxic Respiratory Insufficiency, multifactorial likely secondary to pneumonia and acute CHF exacerbation, resolved
Off O2 support
# Community Acquired Pneumonia
transitioned to PO Augmentin to complete 5 days' course
Flu and Covid tests at [place] negative
Mucinex
# Acute on chronic heart Failure with preserved EF
patient states he has been on and off of Lasix in past
imaging suggestive of heart failure
IV Lasix 40 mg to PO lasix daily
TTE with preserved EF
Cardiology on board evaluation, pt has seen Dr. Virk in past
# Atrial Flutter, appears persistent
# Suspect history of paroxysmal, per patient had cardioversion on last admission at [facility]
Requested records
Continue with amiodarone
continue RECYCLING COORDINATOR Eliquis
s/p successful cardioversion 04/28
Cardiology on board
# Hx stage IV Colon Cancer with Recurrent
Recent OR 8 weeks ago complicated by abscess requiring 2 week hospitalization at [facility]
Recent surgical debulking at [facility] with postop abscess/ostomy
wound care consult following for abdominal wound
Per patient he was also on TPN at home, hold TPN at this time.
Patient is tolerating p.o. intake/diet well
Outpatient f/u with Dr. Venegas 05/20/24, 3:15pm
# Anemia likely multifactorial, suspect anemia chronic disease
# iron deficiency anemia
IV iron x5 doses ordered
Hematology following
# Hyponatremia
Monitor
# GERD
# Essential Hypertension
# Anxiety/Depression
DVT PPx: RECYCLING COORDINATOR Eliquis
FULL CODE
DW Card, cleared for DC
Anticipated Discharge: Today
Subjective/Interval History
-
Date of Service: April 29, 2024
Objective Data
-
Labs:
Laboratory Results
04/29/24
04:07
Sodium 127 L
Potassium 3.7
Chloride 96 L
Carbon Dioxide 23
BUN 15
Creatinine 0.7
Glucose 80
Calcium 8.4
Vital Signs:
Vital Signs
Temp Pulse Resp BP Pulse Ox
36.7 C 93 16 114/63 99
04/29/24 07:29 04/29/24 07:29 04/29/24 07:29 04/29/24 07:29 04/29/24 07:29
I&O
04/28/24 04/29/24 04/30/24
06:59 06:59 06:59
Intake Total 1310 / 1310 740 / 740
Output Total 1575 / 1575 725 / 725
Balance -265 / -265
Review of Systems
-
All other systems: Reviewed and negative
Physical Exam
-
General: Well Developed, Well Nourished, No Apparent Distress, Comfortable and Conversant; Negative Respiratory Distress
HEENT: Normocephalic, Atraumatic, Nose Appears Normal and Ears Appear Normal; Negative Oxygen
Respiratory: Clear to Auscultation and Non Labored Respirations; Negative Accessory Resp Muscle Use
Cardiac: Regular Rhythm and S1/S2
GI: Soft, Nontender, Nondistended and Normal Bowel Sounds
Skin: Warm and Dry
Neuro: Awake, Alert, Oriented and AO x 3
Psych: Calm and Intact Judgement/Insight
Data Reviewed
-
Labs: Labs Reviewed by me
--- NOTE | 2024-04-29 10:20 | CM ---
entered order for dc.
Spoke with Emily Fuller /[facility] . Pt is current and will resume.
As per Dr Philip pt will no longer need TPN at home with [facility] .Called [facility] spoke with Rachel harden informed her that pt dc to home with VN but no longer infusion as per Dr Feldman.
[facility]LM with sister.
PICC line will need to be removed .
Dgt Naomi will drive him home.
PLAN Home with [facility] fax [phone]
[2024-04-29] MEDS: ROXICODONE 5 MG PO (10:45)
[2024-04-29 11:03] VITALS: BP 103/64
--- NOTE | 2024-04-29 12:19 | W.PN.CARDCBS ---
Addendum entered and electronically signed by Torin De La Cruz MD 04/29/24 13:09:
I saw and examined the patient.
The [employer] Administrator's note was reviewed and I agree with the note.
Comment:
GEN: No distress, awake, Ox3
HEENT: supple, anicteric, mmm
LUNGS: CTA, no wheezes/rales
CV: Reg, S1/S2, 1/6 syst LSB, no gallop
ABD: soft, BS+, NT/ND
EXT: No edema
NEURO: Gross non-focal
SKIN: No rash
Plan:
Remains in sinus rhythm after cardioversion yesterday. Will discharge on amiodarone 200 mg once daily.
Continue Lasix 40 mg p.o. daily.
Continue treatment for pneumonia and advanced colon cancer.
Original Note:
Today's Communication / Plan
-
Discharge home on amiodarone 200 mg once a day
Outpatient cardiology follow-up has been arranged
Impression / Plan
-
.
PCP: Jacky Guillaume
Tavern Car Attendant: Estela Arthur
Impression:
Presented 04/24/2024 with shortness of breath
Acute hypoxic respiratory insufficiency suspected to be multifactorial
Community-acquired pneumonia
Acute heart failure with preserved ejection fraction, proBNP 3330
Bilateral pleural effusion left greater than right
Anemia
Atrial flutter
Hyponatremia
Abnormal TSH
Recurrent stage IV colon cancer, dx 2020
Right hemicolectomy surgery/ adjuvant FOLFOX 2020
recurrence 2022 - FOLFIRI/ Avastin - Avastin maintenance followed by surgery [facility] fall 2023 with debulking surgery at [facility] 02/27 complicated by Abscess
Recurrent pleural effusion requiring chest tube February 2024
Urethral stent placement February 2024
Paroxysmal atrial fibrillation post colon surgery
Anticoagulation with Eliquis
Hypertension
Abnormal EKG
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
Esophageal ulcers August 2023 / GERD
Anxiety depression
2D echocardiogram 03/12/2023 without IV Definity or strain: Normal LV size, wall thickness and systolic function with no regional wall motion abnormality. EF 64%No significant valve pathology. Estimated pulmonary artery pressure 38 mmHg. No
pericardial effusion. Aortic root top normal 3.8 cm at the sinus of Valsalva.
Plan:
Medically complex 68-year-old with stage IV colon cancer status post right hemicolectomy and chemotherapy back in 2020 with recurrence status postchemotherapy and recurrent surgery 8 weeks ago complicated by abscess at [facility] with more recent
admission at outside hospital in March found to be in atrial flutter and underwent MAY/cardioversion March 17, 2024 and placed on Eliquis anticoagulation. He was briefly on amiodarone however this was discontinued prior to his discharge.
Admitted to [facility] April 24, 2024 with Acute hypoxic respiratory insufficiency felt to be multifactorial from community-acquired pneumonia and acute HFpEF in atrial flutter
CAP
-Antibiotics per primary service for pneumonia
-Flu and COVID tested at [place] and were negative
Heart failure with preserved ejection fraction, proBNP 3330
-Transition and discharge home on oral Lasix 40 mg p.o. daily
-Goal-directed medical therapy is limited: Continue carvedilol 25 mg twice daily. Due to low blood pressure trends unable to add Entresto or SAILAJA/ARB or Aldactone at this time. Because of immunocompromise state with recent abscess would not add
SGLT2 inhibitor at this time.
-Goal is to maintain sinus rhythm
Paroxysmal atrial fibrillation/flutter
-Continue Eliquis anticoagulation
-s/p successful cardioversion 04/28/24 with 150 J converting atrial flutter to sinus rhythm.
-EKG with QTc 521 ms. Would reduce amiodarone to once a day
Bilateral pleural effusions left small to moderate and right small.
-Monitor closely with diuresis.
-Potassium 3.7, replete
-Patient previously had chest tube February 2024 for recurrent effusion
-Anemia likely secondary to recent surgeries and multifactorial
-Treatment per primary team.
-Receiving IV iron and hematology following.
HPI 04/25/2024:
Patient is a 68-year-old male with history of recurrent stage IV colon cancer status post right hemicolectomy on chemotherapy followed with Dr. Venegas, hypertension, abnormal EKG, paroxysmal atrial fibrillation who recently underwent right sigmoid
resection, splenectomy, cholecystectomy, splenectomy and bilateral cystoscopy with insertion of bilateral stent ureter in mid to late February 2024 at [facility]. He then presented back to [facility] March 03, 2024 with worsening abdominal
discomfort and CT showed concern for anastomotic leak versus bowel perforation/abscess and possible pneumonia. He returned to the OR for washout and got ileostomy. He had pleural effusion requiring multiple thoracentesis and was discharged home
with left sided chest tube but later removed n early April. He was found to have new onset atrial fibrillation with rapid ventricular response. Ultimately he underwent cardioversion and was placed on Amiodarone, Coreg and Eliquis. Amiodarone
stopped 04/10/24 .
Patient had worsening shortness of breath over the last 1-2 weeks and had CTA of chest at [facility] 04/24/2024 which showed small to moderate bilateral pleural effusions with interstitial thickening and cardiomegaly suggestive of pulmonary edema.
Patient now presenting to [facility] 04/24/2024 with worsening shortness of breath and cough and pneumonia. EKG on admission showed atrial flutter. Chest x-ray concerning for pneumonia. There was bilateral pleural effusions left small to
moderate and right small. proBNP elevated at 3300. Patient received IV Lasix in emergency department and was placed on antibiotics. At time of this evaluation patient reports breathing has improved some but still not back to baseline. He
denies shortness of breath at rest, chest pain, dizziness or lightheadedness. He reports he is rather asymptomatic with his atrial fibrillation/flutter.
Progress Note - Tavern Car Attendant
Subjective
Date of Service: April 29, 2024
Patient seen and examined. Patient reports he is feeling well. Ready to be discharged home
Objective
Labs:
04/28/24 05:41
04/29/24 04:07
Labs
Hgb 8.3 g/dL (13.0-18.0) L 04/28/24 05:41
Hct 25.3 % (39.0-52.0) L 04/28/24 05:41
Plt Count 529 10^3/uL (130-400) H 04/28/24 05:41
Sodium 127 mmol/L (135-145) L 04/29/24 04:07
Potassium 3.7 mmol/L (3.5-5.1) 04/29/24 04:07
BUN 15 mg/dl (9-20) 04/29/24 04:07
Creatinine 0.7 mg/dL (0.7-1.3) 04/29/24 04:07
Glucose 80 mg/dl (70-99) 04/29/24 04:07
Vital Signs and I&O:
Vital Signs
Temp Pulse Resp BP Pulse Ox
97.9 F 70 17 103/64 97
04/29/24 11:03 04/29/24 11:03 04/29/24 11:03 04/29/24 11:03 04/29/24 11:03
Vital Signs
Temp Pulse Resp BP Pulse Ox
97.9 F 70 17 103/64 97
04/29/24 11:03 04/29/24 11:03 04/29/24 11:03 04/29/24 11:03 04/29/24 11:03
Intake & Output
04/27/24 04/28/24 04/29/24 04/30/24
06:59 06:59 06:59 06:59
Intake Total 600 / 600 1310 / 1310 740 / 740
Output Total 1450 / 1450 1575 / 1575 725 / 725 950 / 950
Balance -850 / -850 -265 / -265 15 / 15 -950 / -950
Physical Exam
Physical Exam
GEN: No distress, awake, Ox3, thin and chronically ill-appearing
HEENT: supple, anicteric, mmm
LUNGS: Few scattered crackles otherwise CTA
CV: Reg, S1/S2, no murmur, rub or gallop
ABD: soft, BS+, NT/ND; colostomy bag full of stool
EXT: No edema clubbing or cyanosis
NEURO: Gross non-focal
SKIN: No rash
--- NOTE | 2024-04-29 12:27 | PN.CDI ---
CDI
- -
CDI:
Physician Documentation Request
Admit Date: 04/24/24 18:37
Dear Doctor Gaston,
Patient admitted for pneumonia.
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 Pt states UBW was 150lbs- last weighed this before surgery 8 weeks ago. States beginning of april weighed 111lb...Pt was observed
with hollow orbital, clavicle protrusion; this with decreased intake boat captain meets ASPEN and AND criteria for moderate protein calorie malnutrition of chronic illness.'
Based on the above information and your assessment, which of the following most accurately represents the patient's nutritional status?
Moderate protein calorie malnutrition
Other (please specify)
[place] Criteria ([facility] Hospitalist 2017)
2 or more criteria must be present for either
non severe or severe malnutrition
Note that the criteria differs related to the
presence of an acute or chronic illness
Acute Illness Chronic Illness
Energy Intake Non Severe: <75% for >7 days Non Severe: <75% for >1 month
Severe: <50% for >5 days Severe: <75% for >1 month
Weight Loss Non Severe: 1-2% over 1 week Non Severe: 5% over 1 month
5% over 1 month 7.5% over 3 months
7.5% over 3 months 10% over 6 months
1 year N/A 20% over 1 year
Severe: >2% over 1 week Severe: >5% over 1 month
>5% over 1 month >7.5% over 3 months
>7.5% over 3 months >10% over 6 months
1 year N/A >20% over 1 year
Body Fat Non Severe: Mild Decrease Non Severe: Mild Loss
Severe: Moderate Decrease Severe: Severe Loss
Muscle Mass Non Severe: Mild Decrease Non Severe: Mild Loss
Severe: Moderate Decrease Severe: Severe Loss
Fluid Accumulation Non Severe: Mild Accumulation Non Severe: Mild Accumulation
Severe: Moderate to severe Severe: Moderate to severe
accumulation accumulation
Reduced Special Loan Officer Strength Non Severe: N/A Non Severe: N/A
Severe: Measurably reduced Severe: Measurably reduced
Additional criteria that can be used to Determine if Mild or Moderate Malnutrition ([employer] Manual 2018)
Mild Moderate Severe
Albumin gm/dl <3.0 gm/dl <2.5 gm/dl <2.0 gm/dl
Pre Albumin mg/dl <15 gm/dl <10 mg/dl <5.0 mg/dl
BMI <18.5 <17 <16
Use of terms such as suspected, likely, concern for, or probable (associated with a specific diagnosis that is being evaluated, monitored, or treated as if it exists) are acceptable and can be coded in the inpatient setting, when documented at the
time of discharge.
Thank you,
Jo Donovan RN, BSN
CDI Specialist
Available via [place] text
Please use your independent medical judgment in providing your response.
--- NOTE | 2024-04-29 13:57 | W.DCSUMMARY ---
Discharge Summary
Discharge Data
Date of Admission: 04/24/24
Date of Discharge: 04/29/24
-
Pending Results: No
Hospital Course
Principal Diagnosis:
Acute Hypoxic Respiratory Insufficiency, multifactorial secondary to pneumonia and acute heart failure exacerbation, resolved
Community Acquired Pneumonia
Acute on chronic heart failure with preserved ejection fraction
Atrial Flutter, status post successful cardioversion 04/28
Chronic Diagnoses:�
Stage IV Colon Cancer with Recurrence. Outpatient follow-up with oncology. No need for TPN, continue regular diet with solid and thin liquid
Anemia suspect anemia chronic disease
Hyponatremia
GERD
Essential Hypertension
Anxiety/Depression
Suspect history of paroxysmal, per patient had cardioversion on last admission at [place]
Consultations:�
Cardiology
Oncology
Procedures:�
Successful cardioversion 04/28
Clinical course:�
This is a 68-year-old male, with past medical history as stated above, who presented with shortness of breath and mild hypoxia.
Problem 1:
Acute Hypoxic Respiratory Insufficiency, multifactorial secondary to pneumonia and acute heart failure exacerbation, resolved.
He was weaned off oxygen with good saturation (99%) on room air.
Problem 2:
Community Acquired Pneumonia.
His flu and COVID tests from [facility] were negative.
He was treated with ceftriaxone/azithromycin initially, and these were transitioned to oral Augmentin.
He was discharged with oral Augmentin for 2 more days to complete course.
Problem 3:
Acute on chronic heart Failure with preserved EF.
He was treated with IV Lasix 40 mg daily, and this was changed to oral Lasix to continue following discharge.
His echo this admission showed preserved ejection fraction at 60%.
Problem 4:
Atrial Flutter, converted to normal sinus rhythm after successful cardioversion this admission.
He can continue amiodarone 200 mg twice daily until further directed by the caser outpatient.
He can continue with his prior to admission Eliquis 5 mg twice daily.
As for the rest of his medical problems, they were stable during his hospital stay.
Discharge Plan
-
Patient Disposition: Home with Home Care
Discharge Diagnosis/Procedures: Acute Hypoxic Respiratory Insufficiency (resolved):
Community Acquired Pneumonia;
Acute on chronic heart Failure with preserved EF;
Atrial Flutter s/p successful cardioversion
Condition: Fair
Diet: As tolerated and Restrict fluids to 64 oz
Activity: As tolerated
Driving Restrictions: Not until seen by your Dr
Blood Work: BMP in 1 week, result to PCP
Wound Care: Wound Care Instructions:
Mid abdominal surgical wound-clean with Vashe, Santyl ointment, pack with Vashe moistened gauze, cover with dry gauze pads and ABD pad, change daily and as needed for loosened dressing.
Ileostomy care-change appliance 2 times a week and as needed for leakage. Apply light dusting of 2% Miconazole powder to peristomal skin rash followed by no sting barrier wipe with each wafer change. Ostomy supplies used in hospital Lucina wafer
# [id number], Taj seal, Lucina pouch # [id number] or use your 1 piece Coloplast pouch with Taj seal.
Pressure redistributing chair cushion (i.e. Air chair cushion).
Elevate heels off bed with pillow.
Follow up with your surgeon.
Referrals:
Mile Goyal PA-C [Specified Professional Personl] - 05/13/24 3:40 pm (You have cardiology follow-up with Mile Goyal PA-C on May 13 at 3:40 PM in [address] [facility]. If you are unable to make this appointment please call [phone] to
reschedule)
UNKNOWN - PT NOT,INTERVIEWE [Family Provider] -
Additional Discharge Medication Instructions: Continue Lasix 40 mg daily until further directed by your caser.
Continue Amiodarone 200 mg daily until further directed by your caser.
Continue Augmentin for 2 more days
Prescriptions:
New
amoxicillin-pot clavulanate 875-125 mg Tablet
1 tab PO Q12 2 Days Qty: 4 0RF
amiodarone 200 mg Tablet
200 mg PO BID Qty: 60 0RF
Continued
lamotrigine 100 MG tablet
200 mg PO DAILY
mirtazapine 30 mg Tablet
15 mg PO HS
doxylamine succinate 25 mg Tablet
25 mg PO HS
modafinil 100 mg tablet
200 mg PO DAILYPRN PRN (Reason: Energy)
Patient Comments:
Patient takes when he needs energy for hiking
oxycodone 5 mg Tablet
5 mg PO Q4H PRN (Reason: pain)
Rx Instructions:
04/25/24: filled #20 tablets/5 days on 04/07/24 at [facility] #[id number]
carvedilol 25 mg Tablet
25 mg PO BID
loperamide 2 mg Capsule
4 mg PO QID PRN (Reason: diarrhea)
Santyl 250 unit/gram Ointment
1 applic TOPICAL DAILY
Eliquis 5 mg Tablet
5 mg PO BID
acetaminophen 325 mg Tablet
650 mg PO Q6H PRN (Reason: mild pain )
diphenoxylate-atropine 2.5-0.025 mg tablet
1 tab PO QID
Rx Instructions:
04/25/24: filled #80 tablets/10 days on 04/09/24 at [facility] #[id number]
Changed
furosemide 40 mg tablet
40 mg PO DAILY Qty: 30 0RF
Discontinued
amiodarone 200 mg tablet
200 mg PO DAILY
Discharge Orders:
Discharge Patient (As Directed); Ordered 04/29/24
Ordered By: Isha Feldman
Discharge Date and Time
Discharge Date/Time: 04/29/24 12:45
Print Language: TAJIK
== END 2024-04-29 12:45 | disposition home health service (06) | DRG 193 ==
LOC: 3 WEST ACU 18:37
PROVIDERS: Internal Medicine; Internal Medicine Cardiovascular Disease; ADMITTING PHYSICIAN Student in an Organized Health Care Education/Training Program; ATTENDING PHYSICIAN Internal Medicine; CONSULT PHYSICIAN Internal Medicine Cardiovascular Disease; OTHER PHYSICIAN Internal Medicine Hematology & Oncology
PROC: 5A2204Z Restoration of Cardiac Rhythm, Single (ICD-10-PCS; 2024-04-28)
DX: J18.9 Pneumonia, unspecified organism (principal); I50.33 Acute on chronic diastolic (congestive) heart failure; C18.9 Malignant neoplasm of colon, unspecified; I48.92 Unspecified atrial flutter; E87.1 Hypo-osmolality and hyponatremia; E44.0 Moderate protein-calorie malnutrition; Z68.1 Body mass index [BMI] 19.9 or less, adult; I42.2 Other hypertrophic cardiomyopathy; I11.0 Hypertensive heart disease with heart failure; D63.0 Anemia in neoplastic disease; F32.A Depression, unspecified; F41.9 Anxiety disorder, unspecified; I48.0 Paroxysmal atrial fibrillation; G89.29 Other chronic pain; K21.9 Gastro-esophageal reflux disease without esophagitis; R09.02 Hypoxemia; R06.89 Other abnormalities of breathing; Z90.81 Acquired absence of spleen; Z90.49 Acquired absence of other specified parts of digestive tract; Z87.891 Personal history of nicotine dependence; Z79.899 Other long term (current) drug therapy
CPT/HCPCS: 71045; 80048; 82607; 82728; 82746; 83540; 83550; 83735; 83880; 84145; 84443; 84484; 85025; 86803; 87070; 92960; 93005; 93306; 97116; 97162; 97166; J2916

== ENCOUNTER → 2024-05-09 16:34 | Outpatient (REF) | payer MEDICARE, OTHER, SELFPAY ==
[2024-05-09 17:52] LABS: % Basophils 0.8 % (0-2); % Eosinophils 5.2 % (0-6); % Immature Granulocytes 0.1 % (0-0.5); % Lymphocytes 12.1 % (20.5-51.1); % Monocytes 13.7 % (1.7-9.3); % Neutrophils 68.1 % (42.2-75.2); Absolute Basophils 0.1 10^3/uL (0-0.2); Absolute Eosinophils 0.4 10^3/uL (0-0.7); Absolute Lymphocytes 0.9 10^3/uL (1.2-3.4); Absolute Neutrophils 4.8 10^3/uL (1.4-6.5); Hematocrit 29.4 % (39.0-52.0); Mean Corp Hgb Conc. 30.6 g/dL (33.0-37.0); Mean Corpuscular Hgb 29.2 pg (27.0-31.0); Mean Corpuscular Volume 95.5 fL (80.0-94.0); Mean Platelet Volume 9.9 fL (7.4-10.4); Nucleated Red Blood Cells % 0 % (-); Platelet Count 602 10^3/uL (130-400); Red Blood Cell Count 3.08 10^6/uL (4.70-6.10); Red Cell Dist. Width 17.4 % (11.5-14.5); White Blood Cell Count 7.1 10^3/uL (4.8-10.8)
[2024-05-09 18:13] LABS: Blood Urea Nitrogen 16 mg/dl (9-20); Calcium 9.6 mg/dl (8.4-10.2); Carbon Dioxide 28 mmol/L (22-30); Chloride 98 mmol/L (98-107); Glucose 117 mg/dl (70-99); Magnesium 1.7 mg/dl (1.6-2.3); Potassium 4.9 mmol/L (3.5-5.1); Sodium 136 mmol/L (135-145); eGFR > 60.00
== END ==
LOC: REG 16:34
PROVIDERS: ATTENDING PHYSICIAN Hospitalist
DX: R31.0 Gross hematuria (principal); E83.42 Hypomagnesemia
CPT/HCPCS: 36415; 80048; 83735; 85025

== ENCOUNTER → 2024-05-19 13:11 | Outpatient (REF) | payer MEDICARE, OTHER, SELFPAY ==
[2024-05-19 14:20] LABS: % Basophils 1.3 % (0-2); % Eosinophils 5.6 % (0-6); % Immature Granulocytes 0.2 % (0-0.5); % Lymphocytes 9.1 % (20.5-51.1); % Monocytes 10.6 % (1.7-9.3); % Neutrophils 73.2 % (42.2-75.2); Absolute Basophils 0.1 10^3/uL (0-0.2); Absolute Eosinophils 0.5 10^3/uL (0-0.7); Absolute Lymphocytes 0.8 10^3/uL (1.2-3.4); Absolute Neutrophils 6.7 10^3/uL (1.4-6.5); Hematocrit 28.5 % (39.0-52.0); Hemoglobin 8.8 g/dL (13.0-18.0); Mean Corp Hgb Conc. 30.9 g/dL (33.0-37.0); Mean Corpuscular Hgb 28.9 pg (27.0-31.0); Mean Corpuscular Volume 93.4 fL (80.0-94.0); Mean Platelet Volume 10.1 fL (7.4-10.4); Nucleated Red Blood Cells % 0 % (-); Platelet Count 507 10^3/uL (130-400); Red Blood Cell Count 3.05 10^6/uL (4.70-6.10); Red Cell Dist. Width 18.2 % (11.5-14.5); White Blood Cell Count 9.2 10^3/uL (4.8-10.8)
[2024-05-19 14:55] LABS: ALT (SGPT) < 10 U/L (0-50); AST (SGOT) 19 U/L (17-59); Albumin 3.4 g/dl (3.5-5.0); Alkaline Phosphatase 218 U/L (38-126); Blood Urea Nitrogen 19 mg/dl (9-20); Calcium 9.6 mg/dl (8.4-10.2); Carbon Dioxide 24 mmol/L (22-30); Chloride 99 mmol/L (98-107); Glucose 106 mg/dl (70-99); Potassium 4.9 mmol/L (3.5-5.1); Sodium 134 mmol/L (135-145); Total Bilirubin 0.2 mg/dl (0.2-1.3); Total Protein 6.7 g/dl (6.3-8.2); eGFR > 60.00
[2024-05-19 20:47] LABS: CEA 2.22 ng/ml
[2024-05-20 10:59] LABS: Iron 35 ug/dl (49-181)
[2024-05-20 11:08] LABS: Percent Saturation 15 % (20-50); Total Iron Binding Capacity 228 ug/dl (261-462)
== END ==
LOC: REG 13:11
PROVIDERS: ATTENDING PHYSICIAN Internal Medicine Hematology & Oncology; FAMILY PHYSICIAN Hospitalist
DX: C18.2 Malignant neoplasm of ascending colon (principal); D50.9 Iron deficiency anemia, unspecified; D69.3 Immune thrombocytopenic purpura; K12.31 Oral mucositis (ulcerative) due to antineoplastic therapy; E87.6 Hypokalemia; K21.9 Gastro-esophageal reflux disease without esophagitis; M54.32 Sciatica, left side
CPT/HCPCS: 36415; 80053; 82378; 82728; 83540; 83550; 85025

== ENCOUNTER 2024-05-20 16:18 | Emergency (ER) | payer MEDICARE, OTHER, SELFPAY ==
[2024-05-20 16:40] VITALS: BP 102/60
[2024-05-20 17:07] LABS: % Eosinophils 3.5 % (0-6); % Immature Granulocytes 0.5 % (0-0.5); % Lymphocytes 9.1 % (20.5-51.1); % Monocytes 7.6 % (1.7-9.3); % Neutrophils 78.3 % (42.2-75.2); Absolute Basophils 0.1 10^3/uL (0-0.2); Absolute Eosinophils 0.3 10^3/uL (0-0.7); Absolute Lymphocytes 0.8 10^3/uL (1.2-3.4); Absolute Monocytes 0.7 10^3/uL (0.1-0.6); Hematocrit 31.5 % (39.0-52.0); Hemoglobin 9.7 g/dL (13.0-18.0); Mean Corp Hgb Conc. 30.8 g/dL (33.0-37.0); Mean Corpuscular Hgb 28.9 pg (27.0-31.0); Mean Corpuscular Volume 93.8 fL (80.0-94.0); Mean Platelet Volume 9.3 fL (7.4-10.4); Nucleated Red Blood Cells % 0 % (-); Platelet Count 532 10^3/uL (130-400); Red Blood Cell Count 3.36 10^6/uL (4.70-6.10); Red Cell Dist. Width 17.8 % (11.5-14.5); White Blood Cell Count 8.9 10^3/uL (4.8-10.8)
[2024-05-20 17:19] LABS: APTT 59.5 Sec (23.4-35.0)
[2024-05-20 17:27] LABS: ALT (SGPT) 11 U/L (0-50); AST (SGOT) 21 U/L (17-59); Albumin 3.9 g/dl (3.5-5.0); Alkaline Phosphatase 221 U/L (38-126); Blood Urea Nitrogen 20 mg/dl (9-20); Calcium 9.5 mg/dl (8.4-10.2); Carbon Dioxide 24 mmol/L (22-30); Chloride 98 mmol/L (98-107); Glucose 113 mg/dl (70-99); Potassium 4.5 mmol/L (3.5-5.1); Sodium 133 mmol/L (135-145); Total Bilirubin 0.4 mg/dl (0.2-1.3); Total Protein 7.3 g/dl (6.3-8.2); eGFR > 60.00
--- NOTE | 2024-05-20 18:52 | ED.GENMED ---
ED Provider Triage
-
Patient seen by provider in Triage?: Seen in Triage
History of Present Illness
General
Chief Complaint: Fall
Source: patient
Exam Limitations: none
Time Seen by Provider: 05/20/24 18:46
Nursing documentation reviewed up to this point in time: agreed with
History of Present Illness
History of Present Illness:
68 y/o M with h/o colon ca, not currently receiving chemo
genrealized weankess
ostomy
aflutter s/p cardioversion on eliquis
here aftre tripping up 1 step onto welcome mat, hit face on the mat, no LOC
has abrasion under R eye, no headache
some abrasion on R knee; able to get himself up, able to walk
no confusion, neck pain, weakness, vomiting, presyncope sypmtoms, numbness, back pain, abdomina pain
tetanus unknown
Past History
Past History
ED Past Medical History: Cancer (Colon cancer), HTN, Psychiatric (Anxiety, depression, bipolar), Other (Diverticulitis, Sciatica, Anemia, ) and Other (Sciatica)
ED Past Surgical History: Bowel resection, Orthopedic (Left hand surgery, laminectomy), Urological (Vasectomy) and Other (Left arm cyst, Port)
Social History
Tobacco: Former smoker
Alcohol: Former
Personal:
Living: alone
Review of Systems
Review of Systems
Allergies reviewed?: Yes
All Other Systems: Not applicable
Phy Exam
Physical Exam
Physical Exam:
GENERAL: Alert , in no apparent distress
HEAD: NCAT
R inferior orbital abrasions, light sts, slight ecchymosis
NECK: no midline tenderness, active ROM intact, no paraspinal muscle tenderness;
EYE: pupils equal and reactive, EOMs intact.
ENT: o/p clr, mmm. no hemotympanum
CARDIAC: Regular rate and rhythm, no edema
LUNGS: Clear breath sounds bilaterally, no acute respiratory distress, no wheezes/rales/rhonchi
ABDOMEN: Soft, without focal tenderness, no r/g, no cvat
ostomy R side, darkish stool in bag
NEUROLOGICAL: Alert and oriented, no focal neuro deficits, CN intact, 5/5 strength, sensation intact
SKIN: Warm and dry, abrasion R knee and R face;
MUSCULOSKELETAL: No edema, well perfused.
full painless ROM of the R knee
ambuatoy
PSYCH: Normal and appropriate interaction.
Course
Orders/Labs/Results
Orders:
Orders
05/20/24 16:19
CT Head W/o Iv Contrast Urgent
Comment:
Reason For Exam: head injury, on Eliquis
05/20/24 17:00
Type And Crossmatch [Type+Screen] Urgent
Complete Blood Count/With Diff Urgent
Comprehensive Metabolic Panel Urgent
PTT Urgent
05/20/24 19:00
Tetanus/Diphth/Acelpertussis [Adacel] 0.5 ml IM .ONCE ONE
Abnormal Lab Results
05/20/24
17:00
RBC 3.36 L 10^6/uL
(4.70-6.10)
Hgb 9.7 L g/dL
(13.0-18.0)
Hct 31.5 L %
(39.0-52.0)
MCHC 30.8 L g/dL
(33.0-37.0)
RDW 17.8 H %
(11.5-14.5)
Plt Count 532 H 10^3/uL
(130-400)
Absolute Neuts (auto) 7.0 H 10^3/uL
(1.4-6.5)
Absolute Lymphs (auto) 0.8 L 10^3/uL
(1.2-3.4)
Absolute Monos (auto) 0.7 H 10^3/uL
(0.1-0.6)
Neutrophils % 78.3 H %
(42.2-75.2)
Lymphocytes % 9.1 L %
(20.5-51.1)
APTT 59.5 H Sec
(23.4-35.0)
Sodium 133 L mmol/L
(135-145)
Glucose 113 H mg/dl
(70-99)
Alkaline Phosphatase 221 H U/L
(38-126)
05/20/24 17:00
05/20/24 17:00
Vital Signs
Initial and Last Documented VS:
Initial Vital Signs
Temp Pulse Resp BP Pulse Ox
36.3 C 63 18 102/60 99
05/20/24 16:40 05/20/24 16:40 05/20/24 16:40 05/20/24 16:40 05/20/24 16:40
Last Documented Vital Signs
Temp Pulse Resp BP Pulse Ox
36.3 C 62 16 108/69 99
05/20/24 16:40 05/20/24 18:56 05/20/24 18:56 05/20/24 18:56 05/20/24 18:56
MDM/Problems Addressed
Differential Diagnosis Includes:
fall, weakness, fatigue, head injury , abrasion,
MDM/Problems Addressed:
68-year-old male with colon cancer status post colon resection and chemo previously but was just recently told he was going to have to do more chemo who presents after mechanical trip and fall up the steps, 1 step landing on his right cheek and
right knee. Patient had no loss of consciousness but he is on Eliquis. Patient has minimal symptoms of pain to his face and right knee. Abrasions are superficial. He denies that he was near syncopal but he said he is always weak and this is how
he always feels. He is not having any tachycardia or chest pain or shortness of breath. He did not feel like he was passing out. He believes it was a trip. Patient's hemoglobin yesterday was 8.8 on outpatient labs the patient looks to have some
dark stool in his ostomy bag so I did check his labs which show that his hemoglobin is up to 9.7 from yesterday and his BUN is reassuring. Patient Hemoccult was actually negative for blood, just looked dark in the bag. Patient's head CT was
negative we will order a tetanus shot
he has been relatively asympatomic here with just mild aches and nos ignficant complaints
discharged home.
Stable vital signs
*Critical Care Note
Total Time (30-74mins, 75-104mins- exclusive of procedures): Not Applicable
ED Attending Note
-
Portions of this chart may have been created with voice recognition software.� Occasional wrong word or��sound alike� substitutions may have occurred due to the inherent limitations of voice recognition software.
Discharge Plan
Departure
Patient Disposition: Home (Routine Discharge)
Date of Disposition: 05/20/24
Time of Disposition: 19:00
Patient with high blood pressure during this ER visit?: No
Condition: Fair
Covid-19: Not Applicable
Discharge Problem:
Hematoma, Fall, Anemia
Instructions: Contusion (DC), Skin Abrasions (DC)
Prescriptions:
No Action
lamotrigine 100 MG tablet
200 mg PO DAILY
mirtazapine 30 mg Tablet
15 mg PO HS
doxylamine succinate 25 mg Tablet
25 mg PO HS
modafinil 100 mg tablet
200 mg PO DAILYPRN PRN (Reason: Energy)
Patient Comments:
Patient takes when he needs energy for hiking
oxycodone 5 mg Tablet
5 mg PO Q4H PRN (Reason: pain)
Rx Instructions:
04/25/24: filled #20 tablets/5 days on 04/07/24 at [facility] #[id number]
carvedilol 25 mg Tablet
25 mg PO BID
loperamide 2 mg Capsule
4 mg PO QID PRN (Reason: diarrhea)
Santyl 250 unit/gram Ointment
1 applic TOPICAL DAILY
Eliquis 5 mg Tablet
5 mg PO BID
acetaminophen 325 mg Tablet
650 mg PO Q6H PRN (Reason: mild pain )
diphenoxylate-atropine 2.5-0.025 mg tablet
1 tab PO QID
Rx Instructions:
04/25/24: filled #80 tablets/10 days on 04/09/24 at [facility] #[id number]
amoxicillin-pot clavulanate 875-125 mg Tablet
1 tab PO Q12 2 Days Qty: 4 0RF
amiodarone 200 mg Tablet
200 mg PO BID Qty: 60 0RF
furosemide 40 mg tablet
40 mg PO DAILY Qty: 30 0RF
Activity Restrictions/Additional Instructions:
YOUR CAT SCAN SHOWED NO SIGNS OF TRAUMATIC BRAIN INJURY
ICE OFF AND ON TO YOUR FACE
TYLENOL FOR PAIN NEEDED
KEEP YOUR ABRASIONS CLEAN AND DRDY
YOU WERE GIVEN A TETANUS SHOT
RETURN FOR: VOMITING, PASSING OUT, SEVERE PAIN, SEVERE FATIGUE, CONFUSION, WEAKNESS OR ANYC ONCENRS,
Interventions
Interventions:
*Risk Screen - Suicide Last Done: 05/20/24 16:40
*General Assessment Last Done: 05/20/24 16:40
*Neglect/Abuse Screening Last Done: 05/20/24 16:40
ED- Neurological Assessment Last Done: 05/20/24 18:08
Discharge Date and Time
Print Language: SERBIAN
[2024-05-20 18:56] VITALS: BP 108/69
[2024-05-20] MEDS: ADACEL 0.5 ML IM (19:21)
== END 2024-05-20 19:30 | disposition home or self-care (01) ==
LOC: EMR 16:18
PROVIDERS: Physician Assistant; EMERGENCY PHYSICIAN Emergency Medicine; FAMILY PHYSICIAN Hospitalist
DX: D64.9 Anemia, unspecified (principal); S00.11XA Contusion of right eyelid and periocular area, initial encounter; S80.211A Abrasion, right knee, initial encounter; S00.211A Abrasion of right eyelid and periocular area, initial encounter; R53.1 Weakness; W17.89XA Other fall from one level to another, initial encounter; Y92.009 Unspecified place in unspecified non-institutional (private) residence as the place of occurrence of the external cause; Z23 Encounter for immunization; I48.92 Unspecified atrial flutter; F31.9 Bipolar disorder, unspecified; I10 Essential (primary) hypertension; F41.9 Anxiety disorder, unspecified; F32.A Depression, unspecified; K57.92 Diverticulitis of intestine, part unspecified, without perforation or abscess without bleeding; M54.30 Sciatica, unspecified side; Z79.01 Long term (current) use of anticoagulants; Z98.0 Intestinal bypass and anastomosis status; Z85.038 Personal history of other malignant neoplasm of large intestine; Z87.891 Personal history of nicotine dependence
CPT/HCPCS: 99284; 90471; 70450; 80053; 85025; 85730; 86850; 86900; 86901; 90715

== ENCOUNTER → 2024-05-27 14:34 | Outpatient (REF) | payer MEDICARE, OTHER, SELFPAY ==
[2024-05-27 13:41] LABS: % Basophils 0.8 % (0-2); % Eosinophils 7.3 % (0-6); % Immature Granulocytes 0.2 % (0-0.5); % Lymphocytes 8.5 % (20.5-51.1); % Monocytes 8.1 % (1.7-9.3); % Neutrophils 75.1 % (42.2-75.2); Absolute Basophils 0.1 10^3/uL (0-0.2); Absolute Eosinophils 0.6 10^3/uL (0-0.7); Absolute Lymphocytes 0.7 10^3/uL (1.2-3.4); Absolute Monocytes 0.7 10^3/uL (0.1-0.6); Absolute Neutrophils 6.3 10^3/uL (1.4-6.5); Hematocrit 29.2 % (39.0-52.0); Mean Corp Hgb Conc. 30.8 g/dL (33.0-37.0); Mean Corpuscular Hgb 29.3 pg (27.0-31.0); Mean Corpuscular Volume 95.1 fL (80.0-94.0); Mean Platelet Volume 8.9 fL (7.4-10.4); Platelet Count 610 10^3/uL (130-400); Red Blood Cell Count 3.07 10^6/uL (4.70-6.10); Red Cell Dist. Width 18.3 % (11.5-14.5); White Blood Cell Count 8.4 10^3/uL (4.8-10.8)
== END ==
LOC: OIDL 14:34
PROVIDERS: ATTENDING PHYSICIAN Internal Medicine Hematology & Oncology
DX: C18.2 Malignant neoplasm of ascending colon (principal)
CPT/HCPCS: 85025

== ENCOUNTER → 2024-07-29 08:45 | Outpatient (REF) | payer MEDICARE, OTHER, SELFPAY | LOC: RAD 08:45 | PROVIDERS: ATTENDING PHYSICIAN Surgery | DX: Z93.2 Ileostomy status (principal) | CPT/HCPCS: 74270 ==

== ENCOUNTER 2024-07-30 07:25 | Outpatient (RCR) | payer MEDICARE, OTHER, SELFPAY | END 2024-07-30 23:59 | disposition home or self-care (01) | LOC: RPT 07:25 | PROVIDERS: ATTENDING PHYSICIAN Hospitalist | DX: R42 Dizziness and giddiness (principal); Z73.6 Limitation of activities due to disability; R29.6 Repeated falls | CPT/HCPCS: 97112; 97163 ==

== ENCOUNTER 2024-07-31 06:11 | Observation (INO) | payer MEDICARE, OTHER, SELFPAY ==
[2024-07-23 09:02] LABS: Hematocrit 32.6 % (39.0-52.0); Hemoglobin 10.5 g/dL (13.0-18.0); Mean Corp Hgb Conc. 32.2 g/dL (33.0-37.0); Mean Corpuscular Hgb 31.7 pg (27.0-31.0); Mean Corpuscular Volume 98.5 fL (80.0-94.0); Mean Platelet Volume 10.4 fL (7.4-10.4); Platelet Count 385 10^3/uL (130-400); Red Blood Cell Count 3.31 10^6/uL (4.70-6.10); Red Cell Dist. Width 21.3 % (11.5-14.5); White Blood Cell Count 8.2 10^3/uL (4.8-10.8)
[2024-07-23 09:05] LABS: INR 1.38; PT 17.5 Sec (11.4-14.6)
[2024-07-23 09:06] LABS: APTT 39.7 Sec (23.4-35.0)
[2024-07-23 09:31] LABS: ALT (SGPT) 24 U/L (0-50); AST (SGOT) 31 U/L (17-59); Albumin 4.2 g/dl (3.5-5.0); Alkaline Phosphatase 173 U/L (38-126); Blood Urea Nitrogen 25 mg/dl (9-20); Calcium 9.9 mg/dl (8.4-10.2); Carbon Dioxide 21 mmol/L (22-30); Chloride 102 mmol/L (98-107); Glucose 91 mg/dl (70-99); Potassium 4.8 mmol/L (3.5-5.1); Sodium 136 mmol/L (135-145); Total Bilirubin 0.4 mg/dl (0.2-1.3); Total Protein 6.7 g/dl (6.3-8.2); eGFR > 60.00
[2024-07-23 10:10] LABS: Glycohemoglobin (HgbA1c) 5.3 % (4.0-5.6)
[2024-07-23 14:13] VITALS: BMI 19.0
--- NOTE | 2024-07-24 10:03 | PTCARENOTE ---
Abnormal EKG on 07/23/24. Dr. Belcher aware. No intervention needed.
--- NOTE | 2024-07-24 10:17 | PTCARENOTE ---
Jami in Dr. Simeon's office made aware of INR 1.38.
[2024-07-31 06:35] VITALS: BP 135/80
[2024-07-31 06:40] VITALS: BMI 19.0
[2024-07-31] MEDS: ENTEREG 12 MG PO (06:44)
[2024-07-31] MEDS: TYLENOL 1000 MG PO (06:44)
[2024-07-31] MEDS: NEURONTIN 600 MG PO (06:44)
[2024-07-31] MEDS: HEPARIN 5000 UNITS SC (06:44)
[2024-07-31] MEDS: NORMOSOL-R/PLASMALYTE-A 1000 IV ×2 (06:44→17:17)
--- NOTE | 2024-07-31 10:01 | PTCARENOTE ---
Report called to extension [phone] and given to Marian SUAZO.
--- NOTE | 2024-07-31 10:13 | PTCARENOTE ---
Patient transport came and picked patient up via wheel chair. INT capped. All belongings went with patient.
[2024-07-31 10:34] VITALS: BP 125/75; BMI 16.8
[2024-07-31 11:14] LABS: % Basophils 1.2 % (0-2); % Eosinophils 5.3 % (0-6); % Immature Granulocytes 0.4 % (0-0.5); % Lymphocytes 11.7 % (20.5-51.1); % Monocytes 12.6 % (1.7-9.3); % Neutrophils 68.8 % (42.2-75.2); Absolute Basophils 0.1 10^3/uL (0-0.2); Absolute Eosinophils 0.5 10^3/uL (0-0.7); Absolute Lymphocytes 1.1 10^3/uL (1.2-3.4); Absolute Monocytes 1.1 10^3/uL (0.1-0.6); Absolute Neutrophils 6.2 10^3/uL (1.4-6.5); Hematocrit 33.8 % (39.0-52.0); Mean Corp Hgb Conc. 32.5 g/dL (33.0-37.0); Mean Corpuscular Volume 98.3 fL (80.0-94.0); Mean Platelet Volume 10.4 fL (7.4-10.4); Nucleated Red Blood Cells % 0 % (-); Platelet Count 288 10^3/uL (130-400); Red Blood Cell Count 3.44 10^6/uL (4.70-6.10); Red Cell Dist. Width 19.9 % (11.5-14.5); White Blood Cell Count 9.1 10^3/uL (4.8-10.8)
[2024-07-31 11:24] LABS: Blood Urea Nitrogen 19 mg/dl (9-20); Calcium 9.5 mg/dl (8.4-10.2); Carbon Dioxide 23 mmol/L (22-30); Chloride 104 mmol/L (98-107); Estimated Creatinine Clearance 39 ml/min; Glucose 80 mg/dl (70-99); Potassium 4.1 mmol/L (3.5-5.1); Sodium 136 mmol/L (135-145); eGFR > 60.00
--- NOTE | 2024-07-31 14:00 | HPS.HSE ---
Family Physician
-
Family Physician: Mehnaz Wheat MD
Chief Complaint
-
vomiting
History of Present Illness
69-year-old male presents to [facility] for a scheduled loop ileostomy takedown. The patient has a history of stage IV colon cancer with peritoneal disease and underwent HIPEC followed by stoma creation. This was done by Dr. Savage at
[place]. He had seen Dr. Simeon in the office in June requesting a diverting loop ileostomy takedown. He underwent a Gastrografin enema the other day and he was scheduled to proceed with surgery today. However, while Dr. Simeon was in
same-day surgery checking the patient in, the patient stated he was nauseous and had been vomiting. Given these symptoms, the surgery was canceled for today and he will be admitted for further evaluation.
Medical History
Past Medical History
Past Medical History: Reports Other (Stage IV colon cancer, history of diverticulitis, hypertension, C. difficile, vasectomy)
Past Surgical History: Reports Other (Laminectomy, discectomy, robotic right colectomy, cardioversion)
Social History
Tobacco: Former Smoker
Living: Alone
Family History
Family History: Not pertinent
Allergies / Home Medications
Allergies reflects when Allergies were last updated in [facility].
Home Medications with original date entered in [facility]
Allergy/Medication List:
Amiodarone HCl 200 MG Tablet 1 tablet Orally Once a day
Carvedilol 25 MG Tablet 1 tablet with food Orally Twice a day
Eliquis(Apixaban) 5 MG Tablet 1 tablet Orally Twice a day
Furosemide 20 MG Tablet 1 tablet Orally Once a day
Lamotrigine 100mg po daily
Loperamide HCl 2 MG Capsule 2 capsule as needed Orally Four times a day
Modafinial 200mg po daily PRN
oxyCODONE HCl 5 MG Tablet 1 tablet as needed Orally every 6 hrs
Tylenol(Acetaminophen) 325 MG Tablet 1 tablet as needed Orally every 6 hrs
Review of Systems
-
History Source: Patient
A 12 point ROS was completed and negative except as noted: Yes
Abdomen/GI: Reports Nausea and Vomiting
Physical Exam
Vital Signs
Vital Signs
Temp Pulse Resp BP Pulse Ox
98.2 F 61 14 125/75 100
07/31/24 10:34 07/31/24 10:34 07/31/24 10:34 07/31/24 10:34 07/31/24 10:34
Physical Exam
General: Well Developed, Well Nourished and No Apparent Distress
GI: Soft, Non Tender and Other (ileostomy warm and pink)
Skin: Warm and Dry
Neuro: AO x 3
Laboratory Results
-
07/31/24 10:33
07/31/24 10:33
Laboratory Results
PT 17.5 Sec (11.4-14.6) H 07/23/24 08:20
INR 1.38 07/23/24 08:20
APTT 39.7 Sec (23.4-35.0) H 07/23/24 08:20
Total Bilirubin 0.4 mg/dl (0.2-1.3) 07/23/24 08:20
AST 31 U/L (17-59) 07/23/24 08:20
ALT 24 U/L (0-50) 07/23/24 08:20
Alkaline Phosphatase 173 U/L (38-126) H 07/23/24 08:20
Data Reviewed
-
Old Records: Reviewed
Impression/Plan
-
IMPRESSION: 69-year-old male with stage IV colon cancer and diverting loop ileostomy, presents today for a loop ileostomy takedown but found with vomiting and nausea in same-day surgery
PLAN:
-Will admit for 23-hour observation
-Lab work ordered
-Small bowel follow-through has been ordered to further evaluate small bowel
-Possible DC tomorrow if improves
-Holding Eliquis
--- NOTE | 2024-07-31 15:00 | WOUNDNOTE ---
[facility] RN note: Patient seen per request by LAKEISHA Fonseca. Patient having copious yellow/brown liquid ileostomy output suspect d/t prep. Peristomal skin with scattered rash. Changed leaking appliance using Lucina soft convex wafer # [id number], Taj seal and
Lucina high output pouch # [id number]. Ostomy supplies given. Patient moves self in bed. Coccyx blanchable red. Heels off bed with air chair cushion. Instructed patient pressure injury prevention measures and to take air chair cushion when discharged.
Patient stated his sister changes his ostomy appliance at home. Patient uses a Coloplast convex 1 piece pouch with a moldable ring at home. Nursing can assist patient with ongoing appliance changes. Call if needed.
[2024-07-31 15:10] VITALS: BP 171/92
[2024-07-31] MEDS: TYLENOL 500 MG PO (17:27)
--- NOTE | 2024-07-31 17:51 | CON.HOSP ---
Addendum entered and electronically signed by Romero Soriano MD 08/01/24 08:31:
Mr. Blanton was seen and examined on 07/31/2024 at 1745
Consulted for uncontrolled BP
-He denies sob, johnson, numbness, tingling loss of sensations, chest pain
-Baseline home bp around 120/80 while on lasix and coreg
-This AM he did not take his lasix as he was scheduled for surgery
-Plan to resume home lasix now, will need to be held the morning of planned surgery
-If no plan for surgery would resume eliquis as well and will need ot be stopped 48hours prior
I am hesitant to start new antihypertensives as he is well controlled typically on his home doses per his report. I am concerned that if I do start an antihypertensive inpatient that we may bottom him out when at home. Therefore, recommended as
above and to keep a bp log at home. check bp twice a day in the same position and time, follow up with PCP for any further recs/adjustments
Thank you for the consult please call with any questions.
Original Note:
Consultation
-
Date/Time Consultation Requested: 07/31/24 16:38
Date/Time Consultation Performed: 07/31/24 17.10 pm
Requesting Provider: Simon Simeon
Performing Provider: Shantal Luther MD
Reason for Consultation: Hypertansion
Family Physician
-
Family Physician: Mehnaz Wheat MD
Chief Complaint
-
Vomiting and dry heaves
History of Present Illness
The patient is a 69-year-old male who has a past medical history of stage IV colon cancer, atrial flutter, chronic heart failure, hypertension, history of diverticulitis, history of C. difficile, GERD who was scheduled today for an elective surgery
with Dr. Simon Simeon. To summarize patient`s medical history, the patient had colon resection surgery in 2020 due to colon cancer and subsequently received chemotherapy at that time. He needed another extensive surgery including sigmoidectomy
with Dr. Johnny Savage at [facility] because of having peritoneal metastasis. Following his sigmoidectomy complicated by leaking and he required to have a loop ileostomy. His follow-up PET/CT noted no evidence of diseases on abdominal
area. Therefore he was planned to have his loop ileostomy takedown by Dr. Simon Simeon.
When the patient presented to the office for the scheduled surgery today, the patient reported having dry heaves and vomiting since yesterday. His surgery was canceled and patient was admitted to the hospital with a concern of small bowel
obstruction. He was ordered obstructive series with oral contrast. The hospitalist team was consulted to assess/manage the patient's elevated blood pressure which was noted to 172/92.
Medical History
Past Medical History
Past Medical History: Reports Arrhythmia (Atrial flutter(on Eliquis and amiodarone)), Cancer (Stage IV colon cancer), CHF, GERD, HTN and Other ( history of diverticulitis, history of C. difficile, GERD)
Additional Past Medical History:
History of cardioversion
Past Surgical History: Reports Other (Laminectomy, discectomy, robotic right colectomy, vasectomy)
Social History
Tobacco: Smoker
Alcohol: None
Living: Alone
Family History
Family History: Reviewed & Not Pertinent
Allergies / Home Medications
Allergies reflects when Allergies were last updated in [facility].
Home Medications with original date entered in [facility]
Allergy/Medication List:
No known allergies
Review of Systems
-
History Source: Patient
Constitutional: Reports No Symptoms
Respiratory: Reports No Symptoms
Cardiac: Reports No Symptoms
Abdomen/GI: Reports Nausea, Pain and Other (ileostomy bag on the right )
: Reports No Symptoms
Musculoskeletal: Reports Other (Generalized weakness)
Skin: Reports No Symptoms
Neurological: Reports No Symptoms
Physical Exam
Vital Signs
Vital Signs
Temp Pulse Resp BP Pulse Ox
98.1 F 62 14 171/92 98
07/31/24 15:10 07/31/24 15:10 07/31/24 15:10 07/31/24 15:10 07/31/24 15:10
Physical Exam
General: Poor Appetite and Other (cachectic)
HEENT: Normocephalic and Anicteric
Respiratory: Clear
Cardiac: S1/S2 and Regular Rhythm
GI: Soft, Non Tender and Tender (Mild tenderness on the mid -lower abdominal area)
Musculoskeletal: No Clubbing, No Cyanosis and No Edema
Neuro: Awake, Alert, Oriented and AO x 3
Psych: Calm
Laboratory Results
-
Laboratory Results
07/31/24 10:33
07/31/24 10:33
PT 17.5 Sec (11.4-14.6) H 07/23/24 08:20
INR 1.38 07/23/24 08:20
APTT 39.7 Sec (23.4-35.0) H 07/23/24 08:20
Total Bilirubin 0.4 mg/dl (0.2-1.3) 07/23/24 08:20
AST 31 U/L (17-59) 07/23/24 08:20
ALT 24 U/L (0-50) 07/23/24 08:20
Alkaline Phosphatase 173 U/L (38-126) H 07/23/24 08:20
Impression / Plan
-
IMPRESSION: Mr. Blanton is 69-year-old who was scheduled today for an elective surgery with Dr. Simon Simeon. Briefly, the patient had colon resection surgery in 2020 due to colon cancer and subsequently received chemotherapy at that time. He
needed another extensive surgery including sigmoidectomy with Dr. Johnny Savage at [facility] because of having peritoneal diseases. Subsequently, his sigmoidectomy complicated by leaking and he required to have a loop ileostomy. His
follow-up PET/CT noted no evidence of diseases on abdominal area. Therefore he was planned to have his loop ileostomy takedown by Dr. Simon Simeon.
The patient's surgery for diverting loop ileostomy takedown was scheduled today, however patient reported having dry heaves and vomiting since yesterday. Patient reported vomiting yesterday but he had only dry heaves today. His surgeon, Dr. Simeon
cancelled the surgery and admitted the patient to hospital with a concern of small bowel obstruction. The patient was obtained small bowel series with oral contrast. The hospitalist team was consulted to assess/manage the patient's elevated blood
pressure which was noted to 172/92. Patient reports that his blood pressure normally around 120/80s, but reported having high blood pressure yesterday to around 160/80s. Patient denies any vision problem, severe headache, chest pain and shortness
of breath. Reports he did not take his furosemide today.
PLAN:
Problem list:
S/P colon cancer
Atrial flutter
Hypertension
Abdominal pain
Nausea
Chronic heart failure
History of diverticulitis
History of C. difficile
GERD
#s/p colon cancer complicated with loop ileostomy
-Scheduled for loop ileostomy takedown today
-Surgery canceled with a concern of SBO
-Obstructive abdominal surgeries with contrast ordered/pending
-Patient on clear liquids
#Hypertension possibly secondary to stress versus vomiting/dry heaves
-Restart furosemide
-Continue carvedilol 25 mg bid (home med)
-Follow-up BPs
# Atrial flutter
-Eliquis was held due to surgery plan
-Can be continued if the patient does not have SBO on x-ray
-Hold Eliquis for now
-Continue amiodarone
# Abdominal pain
-Continue home pain management with oxycodone and acetaminophen
# Nausea
-Zofran not helping
-Ordered Dramamine
#GERD
-Denies symptoms of acid reflux
#DVT
-SCD
[2024-07-31] MEDS: COREG 25 MG PO (18:04)
[2024-07-31] MEDS: LASIX 20 MG PO (18:05)
[2024-07-31] MEDS: ZOFRAN 4 MG IV (18:05)
[2024-07-31] MEDS: dimenhyDRINATE 50 MG IV (20:23)
[2024-08-01] VITALS: BP 165/96
[2024-08-01] MEDS: NORMOSOL-R/PLASMALYTE-A 1000 IV ×3 (02:04→22:51)
[2024-08-01] MEDS: TYLENOL 500 MG PO (04:54)
[2024-08-01 06:01] VITALS: BMI 16.0
[2024-08-01 06:21] LABS: Hematocrit 37.9 % (39.0-52.0); Hemoglobin 12.5 g/dL (13.0-18.0); Mean Corpuscular Hgb 32.3 pg (27.0-31.0); Mean Corpuscular Volume 97.9 fL (80.0-94.0); Mean Platelet Volume 10.4 fL (7.4-10.4); Platelet Count 378 10^3/uL (130-400); Red Blood Cell Count 3.87 10^6/uL (4.70-6.10); Red Cell Dist. Width 19.7 % (11.5-14.5); White Blood Cell Count 13.8 10^3/uL (4.8-10.8)
[2024-08-01 06:42] LABS: Blood Urea Nitrogen 25 mg/dl (9-20); Calcium 10.6 mg/dl (8.4-10.2); Carbon Dioxide 20 mmol/L (22-30); Chloride 103 mmol/L (98-107); Estimated Creatinine Clearance 40 ml/min; Glucose 106 mg/dl (70-99); Potassium 4.5 mmol/L (3.5-5.1); Sodium 141 mmol/L (135-145); eGFR > 60.00
[2024-08-01 07:29] VITALS: BP 125/85
[2024-08-01] MEDS: COREG 25 MG PO ×2 (08:19→19:46)
[2024-08-01] MEDS: LAMICTAL 100 MG PO (08:19)
[2024-08-01] MEDS: PACERONE 200 MG PO (08:19)
[2024-08-01] MEDS: LASIX 20 MG PO (08:19)
[2024-08-01] MEDS: NSS (PRESERVATIVE FREE) 10 ML INJ (08:23)
[2024-08-01] MEDS: dimenhyDRINATE 50 MG IV (08:23)
--- NOTE | 2024-08-01 08:35 | W.PN.HOSP.TC ---
Addendum entered and electronically signed by Romero Soriano MD 08/01/24 13:12:
HTN - uncontrolled
-Improved
-Now on home agents (Coreg/Lasix)
-Keep BP log
Headache
-Trial Fiorcet
Afib
Continue amio and reusme eliquis if clear to start by surgery
Will sign off, please call with any questions
Original Note:
Today's Communication/Plan
-
-BP came back to normal
-Continue home BP meds and follow up with PCP
-Surgery team will decide to restart eliquis
-Will sign off
Assessment / Plan
Assessment / Plan
PLAN:
Problem list:
S/P colon cancer
Atrial flutter
Hypertension
Abdominal pain
Nausea
Chronic heart failure
History of diverticulitis
History of C. difficile
GERD
#s/p colon cancer complicated with loop ileostomy
-Scheduled for loop ileostomy takedown on 07/31/24
-Surgery canceled with a concern of SBO
-Obstructive abdominal surgeries with contrast report pending
-Patient tolerated clear liquids
-Surgery following
#Hypertension possibly secondary to stress versus vomiting/dry heaves
-Resolved
-Restarted home furosemide on 07/31
-Continue furosemide
-Continue carvedilol 25 mg bid (home med)
-Follow-up BPs
#Headache
-Hx of chronic headcahe
-Started on Fioricet
# Atrial flutter
-Eliquis was held due to surgery plan
-Can be continued if the patient does not have SBO on x-ray
-Hold Eliquis for now
-Surgery team planning to restart if surgery is not planning soon
-Continue amiodarone
# Abdominal pain
-Continue home pain management with oxycodone and acetaminophen
# Nausea
-Zofran not helping
-Continue Dramamine
#GERD
-Denies symptoms of acid reflux
#DVT
-SCD
Anticipated Discharge: Within 24 hours
Subjective/Interval History
-
Date of Service: August 01, 2024
Patient reports feeling nauseous and has milk-lower abdominal pain. Reports headache since yesterday. he was mostly able to tolerate clear liquids yesterday. His blood pressure was measured to 125/85 this am
Objective Data
-
Labs:
Laboratory Results
08/01/24
05:29
WBC 13.8 H
Hgb 12.5 L
Hct 37.9 L
Plt Count 378 D
Sodium 141
Potassium 4.5
Chloride 103
Carbon Dioxide 20 L
BUN 25 H
Creatinine 1.2
Glucose 106 H
Calcium 10.6 H
Vital Signs:
Vital Signs
Temp Pulse Resp BP Pulse Ox
98 F 79 14 125/85 96
08/01/24 07:29 08/01/24 08:19 08/01/24 07:29 08/01/24 08:19 08/01/24 07:29
I&O
07/31/24 08/01/24 08/02/24
06:59 06:59 06:59
Output Total 995 / 995
Balance -995 / -995
Review of Systems
-
History Source: Patient
Constitutional: Reports No Symptoms
EENT: Reports No Symptoms Reported
Respiratory: Reports No Symptoms
Abdomen/GI: Reports Abdominal Pain, Nausea and Vomiting (a very less amount of fluids )
Genitourinary: Reports No Symptoms
Musculoskeletal: Reports Other (generalized weakness)
Skin: Reports No Symptoms
Neuro: Reports No Symptoms
Physical Exam
-
General: Pain, Cachectic and Other (cachectic)
HEENT: Normocephalic and Atraumatic
Respiratory: Clear to Auscultation
Cardiac: Regular Rhythm and S1/S2
GI: Soft, Nondistended, Tender (Mild tenderness on the mid -lower abdominal area) and Ostomy (loop ileostomy)
Musculoskeletal: No Clubbing, No Cyanosis and No Edema
Skin: Warm
Neuro: Awake, Alert, Oriented and AO x 3
[2024-08-01] MEDS: FIORICET 1 TAB PO (13:03)
--- NOTE | 2024-08-01 13:24 | W.PN.CRS1 ---
Today's Communication / Plan
-
Full liquids
Await small bowel follow-through read
Assessment/Plan
-
IMPRESSION: 69-year-old male with stage IV colon cancer and diverting loop ileostomy, presents today for a loop ileostomy takedown but found with vomiting and nausea in same-day surgery
PLAN:.
-Await small bowel follow-through x-ray. I spoke with the radiologist on-call today who is reaching out is calling to review the x-ray.
-Leukocytosis with WBC of 13.8. Trend.
-Continue full liquids and IV fluids for now.
-Holding Eliquis
Subjective Data
Subjective Data
Date of Service: August 01, 2024
Patient states he feels a lot of nausea. He states he feels like he has an upset stomach. His stoma is producing gas. He also thinks he is hungry because he has not eaten for a few days.
Objective Data
-
Vital Signs
Temp Pulse Resp BP Pulse Ox
98 F 79 14 125/85 96
08/01/24 07:29 08/01/24 08:19 08/01/24 07:29 08/01/24 08:19 08/01/24 07:29
Intake & Output
07/31/24 08/01/24 08/02/24
06:59 06:59 06:59
Output Total 995 / 995
Balance -995 / -995
Output:
Liquid stool amount 995 / 995
Ileostomy 995 / 995
Lab Results
08/01/24 05:29
08/01/24 05:29
Physical Exam
-
General: No Acute Distress and AOx3
Abdomen: Soft, Non Distended, Non Tender and Other (Ileostomy warm and pink)
Skin: Warm and Dry
[2024-08-01 13:47] VITALS: BMI 16.0
[2024-08-01 14:57] VITALS: BP 119/71
[2024-08-01 17:38] VITALS: BMI 16.0
[2024-08-01 23:00] VITALS: BP 111/68
[2024-08-02 06:00] VITALS: BMI 16.3
[2024-08-02 07:28] LABS: % Basophils 0.9 % (0-2); % Eosinophils 2.5 % (0-6); % Immature Granulocytes 0.7 % (0-0.5); % Lymphocytes 12.7 % (20.5-51.1); % Monocytes 14.1 % (1.7-9.3); % Neutrophils 69.1 % (42.2-75.2); Absolute Basophils 0.1 10^3/uL (0-0.2); Absolute Eosinophils 0.3 10^3/uL (0-0.7); Absolute Immature Granulocytes 0.1 10^3/uL (0-0.05); Absolute Lymphocytes 1.6 10^3/uL (1.2-3.4); Absolute Monocytes 1.7 10^3/uL (0.1-0.6); Absolute Neutrophils 8.4 10^3/uL (1.4-6.5); Hematocrit 33.9 % (39.0-52.0); Hemoglobin 11.1 g/dL (13.0-18.0); Mean Corp Hgb Conc. 32.7 g/dL (33.0-37.0); Mean Corpuscular Volume 97.7 fL (80.0-94.0); Mean Platelet Volume 10.1 fL (7.4-10.4); Nucleated Red Blood Cells % 0 % (-); Platelet Count 326 10^3/uL (130-400); Red Blood Cell Count 3.47 10^6/uL (4.70-6.10); Red Cell Dist. Width 19.2 % (11.5-14.5); White Blood Cell Count 12.2 10^3/uL (4.8-10.8)
[2024-08-02 07:41] LABS: Blood Urea Nitrogen 20 mg/dl (9-20); Calcium 9.7 mg/dl (8.4-10.2); Carbon Dioxide 30 mmol/L (22-30); Chloride 101 mmol/L (98-107); Estimated Creatinine Clearance 45 ml/min; Glucose 80 mg/dl (70-99); Potassium 4.2 mmol/L (3.5-5.1); Sodium 138 mmol/L (135-145); eGFR > 60.00
[2024-08-02 07:47] VITALS: BP 109/72
[2024-08-02] MEDS: NORMOSOL-R/PLASMALYTE-A 1000 IV (08:25)
[2024-08-02] MEDS: LAMICTAL 100 MG PO (09:13)
[2024-08-02] MEDS: PACERONE 200 MG PO (09:13)
[2024-08-02] MEDS: COREG 25 MG PO (09:13)
[2024-08-02] MEDS: LASIX 20 MG PO (09:13)
--- NOTE | 2024-08-02 10:02 | CM ---
CM met with pt at bedside.
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 Lives alone in a 2SH with coretta.
Has VN history with VN and no SNF history. Currently not recieving services.
Pt appears eager to dc home.
Confirmed PCP is Mehnaz Wheat and pharmacy is [facility] in [place].
BLISS reviewed, signed original on chart and copy provided.
Family to transport home when stable.
DC dispo: pending surgery plan, may benefit from VN. CM to follow and watch for needs.
--- NOTE | 2024-08-02 11:45 | W.PN.GS2 ---
Addendum entered and electronically signed by Raymon Suazo MD 08/02/24 11:54:
Patient seen and examined.
No complaints. Pain well-controlled. No nausea or vomiting. Flatus and stool in ostomy appliance
Gen: NAD
Abd: soft, NT/ND, non-peritoneal, flatus and stool in appliance
69-year-old male with stage IV colon cancer and diverting loop ileostomy, presents today for a loop ileostomy takedown but found with vomiting and nausea in same-day surgery. ?etiology, suspect gastroenteritis
AFVSS
Medicine following initially for uncontrolled HTN
Mild leukocytosis now trending down
Feels back to baseline
--Advance diet and follow for tolerance
--Tentative d/c later today with outpatient follow up with primary surgeon to discuss rescheduling procedure
Original Note:
Today's Communication / Plan
-
Advance diet
Dispo planning
Assessment / Plan
-
69-year-old male with stage IV colon cancer and diverting loop ileostomy, presents today for a loop ileostomy takedown but found with vomiting and nausea in same-day surgery. ?etiology, suspect gastroenteritis
AFVSS
Medicine following initially for uncontrolled HTN
Mild leukocytosis now trending down
Feels back to baseline
--Advance diet and follow for tolerance
--Tentative d/c later today with outpatient follow up with primary surgeon to discuss rescheduling procedure
Subjective Data
-
Date of Service: August 02, 2024
Patient seen and examined at bedside with Dr. Suazo. Denies n/v. Some stomach upset but minimal. Denies pain.
Objective Data
-
Intake and Output
08/01/24 08/02/24 08/03/24
06:59 06:59 06:59
Intake Total 2700 / 2700
Output Total 995 / 995 350 / 350
Balance -995 / -995 2350 / 2350
Intake:
Oral fluids 1500 / 1500
IV fluids (Total) 1200 / 1200
Output:
Liquid stool amount 995 / 995 350 / 350
Ileostomy 995 / 995 350 / 350
Other:
Number of approximated MODERATE 1
amounts of urine
Vital Signs
Temp Pulse Resp BP Pulse Ox
98.4 F 64 22 109/72 99
08/02/24 07:47 08/02/24 07:47 08/02/24 07:47 08/02/24 07:47 08/02/24 07:47
Lab Results
08/02/24 06:45
08/02/24 06:45
Calcium 9.7 mg/dl (8.4-10.2) 08/02/24 06:45
Total Bilirubin 0.4 mg/dl (0.2-1.3) 07/23/24 08:20
AST 31 U/L (17-59) 07/23/24 08:20
ALT 24 U/L (0-50) 07/23/24 08:20
Alkaline Phosphatase 173 U/L (38-126) H 07/23/24 08:20
Total Protein 6.7 g/dl (6.3-8.2) 07/23/24 08:20
Albumin 4.2 g/dl (3.5-5.0) 07/23/24 08:20
Physical Exam
-
NAD
ABD soft, nt, nd
Ileostomy with liquid stool/flatus. Stoma functioning
--- NOTE | 2024-08-02 15:09 | W.DCSUMMARY ---
Discharge Summary
Discharge Data
Date of Admission: 07/31/24
Date of Discharge: 08/02/24
-
Pending Results: No
Hospital Course
Mr Blanton is a 69 yo male with a history of stage IV colon cancer and diverting loop ileostomy. He presented for a scheduled loop ileostomy takedown but found with vomiting and nausea noted in the preop area prior to surgery. His surgery was
cancelled and he was placed in observation for continued monitoring. He was followed by the hospitalist team initially given uncontrolled hypertension with noted improvement upon resuming his regularly scheduled PO meds. A SBFT study was done
without obstruction noted, duodenal mucosal thickening consistent with enteritis was seen. He was able to have diet advanced and well tolerated with resolution of symptoms and return to baseline GI function prior to discharge. Will plan outpatient
follow up and rescheduling of surgery.
Discharge Plan
-
Patient Disposition: Home (Routine Discharge)
Discharge Diagnosis/Procedures: Nausea and vomiting
Condition: Good
Diet: As tolerated and Regular
Additional Diets: eat small, light meals
Activity: As tolerated
Bathing Restrictions: OK to Shower
Activity Restrictions/Additional Instructions:
Routine ostomy appliance changes. Can use [place] soft convex wafer # [id number], Taj seal and Lucina high output pouch # [id number] or resume use of Coloplast convex 1 piece pouch with an Taj seal. Apply light dusting of 2% Miconazole powder to rash
around stoma followed by no sting skin prep with each wafer change. Change appliance 2 times a week and as needed for leakage.
Call ostomy nurse for pouching problems , or [phone].
Pressure redistributing chair cushion (i.e. air chair cushion).
Follow up with your colorectal surgeon.
Referrals:
Simon Simeon MD [Active] - in one to two weeks (call to reschedule surgery)
Mehnaz Wheat MD [Family Provider] -
Prescriptions:
Continued
lamotrigine 100 MG tablet
100 mg PO DAILY
modafinil 100 mg tablet
200 mg PO DAILYPRN PRN (Reason: Energy)
Patient Comments:
Patient takes when he needs energy for hiking
oxycodone 5 mg Tablet
5 mg PO PRN PRN (Reason: pain)
carvedilol 25 mg Tablet
25 mg PO BID
loperamide 2 mg Capsule
4 mg PO BID
Santyl 250 unit/gram Ointment
1 applic TOPICAL DAILY
Eliquis 5 mg Tablet
5 mg PO BID
acetaminophen 500 mg Tablet
500 mg PO Q6H PRN (Reason: pain)
furosemide 40 mg tablet
20 mg PO DAILY
amiodarone 200 mg tablet
200 mg PO DAILY
Hemp Gummy
1 chewable tab PO PRN PRN (Reason: pain, nausea)
Discharge Orders:
Discharge Patient (As Directed); Ordered 08/02/24
Ordered By: Flores Giraldo
Discharge Date and Time
Print Language: ROMANIAN
[2024-08-02 15:39] VITALS: BP 102/59
== END 2024-08-02 16:15 | disposition home or self-care (01) ==
LOC: 3 WEST ACU 06:11
PROVIDERS: Physician Assistant; ADMITTING PHYSICIAN Surgery; FAMILY PHYSICIAN Hospitalist; OTHER PHYSICIAN Student in an Organized Health Care Education/Training Program
DX: R11.2 Nausea with vomiting, unspecified (principal); F17.200 Nicotine dependence, unspecified, uncomplicated; I11.0 Hypertensive heart disease with heart failure; K21.9 Gastro-esophageal reflux disease without esophagitis; I48.92 Unspecified atrial flutter; Z79.01 Long term (current) use of anticoagulants; R51.9 Headache, unspecified; I48.91 Unspecified atrial fibrillation; Z85.038 Personal history of other malignant neoplasm of large intestine; Z53.8 Procedure and treatment not carried out for other reasons; D72.829 Elevated white blood cell count, unspecified; I45.10 Unspecified right bundle-branch block; I50.9 Heart failure, unspecified; Z90.49 Acquired absence of other specified parts of digestive tract
CPT/HCPCS: 36415; 74250; 80048; 80053; 83036; 85025; 85027; 85610; 85730; 86850; 86900; 86901; 93005; G0378; J1240; J1335

== ENCOUNTER → 2024-08-19 11:21 | Outpatient (REF) | payer OTHER, SELFPAY | LOC: RAD 11:21 | PROVIDERS: ATTENDING PHYSICIAN Internal Medicine Gastroenterology; FAMILY PHYSICIAN Hospitalist | DX: R11.2 Nausea with vomiting, unspecified (principal) | CPT/HCPCS: 74177; Q9967 ==

== ENCOUNTER → 2024-08-27 11:27 | Outpatient (REF) | payer MEDICARE, OTHER, SELFPAY ==
[2024-08-27 12:02] LABS: % Eosinophils 3.2 % (0-6); % Immature Granulocytes 0.3 % (0-0.5); % Lymphocytes 7.9 % (20.5-51.1); % Monocytes 11.3 % (1.7-9.3); % Neutrophils 76.3 % (42.2-75.2); Absolute Basophils 0.1 10^3/uL (0-0.2); Absolute Eosinophils 0.3 10^3/uL (0-0.7); Absolute Lymphocytes 0.8 10^3/uL (1.2-3.4); Absolute Monocytes 1.1 10^3/uL (0.1-0.6); Absolute Neutrophils 7.3 10^3/uL (1.4-6.5); Hematocrit 37.8 % (39.0-52.0); Hemoglobin 12.6 g/dL (13.0-18.0); Mean Corp Hgb Conc. 33.3 g/dL (33.0-37.0); Mean Platelet Volume 9.3 fL (7.4-10.4); Nucleated Red Blood Cells % 0 % (-); Platelet Count 403 10^3/uL (130-400); Red Blood Cell Count 3.82 10^6/uL (4.70-6.10); Red Cell Dist. Width 15.8 % (11.5-14.5); White Blood Cell Count 9.6 10^3/uL (4.8-10.8)
[2024-08-27 12:26] LABS: ALT (SGPT) 30 U/L (0-50); AST (SGOT) 30 U/L (17-59); Albumin 4.3 g/dl (3.5-5.0); Alkaline Phosphatase 203 U/L (38-126); Direct Bilirubin 0.3 mg/dl (0.0-0.4); Iron 110 ug/dl (49-181); Total Bilirubin 0.5 mg/dl (0.2-1.3); Total Protein 7.2 g/dl (6.3-8.2)
[2024-08-27 12:35] LABS: Percent Saturation 42 % (20-50); Total Iron Binding Capacity 256 ug/dl (261-462)
[2024-08-27 12:56] LABS: CEA 2.86 ng/ml
== END ==
LOC: REG 11:27
PROVIDERS: ATTENDING PHYSICIAN Internal Medicine Hematology & Oncology; FAMILY PHYSICIAN Hospitalist
DX: C18.2 Malignant neoplasm of ascending colon (principal); D50.9 Iron deficiency anemia, unspecified; D69.3 Immune thrombocytopenic purpura; K12.31 Oral mucositis (ulcerative) due to antineoplastic therapy; E87.6 Hypokalemia; K21.9 Gastro-esophageal reflux disease without esophagitis; M54.32 Sciatica, left side
CPT/HCPCS: 36415; 80076; 82378; 82728; 83540; 83550; 85025

== ENCOUNTER 2024-09-01 12:59 | Outpatient (RCR) | payer MEDICARE, OTHER, SELFPAY | END 2024-09-01 23:59 | disposition home or self-care (01) | LOC: RPT 12:59 | PROVIDERS: ATTENDING PHYSICIAN Hospitalist | DX: R42 Dizziness and giddiness (principal); Z73.6 Limitation of activities due to disability; M62.81 Muscle weakness (generalized); R29.6 Repeated falls; R53.83 Other fatigue | CPT/HCPCS: 97110; 97112 ==

== ENCOUNTER 2024-09-01 20:39 | Inpatient (IN) | payer MEDICARE, OTHER, SELFPAY ==
[2024-09-01] VITALS (7 sets, daily range): BP systolic 96–114; BP diastolic 53–74; BMI 18.6
[2024-09-01 14:48] LABS: % Eosinophils 3.9 % (0-6); % Immature Granulocytes 0.3 % (0-0.5); % Lymphocytes 8.5 % (20.5-51.1); % Monocytes 11.7 % (1.7-9.3); % Neutrophils 74.6 % (42.2-75.2); Absolute Basophils 0.1 10^3/uL (0-0.2); Absolute Eosinophils 0.4 10^3/uL (0-0.7); Absolute Lymphocytes 0.8 10^3/uL (1.2-3.4); Absolute Monocytes 1.1 10^3/uL (0.1-0.6); Hematocrit 35.5 % (39.0-52.0); Hemoglobin 11.6 g/dL (13.0-18.0); Mean Corp Hgb Conc. 32.7 g/dL (33.0-37.0); Mean Corpuscular Hgb 32.9 pg (27.0-31.0); Mean Corpuscular Volume 100.6 fL (80.0-94.0); Mean Platelet Volume 9.1 fL (7.4-10.4); Nucleated Red Blood Cells % 0 % (-); Platelet Count 355 10^3/uL (130-400); Red Blood Cell Count 3.53 10^6/uL (4.70-6.10); Red Cell Dist. Width 15.5 % (11.5-14.5); White Blood Cell Count 9.3 10^3/uL (4.8-10.8)
[2024-09-01 15:04] LABS: ALT (SGPT) 20 U/L (0-50); AST (SGOT) 24 U/L (17-59); Albumin 4.4 g/dl (3.5-5.0); Alkaline Phosphatase 199 U/L (38-126); Blood Urea Nitrogen 31 mg/dl (9-20); Calcium 9.8 mg/dl (8.4-10.2); Carbon Dioxide 22 mmol/L (22-30); Chloride 104 mmol/L (98-107); Glucose 105 mg/dl (70-99); Potassium 5.1 mmol/L (3.5-5.1); Sodium 137 mmol/L (135-145); Total Bilirubin 0.4 mg/dl (0.2-1.3); eGFR 50.71
--- NOTE | 2024-09-01 18:07 | ED.GENMED ---
History of Present Illness
General
Chief Complaint: Abnormal Lab Value
Source: patient and physician
Time Seen by Provider: 09/01/24 17:25
History of Present Illness
History of Present Illness:
69-year-old male with past medical history of atrial fibrillation, CHF, colon cancer status post bowel resection and colostomy who was sent to the emergency department by colorectal surgery for evaluation of abnormal labs with patient stating he is
not exactly sure which labs were abnormal but believes it could have been his hemoglobin/hematocrit. Patient does endorse some fatigue but otherwise states he feels as if he is in his usual state of health. He is scheduled to undergo colostomy
reversal this coming with Dr. Simeon. Patient denies any, chills, rigors, nausea, vomiting.
Past History
Past History
ED Past Medical History: Cancer (Colon cancer), HTN, Psychiatric (Anxiety, depression, bipolar), Other (Diverticulitis, Sciatica, Anemia, ) and Other (Sciatica)
ED Past Surgical History: Bowel resection, Orthopedic (Left hand surgery, laminectomy), Urological (Vasectomy) and Other (Left arm cyst, Port)
Social History
Tobacco: Former smoker
Alcohol: Former
Drug: None
Personal:
Living: alone
Review of Systems
Review of Systems
All Other Systems: ROS reviewed and negative except as documented in HPI and ROS
Phy Exam
Physical Exam
Physical Exam:
GENERAL: Alert , in no apparent distress, somewhat thin and pale
EYE: clear conjunctiva b/l
HEAD: NCAT
ENT: o/p clr, mmm.
CARDIAC: Regular rate and rhythm .
LUNGS: Clear breath sounds bilaterally, no acute respiratory distress, no wheezes/rales/rhonchi
ABDOMEN: Soft, without focal tenderness, no r/g, no cvat, colostomy mid right abdomen with output in ostomy bag
NEUROLOGICAL: Alert and oriented
SKIN: Warm and dry, skin intact.
MUSCULOSKELETAL: well perfused.
PSYCH: Normal and appropriate interaction.
Scores
Heart Failure Risk
Heart Failure Risk Score: Not Applicable
Heart Score for Chest Pain Patients
STEMI patient?: Not applicable
Withdrawal Assessment of Alcohol
Withdrawal Assessment Completed?: Not applicable
Course
Orders/Labs/Results
Orders:
Orders
09/01/24 14:35
Type+Screen Urgent
Complete Blood Count/With Diff Urgent
Comprehensive Metabolic Panel Urgent
09/01/24 18:06
0.9% Sodium Chloride 1000 ml [Nss] 1,000 ml IV BOLUS
Abnormal Lab Results
09/01/24
14:35
RBC 3.53 L 10^6/uL
(4.70-6.10)
Hgb 11.6 L g/dL
(13.0-18.0)
Hct 35.5 L %
(39.0-52.0)
MCV 100.6 H fL
(80.0-94.0)
MCH 32.9 H pg
(27.0-31.0)
MCHC 32.7 L g/dL
(33.0-37.0)
RDW 15.5 H %
(11.5-14.5)
Absolute Neuts (auto) 7.0 H 10^3/uL
(1.4-6.5)
Absolute Lymphs (auto) 0.8 L 10^3/uL
(1.2-3.4)
Absolute Monos (auto) 1.1 H 10^3/uL
(0.1-0.6)
Lymphocytes % 8.5 L %
(20.5-51.1)
Monocytes % 11.7 H %
(1.7-9.3)
BUN 31 H mg/dl
(9-20)
Creatinine 1.5 H mg/dL
(0.7-1.3)
Glucose 105 H mg/dl
(70-99)
Alkaline Phosphatase 199 H U/L
(38-126)
09/01/24 14:35
09/01/24 14:35
Vital Signs
Initial and Last Documented VS:
Initial Vital Signs
Temp Pulse Resp BP Pulse Ox
98.3 F 65 18 96/53 99
09/01/24 14:27 09/01/24 14:27 09/01/24 14:27 09/01/24 14:27 09/01/24 14:27
Last Documented Vital Signs
Temp Pulse Resp BP Pulse Ox
98.3 F 60 19 100/74 99
09/01/24 14:27 09/01/24 16:30 09/01/24 16:30 09/01/24 16:30 09/01/24 16:30
MDM/Problems Addressed
Differential Diagnosis Includes:
GI bleeding, postoperative complication, acute kidney injury, electrolyte derangement
MDM/Problems Addressed:
69-year-old male presenting emergency department for evaluation of reported abnormal lab work done a few days ago, patient scheduled to undergo ostomy reversal this coming . Other than fatigue he feels as if he is in his usual state of
health. Hemodynamically stable. Labs ordered in triage show a hemoglobin of 11.6, hematocrit of 35.5 and a creatinine of 1.5. Creatinine was 1.9 few days ago which is what I suspect patient was sent to the emergency department for. Will contact
colorectal surgery to discuss and determine disposition planning
Chronic conditions affecting care: Previous abdomnial surgery
Acute Exacerbation and/or Progression of Chronic Illness: Previous abdomnial surgery
*Pulse Oximetry
Patient hypoxic: no
*Critical Care Note
Total Time (30-74mins, 75-104mins- exclusive of procedures): Not Applicable
Data Reviewed
Review of Other/Old Records Reveals: Labs and Records
Patient Management
Discussion with other providers: Hospitalist and Business Banking Sales Assistant
Escalation/DeEscalation of care consider admission/obs:
Confirmed with colorectal surgery that this is why patient was sent to the emergency department. Given his lab abnormalities they are requesting patient to be admitted to hospitalist service and they will see the patient in consult. 1 L normal
saline solution ordered. Hospitalist team accepts for continued evaluation and treatment
ED Attending Note
-
Portions of this chart may have been created with voice recognition software.� Occasional wrong word or��sound alike� substitutions may have occurred due to the inherent limitations of voice recognition software.
Discharge Plan
Departure
Patient Disposition: Admit
Date of Disposition: 09/01/24
Time of Disposition: 18:07
Presentation/result/management discussed w/ accepting MD/DO: Hospitalist
Discharge Problem:
WONG (acute kidney injury)
Prescriptions:
No Action
lamotrigine 100 MG tablet
100 mg PO DAILY
carvedilol 25 mg Tablet
25 mg PO BID
loperamide 2 mg Capsule
4 mg PO BID
Eliquis 5 mg Tablet
5 mg PO BID
acetaminophen 500 mg Tablet
500 mg PO Q6H PRN (Reason: pain)
furosemide 40 mg tablet
20 mg PO DAILY
amiodarone 200 mg tablet
200 mg PO DAILY
Hemp Gummy
1 chewable tab PO PRN PRN (Reason: pain, nausea)
diphenoxylate-atropine 2.5-0.025 mg tablet
1 tab PO QID
Interventions
Interventions:
*Risk Screen - Suicide Last Done: 09/01/24 14:29
*General Assessment Last Done: 09/01/24 14:29
*Neglect/Abuse Screening Last Done: 09/01/24 14:29
*ED COVID-19 Vaccine History Last Done: 09/01/24 14:29
Discharge Date and Time
Print Language: UPPER SORBIAN
[2024-09-01] MEDS: NSS 1000 IV ×2 (18:38→22:31)
--- NOTE | 2024-09-01 19:30 | HPS.HSE ---
Family Physician
-
Family Physician: Mehnaz Wheat MD
Chief Complaint
-
abnormal lab values
History of Present Illness
Patient is a 69-year-old male with past medical history significant for colon cancer with recurrence, hypertension, GERD, congestive heart failure, atrial fibrillation and anxiety/depression who presented to [facility] ED by colorectal surgery for
abnormal lab values. Patient was unsure of what lab values were abnormal, ED staff able to verify kidney function was abnormal lab they were concerned about as he is scheduled for ostomy reversal on . Patient states he is in his normal
health with slight fatigue recently. He reports endoscopy scheduled for tomorrow morning in GI lab in [place].
Medical History
Past Medical History
Past Medical History: Reports Other
Additional Past Medical History:
Colon Cancer with Recurrence
Hypertension
GERD
Anxiety / Depression
Congestive Heart Failure
Atrial Fibrillation
Past Surgical History: Reports Other
Additional Past Surgical History:
Robotic Right Hemicolectomy
Chemo Port Placement
Lumbar Laminectomy
Vasectomy
Social History
Tobacco: Non-smoker
Alcohol: Occasional
Drug: None
Family History
Family History: Not pertinent
Allergies / Home Medications
Allergies reflects when Allergies were last updated in [employer].
Home Medications with original date entered in [employer]
Allergy/Medication List:
Allergies
Allergy/AdvReac Type Severity Reaction Status Date / Time
No Known Allergies Allergy Verified 08/28/24 13:38
Home Medications
lamotrigine 100 mg tablet 100 mg PO DAILY Mental Health/Anxiety 01/19/21
apixaban 5 mg tablet (Eliquis) 5 mg PO BID Blood Clot Prevention/Tx 04/24/24
carvedilol 25 mg tablet 25 mg PO BID Blood Pressure 04/24/24
loperamide 2 mg capsule 4 mg PO QID DIARRHEA 04/24/24
acetaminophen 500 mg tablet 500 mg PO Q6HPRN PRN mild pain 07/24/24
amiodarone 200 mg tablet 200 mg PO DAILY Arrhythmia 07/24/24
furosemide 40 mg tablet 20 mg PO DAILY Fluid Retention/Swelling 07/24/24
diphenoxylate-atropine 2.5 mg-0.025 mg tablet 1 tab PO QID 08/28/24
lidocaine-prilocaine 2.5 %-2.5 % topical cream 1 applic topical DAILYPRN PRN port excess 09/01/24
oxycodone 5 mg tablet 2.5 mg PO QIDPRN PRN severe pain 09/01/24
Review of Systems
-
History Source: Patient
Constitutional: Reports No Symptoms
EENT: Reports No Symptoms
Respiratory: Reports No Symptoms
Cardiac: Reports No Symptoms
Abdomen/GI: Reports No Symptoms
: Reports No Symptoms
Musculoskeletal: Reports No Symptoms
Skin: Reports No Symptoms
Neurological: Reports No Symptoms
Endocrine: Reports No Symptoms
Hematologic/Lymphatic: Reports No Symptoms
Psych: Reports No Symptoms
Physical Exam
Vital Signs
Vital Signs
Temp Pulse Resp BP Pulse Ox
98.3 F 53 16 101/63 96
09/01/24 14:27 09/01/24 18:28 09/01/24 18:28 09/01/24 18:28 09/01/24 18:28
Physical Exam
General: Well Developed, Well Nourished, No Apparent Distress, Comfortable, Conversant and Appears Chronically Ill
HEENT: NormoCephalic, Moist mucous membranes, Atraumatic, [place] Conjunctivae, Nose Appears Normal and Ears Appear Normal
Respiratory: Clear
Cardiac: S1/S2 and Regular Rhythm
Breast: Deferred by me
GI: Soft, Non Tender, Non Distended, Normal Bowel Sounds and Ostomy
Rectal: Deferred by Provider
Genito-urinary: Deferred by me
Musculoskeletal: No Clubbing, No Cyanosis and No Edema
Skin: Warm and IV/Catheter Site
Neuro: Awake, Alert, AO x 3 and Nonfocal/grossly intact
Psych: Calm and Intact Judgment/Insight
Laboratory Results
-
09/01/24 14:35
09/01/24 14:35
Laboratory Results
Total Bilirubin 0.4 mg/dl (0.2-1.3) 09/01/24 14:35
AST 24 U/L (17-59) 09/01/24 14:35
ALT 20 U/L (0-50) 09/01/24 14:35
Alkaline Phosphatase 199 U/L (38-126) H 09/01/24 14:35
Data Reviewed
-
Lab Data: Labs Reviewed by me (BUN 31, Creat 1.5, eGFR 50.71)
Impression/Plan
-
IMPRESSION/PLAN:
#acute kidney injury
BUN 31, Creat 1.5, eGFR 50.71
- admit to med/surg
- IVF
- trend BMP
#Colon Cancer with Recurrence
s/p colostomy
scheduled for reversal , 09/04/[address] Simeon
- Consult Colorectal
- continue diphenoxylate-atropine and loperamide
- Consult GI for scheduled endoscopy tomorrow outpatient
#Hypertension
- continue carvedilol
#congestive heart failure
- continue carvedilol and furosemide
- daily weights
- I & Os
#atrial fibrillation
- continue amiodarone and Eliquis
#Anxiety / Depression
- continue lamotrigine
#GERD
Code status: full code
DVT prophylaxis: Eliquis
--- NOTE | 2024-09-01 21:22 | W.PN.UPDATE ---
Update Note
Progress Note Update
This note serves as an addendum to the H&P by soap inspector YENI Aubree Trotter
HPI
69M Non smoker, HX IV Colon CA, palliative diverting illeostomy, HTN, GERD, chr HFpEF , Prx AF on Eliquis seen at ER:
- sent to ER for CRS for abn labs / WONG
- he is scheduled for ileostomy take down on .
- Patient states he is in his normal health with slight fatigue recently.
- Endoscopy scheduled for tomorrow morning in GI lab in [place].
PHX; see above
Wt
08/02/24
08/27/24
09/01/24
Actual Weight 48.489 kg 45.4 kg 46.2 kg
Vital Sign
Temp Pulse Resp BP Pulse Ox
98.3 F 62 12 109/70 96
09/01/24 14:27 09/01/24 21:15 09/01/24 20:30 09/01/24 20:00 09/01/24 18:28
PE
Gen: frail, chronically ill
HEENT: anicteric
Neck: supple
Lungs: CTA
Cor: RRR S1 S2
Abdomen: Soft, Non Tender, Non Distende has ostomy
SHREDDING MACHINE TENDER: AAO3 NFND
MS: no edema
Psych: Calm and Intact Judgment/Insight
08/02/24 08/27/24 08/27/24
06:45 09:38 11:42
Hgb 12.6---> 11.6
Plt Count 403 H
Potassium 4.2 5.9 H 5.1
BUN 20 39 H 31
Creatinine 1.1 1.9 H 1.5
eGFR > 60.[address]/pel W Iv And Oral Contr
1. Mild bowel wall thickening involving several loops of small bowel, consistent with mild enteritis.
2. Mild hydronephrosis of the left kidney, and mild left hydroureter. Transition point is difficult to ascertain. Left ureteral JJ stent seen on prior study has been removed. Consider CT urogram to better evaluate the transition zone.
3. Pronounced wall thickening and inflammatory change involving the urinary bladder, consistent with cystitis.
Last hospitalist admission:04/24/24 -04/29/24
DC DXs:
Acute Hypoxic RI multifactorial secondary to PNA and acute HF exacerbation
Community Acquired Pneumonia
Acute on chronic heart failure with preserved ejection fraction
Atrial Flutter, status post successful cardioversion 04/28
Chronic Diagnoses:
Stage IV Colon Cancer with Recurrence. Outpatient follow-up with oncology. No need for TPN, continue regular diet with solid and thin liquid
Anemia suspect anemia chronic disease
Hyponatremia
GERD
Essential Hypertension
Anxiety/Depression
Suspect history of paroxysmal, per patient had cardioversion on last admission at [facility]
ASSESSMENT & PLAN
WONG suspect pre renal ; improving Cr
HX Chr HFpEF
- Cr is trending down from 1.9 on 08/27 to 1.5 today
- s/p 1 L NS by ER
- cont. IV NS 40/H for 1more litre
- Trend Cr
- daily Wt
HX Chr HFpEF
- Wt is down and up over last 3-4 days
- c/w HYDRAULIC GOVERNOR ASSEMBLER PO Lasix to dampen the risk of volome expansion with current IVF
- c/w HYDRAULIC GOVERNOR ASSEMBLER Carvedilol
- daily Wt
HX IV Colon CA with loop ileostomy
- c/w diphenoxylate-atropine and loperamide
- scheduled for reversal , 09/04/[address] Simeon
- Colorectal consult
For pending endoscopy with GI for tomorrow
- cont to hold Eliquis
- GI consult
Benign HTN
- c/w Carvedilol
HX Prx AF
- c/w amiodarone
- hold Eliquis for Endoscopy tomorrow
Anxiety / Depression
- c/w lamotrigine
DVT Px: SCD
Full code
IP MS
[2024-09-01] MEDS: LOMOTIL 1 TABLET PO (22:28)
[2024-09-01] MEDS: IMODIUM 4 MG PO (22:29)
--- NOTE | 2024-09-01 23:00 | PTCARENOTE ---
Received pt from the ED via stretcher; pt independently ambulates throughout room, steady gait. AAOx3, mild c/o abd pain localized to ileostomy site. Medsurg, -edema, +pulses. RA, lungs clear but diminished. +bowel sounds, R ileostomy present
draining liquid stool, pt performs ileostomy care himself. Remainder of assessment as documented. Pt updated on NPO status as of 0000. Pt in agreement with plan. Oriented to unit and call crouch, resting comfortably in bed watching a TV show on his
iPad.
[2024-09-01] MEDS: TYLENOL 650 MG PO (23:34)
[2024-09-02] VITALS (10 sets, daily range): BP systolic 16–113; BP diastolic 54–72; BMI 18.5
[2024-09-02 06:34] LABS: Hematocrit 31.5 % (39.0-52.0); Hemoglobin 10.4 g/dL (13.0-18.0); Mean Corpuscular Hgb 33.1 pg (27.0-31.0); Mean Corpuscular Volume 100.3 fL (80.0-94.0); Mean Platelet Volume 10.1 fL (7.4-10.4); Platelet Count 322 10^3/uL (130-400); Red Blood Cell Count 3.14 10^6/uL (4.70-6.10); Red Cell Dist. Width 15.3 % (11.5-14.5); White Blood Cell Count 9.2 10^3/uL (4.8-10.8)
[2024-09-02 07:00] LABS: Blood Urea Nitrogen 25 mg/dl (9-20); Carbon Dioxide 21 mmol/L (22-30); Chloride 109 mmol/L (98-107); Estimated Creatinine Clearance 41 ml/min; Glucose 83 mg/dl (70-99); Potassium 4.4 mmol/L (3.5-5.1); Sodium 138 mmol/L (135-145); eGFR > 60.00
--- NOTE | 2024-09-02 08:37 | CON.CRS ---
Consultation
-
Date/Time Consultation Requested: 09/01/2024, 21:30
Date/Time Consultation Performed: 09/02/2024, 08:15
Requesting Provider: Aubree Trotter
Performing Provider: Adonay Alonso MD
Reason for Consultation: ileostomy
Medical History
-
Chief Complaint: abnormal labs
History of Present Illness:
69-year-old male with stage IV colon cancer status post chemotherapy, Sugarbaker procedure, peritoneal stripping and HIPEC by Dr. Johnny Fung presents to [facility] due to abnormal labs. He was sent by Dr. Simeon once his lab work was
reviewed. The patient states he felt some fatigue at physical therapy the other day but otherwise has felt normal. He denies nausea or vomiting. He denies abdominal pain. He is not completely sure about his ileostomy output but knows that it is
still functioning.
Initially the patient was scheduled for an ileostomy reversal on 08/01/2024 with a flexible sigmoidoscopy prior to this. However in the waiting area on 327 he described nausea and was admitted for 2 days to [facility] and did not undergo
surgery. The plan was for him to undergo an EGD by Dr. Capps today followed by surgery with Dr. Simeon on 09/04/2024 for the loop ileostomy takedown.
In the ER his creatinine was 1.5. It is 1.2 today. His labwork is otherwise stable.
Past Medical History
Past Medical History: Other (Stage IV colon cancer, history of diverticulitis, hypertension, C. difficile, vasectomy)
Past Surgical History: Other (Laminectomy, discectomy, robotic right colectomy, cardioversion)
Social History
Tobacco: Former Smoker
Family History
Family History: Reviewed & Not Pertinent
Allergies / Home Medications
Allergy/AdvReac Type Severity Reaction Status Date / Time
No Known Allergies Allergy Verified 08/28/24 13:38
�Medication �Instructions �Recorded �Confirmed �Type
lamotrigine 100 mg tablet 100 mg PO DAILY Mental 01/19/21 09/01/24 History
Health/Anxiety
apixaban 5 mg tablet (Eliquis) 5 mg PO BID Blood Clot 04/24/24 09/01/24 History
Prevention/Tx
carvedilol 25 mg tablet 25 mg PO BID Blood Pressure 04/24/24 09/01/24 History
loperamide 2 mg capsule 4 mg PO QID DIARRHEA 04/24/24 09/01/24 History
acetaminophen 500 mg tablet 500 mg PO Q6HPRN PRN mild pain 07/24/24 09/01/24 History
amiodarone 200 mg tablet 200 mg PO DAILY Arrhythmia 07/24/24 09/01/24 History
furosemide 40 mg tablet 20 mg PO DAILY Fluid 07/24/24 09/01/24 History
Retention/Swelling
diphenoxylate-atropine 2.5 1 tab PO QID Loose Stools 08/28/24 09/01/24 History
mg-0.025 mg tablet
lidocaine-prilocaine 2.5 %-2.5 % 1 applic topical DAILYPRN PRN port 09/01/24 09/01/24 History
topical cream excess
oxycodone 5 mg tablet 2.5 mg PO QIDPRN PRN severe pain 09/01/24 09/01/24 History
Review of Systems
-
History Source: Patient
Constitutional: Fatigue
A 10 point review of systems was completed, and was negative except as per HPI.
Physical Exam
Vital Signs
Temp 98.6 F 09/02/24 07:00
Pulse 70 09/02/24 07:00
Resp Rate 16 09/02/24 07:00
Blood pressure 97/68 09/02/24 07:00
SaO2 98 09/02/24 07:00
09/01/24 09/02/24 09/03/24
06:59 06:59 06:59
Actual Weight 48.761 kg
Body Mass Index (BMI) 18.5
Lab Results / Allergies
09/02/24 05:34
09/02/24 05:34
WBC 9.2 10^3/uL (4.8-10.8) 09/02/24 05:34
Hgb 10.4 g/dL (13.0-18.0) L 09/02/24 05:34
Hct 31.5 % (39.0-52.0) L 09/02/24 05:34
Plt Count 322 10^3/uL (130-400) 09/02/24 05:34
Abs Immat Gran (auto) 0.0 10^3/uL (0-0.05) 09/01/24 14:35
Neutrophils % 74.6 % (42.2-75.2) 09/01/24 14:35
Allergy/AdvReac Type Severity Reaction Status Date / Time
No Known Allergies Allergy Verified 08/28/24 13:38
Physical Exam
General: Well Developed, Well Nourished and No Apparent Distress
GI: Soft, Non Tender, Non Distended and Other (ileostomy present, midline incision well healed, scar present)
Skin: Warm and Dry
Neuro: AO x 3
Psych: Calm
Data Reviewed
-
Labs: Labs Reviewed by me, Discussed with Physician and Discussed with Patient
Old Records: Reviewed
Assessment / Plan
-
Assessment: 69-year-old male with a history of stage IV colon cancer status postchemotherapy and HIPEC treatment with ileostomy presents due to elevated creatinine which improved this morning
Plan:
- Okay for diet from our standpoint
- EGD with Dr. Capps tomorrow
- Plan for surgery on 09/04 for a loop ileostomy takedown
- Appreciate hospitalist
--- NOTE | 2024-09-02 08:49 | CON.GI ---
Addendum entered and electronically signed by Bill Jesus MD 09/02/24 12:30:
I saw and examined the patient.
The EXECUTIVE MARKETING ASSISTANT or PA's note was reviewed and I agree with the note.
Comment:
Pt is a 69 y/o man with a hx of cecal cancer, carcinomatosis, hx of several surgeries, chemo. He is scheduled for ileostomy take down and saw Dr. Capps for nausea and vomiting. She scheduled an enteroscopy and CT scan but he came to the hospital with
more vomiting. he had a CT scan which showed some sb thickening.
alert, awake, anicteric
impression:
cecal cancer
abnl CT scan
n/v
plan:
Enteroscopy as planned
hgb stable
antiemetics and po as tolerated
f/u with colorectal
lomotil and imodium
Original Note:
Consultation
-
Date/Time Consultation Requested: 09/01/24 2330
Date/Time Consultation Performed: 09/02/24 0850
Requesting Provider: ELIZABETH Jama
Performing Provider: ELIZABETH Malhotra, Bill Jeuss MD
Reason for Consultation: eval for EGD
Medical History
Chief Complaint / HPI
Chief Complaint: abnormal labs, chronic nausea
History of Present Illness:
Pt is a 69yo with hx HTN, bipolar, afib, anxiety, prior diverticulitis with abscess, c-diff colitis, CHF, cecal CA with carcinomatosis diagnosed around 2020 with several surgical interventions with Dr. Simeon and Dr. Fung at [place] with
diverting loop ileostomy and repaired colorectal pelvic anastomosis and several rounds of chemo with follow with Dr. Venegas. Pt had recent admission in July as initially was scheduled for surgery for ileostomy take down but held with nausea and
vomiting. During that admission he completed SB imaging with thickening of duodenum. He then was referred to Dr. Capps after admission with abnormal imaging and also chronic nausea for over a year with minimal improvement (though pt states some
improvement with Dramamine). He is now planned for surgery for ostomy take down on and due for EGD/enteroscopy 09/[address] Capps prior for nausea and recent SBFT with duodenal thickening. He presented to ER with abnormal labs overnight
with OP creat up to 1.9 then 1.2 today. Plan if still for surgical intervention this week and asked to see to proceed with EGD/enteroscopy.
At this time pt admits to some wt loss with recent admission but gained a few lbs after admission. He again admit to chronic nausea but denies dysphagia, GERD, abdominal pain, and has some liquid and some solid BM in ostomy. Denies any rectal
bleeding. Hx EGD 08/2023 Dr. Krishnan for odynophagia with specks of white on proximal esophagus. small HH. bx neg CMV.
Past Medical History
Past Medical History: Arrhythmias (afib ), CHF, HTN and Other (cecal CA with carcinomatomsis, anxiety, depression, bipolar disorder, sciatica)
Past Surgical History: Bowel Resection (right [id number], lap procedure for colon CA 02/2023), Cardiac (cardioversion ), Orthopedic (lami, diskectomy) and Other (right hemicolectomy (2020), left hand surgery, laminectomy, vasectomy, chemo port)
Social History
Tobacco: Non-Smoker
Alcohol: Former (none now due to his symptoms, but was previously drinking 2 beers/day)
Drug: Marijuana (gummies - occasional)
Living: Alone
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
Family History
Family History: Other (No family history of GI malignancies, ? hx polyps )
Allergies / Home Medications
Allergy/AdvReac Type Severity Reaction Status Date / Time
No Known Allergies Allergy Verified 08/28/24 13:38
�Medication �Instructions �Recorded
lamotrigine 100 mg tablet 100 mg PO DAILY Mental 01/19/21
Health/Anxiety
apixaban 5 mg tablet (Eliquis) 5 mg PO BID Blood Clot 04/24/24
Prevention/Tx
carvedilol 25 mg tablet 25 mg PO BID Blood Pressure 04/24/24
loperamide 2 mg capsule 4 mg PO QID DIARRHEA 04/24/24
acetaminophen 500 mg tablet 500 mg PO Q6HPRN PRN mild pain 07/24/24
amiodarone 200 mg tablet 200 mg PO DAILY Arrhythmia 07/24/24
furosemide 40 mg tablet 20 mg PO DAILY Fluid 07/24/24
Retention/Swelling
diphenoxylate-atropine 2.5 1 tab PO QID Loose Stools 08/28/24
mg-0.025 mg tablet
lidocaine-prilocaine 2.5 %-2.5 % 1 applic topical DAILYPRN PRN port 09/01/24
topical cream excess
oxycodone 5 mg tablet 2.5 mg PO QIDPRN PRN severe pain 09/01/24
Review of Systems
-
History Source: Patient
Constitutional: Reports Weight Loss (with recent admission then gain )
EENT: Reports No Symptoms
Respiratory: Reports No Symptoms
Cardiac: Reports No Symptoms
Abdomen/GI: Reports Nausea, Vomiting (recent admit ) and Diarrhea (via ostomy with chronic lomotil and imodium use )
: Reports No Symptoms
Musculoskeletal: Reports No Symptoms
Skin: Reports No Symptoms
Neurological: Reports No Symptoms
Endocrine: Reports No Symptoms
Hematologic/Lymphatic: Reports No Symptoms
Vital Signs
Temp Pulse Resp BP Pulse Ox
98.6 F 70 16 97/68 98
09/02/24 07:00 09/02/24 07:00 09/02/24 07:00 09/02/24 07:00 09/02/24 07:00
Physical Exam
Exam
General: Well Developed, Well Nourished and No Apparent Distress
HEENT: Normocephalic and Anicteric
Respiratory: Clear
Cardiac: Regular Rhythm
GI: Soft, Non Tender, Non Distended and Other (mid abd scar, ostomy with no drainage as just emptied )
Musculoskeletal: No Clubbing and No Cyanosis
Skin: Warm and Dry
Neuro: Awake, Alert and AO x 3
Psych: Calm
Results
WBC 9.2 10^3/uL (4.8-10.8) 09/02/24 05:34
Hgb 10.4 g/dL (13.0-18.0) L 09/02/24 05:34
Hct 31.5 % (39.0-52.0) L 09/02/24 05:34
MCV 100.3 fL (80.0-94.0) H 09/02/24 05:34
Plt Count 322 10^3/uL (130-400) 09/02/24 05:34
Absolute Neuts (auto) 7.0 10^3/uL (1.4-6.5) H 09/01/24 14:35
Sodium 138 mmol/L (135-145) 09/02/24 05:34
Potassium 4.4 mmol/L (3.5-5.1) 09/02/24 05:34
Chloride 109 mmol/L (98-107) H 09/02/24 05:34
Carbon Dioxide 21 mmol/L (22-30) L 09/02/24 05:34
BUN 25 mg/dl (9-20) H 09/02/24 05:34
Creatinine 1.2 mg/dL (0.7-1.3) 09/02/24 05:34
Calcium 9.0 mg/dl (8.4-10.2) 09/02/24 05:34
Total Bilirubin 0.4 mg/dl (0.2-1.3) 09/01/24 14:35
AST 24 U/L (17-59) 09/01/24 14:35
ALT 20 U/L (0-50) 09/01/24 14:35
Alkaline Phosphatase 199 U/L (38-126) H 09/01/24 14:35
Diagnostic Image Results:
07/2024 SB follow through:� delayed stomach emptying.� duodenal thickening can be seen with eneritis
07/2024 Barium enema diverticulosis with spasm. unremarkable ileo colonic anastomosis at mid transverse colon
05/2024 PET scan DJD otherwise no active disease.� L hydroneprhosis with J stent.
Prior GI Procedures:
EGD: 08/2023 [facility] - Normal oropharynx - no mucosal ulcerations and no
thrush. Not typical for mucositis
- Very few specks of white material in the proximal
esophagus. Doubt this is the cause of his odynophagia.
- Diffuse mid esophageal ulcers (more of a thick area
covered in exudate) with no bleeding and no stigmata
of recent bleeding. Biopsied for CMV/HSV - no deep
ulcerations.
- The mucosa in the proximal and distal esophagus are
normal.
- Small hiatal hernia.
- No gross lesions in the entire stomach.
- Normal examined duodenum.
bx neg CMV
Colonoscopy: 08/2021 [facility] - Patent [id number] ileo-colonic anastomosis,
characterized by healthy appearing mucosa.
- Diverticulosis in the entire examined colon.
- The examination was otherwise normal.
- No specimens collected.
flex 02/2023 [facility] - Preparation of the colon was fair.
- Diverticulosis in the sigmoid colon.
- Stricture in the proximal sigmoid colon.
- No specimens collected.
Assessment / Plan
-
Pt is a 69yo with hx HTN, Afib- eliquis prior to admission, bipolar, anxiety, prior diverticulitis with abscess, c-diff colitis, CHF, cecal CA with carcinomatosis diagnosed around 2020 with several surgical interventions with Dr. Simeon and
Kenton at [place] with diverting loop ileostomy and repaired colorectal pelvic anastomosis and several rounds of chemo with follow with Dr. Venegas. Pt had recent admission in July as initially was scheduled for surgery for ileostomy take down but
held with nausea and vomiting. During that admission he completed SB imaging with thickening of duodenum. He then was referred to Dr. Capps after admission with abnormal imaging and also chronic nausea for over a year with minimal improvement (though
pt states some improvement with Dramamine). He is now planned for surgery for ostomy take down on and due for EGD/enteroscopy 09/[address] Capps prior for nausea and recent SBFT with duodenal thickening. He presented to ER with abnormal
labs overnight with OP creat up to 1.9 then 1.2 today. Plan if still for surgical intervention this week and asked to see to proceed with EGD/enteroscopy.
-chronic nausea/ abnormal SB with thickening duodenum
-stage IV colon CA with carcinomatosis with prior surgical intervention with Dr. Simeon and Dr. Fung with diverting ileostomh
-WONG on admission
-afib on Eliquis prior to admission
-recent admission with nausea/vomiting
other med problems:
-prior PNA
-anxiety/deprssion/bipolar
-hx diverticulitis with abscess
-hx c-diff colitis
PLAN:
etiology of nausea related to duodenal thickening vs other
plan for EGD/enteroscopy today prior to planned surgery intervention
risk/benefits reviewed pt willing to proceed
NPO
hbg stable 10.4
Eliquis last dose Sunday AM has been on hold
remain on Lomotil and Imodium reviewed with nursing to review with surgical team prior to intervention
-
-
Thank you for consultation and allowing me to participate in the patient's care. Please call the stone decorator GI physician during the after hours with any questions or concerns.
[2024-09-02] MEDS: PACERONE 200 MG PO (10:02)
[2024-09-02] MEDS: COREG 25 MG PO ×2 (10:02→19:54)
[2024-09-02] MEDS: TYLENOL 650 MG PO ×3 (10:02→19:57)
[2024-09-02] MEDS: LAMICTAL 100 MG PO (10:02)
[2024-09-02] MEDS: HEPARIN 5000 UNITS SC ×3 (10:03→23:18)
--- NOTE | 2024-09-02 10:45 | W.PN.HOSP.TC ---
Today's Communication/Plan
-
see A/P
Assessment / Plan
Assessment / Plan
69-year-old male with past medical history significant for colon cancer with recurrence, hypertension, GERD, congestive heart failure, atrial fibrillation, anxiety/depression; who presented to ED by colorectal surgery for abnormal lab values.
Patient was unsure of what lab values were abnormal. ED staff able to verify kidney function was abnormal. They were concerned about it as he is scheduled for ostomy reversal on 09/04.
Patient states he is in his normal health with slight fatigue recently. He reports endoscopy scheduled for in the morning in GI lab in [place].
A/P:
# acute kidney injury, resolved
Creat 1.5 -> 1.2; baseline 1.2
cont gentle IVF while NPO
# Colon Cancer with Recurrence
# s/p colostomy
scheduled for colostomy reversal 09/04/[address] Simeon
continue diphenoxylate-atropine and loperamide
Colorectal on board
GI team on board, plan for EGD/enteroscopy today 09/02 prior to planned surgery intervention
# Hypertension
continue carvedilol with hold parameter
# congestive heart failure
continue carvedilol and furosemide with hold parameter
daily weights, I & Os
# Paroxysmal atrial fibrillation
continue coreg, amiodarone and Eliquis
# Anxiety / Depression
continue lamotrigine
# GERD
Code status: full code
DVT prophylaxis: HSQ in place of [facility] Eliquis
Anticipated Discharge: 24 - 48 hours
Subjective/Interval History
-
Date of Service: September 02, 2024
Objective Data
-
Labs:
Laboratory Results
09/02/24
05:34
WBC 9.2
Hgb 10.4 L
Hct 31.5 L
Plt Count 322
Sodium 138
Potassium 4.4
Chloride 109 H
Carbon Dioxide 21 L
BUN 25 H
Creatinine 1.2
Glucose 83
Calcium 9.0
Vital Signs:
Vital Signs
Temp Pulse Resp BP Pulse Ox
37.0 C 70 16 97/68 98
09/02/24 07:00 09/02/24 07:00 09/02/24 07:00 09/02/24 07:00 09/02/24 07:00
Review of Systems
-
History Source: Patient
All other systems: Reviewed and negative
Physical Exam
-
General: Well Developed, No Apparent Distress and Comfortable
HEENT: Normocephalic and Atraumatic
Respiratory: Non Labored Respirations; Negative Accessory Resp Muscle Use
Cardiac: Regular Rhythm and S1/S2
GI: Soft, Nontender, Nondistended and Ostomy
Musculoskeletal: No Clubbing, No Cyanosis and No Edema
Skin: Warm
Neuro: Awake, Alert, Oriented and AO x 3
Psych: Calm and Intact Judgement/Insight
Data Reviewed
-
Labs: Labs Reviewed by me
[2024-09-02] MEDS: LOMOTIL 1 TABLET PO ×4 (11:11→22:07)
[2024-09-02] MEDS: IMODIUM 4 MG PO ×4 (11:11→22:07)
--- NOTE | 2024-09-02 12:56 | W.PN.GI.CBS2 ---
Assessment / Plan
-
Pt is a 69yo with hx HTN, Afib- eliquis prior to admission, bipolar, anxiety, prior diverticulitis with abscess, c-diff colitis, CHF, cecal CA with carcinomatosis diagnosed around 2019 with several surgical interventions with Dr. Simeon and
Kenton at [place] with diverting loop ileostomy and repaired colorectal pelvic anastomosis and several rounds of chemo with follow with Dr. Venegas. Pt had recent admission in July as initially was scheduled for surgery for ileostomy take down but
held with nausea and vomiting. During that admission he completed SB imaging with thickening of duodenum. He then was referred to Dr. Capps after admission with abnormal imaging and also chronic nausea for over a year with minimal improvement (though
pt states some improvement with Dramamine). He is now planned for surgery for ostomy take down on and due for EGD/enteroscopy 09/[address] Capps prior for nausea and recent SBFT with duodenal thickening. He presented to ER with abnormal
labs overnight with OP creat up to 1.9 then 1.2 today. Plan if still for surgical intervention this week and asked to see to proceed with EGD/enteroscopy.
-chronic nausea/ abnormal SB with thickening duodenum
-stage IV colon CA with carcinomatosis with prior surgical intervention with Dr. Simeon and Dr. Fung with diverting ileostomh
-WONG on admission
-afib on Eliquis prior to admission
-recent admission with nausea/vomiting
other med problems:
-prior PNA
-anxiety/deprssion/bipolar
-hx diverticulitis with abscess
-hx c-diff colitis
PLAN:
etiology of nausea related to duodenal thickening vs other
plan for EGD/enteroscopy today prior to planned surgery intervention
risk/benefits reviewed pt willing to proceed
NPO
hbg stable 10.4
Eliquis last dose Sunday AM has been on hold
remain on Lomotil and Imodium reviewed with nursing to review with surgical team prior to intervention
Subjective
Subjective
Date of Service: September 02, 2024
Objective
Data Reviewed
Laboratory Data:
Laboratory Results
09/02/24 05:34
09/02/24 05:34
Laboratory Results
Total Bilirubin 0.4 mg/dl (0.2-1.3) 09/01/24 14:35
AST 24 U/L (17-59) 09/01/24 14:35
ALT 20 U/L (0-50) 09/01/24 14:35
Alkaline Phosphatase 199 U/L (38-126) H 09/01/24 14:35
Vital Signs and I&O:
Vital Signs
Temp Pulse Resp BP Pulse Ox
98.6 F 57 16 91/54 98
09/02/24 07:00 09/02/24 11:14 09/02/24 07:00 09/02/24 11:14 09/02/24 07:00
--- NOTE | 2024-09-02 12:58 | W.PN.UPDATE ---
Update Note
Progress Note Update
Enteroscopy with some prepyloric edema/gastritis biopsied but otherwise normal to proximal jejunum
will f/u biopsies
will sign off
--- NOTE | 2024-09-02 13:15 | CM ---
Addendum entered by Dennise Croft RN 09/03/24 09:23:
CM met with patient in room. Patient confirmed demographics. Patient lives independently and reports his sister is his support. Patient has had [facility] in the past but has been discharged. Patient has never been to SNF. Patient has ileostomy supplies.
Patient is active with his PCP. Patient uses [facility] for medication services.
PLAN: home pending surgical outcome for needs.
Original Note:
Cm reviewed medical records. CM attempted to meet with patient. Patient not in room. CM will continue to follow as needed.
PLAN: Pending OR.
[2024-09-02] MEDS: ROXICODONE 2.5 MG PO (22:11)
[2024-09-02] MEDS: NSS 1000 IV (23:18)
[2024-09-03 03:30] VITALS: BP 103/62
[2024-09-03 05:06] LABS: Hematocrit 30.6 % (39.0-52.0); Hemoglobin 10.3 g/dL (13.0-18.0); Mean Corp Hgb Conc. 33.7 g/dL (33.0-37.0); Mean Corpuscular Hgb 33.7 pg (27.0-31.0); Mean Platelet Volume 9.9 fL (7.4-10.4); Platelet Count 297 10^3/uL (130-400); Red Blood Cell Count 3.06 10^6/uL (4.70-6.10); Red Cell Dist. Width 15.3 % (11.5-14.5); White Blood Cell Count 9.4 10^3/uL (4.8-10.8)
[2024-09-03 05:30] VITALS: BMI 19.1
[2024-09-03 05:33] LABS: Blood Urea Nitrogen 17 mg/dl (9-20); Calcium 8.8 mg/dl (8.4-10.2); Carbon Dioxide 20 mmol/L (22-30); Chloride 112 mmol/L (98-107); Estimated Creatinine Clearance 51 ml/min; Glucose 83 mg/dl (70-99); Magnesium 1.8 mg/dl (1.6-2.3); Sodium 137 mmol/L (135-145); eGFR > 60.00
[2024-09-03 07:05] VITALS: BP 97/59
[2024-09-03] MEDS: COREG PO (08:47)
[2024-09-03] MEDS: IMODIUM 4 MG PO ×4 (08:47→22:16)
[2024-09-03] MEDS: PACERONE 200 MG PO (08:48)
[2024-09-03] MEDS: HEPARIN 5000 UNITS SC (08:48)
[2024-09-03] MEDS: LAMICTAL 100 MG PO (08:48)
[2024-09-03] MEDS: LOMOTIL 1 TABLET PO ×4 (08:48→22:16)
--- NOTE | 2024-09-03 09:56 | W.PN.CRS1 ---
Today's Communication / Plan
-
Clears
N.p.o. at midnight
OR tomorrow
Assessment/Plan
-
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 Fung at [place], s/p resection with colorectal anastomosis s/p leak with repair and diverting
loop ileostomy;), HTN, GERD, CHF, A-fib (on Eliquis), anxiety/depression, history of C. difficile who presented with abnormal labs during preoperative evaluation. Specifically, his creatinine was 1.5. He was admitted for WONG. He denies any other
issues except for feeling fatigued. He does not record his ostomy output, but does not complain of significant recent increase in output.
AFVSS, ABD soft, nondistended, appropriately tender; ostomy with opaque appliance and productive of stool
WBC 9. 4, hemoglobin 10.3 from 10.4. Creatinine 1.0 from 1.2.
09/02- EGD (Enteroscopy with some prepyloric edema/gastritis biopsied but otherwise normal to proximal jejunum)
-Clear liquid diet today. N.p.o. at midnight. IV fluids while NPO.
- OR tomorrow for ileostomy takedown
� Pain control with Tylenol as needed
� Continue DVT PPx with TEDS/SCDS (heparin sq held for OR)
� Continue Lomotil and Imodium at home dosing; strict intake and output, measure ostomy output
� Continue IVF; Daily BMP
� Appreciate hospitalist
�Continue to hold Eliquis for surgery
Subjective Data
Subjective Data
Date of Service: September 03, 2024
Patient states he feels 'fine'. He has no complaints presently.
Objective Data
-
Vital Signs
Temp Pulse Resp BP Pulse Ox
98.4 F 69 16 97/63 97
09/03/24 07:05 09/03/24 07:05 09/03/24 07:05 09/03/24 08:47 09/03/24 07:05
Intake & Output
09/02/24 09/03/24 09/04/24
06:59 06:59 06:59
Intake Total 1660 / 1660
Output Total 100 / 100
Balance 1560 / 1560
Intake:
Oral fluids 1180 / 1180
IV fluids (Total) 480 / 480
IV piggybacks 0 / 0
Output:
Liquid stool amount 100 / 100
Ileostomy 100 / 100
Other:
Number of approximated MODERATE 1 2
amounts of urine
Number of unmeasured liquid
stools
Ileostomy 1
Lab Results
09/03/24 04:38
09/03/24 04:38
Physical Exam
-
General: No Acute Distress and AOx3
Abdomen: Soft, Non Distended, Non Tender, Hypoactive Bowel Sounds and Other (Ileostomy warm and pink with function)
Skin: Warm and Dry
[2024-09-03 11:00] VITALS: BP 108/56
--- NOTE | 2024-09-03 12:03 | W.PN.HOSP.TC ---
Today's Communication/Plan
-
see A/P
Assessment / Plan
Assessment / Plan
69-year-old male with past medical history significant for colon cancer with recurrence, hypertension, GERD, congestive heart failure, atrial fibrillation, anxiety/depression; who presented to ED by colorectal surgery for abnormal lab values.
Patient was unsure of what lab values were abnormal. ED staff able to verify kidney function was abnormal. They were concerned about it as he is scheduled for ostomy reversal on 09/04.
Patient states he is in his normal health with slight fatigue recently. He reports endoscopy scheduled for in the morning in GI lab in [place].
A/P:
# acute kidney injury, resolved
Creat 1.5 -> 1.0; baseline 1.2
cont gentle IVF while NPO
# Colon Cancer with Recurrence
# s/p colostomy
scheduled for colostomy reversal 09/04/[address] Simeon
continue diphenoxylate-atropine and loperamide
Colorectal on board
GI team on board, s/p EGD/enteroscopy 09/02 prior to planned surgery intervention, noted Normal esophagus, gastritis (biopsied), Normal duodenum, Normal jejunum.
Follow path report outpt
# Hypertension
continue carvedilol with hold parameter
# congestive heart failure
continue carvedilol and furosemide with hold parameter
daily weights, I & Os
# Paroxysmal atrial fibrillation
continue coreg, amiodarone and Eliquis
# Anxiety / Depression
continue lamotrigine
# GERD
Code status: full code
DVT prophylaxis: HSQ in place of [employer] Eliquis
DW CRS team, plan for surgery 09/04
Anticipated Discharge: > 48 hours
Subjective/Interval History
-
Date of Service: September 03, 2024
Objective Data
-
Labs:
Laboratory Results
09/03/24
04:38
WBC 9.4
Hgb 10.3 L
Hct 30.6 L
Plt Count 297
Sodium 137
Potassium 4.0
Chloride 112 H
Carbon Dioxide 20 L
BUN 17
Creatinine 1.0
Glucose 83
Calcium 8.8
Vital Signs:
Vital Signs
Temp Pulse Resp BP Pulse Ox
36.9 C 69 16 97/63 97
09/03/24 07:05 09/03/24 07:05 09/03/24 07:05 09/03/24 08:47 09/03/24 07:05
I&O
09/02/24 09/03/24 09/04/24
06:59 06:59 06:59
Intake Total 1660 / 1660
Output Total 100 / 100
Balance 1560 / 1560
Review of Systems
-
History Source: Patient
All other systems: Reviewed and negative
Physical Exam
-
General: Well Developed, No Apparent Distress, Comfortable and Conversant
HEENT: Normocephalic and Atraumatic
Respiratory: Non Labored Respirations; Negative Accessory Resp Muscle Use
Cardiac: Regular Rhythm and S1/S2
GI: Soft, Nontender, Nondistended and Ostomy
Musculoskeletal: No Clubbing, No Cyanosis and No Edema
Skin: Warm
Neuro: Awake, Alert, Oriented and AO x 3
Psych: Calm and Intact Judgement/Insight
Data Reviewed
-
Labs: Labs Reviewed by me
[2024-09-03] MEDS: TYLENOL 650 MG PO (14:05)
[2024-09-03 15:00] VITALS: BP 102/68
[2024-09-03] MEDS: COREG 25 MG PO (20:03)
[2024-09-03] MEDS: ROXICODONE 2.5 MG PO (20:29)
[2024-09-03 23:16] VITALS: BP 101/56
[2024-09-04] VITALS (13 sets, daily range): BP systolic 10–164; BP diastolic 51–91; BMI 19.1
[2024-09-04] MEDS: NORMOSOL-R/PLASMALYTE-A 1000 IV ×2 (00:50→17:26)
[2024-09-04 06:24] LABS: % Basophils 1.4 % (0-2); % Eosinophils 6.7 % (0-6); % Immature Granulocytes 0.3 % (0-0.5); % Lymphocytes 13.7 % (20.5-51.1); % Neutrophils 62.9 % (42.2-75.2); Absolute Basophils 0.1 10^3/uL (0-0.2); Absolute Eosinophils 0.5 10^3/uL (0-0.7); Absolute Lymphocytes 1.1 10^3/uL (1.2-3.4); Absolute Monocytes 1.2 10^3/uL (0.1-0.6); Hematocrit 31.6 % (39.0-52.0); Hemoglobin 10.4 g/dL (13.0-18.0); Mean Corp Hgb Conc. 32.9 g/dL (33.0-37.0); Mean Corpuscular Hgb 33.1 pg (27.0-31.0); Mean Corpuscular Volume 100.6 fL (80.0-94.0); Mean Platelet Volume 10.2 fL (7.4-10.4); Nucleated Red Blood Cells % 0 % (-); Platelet Count 290 10^3/uL (130-400); Red Blood Cell Count 3.14 10^6/uL (4.70-6.10); Red Cell Dist. Width 15.2 % (11.5-14.5); White Blood Cell Count 7.9 10^3/uL (4.8-10.8)
[2024-09-04 06:46] LABS: Blood Urea Nitrogen 12 mg/dl (9-20); Calcium 8.8 mg/dl (8.4-10.2); Carbon Dioxide 20 mmol/L (22-30); Chloride 110 mmol/L (98-107); Estimated Creatinine Clearance 57 ml/min; Glucose 72 mg/dl (70-99); Magnesium 1.7 mg/dl (1.6-2.3); Potassium 4.3 mmol/L (3.5-5.1); Sodium 137 mmol/L (135-145); eGFR > 60.00
[2024-09-04] MEDS: ROXICODONE 2.5 MG PO (09:37)
[2024-09-04] MEDS: LOMOTIL 1 TABLET PO (09:38)
[2024-09-04] MEDS: IMODIUM 4 MG PO (09:39)
[2024-09-04] MEDS: LAMICTAL 100 MG PO (09:39)
[2024-09-04] MEDS: PACERONE 200 MG PO (09:40)
[2024-09-04] MEDS: COREG PO (09:40)
--- NOTE | 2024-09-04 09:46 | W.PN.HOSP.TC ---
Today's Communication/Plan
-
for OR today
Assessment / Plan
Assessment / Plan
69-year-old male with past medical history significant for colon cancer with recurrence, hypertension, GERD, congestive heart failure, atrial fibrillation, anxiety/depression; who presented to ED by colorectal surgery for abnormal lab values.
Patient was unsure of what lab values were abnormal. ED staff able to verify kidney function was abnormal. They were concerned about it as he is scheduled for ostomy reversal on 09/04.
Patient states he is in his normal health with slight fatigue recently. He reports endoscopy scheduled for in the morning in GI lab in [place].
A/P:
# acute kidney injury, resolved
Creat 1.5 -> 0.9 today
cont gentle IVF while NPO
# Colon Cancer with Recurrence
# s/p colostomy
scheduled for colostomy reversal 09/04/[address] Simeon
continue diphenoxylate-atropine and loperamide
Colorectal on board
GI team on board, s/p EGD/enteroscopy 09/02 prior to planned surgery intervention, noted Normal esophagus, gastritis (biopsied), Normal duodenum, Normal jejunum.
Follow path report outpt
# Hypertension
continue carvedilol with hold parameter
# congestive heart failure
continue carvedilol and furosemide with hold parameter
daily weights, I & Os
# Paroxysmal atrial fibrillation
continue coreg, amiodarone and Eliquis
# Anxiety / Depression
continue lamotrigine
# GERD
Code status: full code
DVT prophylaxis: HSQ in place of [employer] Eliquis
DW RN
Anticipated Discharge: 24 - 48 hours
Subjective/Interval History
-
Date of Service: September 04, 2024
Objective Data
-
Labs:
Laboratory Results
09/04/24
05:18
WBC 7.9
Hgb 10.4 L
Hct 31.6 L
Plt Count 290
Sodium 137
Potassium 4.3
Chloride 110 H
Carbon Dioxide 20 L
BUN 12
Creatinine 0.9
Glucose 72
Calcium 8.8
Vital Signs:
Vital Signs
Temp Pulse Resp BP Pulse Ox
37.2 C 68 16 101/56 99
09/04/24 07:00 09/04/24 07:00 09/04/24 07:00 09/04/24 09:40 09/04/24 07:00
I&O
09/03/24 09/04/24 09/05/24
06:59 06:59 06:59
Intake Total 1660 / 1660 2160 / 2160
Output Total 100 / 100 100 / 100
Balance 1560 / 1560 2059
Review of Systems
-
History Source: Patient
All other systems: Reviewed and negative
Physical Exam
-
General: Well Developed, No Apparent Distress, Comfortable and Conversant
HEENT: Normocephalic and Atraumatic
Respiratory: Non Labored Respirations; Negative Accessory Resp Muscle Use
Cardiac: Regular Rhythm and S1/S2
GI: Soft, Nontender, Nondistended and Ostomy
Musculoskeletal: No Clubbing, No Cyanosis and No Edema
Skin: Warm
Neuro: Awake, Alert, Oriented and AO x 3
Psych: Calm and Intact Judgement/Insight
Data Reviewed
-
Labs: Labs Reviewed by me
[2024-09-04] MEDS: NEURONTIN 600 MG PO (10:48)
[2024-09-04] MEDS: TYLENOL 1000 MG PO (10:48)
[2024-09-04] MEDS: HEPARIN 5000 UNITS SC (10:49)
--- NOTE | 2024-09-04 15:04 | CM ---
CM following re: discharge planning.
Reviewed pt's chart, met with pt.
Per chart review, patient lives independently and reports his sister is his support. Patient has ileostomy supplies. Pt is known to [facility]
D/C plan: home with anticipated no after care VN needs.
CM will follow with discharge plan updates as hospitalization progresses
--- NOTE | 2024-09-04 16:06 | PTCARENOTE ---
to OR at 1035, Invanz sent via tube system.
--- NOTE | 2024-09-04 16:16 | W.IMMPOSTOP ---
Addendum entered and electronically signed by Simon Simeon MD 09/04/24 16:41:
Abdominal Xray images available and I reviewed it. Looks like NGT in in satisfactory position with tip in stomach.
Addendum entered and electronically signed by Simon Simeon MD 09/04/24 16:40:
Updated patient's sister/next of kin, Eleni, via phone conversation.
Original Note:
Surgical Immed Post Op Note
-
Primary Surgeon: Víctor Simeon MD
Assisting Surgeon: Zaida Alonso MD; ALEXSANDER Valencia
Pre-op Diagnosis: 1) loop ileostomy 2) history of colon cancer
Post-op Diagnosis: same
Procedure Performed: 1) flexible sigmoidoscopy 2) takedown loop ileostomy with partial small bowel resection 3) repair enterotomies X 2 (one full thickness, one partial thickness/serosal tear)
Anesthesia Type: general plus local
Specimen / Cultures: portion of small bowel to include ileostomy
Estimated Blood Loss: 50 cc
Complications: enterotomies X 2 (one full thickness, one partial thickness/serosal tear)--both repaired
Operative Findings: dense intraabdominal adhesions (frozen abdomen)
#19 Kailash drain in R abdomen.
NGT in stomach (will confirm with abdominal XRay).
Stein in bladder.
Will send back to med surg.
[2024-09-04] MEDS: TORADOL 10 MG IV ×2 (16:59→23:08)
[2024-09-04] MEDS: OFIRMEV 100 IV ×2 (17:24→23:08)
[2024-09-04] MEDS: LOMOTIL PO ×3 (17:42→22:22)
[2024-09-04] MEDS: IMODIUM PO (17:42)
--- NOTE | 2024-09-04 17:43 | W.PN.UPDATE ---
Update Note
Progress Note Update
Patient needs to be NPO, was contacted by Sx to switch to IV meds. Amiodarone and Lopressor IV placed. Lamotrigine seems to be not due to Hx of seizures - will hold now.
--- NOTE | 2024-09-04 18:32 | PTCARENOTE ---
1805: return from sx 4hr sx. Claudio Stein 14fr, Antwan R, R Anjel NGt at 60cm pending AXR. GA EBL 50mls. pt AO bed low, call crouch in reach.
[2024-09-04] MEDS: LOPRESSOR 5 MG IV (23:08)
[2024-09-05] VITALS (11 sets, daily range): BP systolic 102–142; BP diastolic 58–78
--- NOTE | 2024-09-05 01:44 | W.PN.UPDATE ---
Update Note
Progress Note Update
-EKG with qtc prolongation, asymptomatic, vital signs within normal limit.
-Will d/c Zofran and continue monitor qtc/ telemetry.
--- NOTE | 2024-09-05 01:51 | PTCARENOTE ---
Pt transferred from Med surg to telemetry d/t ESTELLE Rodriguez. On property assessment monitor, noted to sudha
--- NOTE | 2024-09-05 01:57 | PTCARENOTE ---
Pt transferred from Med surg to telemetry d/t IV lopressor ordered. On the environmental monitoring specialist pt noticed to have ST elevation. BP 122/75 HR 76 and EKG obtained. Pt not c/o any chest pain. TAMANNA Hinson notified and zofran d/c'ed. On doll monitor, ST
elevation analysis on and QT monitoring on. Care ongoing.
[2024-09-05] MEDS: CHLORASEPTIC/SORE THROAT SPRAY 1 SPRAY PO (02:12)
[2024-09-05] MEDS: NORMOSOL-R/PLASMALYTE-A 1000 IV (04:37)
[2024-09-05] MEDS: TORADOL 10 MG IV ×3 (04:40→16:57)
[2024-09-05] MEDS: LOPRESSOR IV ×2 (04:41→11:04)
[2024-09-05] MEDS: OFIRMEV 100 IV ×2 (04:44→11:26)
[2024-09-05 06:25] LABS: % Basophils 0.1 % (0-2); % Immature Granulocytes 0.3 % (0-0.5); % Lymphocytes 3.8 % (20.5-51.1); % Monocytes 6.4 % (1.7-9.3); % Neutrophils 89.4 % (42.2-75.2); Absolute Immature Granulocytes 0.1 10^3/uL (0-0.05); Absolute Lymphocytes 0.6 10^3/uL (1.2-3.4); Absolute Monocytes 0.9 10^3/uL (0.1-0.6); Absolute Neutrophils 12.9 10^3/uL (1.4-6.5); Hematocrit 30.4 % (39.0-52.0); Hemoglobin 10.2 g/dL (13.0-18.0); Mean Corp Hgb Conc. 33.6 g/dL (33.0-37.0); Mean Corpuscular Hgb 33.2 pg (27.0-31.0); Mean Platelet Volume 10.4 fL (7.4-10.4); Nucleated Red Blood Cells % 0 % (-); Platelet Count 287 10^3/uL (130-400); Red Blood Cell Count 3.07 10^6/uL (4.70-6.10); Red Cell Dist. Width 15.1 % (11.5-14.5); White Blood Cell Count 14.5 10^3/uL (4.8-10.8)
[2024-09-05 06:53] LABS: Blood Urea Nitrogen 19 mg/dl (9-20); Calcium 8.4 mg/dl (8.4-10.2); Carbon Dioxide 19 mmol/L (22-30); Chloride 107 mmol/L (98-107); Estimated Creatinine Clearance 54 ml/min; Glucose 133 mg/dl (70-99); Magnesium 1.9 mg/dl (1.6-2.3); Potassium 4.8 mmol/L (3.5-5.1); Sodium 137 mmol/L (135-145); eGFR > 60.00
[2024-09-05] MEDS: NORMOSOL-R/PLASMALYTE-A IV (07:47)
[2024-09-05] MEDS: CORDARONE 104 MG IV (09:07)
--- NOTE | 2024-09-05 09:13 | W.PN.CRS1 ---
Today's Communication / Plan
-
maintain ngt
heparin sq
wound care
OOB
Assessment/Plan
-
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 Fung at [place], s/p resection with colorectal anastomosis s/p leak with repair and diverting
loop ileostomy;), HTN, GERD, CHF, A-fib (on Eliquis), anxiety/depression, history of C. difficile who presented with abnormal labs during preoperative evaluation. Specifically, his creatinine was 1.5. He was admitted for WONG. He denies any other
issues except for feeling fatigued. He does not record his ostomy output, but does not complain of significant recent increase in output.
AFVSS, ABD soft, nondistended, appropriately tender; ostomy with opaque appliance and productive of stool
WBC 14.5 (9.4), , hemoglobin 10.2 (10.3). Creatinine 1.0
/- EGD (Enteroscopy with some prepyloric edema/gastritis biopsied but otherwise normal to proximal jejunum)
POD#1 flexible sigmoidoscopy 2) takedown loop ileostomy with partial small bowel resection 3) repair enterotomies X 2 (one full thickness, one partial thickness/serosal tear)
-Maintain NGT
- OOB as tolerated - okay to clamp ngt for 30 minutes
� Pain control with Tylenol and toradol standing, Dilaudid PRN
� Continue DVT PPx with TEDS/SCDS (heparin sq held for OR)
� Discontinue Lomotil and Imodium
� Continue IVF; Daily BMP
� Appreciate hospitalist
� Hold Eliquis - will hold off for a few days post op
- Resume heparin sq for DVT prophylaxis. TEDS/SCDS in place.
- OR pathology pending
- Maintain WANDA drain until discharge
-Change dressing daily and as needed with gauze and paper tape
Subjective Data
Procedure
09/04/2024- 1) flexible sigmoidoscopy 2) takedown loop ileostomy with partial small bowel resection 3) repair enterotomies X 2 (one full thickness, one partial thickness/serosal tear)
Subjective Data
Date of Service: September 05, 2024
Patient states he feels well. He has no nausea or vomiting. His pain is controlled. He has no complaints.
Objective Data
-
Vital Signs
Temp Pulse Resp BP Pulse Ox
99.3 F 71 18 118/67 95
09/05/24 07:05 09/05/24 07:05 09/05/24 07:05 09/05/24 07:05 09/05/24 07:05
Intake & Output
09/04/24 09/05/24 09/06/24
06:59 06:59 06:59
Intake Total 2160 / 2160 840 / 840
Output Total 100 / 100 1125 / 1125
Balance 2060 / 2060 -285 / -285
Intake:
Oral fluids 960 / 960
IV fluids (Total) 1200 / 1200 750 / 750
Normosal 300 / 300
Amount instilled into GI Tube ( 90 / 90
Total)
[place] Sump 90 / 90
Output:
Liquid stool amount 100 / 100
Ileostomy 100 / 100
Drain Output (Total) 60 / 60
Right Lower Abdomen Dennis- 60 / 60
Merrill
Gastrointestinal tube output ( 165 / 165
Total)
[place] Sump 165 / 165
Urine, Stein 900 / 900
Other:
Number of approximated MODERATE 2 2
amounts of urine
Number of unmeasured liquid
stools
Ileostomy 1
Lab Results
09/05/24 05:51
09/05/24 05:51
Physical Exam
-
General: No Acute Distress and AOx3
Abdomen: Soft, Distended and Non Tender
Skin: Warm and Dry
Wound: Dressing Changed (sanjiv in place (bloody clots) - removed)
Incision: Clear, Dry, Intact
[2024-09-05] MEDS: NSS 1000 IV ×2 (09:19→20:38)
[2024-09-05] MEDS: LOMOTIL PO (09:20)
--- NOTE | 2024-09-05 10:10 | W.PN.HOSP.TC ---
Addendum entered and electronically signed by Isha Feldman MD 09/05/24 11:25:
OK to restart HSQ tonight per CRS
Original Note:
Today's Communication/Plan
-
see A/P
Assessment / Plan
Assessment / Plan
69-year-old male with past medical history significant for colon cancer with recurrence, hypertension, GERD, congestive heart failure, atrial fibrillation, anxiety/depression; who presented to ED by colorectal surgery for abnormal lab values.
Patient was unsure of what lab values were abnormal. ED staff able to verify kidney function was abnormal. They were concerned about it as he is scheduled for ostomy reversal on 09/04.
Patient states he is in his normal health with slight fatigue recently. He reports endoscopy scheduled for in the morning in GI lab in [place].
A/P:
# acute kidney injury, resolved
Creat 1.5 -> 1.0 today
gentle IVF
# Colon Cancer with Recurrence
# s/p colostomy
GI team on board, s/p EGD/enteroscopy 09/02 prior to planned surgery, noted Normal esophagus, gastritis (biopsied), Normal duodenum, Normal jejunum.
Follow path from EGD
s/p colostomy reversal 09/04/[address] Simeon
Cont abd drain (currently bloody)
NTG per CRS
Holding home Lomotil and DCed home loperamide
Colorectal on board
# Hypertension
NPO post op, replaced home carvedilol with IV Lopressor with hold parameter
# congestive heart failure
replaced home carvedilol with IV Lopressor with hold parameter
replaced PO Lasix with IV with holding parameter
daily weights, I & Os
# Paroxysmal atrial fibrillation
replaced home coreg with IV lopressor
replaced PO amiodarone with Amio drip
Holding Eliquis until cleared by CRS
# Anxiety / Depression
continue lamotrigine
# GERD
Code status: full code
DVT prophylaxis: HSQ on hold (in place of [employer] Eliquis) , resume HSQ / OAC when OK by CRS
DW RN
DW CRS
total time 51 min
Anticipated Discharge: > 48 hours
Subjective/Interval History
-
Date of Service: September 05, 2024
Objective Data
-
Labs:
Laboratory Results
09/05/24
05:51
WBC 14.5 H
Hgb 10.2 L
Hct 30.4 L
Plt Count 287
Sodium 137
Potassium 4.8
Chloride 107
Carbon Dioxide 19 L
BUN 19
Creatinine 1.0
Glucose 133 H
Calcium 8.4
Vital Signs:
Vital Signs
Temp Pulse Resp BP Pulse Ox
37.4 C 73 18 102/58 95
09/05/24 07:05 09/05/24 09:26 09/05/24 07:05 09/05/24 09:26 09/05/24 07:05
I&O
09/04/24 09/05/24 09/06/24
06:59 06:59 06:59
Intake Total 2160 / 2160 840 / 840
Output Total 100 / 100 1125 / 1125
Balance 2059 -285 / -285
Review of Systems
-
History Source: Patient
All other systems: Reviewed and negative
Physical Exam
-
General: Well Developed, No Apparent Distress, Comfortable and Conversant
HEENT: Normocephalic and Atraumatic
Respiratory: Non Labored Respirations; Negative Accessory Resp Muscle Use
Cardiac: Regular Rhythm and S1/S2
GI: Soft, Nontender, Nondistended and Other (abd drain)
Musculoskeletal: No Clubbing, No Cyanosis and No Edema
Skin: Warm
Neuro: Awake, Alert, Oriented and AO x 3
Psych: Calm and Intact Judgement/Insight
Data Reviewed
-
Labs: Labs Reviewed by me
[2024-09-05] MEDS: LAMICTAL PO (11:02)
[2024-09-05] MEDS: LOPRESSOR 2.5 MG IV ×2 (11:29→17:00)
[2024-09-05] MEDS: PROTONIX IV 40 MG IV (11:31)
[2024-09-05] MEDS: NSS (PRESERVATIVE FREE) 10 ML IV (11:31)
--- NOTE | 2024-09-05 14:23 | CM ---
CM following re: discharge planning.
Reviewed pt's chart, met with pt.
Per chart review, patient lives independently and reports his sister is his support. Patient has ileostomy supplies. Pt is known to [facility]
D/C plan: home with anticipated no after care VN needs.
CM will follow with discharge plan updates as hospitalization progresses
[2024-09-05] MEDS: DILAUDID 0.25 MG IV (20:39)
[2024-09-05] MEDS: HEPARIN 5000 UNITS SC (20:40)
[2024-09-06] MEDS: TORADOL 10 MG IV ×5 (00:16→23:14)
[2024-09-06] MEDS: LOPRESSOR 2.5 MG IV ×5 (00:17→23:11)
[2024-09-06] MEDS: HEPARIN 5000 UNITS SC ×4 (00:19→23:14)
[2024-09-06 03:10] VITALS: BP 133/77
[2024-09-06] MEDS: DILAUDID 0.5 MG IV ×3 (05:07→21:25)
[2024-09-06 06:00] VITALS: BMI 20.6
[2024-09-06] MEDS: NSS 1000 IV ×2 (06:15→11:39)
[2024-09-06 06:34] LABS: Hematocrit 28.8 % (39.0-52.0); Hemoglobin 9.6 g/dL (13.0-18.0); Mean Corp Hgb Conc. 33.3 g/dL (33.0-37.0); Mean Corpuscular Hgb 33.1 pg (27.0-31.0); Mean Corpuscular Volume 99.3 fL (80.0-94.0); Platelet Count 258 10^3/uL (130-400); Red Cell Dist. Width 15.1 % (11.5-14.5); White Blood Cell Count 11.7 10^3/uL (4.8-10.8)
[2024-09-06 07:00] VITALS: BP 137/81
[2024-09-06 07:07] LABS: Blood Urea Nitrogen 23 mg/dl (9-20); Calcium 8.4 mg/dl (8.4-10.2); Carbon Dioxide 23 mmol/L (22-30); Chloride 110 mmol/L (98-107); Estimated Creatinine Clearance 55 ml/min; Glucose 79 mg/dl (70-99); Potassium 3.8 mmol/L (3.5-5.1); Sodium 140 mmol/L (135-145); eGFR > 60.00
[2024-09-06] MEDS: CORDARONE 104 MG IV (08:48)
[2024-09-06] MEDS: NSS (PRESERVATIVE FREE) 10 ML IV (08:49)
[2024-09-06] MEDS: LAMICTAL 100 MG PO (08:51)
[2024-09-06] MEDS: LASIX 20 MG IV (08:52)
[2024-09-06] MEDS: PROTONIX IV 40 MG IV (08:53)
--- NOTE | 2024-09-06 08:57 | W.PN.HOSP.TC ---
Today's Communication/Plan
-
Continue NGT. Continue IVF.
Assessment / Plan
Assessment / Plan
69-year-old male with past medical history significant for colon cancer with recurrence, hypertension, GERD, congestive heart failure, atrial fibrillation, anxiety/depression; who presented to ED by colorectal surgery for abnormal lab values.
Patient was unsure of what lab values were abnormal. ED staff able to verify kidney function was abnormal. They were concerned about it as he is scheduled for ostomy reversal on 09/04.
Patient states he was in his normal health with slight fatigue recently.
A/P:
1. acute kidney injury, resolved
Creat 1.5 -> 1.0
BUN/creat 23/1.0, ratio still elevated
Continue gentle IVF
2. Colon Cancer with Recurrence, s/p colostomy
GI team on board, s/p EGD/enteroscopy 09/02 prior to planned surgery, noted Normal esophagus, gastritis (biopsied), Normal duodenum, Normal jejunum.
Follow path from EGD
s/p colostomy reversal 09/04/[address] Simeon
Cont abd drain
NTG per CRS
Holding home Lomotil and DCed home loperamide
Colorectal ongoing management appreciated
3. B. Hypertension - chronic
NPO post op,
replaced home carvedilol with IV Lopressor with hold parameter
4. congestive heart failure - chronic (chronic congestive heart failure with left ventricular diastolic dysfunction)
replaced home carvedilol with IV Lopressor with hold parameter
replaced PO Lasix with IV with holding parameter
daily weights, I & Os
5. Paroxysmal atrial fibrillation - ongoing
replaced home coreg with IV lopressor
replaced PO amiodarone with Amio drip
Holding Eliquis until cleared by CRS
6. Anxiety / Depression - chronic
continue lamotrigine
7. GERD - chronic
Code status: full code
DVT prophylaxis: resumed SQ heparin
total time 50 min
Anticipated Discharge: > 48 hours
Subjective/Interval History
-
Date of Service: September 06, 2024
No new issues.
Objective Data
-
Labs:
Laboratory Results
09/06/24
05:42
WBC 11.7 H
Hgb 9.6 L
Hct 28.8 L
Plt Count 258
Sodium 140
Potassium 3.8
Chloride 110 H
Carbon Dioxide 23
BUN 23 H
Creatinine 1.0
Glucose 79
Calcium 8.4
Vital Signs:
Vital Signs
Temp Pulse Resp BP Pulse Ox
98 F 81 12 137/81 95
09/06/24 07:00 09/06/24 07:00 09/06/24 07:00 09/06/24 07:00 09/06/24 07:00
I&O
09/05/24 09/06/24 09/07/24
06:59 06:59 06:59
Intake Total 840 / 840 2420 / 2420
Output Total 1125 / 1125 945 / 945
Balance -285 / -285 1475 / 1475
Review of Systems
-
History Source: Patient
All other systems: Reviewed and negative
Physical Exam
-
General: Well Developed, Well Nourished, No Apparent Distress and Comfortable
HEENT: Normocephalic, Nose Appears Normal and Ears Appear Normal
Respiratory: Clear to Auscultation
Cardiac: Regular Rhythm and S1/S2
GI: Soft, Nondistended and Tender
Musculoskeletal: No Clubbing, No Cyanosis and No Edema
Skin: Warm and Dry; Negative Rash
Neuro: Awake, Alert and Oriented
Psych: Calm
Data Reviewed
-
Labs: Labs Reviewed by me
[2024-09-06 11:34] VITALS: BP 154/88
[2024-09-06] MEDS: OFIRMEV 100 IV ×3 (11:40→23:13)
--- NOTE | 2024-09-06 12:24 | W.PN.GS2 ---
Addendum entered and electronically signed by Frank Silva MD 09/06/24 14:21:
I saw and examined the patient.
The Barker Peeler's note was reviewed and I agree with the note.
Comment: C/o pain mainly to lower abd. Reports BM x2, second one substantial, denies n/v. NT low output. Exam minimal distention, approp ttp, WANDA ss. Will attempt clamp trial
Original Note:
Today's Communication / Plan
-
Clamp NGT
Assessment / Plan
-
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 Fung at [place], s/p resection with colorectal anastomosis with subsequent leak with repair and
diverting loop ileostomy. Initially admitted for WONG likely d/t GI losses. Scoped by GI d/t persistent vomiting on 09/02 with gastritis present
POD #2 Loop ileostomy takedown with repair of enterotomies x2, SBR and extensive ANN (essentially frozen abd)
AFVSS
Leukocytosis trending down
H/H relatively stable, suspect drifting down d/t fluid shifts/hemodilution
CR now normal, tolerating Toradol
Low NGT outputs, passed some loose stools
--Clamp NGT, return to suction if develops nausea
--NPO. Ok for PO meds
--C/W scheduled Ofirmev, Toradol and prn dilaudid
--OOB/Ambulate
--Currently on IVF and IV lasix, volume management as per medicine team. Would continue IVF until able to tolerate PO intake from surgical standpoint
--CW WANDA drain, will likely remove prior to d/c
--Hold on PO AC until robust return of bowel function, if IV heparin needed for bridge would hold until h/h stable and >72h post op
--VTE ppx with heparin sq and scds
Subjective Data
-
Date of Service: September 06, 2024
Patient seen and examined at bedside with Dr. Silva. Denies n/v. Passed some loose stools, doesn't recall passing much flatus. Pain a little worse today. Voiding without difficulty.
Objective Data
-
Intake and Output
09/05/24 09/06/24 09/07/24
06:59 06:59 06:59
Intake Total 840 / 840 2420 / 2420 334 / 334
Output Total 1125 / 1125 945 / 945 220 / 220
Balance -285 / -285 1475 / 1475 114 / 114
Intake:
IV fluids (Total) 750 / 750 2200 / 2200 200 / 200
Normosal 300 / 300
IV piggybacks 100 / 100 104 / 104
Amount instilled into GI Tube ( 90 / 90 120 / 120 30 / 30
Total)
[place] Sump 90 / 90 120 / 120 30 / 30
Output:
Drain Output (Total) 60 / 60 20 / 20
Right Lower Abdomen Dennis- 60 / 60 20 / 20
Merrill
Gastrointestinal tube output ( 165 / 165 250 / 250
Total)
[place] Sump 165 / 165 250 / 250
Urine, [place] 900 / 900 250 / 250
Urine, Voided 425 / 425 220 / 220
Other:
Number of approximated MODERATE 2 1
amounts of urine
Vital Signs
Temp Pulse Resp BP Pulse Ox
97.6 F 85 18 154/88 90
09/06/24 11:34 09/06/24 11:34 09/06/24 11:34 09/06/24 11:34 09/06/24 11:34
Lab Results
09/06/24 05:42
09/06/24 05:42
Calcium 8.4 mg/dl (8.4-10.2) 09/06/24 05:42
Magnesium 2.0 mg/dl (1.6-2.3) 09/06/24 05:42
Total Bilirubin 0.4 mg/dl (0.2-1.3) 09/01/24 14:35
AST 24 U/L (17-59) 09/01/24 14:35
ALT 20 U/L (0-50) 09/01/24 14:35
Alkaline Phosphatase 199 U/L (38-126) H 09/01/24 14:35
Total Protein 7.0 g/dl (6.3-8.2) 09/01/24 14:35
Albumin 4.4 g/dl (3.5-5.0) 09/01/24 14:35
Physical Exam
-
NAD
ABD soft, ND, generalized tenderness, NGT with minimal outputs, WANDA with light SSF
Intact dressing to incision
Patient has a olivarez catheter: No
Patient has a central line: Yes (right chest wall port)
[2024-09-06 15:00] VITALS: BP 160/93
[2024-09-06 18:47] VITALS: BP 168/95
[2024-09-06 23:12] VITALS: BP 162/93
[2024-09-07] MEDS: LOPRESSOR 2.5 MG IV ×2 (03:44→11:40)
[2024-09-07] MEDS: DILAUDID 0.25 MG IV ×3 (03:44→14:51)
[2024-09-07] MEDS: NSS 1000 IV (04:30)
[2024-09-07] MEDS: TORADOL 10 MG IV ×4 (04:31→23:14)
[2024-09-07] MEDS: OFIRMEV 100 IV (04:31)
[2024-09-07 06:00] VITALS: BMI 20.6
[2024-09-07 06:36] LABS: Hematocrit 29.7 % (39.0-52.0); Hemoglobin 9.9 g/dL (13.0-18.0); Mean Corp Hgb Conc. 33.3 g/dL (33.0-37.0); Mean Corpuscular Hgb 33.2 pg (27.0-31.0); Mean Corpuscular Volume 99.7 fL (80.0-94.0); Mean Platelet Volume 10.7 fL (7.4-10.4); Platelet Count 275 10^3/uL (130-400); Red Blood Cell Count 2.98 10^6/uL (4.70-6.10); Red Cell Dist. Width 15.1 % (11.5-14.5); White Blood Cell Count 11.1 10^3/uL (4.8-10.8)
[2024-09-07 06:57] LABS: Blood Urea Nitrogen 21 mg/dl (9-20); Calcium 8.4 mg/dl (8.4-10.2); Carbon Dioxide 16 mmol/L (22-30); Chloride 111 mmol/L (98-107); Glucose 78 mg/dl (70-99); Potassium 3.6 mmol/L (3.5-5.1); Sodium 142 mmol/L (135-145)
[2024-09-07 07:00] VITALS: BP 176/106
[2024-09-07 07:07] LABS: Estimated Creatinine Clearance 55 ml/min; eGFR > 60.00
[2024-09-07] MEDS: CORDARONE 104 MG IV (08:09)
[2024-09-07] MEDS: LASIX 20 MG IV (08:10)
[2024-09-07] MEDS: PROTONIX IV 40 MG IV (08:10)
[2024-09-07] MEDS: LAMICTAL 100 MG PO (08:10)
[2024-09-07] MEDS: NSS (PRESERVATIVE FREE) 10 ML IV (08:10)
[2024-09-07] MEDS: HEPARIN 5000 UNITS SC ×3 (08:10→23:37)
--- NOTE | 2024-09-07 10:13 | W.PN.GS2 ---
Addendum entered and electronically signed by Frank Silva MD 09/07/24 10:41:
I saw and examined the patient.
The Abrasive Sawyer's note was reviewed and I agree with the note.
Comment: Improving. Did well with clamp trial, continues with flatus and BMs. Exam approp. Trial CLD
Original Note:
Today's Communication / Plan
-
ngt removed
clear liquids
Assessment / Plan
-
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 Fung at [place], s/p resection with colorectal anastomosis with subsequent leak with repair and
diverting loop ileostomy. Initially admitted for WONG likely d/t GI losses. Scoped by GI d/t persistent vomiting on 09/02 with gastritis present
POD #3 Loop ileostomy takedown with repair of enterotomies x2, SBR and extensive ANN (essentially frozen abd)
AFVSS
Leukocytosis trending down 11.1 (11.7)
Hgb 9.9 (9.6)
CR now normal, tolerating Toradol
NGT clamped past 24 hours with no N/V
--NGT pulled by Dr. Silva at bedside
--Start on a clear liquid diet. Advised patient to go slow.
--C/W scheduled Ofirmev, Toradol and prn dilaudid
--OOB/Ambulate
--Currently on IVF and IV lasix, volume management as per medicine team. Would continue IVF until able to tolerate PO intake from surgical standpoint
--CW ANTWAN drain, will likely remove prior to d/c
--Hold on PO AC until robust return of bowel function - will address with colorectal tomorrow
--VTE ppx with heparin sq and scds
Subjective Data
-
Date of Service: September 07, 2024
Patient has had NGT clamped for 24 hours. He denies nausea or vomiting. He has bowel movements and flatus. Overall he states he feels 'good'.
Objective Data
-
Intake and Output
09/06/24 09/07/24 09/08/24
06:59 06:59 06:59
Intake Total 2420 / 2420 2864 / 2864
Output Total 945 / 945 1685 / 1685
Balance 1475 / 1475 1179 / 1179 -10 / -10
Intake:
IV fluids (Total) 2200 / 2200 2300 / 2300
IV piggybacks 100 / 100 504 / 504
Amount instilled into GI Tube ( 120 / 120 60 / 60
Total)
[place] Sump 120 / 120 60 / 60
Output:
Drain Output (Total)
Right Lower Abdomen Dennis-
Merrill
Gastrointestinal tube output ( 250 / 250 100 / 100
Total)
[place] Sump 250 / 250 100 / 100
Urine, Olivarez 250 / 250
Urine, Voided 425 / 425 1570 / 1570
Other:
Number of approximated MODERATE 1 1
amounts of urine
Vital Signs
Temp Pulse Resp BP Pulse Ox
98.6 F 88 18 176/106 93
09/07/24 09:31 09/07/24 07:00 09/07/24 07:00 09/07/24 07:00 09/07/24 07:00
Lab Results
09/07/24 06:01
09/07/24 06:01
Calcium 8.4 mg/dl (8.4-10.2) 09/07/24 06:01
Magnesium 2.0 mg/dl (1.6-2.3) 09/06/24 05:42
Total Bilirubin 0.4 mg/dl (0.2-1.3) 09/01/24 14:35
AST 24 U/L (17-59) 09/01/24 14:35
ALT 20 U/L (0-50) 09/01/24 14:35
Alkaline Phosphatase 199 U/L (38-126) H 09/01/24 14:35
Total Protein 7.0 g/dl (6.3-8.2) 09/01/24 14:35
Albumin 4.4 g/dl (3.5-5.0) 09/01/24 14:35
Physical Exam
-
NAD
ABD soft, ND, generalized tenderness, Antwan serosanginous
Surgical dressing in place
Patient has a olivarez catheter: No
[2024-09-07 11:09] VITALS: BP 168/99
--- NOTE | 2024-09-07 14:08 | W.PN.HOSP.TC ---
Today's Communication/Plan
-
Doing well, walking and eating solid food. Start to reduce IV therapies.
Assessment / Plan
Assessment / Plan
69-year-old male with past medical history significant for:
colon cancer with recurrence,
hypertension,
GERD,
congestive heart failure,
atrial fibrillation,
anxiety/depression;
who presented to ED by colorectal surgery for abnormal lab values. Patient was unsure of what lab values were abnormal. ED staff able to verify kidney function was abnormal. They were concerned about it as he is scheduled for ostomy reversal on
09/04. Patient states he was in his normal health with slight fatigue recently.
A/P:
1. acute kidney injury, resolved
Creat 1.5 -> 1.0
BUN/creat 23/1.0, ratio still elevated
Ok to stop IVF
2. Colon Cancer with Recurrence, s/p colostomy
GI team on board, s/p EGD/enteroscopy 09/02 prior to planned surgery, noted Normal esophagus, gastritis (biopsied), Normal duodenum, Normal jejunum.
Follow path from EGD
s/p colostomy reversal 09/04/[address] Simeon
Cont abd drain
NTG per CRS
Holding home Lomotil and DCed home loperamide
Colorectal ongoing management appreciated
3. B. Hypertension - chronic
NPO post op,
replaced home carvedilol with IV Lopressor with hold parameter
Start process to switch to po meds
4. congestive heart failure - chronic (chronic congestive heart failure with left ventricular diastolic dysfunction)
replaced home carvedilol with IV Lopressor with hold parameter
replaced PO Lasix with IV with holding parameter
Start to switch to po
daily weights, I & Os
5. Paroxysmal atrial fibrillation - ongoing
replaced home coreg with IV lopressor
replaced PO amiodarone with Amio drip
Holding Eliquis until cleared by CRS
6. Anxiety / Depression - chronic
continue lamotrigine
7. GERD - chronic
Code status: full code
DVT prophylaxis: resumed SQ heparin
total time 50 min
Anticipated Discharge: > 48 hours
Subjective/Interval History
-
Date of Service: September 07, 2024
Feeling well. No new issues.
Objective Data
-
Labs:
Laboratory Results
09/07/24
06:01
WBC 11.1 H
Hgb 9.9 L
Hct 29.7 L
Plt Count 275
Sodium 142
Potassium 3.6
Chloride 111 H
Carbon Dioxide 16 L
BUN 21 H
Creatinine 1.0
Glucose 78
Calcium 8.4
Vital Signs:
Vital Signs
Temp Pulse Resp BP Pulse Ox
99.3 F 86 20 168/99 96
09/07/24 11:09 09/07/24 11:09 09/07/24 11:09 09/07/24 11:09 09/07/24 11:09
I&O
09/06/24 09/07/24 09/08/24
06:59 06:59 06:59
Intake Total 2420 / 2420 2864 / 2864
Output Total 945 / 945 1685 / 1685
Balance 1475 / 1475 1179 / 1179 -10 10
Review of Systems
-
History Source: Patient
All other systems: Reviewed and negative
Physical Exam
-
General: Well Developed, Well Nourished and No Apparent Distress
HEENT: Normocephalic, Nose Appears Normal and Ears Appear Normal
Respiratory: Clear to Auscultation
Cardiac: Regular Rhythm and S1/S2
GI: Soft
Musculoskeletal: No Clubbing and No Cyanosis
Skin: Warm and Dry
Neuro: Awake, Alert and Oriented
Psych: Calm
Data Reviewed
-
Labs: Labs Reviewed by me
[2024-09-07] MEDS: TYLENOL 650 MG PO ×2 (14:51→19:04)
[2024-09-07 15:28] VITALS: BP 163/100
[2024-09-07] MEDS: NSS IV (15:29)
[2024-09-07] MEDS: DILAUDID 0.5 MG IV ×2 (19:03→23:37)
[2024-09-07 19:54] VITALS: BP 157/94
[2024-09-07] MEDS: COREG 25 MG PO (20:09)
[2024-09-07 23:12] VITALS: BP 163/98
--- NOTE | 2024-09-08 01:23 | PTCARENOTE ---
21:[address]-seg multiple II for 2 beats b/p [id number] hr 80 his coreg 25mg was given at 20:00, PLASTIC PROCESS TECHNICIAN made aware , EKG stat completed , LABS in am, Carmen d/c.
[2024-09-08 03:33] VITALS: BP 150/88
--- NOTE | 2024-09-08 03:52 | PTCARENOTE ---
Addendum entered by Chiquita Ortiz RN 09/08/24 03:58:
[employer]ANGER notified pt has history and is following cardiology outpatient and they cleared pt for this visit, they are aware of abnormal EKGs, cardiology can be made aware if pt is symptomatic. Pt is asymptomatic at this time.
Original Note:
pt continues to have ST-elevations on tele. I looked back and he had the same last night, I reviewed his meds and it appears he has not rec'vd CHOCO Morales to [employer], should he have [facility] consult ?
[2024-09-08] MEDS: TORADOL 10 MG IV ×4 (05:16→22:01)
--- NOTE | 2024-09-08 05:59 | PTCARENOTE ---
pt refused am wt, wants it when he gets up in the morning.
[2024-09-08 06:00] VITALS: BMI 20.3
[2024-09-08 06:59] LABS: Hematocrit 26.1 % (39.0-52.0); Mean Corp Hgb Conc. 34.5 g/dL (33.0-37.0); Mean Corpuscular Hgb 33.8 pg (27.0-31.0); Mean Corpuscular Volume 98.1 fL (80.0-94.0); Mean Platelet Volume 10.6 fL (7.4-10.4); Platelet Count 274 10^3/uL (130-400); Red Blood Cell Count 2.66 10^6/uL (4.70-6.10); Red Cell Dist. Width 14.6 % (11.5-14.5); White Blood Cell Count 10.6 10^3/uL (4.8-10.8)
[2024-09-08 07:00] VITALS: BP 143/86
[2024-09-08 07:39] LABS: Blood Urea Nitrogen 20 mg/dl (9-20); Calcium 8.4 mg/dl (8.4-10.2); Carbon Dioxide 24 mmol/L (22-30); Chloride 109 mmol/L (98-107); Estimated Creatinine Clearance 54 ml/min; Glucose 113 mg/dl (70-99); Potassium 3.1 mmol/L (3.5-5.1); Sodium 138 mmol/L (135-145); eGFR > 60.00
[2024-09-08] MEDS: LAMICTAL 100 MG PO (07:50)
[2024-09-08] MEDS: PACERONE 200 MG PO (07:50)
[2024-09-08] MEDS: HEPARIN 5000 UNITS SC ×3 (07:50→23:23)
[2024-09-08] MEDS: NSS (PRESERVATIVE FREE) 10 ML IV (07:51)
[2024-09-08] MEDS: COREG 25 MG PO ×2 (07:51→19:26)
[2024-09-08] MEDS: PROTONIX IV 40 MG IV (07:51)
[2024-09-08] MEDS: DILAUDID 0.25 MG IV (08:54)
[2024-09-08] MEDS: KCL 270 MEQ IV (08:55)
--- NOTE | 2024-09-08 09:24 | W.PN.CRS1 ---
Today's Communication / Plan
-
As below
Assessment/Plan
-
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 Fung at [place], s/p resection with colorectal anastomosis with subsequent leak with repair and
diverting loop ileostomy. Initially admitted for WONG likely d/t GI losses. Scoped by GI d/t persistent vomiting on 09/02 with gastritis present. Underwent elective ostomy reversal.
POD #4 Loop ileostomy takedown with repair of enterotomies x2, SBR and extensive ANN (essentially frozen abd)
AFVSS
WBC 10.6, Hb 9.0 from 9.9, CR 1.0
--Advance to full liquids; cautioned patient to go slow and stop p.o. intake if any N/V or bloating
-Okay for p.o. meds
-- Pain control with Tylenol and Dilaudid as needed, Toradol ATC
--OOB/Ambulate
--CW WANDA drain, will likely remove prior to d/c
-- Hold Eliquis until tolerating diet; continue SQH for DVT PPx
-- Appreciate hospitalist
Subjective Data
Procedure
09/04/2024- 1) flexible sigmoidoscopy 2) takedown loop ileostomy with partial small bowel resection 3) repair enterotomies X 2 (one full thickness, one partial thickness/serosal tear)
Subjective Data
Date of Service: September 08, 2024
No overnight events.
Pain controlled.
Denies nausea/vomiting. Tolerating clear liquids.
+flatus +BMs +voiding
Pt is OOB.
Objective Data
-
Vital Signs
Temp Pulse Resp BP Pulse Ox
97.9 F 72 16 143/86 93
09/08/24 07:00 09/08/24 07:51 09/08/24 07:00 09/08/24 07:51 09/08/24 07:00
Intake & Output
09/07/24 09/08/24 09/09/24
06:59 06:59 06:59
Intake Total 2864 / 2864 960 / 960 270 / 270
Output Total 1685 / 1685 838 / 838
Balance 1179 / 1179 122 / 122 270 / 270
Intake:
Oral fluids 960 / 960
IV fluids (Total) 2300 / 2300 0 / 0
IV piggybacks 504 / 504 0 / 0 270 / 270
Amount instilled into GI Tube ( 60 / 60
Total)
[address] Sump 60 / 60
Output:
Drain Output (Total)
Right Lower Abdomen Dennis-
Merrill
Gastrointestinal tube output ( 100 / 100
Total)
[address] Sump 100 / 100
Urine, Voided 1570 / 1570 820 / 820
Other:
Number of approximated MODERATE 1 3
amounts of urine
Lab Results
09/08/24 06:45
09/08/24 06:45
Physical Exam
-
General: No Acute Distress and AOx3
HEENT: Grossly Normal
Abdomen: Soft, Non Distended, Tender (Appropriately tender near incision) and Other (WANDA-8 mL serosanguineous output)
Skin: Warm and Dry
Wound: No Signs of Infection, Dressing Changed (Transverse ostomy incision loosely closed with alec, well-approximated) and No Skin Erythema
[2024-09-08 11:00] VITALS: BP 128/75
--- NOTE | 2024-09-08 11:13 | CM ---
CM reviewed medical records. Patient remains acutely ill at this time. CM will remain available for discharge planning needs.
PLAN: home , no needs anticipated.
--- NOTE | 2024-09-08 12:12 | W.PN.HOSP.TC ---
Today's Communication/Plan
-
Monitor vital signs see plan
Replete potassium
Diet now advanced to full, monitor
Assessment / Plan
Assessment / Plan
69-year-old male with past medical history significant for:
colon cancer with recurrence,
hypertension,
GERD,
congestive heart failure,
atrial fibrillation,
anxiety/depression;
who presented to ED by colorectal surgery for abnormal lab values. Patient was unsure of what lab values were abnormal. ED staff able to verify kidney function was abnormal. They were concerned about it as he is scheduled for ostomy reversal on
09/04. Patient states he was in his normal health with slight fatigue recently.
A/P:
acute kidney injury, resolved
BUN/creat 23/1.0, ratio still elevated
Ok to stop IVF
Colon Cancer with Recurrence, s/p colostomy
GI team on board, s/p EGD/enteroscopy 09/02 prior to planned surgery, noted Normal esophagus, gastritis (biopsied), Normal duodenum, Normal jejunum.
Follow path from EGD
s/p colostomy reversal 09/04/[address] Simeon
Diet per colorectal
hypokalemia
replete
Holding home Lomotil and DCed home loperamide
Colorectal ongoing management appreciated
B. Hypertension - chronic
cw coreg
Anemia, likely acute on chronic, likely postop from acute blood loss
Continue to monitor
congestive heart failure - chronic (chronic congestive heart failure with left ventricular diastolic dysfunction)
Continue with Coreg
Monitor volume status closely, holding Lasix at this time
daily weights, I & Os
Paroxysmal atrial fibrillation - ongoing
Continue Coreg
Continue Amio
Holding Eliquis until cleared by CRS
Anxiety / Depression - chronic
continue lamotrigine
GERD - chronic
Code status: full code
DVT prophylaxis: resumed SQ heparin
General: Well Developed, Well Nourished and No Apparent Distress
HEENT: Normocephalic, Nose Appears Normal and Ears Appear Normal
Respiratory: Clear to Auscultation
Cardiac: Regular Rhythm and S1/S2
GI: Soft
Skin: Warm and Dry
Neuro: Awake, Alert and Oriented
Psych: Calm
Anticipated Discharge: 24 - 48 hours
Subjective/Interval History
-
Date of Service: September 08, 2024
Denies pain
Objective Data
-
Labs:
Laboratory Results
09/08/24
06:45
WBC 10.6
Hgb 9.0 L
Hct 26.1 L
Plt Count 274
Sodium 138
Potassium 3.1 L
Chloride 109 H
Carbon Dioxide 24
BUN 20
Creatinine 1.0
Glucose 113 H
Calcium 8.4
Vital Signs:
Vital Signs
Temp Pulse Resp BP Pulse Ox
97.8 F 68 15 128/75 97
09/08/24 11:00 09/08/24 11:00 09/08/24 11:00 09/08/24 11:00 09/08/24 11:00
I&O
09/07/24 09/08/24 09/09/24
06:59 06:59 06:59
Intake Total 2864 / 2864 960 / 960 690 / 690
Output Total 1685 / 1685 838 / 838
Balance 1179 / 1179 122 / 122 690 / 690
[2024-09-08 15:05] VITALS: BP 138/83
[2024-09-08] MEDS: DILAUDID 0.5 MG IV (19:18)
[2024-09-08 19:25] VITALS: BP 159/90
[2024-09-08 23:10] VITALS: BP 149/87
[2024-09-09] MEDS: DILAUDID 0.5 MG IV ×2 (00:22→09:20)
[2024-09-09 03:40] VITALS: BP 144/85
[2024-09-09 05:37] LABS: % Basophils 0.3 % (0-2); % Immature Granulocytes 0.4 % (0-0.5); % Lymphocytes 9.1 % (20.5-51.1); % Monocytes 13.2 % (1.7-9.3); Absolute Eosinophils 0.5 10^3/uL (0-0.7); Absolute Monocytes 1.4 10^3/uL (0.1-0.6); Absolute Neutrophils 7.6 10^3/uL (1.4-6.5); Hematocrit 26.2 % (39.0-52.0); Hemoglobin 9.1 g/dL (13.0-18.0); Mean Corp Hgb Conc. 34.7 g/dL (33.0-37.0); Mean Corpuscular Volume 97.8 fL (80.0-94.0); Nucleated Red Blood Cells % 0.4 % (-); Platelet Count 266 10^3/uL (130-400); Red Blood Cell Count 2.68 10^6/uL (4.70-6.10); Red Cell Dist. Width 14.6 % (11.5-14.5); White Blood Cell Count 10.6 10^3/uL (4.8-10.8)
[2024-09-09] MEDS: TORADOL 10 MG IV ×2 (05:57→11:28)
[2024-09-09 06:00] VITALS: BMI 20.9
[2024-09-09 06:22] LABS: Blood Urea Nitrogen 18 mg/dl (9-20); Calcium 8.4 mg/dl (8.4-10.2); Carbon Dioxide 23 mmol/L (22-30); Chloride 108 mmol/L (98-107); Estimated Creatinine Clearance 68 ml/min; Glucose 102 mg/dl (70-99); Potassium 3.3 mmol/L (3.5-5.1); Sodium 138 mmol/L (135-145); eGFR > 60.00
[2024-09-09 07:00] VITALS: BP 159/95
[2024-09-09] MEDS: LAMICTAL 100 MG PO (09:03)
[2024-09-09] MEDS: COREG 25 MG PO ×2 (09:03→20:31)
[2024-09-09] MEDS: PACERONE 200 MG PO (09:04)
[2024-09-09] MEDS: NSS (PRESERVATIVE FREE) 10 ML IV (09:04)
[2024-09-09] MEDS: HEPARIN 5000 UNITS SC (09:04)
[2024-09-09] MEDS: PROTONIX IV 40 MG IV (09:05)
[2024-09-09] MEDS: KCL 20 MEQ PO ×2 (09:17→20:31)
--- NOTE | 2024-09-09 09:20 | W.PN.CRS1 ---
Today's Communication / Plan
-
low residue diet
restart eliquis
Assessment/Plan
-
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 Fung at [place], s/p resection with colorectal anastomosis with subsequent leak with repair and
diverting loop ileostomy. Initially admitted for WONG likely d/t GI losses. Scoped by GI d/t persistent vomiting on 09/02 with gastritis present. Underwent elective ostomy reversal.
POD #5 Loop ileostomy takedown with repair of enterotomies x2, SBR and extensive ANN (essentially frozen abd)
AFVSS
WBC 10.6, Hb 9.1, Creatinine 0.8
--Advance to low residue diet
-- Pain control with Tylenol and Dilaudid as needed, Toradol ATC
--OOB/Ambulate
--CW WANDA drain, will likely remove prior to d/c
-- Restart Eliquis tonight, d/c heparin SQ
-- Appreciate hospitalist
--Plan for D/C tomorrow (drain will be removed)
Subjective Data
Procedure
09/04/2024- 1) flexible sigmoidoscopy 2) takedown loop ileostomy with partial small bowel resection 3) repair enterotomies X 2 (one full thickness, one partial thickness/serosal tear)
Subjective Data
Date of Service: September 09, 2024
Patient states he feels well. He has no complaints. He tolerated fulls well and is hungry. Denies nausea or vomiting.
Objective Data
-
Vital Signs
Temp Pulse Resp BP Pulse Ox
98.7 F 80 16 159/95 92
09/09/24 07:00 09/09/24 09:03 09/09/24 07:00 09/09/24 09:03 09/09/24 07:00
Intake & Output
09/08/24 09/09/24 09/10/24
06:59 06:59 06:59
Intake Total 960 / 960 1530 / 1530
Output Total 838 / 838
Balance 122 / 122 1520 / 1520 -5 / -5
Intake:
Oral fluids 960 / 960 1260 / 1260
IV fluids (Total) 0 / 0
IV piggybacks 0 / 0 270 / 270
Output:
Drain Output (Total)
Right Lower Abdomen Dennis-
Merrill
Urine, Voided 820 / 820
Other:
Number of approximated MODERATE 3 3 2
amounts of urine
Lab Results
09/09/24 05:13
09/09/24 05:13
Physical Exam
-
General: No Acute Distress and AOx3
Abdomen: Soft, Non Distended and Non Tender
Skin: Warm and Dry
Wound: Dressing Changed
Incision: Clear, Dry, Intact
[2024-09-09 11:00] VITALS: BP 139/82
--- NOTE | 2024-09-09 12:31 | W.PN.HOSP.TC ---
Today's Communication/Plan
-
Monitor vital signs
see plan
Monitor symptoms with diet
Pain control
Restart Eliquis
Assessment / Plan
Assessment / Plan
69-year-old male with past medical history significant for:
colon cancer with recurrence,
hypertension,
GERD,
congestive heart failure,
atrial fibrillation,
anxiety/depression;
who presented to ED by colorectal surgery for abnormal lab values. Patient was unsure of what lab values were abnormal. ED staff able to verify kidney function was abnormal. They were concerned about it as he is scheduled for ostomy reversal on
09/04. Patient states he was in his normal health with slight fatigue recently.
A/P:
acute kidney injury, resolved
Colon Cancer with Recurrence, s/p colostomy
GI team on board, s/p EGD/enteroscopy 09/02 prior to planned surgery, noted Normal esophagus, gastritis (biopsied), Normal duodenum, Normal jejunum.
Follow path from EGD
s/p colostomy reversal 09/04/[address] Simeon
Diet advanced to low residue, monitor
hypokalemia
replete
Holding home Lomotil and DCed home loperamide
Colorectal ongoing management appreciated
B. Hypertension - chronic
cw coreg
Anemia, likely acute on chronic, likely postop from acute blood loss
Continue to monitor
congestive heart failure - chronic (chronic congestive heart failure with left ventricular diastolic dysfunction)
Continue with Coreg
Monitor volume status closely, holding Lasix at this time
daily weights, I & Os
Paroxysmal atrial fibrillation - ongoing
Continue Coreg
Continue Amio
Eliquis restarted
Anxiety / Depression - chronic
continue lamotrigine
GERD - chronic
Code status: full code
DVT prophylaxis: Eliquis
General: Well Developed, Well Nourished and No Apparent Distress
HEENT: Normocephalic, Nose Appears Normal and Ears Appear Normal
Respiratory: Clear to Auscultation
Cardiac: Regular Rhythm and S1/S2
GI: Soft
Skin: Warm and Dry
Neuro: Awake, Alert and Oriented
Psych: Calm
Anticipated Discharge: Within 24 hours
Subjective/Interval History
-
Date of Service: September 09, 2024
Still has some pain
Objective Data
-
Labs:
Laboratory Results
09/09/24
05:13
WBC 10.6
Hgb 9.1 L
Hct 26.2 L
Plt Count 266
Sodium 138
Potassium 3.3 L
Chloride 108 H
Carbon Dioxide 23
BUN 18
Creatinine 0.8
Glucose 102 H
Calcium 8.4
Vital Signs:
Vital Signs
Temp Pulse Resp BP Pulse Ox
98.3 F 72 17 139/82 94
09/09/24 11:00 09/09/24 11:00 09/09/24 11:00 09/09/24 11:00 09/09/24 11:00
I&O
09/08/24 09/09/24 09/10/24
06:59 06:59 06:59
Intake Total 960 / 960 1530 / 1530 840 / 840
Output Total 838 / 838
Balance 122 / 122 1520 / 1520 835 / 835
[2024-09-09 15:00] VITALS: BP 134/78
[2024-09-09] MEDS: DILAUDID 0.25 MG IV ×2 (16:08→20:31)
[2024-09-09 19:05] VITALS: BP 165/96
[2024-09-09] MEDS: ELIQUIS 5 MG PO (20:31)
[2024-09-09 23:00] VITALS: BP 163/97
[2024-09-10] MEDS: DILAUDID 0.5 MG IV (00:27)
[2024-09-10 03:00] VITALS: BP 143/84
[2024-09-10 05:35] LABS: % Basophils 0.3 % (0-2); % Immature Granulocytes 0.5 % (0-0.5); % Neutrophils 75.2 % (42.2-75.2); Absolute Eosinophils 0.4 10^3/uL (0-0.7); Absolute Immature Granulocytes 0.1 10^3/uL (0-0.05); Absolute Lymphocytes 0.7 10^3/uL (1.2-3.4); Absolute Monocytes 1.1 10^3/uL (0.1-0.6); Absolute Neutrophils 6.9 10^3/uL (1.4-6.5); Hematocrit 27.5 % (39.0-52.0); Hemoglobin 9.1 g/dL (13.0-18.0); Mean Corp Hgb Conc. 33.1 g/dL (33.0-37.0); Mean Corpuscular Hgb 33.2 pg (27.0-31.0); Mean Corpuscular Volume 100.4 fL (80.0-94.0); Mean Platelet Volume 10.5 fL (7.4-10.4); Nucleated Red Blood Cells % 0.2 % (-); Platelet Count 295 10^3/uL (130-400); Red Blood Cell Count 2.74 10^6/uL (4.70-6.10); Red Cell Dist. Width 14.6 % (11.5-14.5); White Blood Cell Count 9.2 10^3/uL (4.8-10.8)
[2024-09-10 06:03] LABS: Blood Urea Nitrogen 17 mg/dl (9-20); Calcium 8.5 mg/dl (8.4-10.2); Carbon Dioxide 24 mmol/L (22-30); Chloride 106 mmol/L (98-107); Estimated Creatinine Clearance 68 ml/min; Glucose 107 mg/dl (70-99); Potassium 3.7 mmol/L (3.5-5.1); Sodium 136 mmol/L (135-145); eGFR > 60.00
[2024-09-10 07:00] VITALS: BP 172/100
[2024-09-10] MEDS: DILAUDID 0.25 MG IV (07:44)
[2024-09-10] MEDS: PROTONIX IV 40 MG IV (07:44)
[2024-09-10] MEDS: NSS (PRESERVATIVE FREE) 10 ML IV (07:44)
[2024-09-10] MEDS: LAMICTAL 100 MG PO (07:45)
[2024-09-10] MEDS: ELIQUIS 5 MG PO ×2 (07:45→21:00)
[2024-09-10] MEDS: PACERONE 200 MG PO (07:45)
[2024-09-10] MEDS: COREG 25 MG PO ×2 (07:45→21:00)
--- NOTE | 2024-09-10 07:45 | PTCARENOTE ---
pt tachypneic, c/o feeling SOB. Po 92%RA. ,HTN, C/O abd pain. PRN medication administered, colorectal at bedside- removed carmen drain. N/O CXR
--- NOTE | 2024-09-10 08:33 | W.PN.CRS1 ---
Today's Communication / Plan
-
SOB - workup pending
WANDA drain removed
Assessment/Plan
-
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 Fung at [place], s/p resection with colorectal anastomosis with subsequent leak with repair and
diverting loop ileostomy. Initially admitted for WONG likely d/t GI losses. Scoped by GI d/t persistent vomiting on 09/02 with gastritis present. Underwent elective ostomy reversal.
POD #6 Loop ileostomy takedown with repair of enterotomies x2, SBR and extensive ANN (essentially frozen abd)
AFVSS - sinus rhythm, sating 92% on room air
WBC 9.2, Hgb 9.1
-- Continue low residue diet
-- Pain control with Tylenol and Dilaudid as needed, Toradol ATC
-- OOB/Ambulate
-- WANDA drain removed at bedside (no abdominal pain once removed)
-- Continue Eliquis
-- Appreciate hospitalist - notified regarding SOB. EKG, troponins, stat xray ordered
Subjective Data
Procedure
09/04/2024- 1) flexible sigmoidoscopy 2) takedown loop ileostomy with partial small bowel resection 3) repair enterotomies X 2 (one full thickness, one partial thickness/serosal tear)
Subjective Data
Date of Service: September 10, 2024
Patient states he is SOB this AM (worse than yesterday). He had trouble walking to the scale and back. He has some left upper shoulder blade pain that comes and goes. He also has some abdominal pain near the drain site. No nausea or vomiting.
Tolerating a diet and has bowel function.
Objective Data
-
Vital Signs
Temp Pulse Resp BP Pulse Ox
98.6 F 78 17 170/100 92
09/10/24 07:00 09/10/24 07:00 09/10/24 07:00 09/10/24 07:45 09/10/24 07:00
Intake & Output
09/09/24 09/10/24 09/11/24
06:59 06:59 06:59
Intake Total 1530 / 1530 2039
Output Total
Balance 1520 / 1520 2002
Intake:
Oral fluids 1260 / 1260 2039
IV piggybacks 270 / 270
Output:
Drain Output (Total)
Right Lower Abdomen Dennis-
Merrill
Urine, Voided 2 / 2
Other:
Number of approximated MODERATE 3 1
amounts of urine
Lab Results
09/10/24 05:22
09/10/24 05:22
Physical Exam
-
General: No Acute Distress and AOx3
Abdomen: Soft, Non Distended, Tender (mild around drain) and Other (WANDA drain with minimal output)
Skin: Warm and Dry
[2024-09-10] MEDS: LASIX 20 MG IV ×2 (08:43→12:15)
[2024-09-10 09:28] LABS: NT-proBNP > 27000 pg/ml
[2024-09-10 11:00] VITALS: BP 169/96
--- NOTE | 2024-09-10 11:48 | W.PN.HOSP.TC ---
Today's Communication/Plan
-
Monitor vital signs see plan
Responded well to IV Lasix this morning, will give another dose this afternoon
Monitor volume status
If symptoms do not improve then will need CT chest
Continue Eliquis
Trend troponin
Assessment / Plan
Assessment / Plan
69-year-old male with past medical history significant for:
colon cancer with recurrence,
hypertension,
GERD,
congestive heart failure,
atrial fibrillation,
anxiety/depression;
who presented to ED by colorectal surgery for abnormal lab values. Patient was unsure of what lab values were abnormal. ED staff able to verify kidney function was abnormal. They were concerned about it as he is scheduled for ostomy reversal on
09/04. Patient states he was in his normal health with slight fatigue recently.
A/P:
acute kidney injury, resolved
Colon Cancer with Recurrence, s/p colostomy
GI team on board, s/p EGD/enteroscopy 09/02 prior to planned surgery, noted Normal esophagus, gastritis (biopsied), Normal duodenum, Normal jejunum.
Follow path from EGD
s/p colostomy reversal 09/04/[address] Simeon
Diet advanced to low residue, monitor
hypokalemia
replete
Holding home Lomotil and DCed home loperamide
Colorectal ongoing management appreciated
B. Hypertension - chronic
cw coreg
Anemia, likely acute on chronic, likely postop from acute blood loss
Continue to monitor
Acute on congestive heart failure with preserved EF
Continue with Coreg; BNP noted. check echo
Short of breath 09/10, chest x-ray with fluid overload. Was holding Lasix initially. Status post 1 dose of IV Lasix today with appropriate response. Give another dose Lasix this afternoon. Start IV Lasix from tomorrow as well
follows up with Dr Arthur outpatient
Will do CT chest if symptoms do not improve.
Mild troponin elevation likely non-PR related myocardial injury
Continue to trend troponin
Denies any chest pain at this time
Paroxysmal atrial fibrillation - ongoing
Continue Coreg
Continue Amio
Eliquis restarted
Anxiety / Depression - chronic
continue lamotrigine
GERD - chronic
Code status: full code
DVT prophylaxis: Eliquis
General: Well Developed, Well Nourished and No Apparent Distress
HEENT: Normocephalic, Nose Appears Normal and Ears Appear Normal
Respiratory: Clear to Auscultation
Cardiac: Regular Rhythm and S1/S2
GI: Soft
Skin: Warm and Dry
Neuro: Awake, Alert and Oriented
Psych: Calm
Anticipated Discharge: 24 - 48 hours
Subjective/Interval History
-
Date of Service: September 10, 2024
sob this morning
Objective Data
-
Labs:
Laboratory Results
09/10/24
05:22
WBC 9.2
Hgb 9.1 L
Hct 27.5 L
Plt Count 295
Sodium 136
Potassium 3.7
Chloride 106
Carbon Dioxide 24
BUN 17
Creatinine 0.8
Glucose 107 H
Calcium 8.5
Vital Signs:
Vital Signs
Temp Pulse Resp BP Pulse Ox
98.0 F 77 16 169/96 94
09/10/24 11:00 09/10/24 11:00 09/10/24 11:00 09/10/24 11:00 09/10/24 11:00
I&O
09/09/24 09/10/24 09/11/24
06:59 06:59 06:59
Intake Total 1530 / 1530 2040 / 2040 960 / 960
Output Total 37 660 / 660
Balance 1520 / 1520 2002 300 / 300
[2024-09-10] MEDS: TYLENOL 650 MG PO ×3 (12:15→21:09)
--- NOTE | 2024-09-10 12:28 | CM ---
CM following re: discharge planning.
Reviewed pt's chart, met with pt.
Per chart review, patient lives with sister and reports his sister is his support.
Per PT pt is independent with functional ability, walking independently in the room.
IMM reviewed, placed on chart, pt has a copy.
D/C plan: home with anticipated no after care VN needs. Pt stated his sister will transport at discharge.
CM will follow with discharge plan updates as hospitalization progresses
[2024-09-10 13:34] LABS: Troponin I 0.051 ng/ml
[2024-09-10 19:25] VITALS: BP 149/88
[2024-09-10 20:28] LABS: Troponin I 0.046 ng/ml
[2024-09-10 23:12] VITALS: BP 145/83
[2024-09-11] MEDS: TYLENOL 650 MG PO ×2 (01:10→07:38)
[2024-09-11 03:28] VITALS: BP 117/70
[2024-09-11 04:38] LABS: % Basophils 0.3 % (0-2); % Eosinophils 4.6 % (0-6); % Immature Granulocytes 0.5 % (0-0.5); % Lymphocytes 6.3 % (20.5-51.1); % Monocytes 13.4 % (1.7-9.3); % Neutrophils 74.9 % (42.2-75.2); Absolute Eosinophils 0.5 10^3/uL (0-0.7); Absolute Immature Granulocytes 0.1 10^3/uL (0-0.05); Absolute Lymphocytes 0.7 10^3/uL (1.2-3.4); Absolute Monocytes 1.5 10^3/uL (0.1-0.6); Absolute Neutrophils 8.6 10^3/uL (1.4-6.5); Hematocrit 25.2 % (39.0-52.0); Hemoglobin 8.6 g/dL (13.0-18.0); Mean Corp Hgb Conc. 34.1 g/dL (33.0-37.0); Mean Corpuscular Hgb 33.6 pg (27.0-31.0); Mean Corpuscular Volume 98.4 fL (80.0-94.0); Mean Platelet Volume 10.7 fL (7.4-10.4); Nucleated Red Blood Cells % 0.2 % (-); Platelet Count 310 10^3/uL (130-400); Red Blood Cell Count 2.56 10^6/uL (4.70-6.10); Red Cell Dist. Width 14.2 % (11.5-14.5); White Blood Cell Count 11.4 10^3/uL (4.8-10.8)
[2024-09-11 05:10] LABS: Blood Urea Nitrogen 17 mg/dl (9-20); Calcium 8.3 mg/dl (8.4-10.2); Carbon Dioxide 27 mmol/L (22-30); Chloride 103 mmol/L (98-107); Estimated Creatinine Clearance 62 ml/min; Glucose 109 mg/dl (70-99); Potassium 3.2 mmol/L (3.5-5.1); Sodium 136 mmol/L (135-145); eGFR > 60.00
[2024-09-11] MEDS: KCL 40 MEQ PO (05:53)
[2024-09-11 06:00] VITALS: BMI 20.2
[2024-09-11 07:00] VITALS: BP 162/87
[2024-09-11] MEDS: LASIX 20 MG IV (07:34)
[2024-09-11] MEDS: PROTONIX IV 40 MG IV (07:34)
[2024-09-11] MEDS: NSS (PRESERVATIVE FREE) 10 ML IV (07:34)
[2024-09-11] MEDS: ELIQUIS 5 MG PO (07:38)
[2024-09-11] MEDS: PACERONE 200 MG PO (07:38)
[2024-09-11] MEDS: LAMICTAL 100 MG PO (07:39)
[2024-09-11] MEDS: COREG 25 MG PO (07:39)
--- NOTE | 2024-09-11 08:58 | W.PN.CRS1 ---
Today's Communication / Plan
-
doing better today
okay for d/c from our perspective
follow up in 2 weeks
Assessment/Plan
-
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 Fung at [place], s/p resection with colorectal anastomosis with subsequent leak with repair and
diverting loop ileostomy. Initially admitted for WONG likely d/t GI losses. Scoped by GI d/t persistent vomiting on 09/02 with gastritis present. Underwent elective ostomy reversal.
POD #7 Loop ileostomy takedown with repair of enterotomies x2, SBR and extensive ANN (essentially frozen abd)
AFVSS - sinus rhythm, sating 92% on room air
WBC 11.4 (9.2), Hgb 8.6 (9.1)
-- Continue low residue diet
-- Pain control with Tylenol and Dilaudid as needed, Toradol ATC
-- OOB/Ambulate
-- [place] will be removed at office visit with Dr. Simeon
-- Continue Eliquis
-- Appreciate hospitalist
--Okay for d/c from our perspective. Follow up with Dr. Simeon in the office in 2 weeks. All questiona addressed.
Subjective Data
Procedure
09/04/2024- 1) flexible sigmoidoscopy 2) takedown loop ileostomy with partial small bowel resection 3) repair enterotomies X 2 (one full thickness, one partial thickness/serosal tear)
Subjective Data
Date of Service: September 11, 2024
Patient states he feels a lot better today. He no longer has shortness of breath. The lasix worked well yesterday. He has no abdominal pain. Denies nausea or vomiting.
Objective Data
-
Vital Signs
Temp Pulse Resp BP Pulse Ox
98.3 F 70 16 162/87 93
09/11/24 07:00 09/11/24 07:00 09/11/24 07:00 09/11/24 07:00 09/11/24 07:00
Intake & Output
09/10/24 09/11/24 09/12/24
06:59 06:59 06:59
Intake Total 2039 960 / 960
Output Total 37 / 660 / 660
Balance 2002 300 / 300
Intake:
Oral fluids 2039 960 / 960
Output:
Drain Output (Total) 35 / 35
Right Lower Abdomen Dennis- 35 / 35
Merrill
Urine, Voided 2 / 660 / 660
Other:
Number of approximated MODERATE 1 2
amounts of urine
Lab Results
09/11/24 04:27
09/11/24 04:27
Physical Exam
-
General: No Acute Distress and AOx3
Abdomen: Soft, Non Distended and Non Tender
Incision: Clear, Dry, Intact
[2024-09-11 11:00] VITALS: BP 117/73
--- NOTE | 2024-09-11 11:06 | W.PN.HOSP.TC ---
Today's Communication/Plan
-
Monitor vital signs see plan
Breathing is now improved, transition to p.o. Lasix starting tomorrow
Patient will follow-up with cardiology outpatient
per colorectal surgery, discharge today
Time of discharge 38 minutes
Assessment / Plan
Assessment / Plan
69-year-old male with past medical history significant for:
colon cancer with recurrence,
hypertension,
GERD,
congestive heart failure,
atrial fibrillation,
anxiety/depression;
who presented to ED by colorectal surgery for abnormal lab values. Patient was unsure of what lab values were abnormal. ED staff able to verify kidney function was abnormal. They were concerned about it as he is scheduled for ostomy reversal on
09/04. Patient states he was in his normal health with slight fatigue recently.
A/P:
acute kidney injury, resolved
Colon Cancer with Recurrence, s/p colostomy
GI team on board, s/p EGD/enteroscopy 09/02 prior to planned surgery, noted Normal esophagus, gastritis (biopsied), Normal duodenum, Normal jejunum.
Follow path from EGD
s/p colostomy reversal 09/04/[address] Simeon
Diet advanced to low residue, monitor
hypokalemia
replete
Holding home Lomotil and DCed home loperamide
Colorectal ongoing management appreciated
B. Hypertension - chronic
cw coreg
Anemia, likely acute on chronic, likely postop from acute blood loss
Continue to monitor
Acute on congestive heart failure with preserved EF
Likely secondary to missed Lasix and fluids during hospitalization
Continue with Coreg; BNP noted. Echo 09/10 with preserved EF, pulmonary hypertension
Short of breath 09/10, chest x-ray with fluid overload. Was holding Lasix initially. Status post 1 dose of IV Lasix today with appropriate response. Give another dose Lasix in the afternoon. Received IV Lasix today. Transition to p.o. Lasix
starting tomorrow. Instructed patient to follow with cardiology outpatient
follows up with Dr Arthur outpatient
Mild troponin elevation likely non-MD related myocardial injury
Troponin noted
Denies any chest pain at this time
Paroxysmal atrial fibrillation - ongoing
Continue Coreg
Continue Amio
Eliquis restarted
Anxiety / Depression - chronic
continue lamotrigine
GERD - chronic
Code status: full code
DVT prophylaxis: Eliquis
General: Well Developed, Well Nourished and No Apparent Distress
HEENT: Normocephalic, Nose Appears Normal and Ears Appear Normal
Respiratory: Clear to Auscultation
Cardiac: Regular Rhythm and S1/S2
GI: Soft
Skin: Warm and Dry
Neuro: Awake, Alert and Oriented
Psych: Calm
Anticipated Discharge: Today
Subjective/Interval History
-
Date of Service: September 11, 2024
denies sob
Objective Data
-
Labs:
Laboratory Results
09/11/24
04:27
WBC 11.4 H
Hgb 8.6 L
Hct 25.2 L
Plt Count 310
Sodium 136
Potassium 3.2 L
Chloride 103
Carbon Dioxide 27
BUN 17
Creatinine 0.9
Glucose 109 H
Calcium 8.3 L
Vital Signs:
Vital Signs
Temp Pulse Resp BP Pulse Ox
98.7 F 69 14 117/73 94
09/11/24 11:00 09/11/24 11:00 09/11/24 11:00 09/11/24 11:00 09/11/24 11:00
I&O
09/10/24 09/11/24 09/12/24
06:59 06:59 06:59
Intake Total 2039 960 / 960
Output Total 37 660 / 660
Balance 2002 300 / 300
--- NOTE | 2024-09-11 11:17 | W.DCSUMMARY ---
Discharge Summary
Discharge Data
Date of Admission: 09/01/24
Date of Discharge: 09/11/24
-
Pending Results: No
Hospital Course
69-year-old male with past medical history of colon cancer with recurrence, hypertension, GERD, congestive heart failure, atrial fibrillation, anxiety, depression, anemia of chronic disease came to the hospital with acute kidney injury. Patient
creatinine over time continue to improve. He then was scoped by GI for persistent vomiting. Gastritis was present. Given patient's symptoms, colorectal surgery did colostomy reversal while patient was in the hospital. Over time patient's
symptoms continue to improve postop and he was able to tolerate diet eventually. Initially had WANDA drain which was removed prior to discharge. On this hospitalization he also developed shortness of breath which was likely attributed to iatrogenic
fluid overload along with acute on chronic congestive heart failure exacerbation. Patient symptoms continue to improve with IV Lasix which was transitioned to oral prior to discharge. He was instructed to follow-up closely with cardiology
outpatient. Once patient symptoms continue to improve, he was then discharged home with instructions to follow-up with all his physicians outpatient.
Discharge Plan
-
Patient Disposition: Home (Routine Discharge)
Discharge Diagnosis/Procedures: 1) flexible sigmoidoscopy 2) takedown loop ileostomy with partial small bowel resection 3) repair enterotomies X 2 (one full thickness, one partial thickness/serosal tear)
Acute kidney injury
Hypokalemia
Acute on chronic congestive heart failure exacerbation
Diet: Low Residue
Activity: No strenuous activity
Additional Activity: No lifting over 10lbs (gallon of milk)
Driving Restrictions: Not until seen by your Dr
Bathing Restrictions: OK to Shower
Wound Care: Cover abdominal incision with gauze and paper tape. Change daily and as needed. Okay to leave open to air when seals over. [place] will be removed at your appointment with Dr. Simeon.
Instructions: Low-fiber diet
Referrals:
Simon Simeon MD [Active] - in two weeks
Mehnaz Wheat MD [Family Provider] - in less than 1 week
Estela Arthur, [Active] -
Prescriptions:
New
pantoprazole [Protonix] 40 mg tablet,delayed release (DR/EC)
40 mg PO DAILY Qty: 30 0RF
tramadol 50 mg tablet
50 mg PO Q8H PRN (Reason: Pain) Qty: 14 0RF
Continued
lamotrigine 100 MG tablet
100 mg PO DAILY
Patient Comments:
09/01/24- patient prescription has bid but patient only taking this once a day
carvedilol 25 mg Tablet
25 mg PO BID
Eliquis 5 mg Tablet
5 mg PO BID
acetaminophen 500 mg Tablet
500 mg PO Q6HPRN PRN (Reason: mild pain)
furosemide 40 mg tablet
20 mg PO DAILY
amiodarone 200 mg tablet
200 mg PO DAILY
Patient Comments:
09/01/24- patient med list has bid not daily, did question patient but he stated its always been bid, not sure if that what he is taking at home, no notes in ecw about dose in. all refills have been daily
lidocaine-prilocaine 2.5-2.5 % Cream
1 applic TOPICAL DAILYPRN PRN (Reason: port excess)
Held
loperamide 2 mg Capsule
4 mg PO QID
Hold Instructions: Restart when okay with colorectal
diphenoxylate-atropine 2.5-0.025 mg tablet
1 tab PO QID
Hold Instructions: Restart when okay with colorectal
Discontinued
oxycodone 5 mg Tablet
2.5 mg PO QIDPRN PRN (Reason: severe pain)
Discharge Orders:
Discharge Patient (As Directed); Ordered 09/11/24
Ordered By: Javier Petty
Discharge Date and Time
Discharge Date/Time: 09/11/24 12:39
Print Language: MALDIVIAN
--- NOTE | 2024-09-11 11:20 | CM ---
Patient is medically ready for discharge to home. No needs noted on discharge.
PLAN: Home no needs.
== END 2024-09-11 12:39 | disposition home or self-care (01) | DRG 673 ==
LOC: 2 SOUTH 20:39
PROVIDERS: Emergency Medicine; Internal Medicine; Nurse Practitioner Family; Radiology Diagnostic Radiology; Surgery; ADMITTING PHYSICIAN Internal Medicine; ATTENDING PHYSICIAN Internal Medicine; CONSULT PHYSICIAN Internal Medicine; CONSULT PHYSICIAN Surgery; EMERGENCY PHYSICIAN Emergency Medicine; FAMILY PHYSICIAN Hospitalist
PROC: 0DB78ZX Excision of Stomach, Pylorus, Via Natural or Artificial Opening Endoscopic, Diagnostic (ICD-10-PCS; 2024-09-02)
PROC: 0DN80ZZ Release Small Intestine, Open Approach (ICD-10-PCS; 2024-09-04)
PROC: 0DJD8ZZ Inspection of Lower Intestinal Tract, Via Natural or Artificial Opening Endoscopic (ICD-10-PCS; 2024-09-04)
PROC: 0D9670Z Drainage of Stomach with Drainage Device, Via Natural or Artificial Opening (ICD-10-PCS; 2024-09-04)
PROC: 0DQ80ZZ Repair Small Intestine, Open Approach (ICD-10-PCS; 2024-09-04)
PROC: 0DBB0ZZ Excision of Ileum, Open Approach (ICD-10-PCS; 2024-09-04)
DX: N17.9 Acute kidney failure, unspecified (principal); I50.33 Acute on chronic diastolic (congestive) heart failure; C18.0 Malignant neoplasm of cecum; E87.1 Hypo-osmolality and hyponatremia; I5A Non-ischemic myocardial injury (non-traumatic); D62 Acute posthemorrhagic anemia; S36.438A Laceration of other part of small intestine, initial encounter; K29.70 Gastritis, unspecified, without bleeding; Z43.2 Encounter for attention to ileostomy; I48.0 Paroxysmal atrial fibrillation; D63.8 Anemia in other chronic diseases classified elsewhere; F31.9 Bipolar disorder, unspecified; K66.0 Peritoneal adhesions (postprocedural) (postinfection); F41.9 Anxiety disorder, unspecified; K21.9 Gastro-esophageal reflux disease without esophagitis; N40.0 Benign prostatic hyperplasia without lower urinary tract symptoms; K44.9 Diaphragmatic hernia without obstruction or gangrene; I11.0 Hypertensive heart disease with heart failure; I27.20 Pulmonary hypertension, unspecified; D72.829 Elevated white blood cell count, unspecified; E87.6 Hypokalemia; X58.XXXA Exposure to other specified factors, initial encounter; Y92.239 Unspecified place in hospital as the place of occurrence of the external cause; Y93.9 Activity, unspecified; Z79.01 Long term (current) use of anticoagulants; Z92.21 Personal history of antineoplastic chemotherapy; Z87.19 Personal history of other diseases of the digestive system; Z90.49 Acquired absence of other specified parts of digestive tract; Z87.891 Personal history of nicotine dependence; Z87.01 Personal history of pneumonia (recurrent)
CPT/HCPCS: 88304; 88305; 71045; 74018; 80048; 80053; 83735; 83880; 84484; 85025; 85027; 86850; 86900; 86901; 86920; 86922; 88342; 93005; 93306; 96360; 99285; A4648; J1335

== ENCOUNTER → 2024-09-19 15:40 | Outpatient (REF) | payer MEDICARE, OTHER, SELFPAY | LOC: REG 15:40 | PROVIDERS: ATTENDING PHYSICIAN Hospitalist | DX: N17.9 Acute kidney failure, unspecified (principal) | CPT/HCPCS: 36415 ==

== ENCOUNTER 2024-09-24 12:00 | Outpatient (RCR) | payer MEDICARE, OTHER, SELFPAY | END 2024-09-24 23:59 | disposition home or self-care (01) | LOC: RPT 12:00 | PROVIDERS: ATTENDING PHYSICIAN Hospitalist | DX: R53.1 Weakness (principal); Z73.6 Limitation of activities due to disability | CPT/HCPCS: 97110; 97162 ==

== ENCOUNTER 2024-10-03 10:57 | Outpatient (RCR) | payer MEDICARE, OTHER, SELFPAY | END 2024-10-03 23:59 | disposition home or self-care (01) | LOC: RPT 10:57 | PROVIDERS: ATTENDING PHYSICIAN Hospitalist | DX: R42 Dizziness and giddiness (principal); Z73.6 Limitation of activities due to disability; M62.81 Muscle weakness (generalized); R53.1 Weakness; R53.83 Other fatigue; R29.6 Repeated falls ==

== ENCOUNTER → 2024-10-15 16:54 | Outpatient (REF) | payer MEDICARE, OTHER, SELFPAY ==
[2024-10-15 17:58] LABS: Hematocrit 32.3 % (39.0-52.0); Hemoglobin 10.4 g/dL (13.0-18.0); Mean Corp Hgb Conc. 32.2 g/dL (33.0-37.0); Mean Corpuscular Volume 105.6 fL (80.0-94.0); Mean Platelet Volume 10.1 fL (7.4-10.4); Platelet Count 387 10^3/uL (130-400); Red Blood Cell Count 3.06 10^6/uL (4.70-6.10); Red Cell Dist. Width 14.5 % (11.5-14.5); White Blood Cell Count 8.7 10^3/uL (4.8-10.8)
[2024-10-15 18:10] LABS: Blood Urea Nitrogen 27 mg/dl (9-20); Calcium 9.8 mg/dl (8.4-10.2); Carbon Dioxide 33 mmol/L (22-30); Chloride 102 mmol/L (98-107); Glucose 84 mg/dl (70-99); Magnesium 2.1 mg/dl (1.6-2.3); Potassium 4.2 mmol/L (3.5-5.1); Sodium 141 mmol/L (135-145); eGFR 50.71
== END ==
LOC: REG 16:54
PROVIDERS: ATTENDING PHYSICIAN Internal Medicine Cardiovascular Disease; FAMILY PHYSICIAN Hospitalist
DX: I10 Essential (primary) hypertension (principal); Z01.818 Encounter for other preprocedural examination
CPT/HCPCS: 36415; 80048; 83735; 85027

== ENCOUNTER 2024-11-03 11:40 | Outpatient (RCR) | payer MEDICARE, OTHER, SELFPAY | END 2024-11-03 23:59 | disposition home or self-care (01) | LOC: RPT 11:40 | PROVIDERS: ATTENDING PHYSICIAN Hospitalist | DX: R53.1 Weakness (principal); Z73.6 Limitation of activities due to disability; Z98.890 Other specified postprocedural states | CPT/HCPCS: 97110; 97112; 97530 ==

== ENCOUNTER 2024-11-24 11:02 | Outpatient (RCR) | payer MEDICARE, OTHER, SELFPAY | END 2024-12-04 12:08 | disposition home or self-care (01) | LOC: RPT 11:02 | PROVIDERS: ATTENDING PHYSICIAN Hospitalist | DX: R53.1 Weakness (principal); Z73.6 Limitation of activities due to disability; Z98.890 Other specified postprocedural states | CPT/HCPCS: 97110; 97112; 97530 ==

== ENCOUNTER 2024-11-26 06:17 | Day surgery (SDC) | payer MEDICARE, OTHER, SELFPAY | END 2024-11-26 10:54 | disposition home or self-care (01) | LOC: GI 06:17 | PROVIDERS: ATTENDING PHYSICIAN Surgery | DX: Z12.11 Encounter for screening for malignant neoplasm of colon (principal); Z85.038 Personal history of other malignant neoplasm of large intestine; Z98.0 Intestinal bypass and anastomosis status; K57.30 Diverticulosis of large intestine without perforation or abscess without bleeding; K64.8 Other hemorrhoids | CPT/HCPCS: G0105 ==

== ENCOUNTER 2024-12-03 10:15 | Outpatient (RCR) | payer MEDICARE, OTHER, SELFPAY | END 2024-12-03 23:59 | disposition home or self-care (01) | LOC: ROT 10:15 | PROVIDERS: ATTENDING PHYSICIAN Orthopaedic Surgery Hand Surgery; FAMILY PHYSICIAN Hospitalist | DX: Z47.89 Encounter for other orthopedic aftercare (principal); M19.042 Primary osteoarthritis, left hand; S69.92XD Unspecified injury of left wrist, hand and finger(s), subsequent encounter; Z73.6 Limitation of activities due to disability; M79.642 Pain in left hand | CPT/HCPCS: 97018; 97110; 97140; 97166; 97535 ==

== ENCOUNTER 2024-12-10 10:15 | Outpatient (RCR) | payer MEDICARE, OTHER, SELFPAY | END 2024-12-10 23:59 | disposition home or self-care (01) | LOC: ROT 10:15 | PROVIDERS: ATTENDING PHYSICIAN Orthopaedic Surgery Hand Surgery; FAMILY PHYSICIAN Hospitalist | DX: Z47.89 Encounter for other orthopedic aftercare (principal); M19.042 Primary osteoarthritis, left hand; S69.92XD Unspecified injury of left wrist, hand and finger(s), subsequent encounter; Z73.6 Limitation of activities due to disability; M79.642 Pain in left hand | CPT/HCPCS: 97018; 97110; 97140 ==

== ENCOUNTER → 2025-01-12 10:46 | Outpatient (REF) | payer MEDICARE, OTHER, SELFPAY ==
[2025-01-12 11:32] LABS: Hematocrit 38.2 % (39.0-52.0); Hemoglobin 12.2 g/dL (13.0-18.0); Mean Corp Hgb Conc. 31.9 g/dL (33.0-37.0); Mean Corpuscular Volume 103.5 fL (80.0-94.0); Nucleated Red Blood Cells % 0 % (-); Platelet Count 345 10^3/uL (130-400); Red Cell Dist. Width 13.6 % (11.5-14.5)
[2025-01-12 12:07] LABS: ALT (SGPT) 24 U/L (0-50); AST (SGOT) 34 U/L (17-59); Albumin 4.4 g/dl (3.5-5.0); Alkaline Phosphatase 157 U/L (38-126); Blood Urea Nitrogen 33 mg/dl (9-20); Calcium 10.0 mg/dl (8.4-10.2); Carbon Dioxide 30 mmol/L (22-30); Chloride 104 mmol/L (98-107); Glucose 99 mg/dl (70-99); Potassium 5.0 mmol/L (3.5-5.1); Sodium 140 mmol/L (135-145); Total Protein 7.2 g/dl (6.3-8.2); eGFR 55.09
[2025-01-12 12:36] LABS: CEA 5.31 ng/ml
== END ==
LOC: REG 10:46
PROVIDERS: ATTENDING PHYSICIAN Internal Medicine Hematology & Oncology; FAMILY PHYSICIAN Hospitalist
DX: C18.2 Malignant neoplasm of ascending colon (principal); D50.9 Iron deficiency anemia, unspecified; D69.3 Immune thrombocytopenic purpura; K12.31 Oral mucositis (ulcerative) due to antineoplastic therapy; E87.6 Hypokalemia; K21.9 Gastro-esophageal reflux disease without esophagitis; M54.32 Sciatica, left side
CPT/HCPCS: 36415; 80053; 82378; 85025

== ENCOUNTER → 2025-01-12 11:20 | Outpatient (REF) | payer MEDICARE, OTHER, SELFPAY | LOC: PET 11:20 | PROVIDERS: ATTENDING PHYSICIAN Internal Medicine Hematology & Oncology | DX: C18.2 Malignant neoplasm of ascending colon (principal); D50.9 Iron deficiency anemia, unspecified; D69.3 Immune thrombocytopenic purpura; K12.31 Oral mucositis (ulcerative) due to antineoplastic therapy; E87.6 Hypokalemia; K21.9 Gastro-esophageal reflux disease without esophagitis; M54.32 Sciatica, left side | CPT/HCPCS: 36415; 80053; 82378; 85025 ==

== ENCOUNTER 2025-01-23 16:30 | Emergency (ER) | payer MEDICARE, OTHER, SELFPAY ==
[2025-01-23 16:31] VITALS: BP 154/95
[2025-01-23] MEDS: TYLENOL 1000 MG PO (18:14)
[2025-01-23] MEDS: ADACEL 0.5 ML IM (18:14)
[2025-01-23 19:44] VITALS: BP 149/78
--- NOTE | 2025-01-23 20:43 | ED.GENMED ---
History of Present Illness
General
Chief Complaint: Head Injury
Time Seen by Provider: 01/23/25 17:16
History of Present Illness
History of Present Illness:
see MDM
Past History
Past History
ED Past Medical History: Cancer (Colon cancer), HTN, Psychiatric (Anxiety, depression, bipolar), Other (Diverticulitis, Sciatica, Anemia, ) and Other (Sciatica)
ED Past Surgical History: Bowel resection, Orthopedic (Left hand surgery, laminectomy), Urological (Vasectomy) and Other (Left arm cyst, Port)
Social History
Tobacco: Former smoker
Alcohol: Former
Drug: None
Personal:
Living: alone
Phy Exam
Physical Exam
Physical Exam:
see MDM
Course
Orders/Labs/Results
Orders:
Orders
01/23/25 16:36
CT Head W/o Iv Contrast Urgent
Comment:
Reason For Exam: tree vs head on Eliquis
01/23/25 18:08
Acetaminophen [Tylenol] 1,000 mg PO NOW STA
Tetanus/Diphth/Acelpertussis [Adacel] 0.5 ml IM .ONCE ONE
01/23/25 18:32
CT Cervical Spine W/o Iv Contr Urgent
Comment:
Reason For Exam: hit in th eneck by a tree
Vital Signs
Initial and Last Documented VS:
Initial Vital Signs
Temp Pulse Resp BP Pulse Ox
37.0 C 79 18 154/95 96
01/23/25 16:31 01/23/25 16:31 01/23/25 16:31 01/23/25 16:31 01/23/25 16:31
Last Documented Vital Signs
Temp Pulse Resp BP Pulse Ox
37.0 C 71 16 149/78 97
01/23/25 16:31 01/23/25 19:44 01/23/25 19:44 01/23/25 19:44 01/23/25 20:54
Procedures
Laceration Closure
Posterior Scalp:
Status of Wound: clean
Description of Wound Edges: sharp and flap-well vascularized
Preparation: cleaned with saline
Anesthesia: 1% Lidocaine with epi
Revision/Debridement: minor revision
Wound exploration: explored to base- no FB
Type of Closure: single layer closure
Skin Closure Material: 5-0 nylon
Number of sutures: 9
MDM/Problems Addressed
MDM/Problems Addressed:
Note:
CHIEF COMPLAINT(S)
Traumatic injury after being struck by a tree limb.
HISTORY OF PRESENT ILLNESS
The patient 69 y/o M afib on [facility] presented after experiencing a traumatic injury while working outside. He reported that a limb from a tree, which he was cutting down,, described as moving quickly, struck him. The incident occurred at his
residence. it hit him in the back of [facility] head and neck as he was trying to get out of the way.
He did not lose consciousness during or after the event.
woudn to posterior scalp
also abrasion and pain and swelling base of neck
some other abrasions on extermities, superficial
tetanus unkonwn
no vomiting, confusion, weakness, paresthesias, balance problems, lightheadedness, etc
PAST MEDICAL AND SURIGICAL HISTORY
There was a mention of taking warfarin, indicating possible anticoagulation management.
IMMUNIZATION HISTORY
The patient indicated that he had received a tetanus vaccination within the last ten years.
PHYSICAL EXAM
GENERAL: Alert , in no apparent distress
HEAD: occiput with a y shaped laceration approx 5 cm total, deep subcutenaous
no active bleeding
multiple superficial abrasions neck
NECK:mild STS lower neck with superficial abrasions from neck to upper back
no activ ebleeding
full ROM of neck intact
no parestheisas
EYE: pupils equal and reactive, EOMs intact.
CARDIAC: Regular rate and rhythm, no edema
LUNGS: Clear breath sounds bilaterally, no acute respiratory distress, no wheezes/rales/rhonchi
ABDOMEN: Soft, without focal tenderness, no r/g, no cvat
NEUROLOGICAL: Alert and oriented, no focal neuro deficits, CN intact, 5/5 strength, sensation intact
SKIN: Warm and dry, abrasions, laceration as above
multiple wounds on arms, superifical
MUSCULOSKELETAL: No edema, well perfused.
PSYCH: Normal and appropriate interaction.
Nursing notes reviewed and vital signs reviewed.
PROBLEM LIST
Acute:
- Traumatic arm wound due to impact by tree limb
- Neck pain post-trauma
Chronic:
- On long-term warfarin therapy (anticoagulation)
PLAN
1. Order a cervical spine radiograph to rule out any cervical spine injury due to neck pain.
2. Wound management: Perform local anesthesia administration for wound exploration and repair.
3. Consider the provision of a tetanus booster, though the patient reports being vaccinated within the last ten years.
DIFFERENTIAL DIAGNOSIS
The Differential Diagnosis includes, in no particular order and is not limited to:
1. Soft tissue injury
2. Contusion
3. Laceration with possible skin or muscle tear
4. Fracture
5. Cervical strain or sprain
6. Concussion
7. Hematoma
8. Vascular injury
9. Whiplash
10. Subdural hematoma (given the use of warfarin, despite the negative brain scan)
69 y/o M
eliquis
head strike by a tree that was falling as he cut it down
struck back of head and neck
abrasions and welling to neck but full ROM and no parestheias/weakness
occiput with laceration
ct head/neck neg for trauma
pt informed of cervical arthitis
teanus updated
discusse dholding tonight sdose of eliquis as he seem s to be in sinus rhythm
sutures placed in scalp well approximated
*Pulse Oximetry
SaO2: 97
Oxygen Mode of Delivery: Room air
Patient hypoxic: no (96)
*Critical Care Note
Total Time (30-74mins, 75-104mins- exclusive of procedures): Not Applicable
ED Attending Note
-
Portions of this chart may have been created with voice recognition software.� Occasional wrong word or��sound alike� substitutions may have occurred due to the inherent limitations of voice recognition software.
Discharge Plan
Departure
Patient Disposition: Home (Routine Discharge)
Date of Disposition: 01/23/25
Time of Disposition: 19:45
Patient with high blood pressure during this ER visit?: Yes
Condition: Fair
Covid-19: Not Applicable
Discharge Problem:
Laceration of occipital scalp, Contusion of neck
Instructions: Contusion (DC), Laceration Repair With Stitches (DC)
Prescriptions:
No Action
lamotrigine 100 MG tablet
100 mg PO DAILY
Patient Comments:
09/01/24- patient prescription has bid but patient only taking this once a day
carvedilol 25 mg Tablet
25 mg PO BID
loperamide 2 mg Capsule
4 mg PO QID
Eliquis 5 mg Tablet
5 mg PO BID
acetaminophen 500 mg Tablet
500 mg PO Q6HPRN PRN (Reason: mild pain)
furosemide 40 mg tablet
20 mg PO DAILY
amiodarone 200 mg tablet
200 mg PO DAILY
Patient Comments:
09/01/24- patient med list has bid not daily, did question patient but he stated its always been bid, not sure if that what he is taking at home, no notes in ecw about dose in. all refills have been daily
diphenoxylate-atropine 2.5-0.025 mg tablet
1 tab PO QID
lidocaine-prilocaine 2.5-2.5 % Cream
1 applic TOPICAL DAILYPRN PRN (Reason: port excess)
pantoprazole [Protonix] 40 mg tablet,delayed release (DR/EC)
40 mg PO DAILY Qty: 30 0RF
tramadol 50 mg tablet
50 mg PO Q8H PRN (Reason: Pain) Qty: 14 0RF
Referrals:
NONE,* [Family Provider, Internal Medicine]
Activity Restrictions/Additional Instructions:
Your head and neck CTs did not show any signs of acute trauma like a fracture or bleed in your brain.
You should take Tylenol 2-3 times a day. Ice off-and-on. Keep the wounds clean and dry. Try to keep the stitches dry for 24 hours and then you can get it wet in the shower once a day, dry and put ointment on. The stitches need to be removed in 7
days. Please call your family doctor or return here for that.
Return for severe worst headache of your life, numbness tingling or weakness in your arms or legs or any concerns
You may have a minor concussion, you do not have the symptoms currently but they could develop over the next 24 hours
, the symptoms are headache with nausea, dizziness, fatigue etc. You can try brain rest for the next 48 hours limiting your phone, TV, computer use to help with discomfort. After 48 hours you can return to normal activity.
Interventions
Interventions:
*Risk Screen - Suicide Last Done: 01/23/25 17:26
*General Assessment Last Done: 01/23/25 17:26
*Neglect/Abuse Screening Last Done: 01/23/25 17:26
*ED- Fall Risk Assessment Last Done: 01/23/25 17:26
*ED COVID-19 Vaccine History Last Done: 01/23/25 17:26
*Nursing Disposition Last Done: 01/23/25 19:52
ED- Neurological Assessment Last Done: 01/23/25 17:26
ED-Skin Assessment Last Done: 01/23/25 17:26
Discharge Date and Time
Discharge Date/Time: 01/23/25 19:53
Print Language: SENEGALESE
== END 2025-01-23 19:53 | disposition home or self-care (01) ==
LOC: EMR 16:30
PROVIDERS: EMERGENCY PHYSICIAN Emergency Medicine
DX: S01.01XA Laceration without foreign body of scalp, initial encounter (principal); S10.93XA Contusion of unspecified part of neck, initial encounter; W20.8XXA Other cause of strike by thrown, projected or falling object, initial encounter; Y92.009 Unspecified place in unspecified non-institutional (private) residence as the place of occurrence of the external cause; Z23 Encounter for immunization; I10 Essential (primary) hypertension; F41.8 Other specified anxiety disorders; F31.9 Bipolar disorder, unspecified; I48.91 Unspecified atrial fibrillation; Z79.01 Long term (current) use of anticoagulants; Z85.038 Personal history of other malignant neoplasm of large intestine; Z87.891 Personal history of nicotine dependence
CPT/HCPCS: 99284; 12001; 90471; 70450; 72125; 90715

== ENCOUNTER → 2025-01-31 11:12 | Outpatient (REF) | payer MEDICARE, OTHER, SELFPAY ==
[2025-01-31 12:40] LABS: Hematocrit 35.3 % (39.0-52.0); Hemoglobin 11.7 g/dL (13.0-18.0); Mean Corp Hgb Conc. 33.1 g/dL (33.0-37.0); Mean Corpuscular Volume 103.5 fL (80.0-94.0); Nucleated Red Blood Cells % 0 % (-); Platelet Count 354 10^3/uL (130-400); Red Cell Dist. Width 13.5 % (11.5-14.5)
[2025-01-31 13:15] LABS: ALT (SGPT) 20 U/L (0-50); AST (SGOT) 33 U/L (17-59); Albumin 4.1 g/dl (3.5-5.0); Alkaline Phosphatase 170 U/L (38-126); Blood Urea Nitrogen 26 mg/dl (9-20); Calcium 9.1 mg/dl (8.4-10.2); Carbon Dioxide 31 mmol/L (22-30); Chloride 100 mmol/L (98-107); Glucose 124 mg/dl (70-99); Potassium 4.5 mmol/L (3.5-5.1); Sodium 137 mmol/L (135-145); Total Protein 6.9 g/dl (6.3-8.2); eGFR 55.09
== END ==
LOC: REG 11:12
PROVIDERS: ATTENDING PHYSICIAN Internal Medicine Hematology & Oncology; FAMILY PHYSICIAN Hospitalist
DX: C18.2 Malignant neoplasm of ascending colon (principal); D50.9 Iron deficiency anemia, unspecified; D69.3 Immune thrombocytopenic purpura; K12.31 Oral mucositis (ulcerative) due to antineoplastic therapy; E87.6 Hypokalemia; K21.9 Gastro-esophageal reflux disease without esophagitis; M54.32 Sciatica, left side
CPT/HCPCS: 36415; 80053; 85025

== ENCOUNTER → 2025-02-04 12:37 | Outpatient (REF) | payer MEDICARE, OTHER, SELFPAY | LOC: OIDL 12:37 | PROVIDERS: ATTENDING PHYSICIAN Internal Medicine Hematology & Oncology | DX: C18.2 Malignant neoplasm of ascending colon (principal); D50.9 Iron deficiency anemia, unspecified; D69.3 Immune thrombocytopenic purpura; K12.31 Oral mucositis (ulcerative) due to antineoplastic therapy; E87.6 Hypokalemia; K21.9 Gastro-esophageal reflux disease without esophagitis; M54.32 Sciatica, left side | CPT/HCPCS: 82570; 84156 ==

== ENCOUNTER → 2025-02-23 14:16 | Outpatient (REF) | payer MEDICARE, OTHER, SELFPAY ==
[2025-02-23 15:14] LABS: Hematocrit 39.0 % (39.0-52.0); Hemoglobin 12.3 g/dL (13.0-18.0); Mean Corp Hgb Conc. 31.5 g/dL (33.0-37.0); Mean Corpuscular Volume 105.4 fL (80.0-94.0); Platelet Count 278 10^3/uL (130-400); Red Cell Dist. Width 13.8 % (11.5-14.5)
[2025-02-23 15:30] LABS: ALT (SGPT) 20 U/L (0-50); AST (SGOT) 30 U/L (17-59); Albumin 4.3 g/dl (3.5-5.0); Alkaline Phosphatase 219 U/L (38-126); Blood Urea Nitrogen 23 mg/dl (9-20); Calcium 9.6 mg/dl (8.4-10.2); Carbon Dioxide 32 mmol/L (22-30); Chloride 100 mmol/L (98-107); Glucose 84 mg/dl (70-99); Potassium 4.4 mmol/L (3.5-5.1); Sodium 137 mmol/L (135-145); Total Protein 7.1 g/dl (6.3-8.2); eGFR 55.09
[2025-02-23 17:51] LABS: Nucleated Red Blood Cells % 0.1 % (-)
== END ==
LOC: REG 14:16
PROVIDERS: ATTENDING PHYSICIAN Internal Medicine Hematology & Oncology; FAMILY PHYSICIAN Hospitalist
DX: C18.2 Malignant neoplasm of ascending colon (principal); D50.9 Iron deficiency anemia, unspecified; D69.3 Immune thrombocytopenic purpura; K12.31 Oral mucositis (ulcerative) due to antineoplastic therapy; E87.6 Hypokalemia; K21.9 Gastro-esophageal reflux disease without esophagitis; M54.32 Sciatica, left side
CPT/HCPCS: 36415; 80053; 82570; 84156; 85025

== ENCOUNTER → 2025-03-09 13:40 | Outpatient (REF) | payer MEDICARE, OTHER, SELFPAY ==
[2025-03-09 15:01] LABS: Hematocrit 35.6 % (39.0-52.0); Hemoglobin 11.9 g/dL (13.0-18.0); Mean Corp Hgb Conc. 33.4 g/dL (33.0-37.0); Mean Corpuscular Volume 103.2 fL (80.0-94.0); Platelet Count 351 10^3/uL (130-400); Red Cell Dist. Width 13.6 % (11.5-14.5)
[2025-03-09 15:22] LABS: ALT (SGPT) 18 U/L (0-50); AST (SGOT) 23 U/L (17-59); Albumin 4.3 g/dl (3.5-5.0); Alkaline Phosphatase 213 U/L (38-126); Blood Urea Nitrogen 21 mg/dl (9-20); Calcium 9.5 mg/dl (8.4-10.2); Carbon Dioxide 27 mmol/L (22-30); Chloride 100 mmol/L (98-107); Glucose 107 mg/dl (70-99); Potassium 3.1 mmol/L (3.5-5.1); Sodium 137 mmol/L (135-145); Total Protein 7.1 g/dl (6.3-8.2); eGFR > 60.00
[2025-03-09 15:38] LABS: Nucleated Red Blood Cells % 0.1 % (-)
== END ==
LOC: REG 13:40
PROVIDERS: ATTENDING PHYSICIAN Internal Medicine Hematology & Oncology
DX: C18.2 Malignant neoplasm of ascending colon (principal); D50.9 Iron deficiency anemia, unspecified; D69.3 Immune thrombocytopenic purpura; K12.31 Oral mucositis (ulcerative) due to antineoplastic therapy; E87.6 Hypokalemia; K21.9 Gastro-esophageal reflux disease without esophagitis; M54.32 Sciatica, left side
CPT/HCPCS: 36415; 80053; 82570; 84156; 85025

== ENCOUNTER 2025-03-11 08:52 | Outpatient (RCR) | payer MEDICARE, OTHER, SELFPAY | END 2025-03-27 09:08 | disposition home or self-care (01) | LOC: RPT 08:52 | PROVIDERS: ATTENDING PHYSICIAN Surgery; FAMILY PHYSICIAN Hospitalist | DX: R15.9 Full incontinence of feces (principal); M62.89 Other specified disorders of muscle; R15.1 Fecal smearing; Z73.6 Limitation of activities due to disability; C18.9 Malignant neoplasm of colon, unspecified; Z92.21 Personal history of antineoplastic chemotherapy | CPT/HCPCS: 97163; 97530 ==

== ENCOUNTER → 2025-03-23 11:30 | Outpatient (REF) | payer MEDICARE, OTHER, SELFPAY ==
[2025-03-23 12:56] LABS: Hematocrit 40.0 % (39.0-52.0); Hemoglobin 13.0 g/dL (13.0-18.0); Mean Corp Hgb Conc. 32.5 g/dL (33.0-37.0); Mean Corpuscular Volume 103.9 fL (80.0-94.0); Nucleated Red Blood Cells % 0 % (-); Platelet Count 524 10^3/uL (130-400); Red Cell Dist. Width 14.8 % (11.5-14.5)
[2025-03-23 13:18] LABS: ALT (SGPT) 26 U/L (0-50); AST (SGOT) 44 U/L (17-59); Albumin 4.3 g/dl (3.5-5.0); Alkaline Phosphatase 205 U/L (38-126); Blood Urea Nitrogen 28 mg/dl (9-20); Calcium 9.5 mg/dl (8.4-10.2); Chloride 97 mmol/L (98-107); Glucose 129 mg/dl (70-99); Potassium 4.4 mmol/L (3.5-5.1); Sodium 138 mmol/L (135-145); Total Protein 7.2 g/dl (6.3-8.2); eGFR > 60.00
[2025-03-23 13:25] LABS: Carbon Dioxide 32 mmol/L (22-30)
== END ==
LOC: REG 11:30
PROVIDERS: ATTENDING PHYSICIAN Internal Medicine Hematology & Oncology; FAMILY PHYSICIAN Hospitalist
DX: C18.2 Malignant neoplasm of ascending colon (principal); D50.9 Iron deficiency anemia, unspecified; D69.3 Immune thrombocytopenic purpura; K12.31 Oral mucositis (ulcerative) due to antineoplastic therapy; E87.6 Hypokalemia; K21.9 Gastro-esophageal reflux disease without esophagitis; M54.32 Sciatica, left side
CPT/HCPCS: 36415; 80053; 82570; 84156; 85025

== ENCOUNTER → 2025-04-06 12:37 | Outpatient (REF) | payer MEDICARE, OTHER, SELFPAY ==
[2025-04-06 13:23] LABS: Hematocrit 38.1 % (39.0-52.0); Hemoglobin 11.9 g/dL (13.0-18.0); Mean Corp Hgb Conc. 31.2 g/dL (33.0-37.0); Mean Corpuscular Volume 109.2 fL (80.0-94.0); Platelet Count 268 10^3/uL (130-400); Red Cell Dist. Width 15.5 % (11.5-14.5)
[2025-04-06 13:42] LABS: Nucleated Red Blood Cells % 0.2 % (-)
[2025-04-06 13:56] LABS: ALT (SGPT) 17 U/L (0-50); AST (SGOT) 27 U/L (17-59); Albumin 4.1 g/dl (3.5-5.0); Alkaline Phosphatase 198 U/L (38-126); Blood Urea Nitrogen 18 mg/dl (9-20); Calcium 9.0 mg/dl (8.4-10.2); Carbon Dioxide 30 mmol/L (22-30); Chloride 99 mmol/L (98-107); Glucose 154 mg/dl (70-99); Sodium 136 mmol/L (135-145); Total Protein 6.6 g/dl (6.3-8.2); eGFR > 60.00
[2025-04-06 14:02] LABS: Potassium 3.7 mmol/L (3.5-5.1)
== END ==
LOC: REG 12:37
PROVIDERS: ATTENDING PHYSICIAN Internal Medicine Hematology & Oncology; FAMILY PHYSICIAN Hospitalist
DX: C18.2 Malignant neoplasm of ascending colon (principal); D50.9 Iron deficiency anemia, unspecified; D69.3 Immune thrombocytopenic purpura; K12.31 Oral mucositis (ulcerative) due to antineoplastic therapy; E87.6 Hypokalemia; K21.9 Gastro-esophageal reflux disease without esophagitis; M54.32 Sciatica, left side
CPT/HCPCS: 36415; 80053; 82570; 84156; 85025

== ENCOUNTER → 2025-04-20 12:02 | Outpatient (REF) | payer MEDICARE, OTHER, SELFPAY ==
[2025-04-20 13:47] LABS: Hematocrit 36.6 % (39.0-52.0); Hemoglobin 12.0 g/dL (13.0-18.0); Mean Corp Hgb Conc. 32.8 g/dL (33.0-37.0); Mean Corpuscular Volume 105.8 fL (80.0-94.0); Nucleated Red Blood Cells % 0.8 % (-); Platelet Count 297 10^3/uL (130-400); Red Cell Dist. Width 15.9 % (11.5-14.5)
[2025-04-20 14:37] LABS: ALT (SGPT) 26 U/L (0-50); AST (SGOT) 41 U/L (17-59); Albumin 4.2 g/dl (3.5-5.0); Alkaline Phosphatase 215 U/L (38-126); Blood Urea Nitrogen 14 mg/dl (9-20); Calcium 9.0 mg/dl (8.4-10.2); Carbon Dioxide 31 mmol/L (22-30); Chloride 96 mmol/L (98-107); Glucose 118 mg/dl (70-99); Potassium 4.2 mmol/L (3.5-5.1); Sodium 133 mmol/L (135-145); Total Protein 6.8 g/dl (6.3-8.2); eGFR > 60.00
== END ==
LOC: REG 12:02
PROVIDERS: ATTENDING PHYSICIAN Internal Medicine Hematology & Oncology; FAMILY PHYSICIAN Hospitalist
DX: C18.2 Malignant neoplasm of ascending colon (principal); D50.9 Iron deficiency anemia, unspecified; D69.3 Immune thrombocytopenic purpura; K12.31 Oral mucositis (ulcerative) due to antineoplastic therapy; E87.6 Hypokalemia; K21.9 Gastro-esophageal reflux disease without esophagitis; M54.32 Sciatica, left side
CPT/HCPCS: 36415; 80053; 82570; 84156; 85025

== ENCOUNTER 2025-04-21 17:44 | Emergency (ER) | payer MEDICARE, OTHER, SELFPAY ==
[2025-04-21 17:51] VITALS: BP 145/76
[2025-04-21 19:52] VITALS: BP 129/71
--- NOTE | 2025-04-21 21:12 | ED.GENMED ---
History of Present Illness
General
Chief Complaint: Head Injury
Source: patient
Exam Limitations: none
Time Seen by Provider: 04/21/25 21:01
Nursing documentation reviewed up to this point in time: agreed with
History of Present Illness
History of Present Illness:
Patient with history of atrial fibrillation on Eliquis, presents to ED secondary to head injury. Patient states that he was outside when he slipped on wet ice, and fell backwards, hitting the back of his head against asphalt driveway. Denies loss
of consciousness. Denies blurred vision. Denies dizziness. Denies nausea or vomiting. Denies loss of sensation or weakness.
Past History
Past History
ED Past Medical History: Cancer (Colon cancer), HTN, Psychiatric (Anxiety, depression, bipolar), Other (Diverticulitis, Sciatica, Anemia, ) and Other (Sciatica)
ED Past Surgical History: Bowel resection, Orthopedic (Left hand surgery, laminectomy), Urological (Vasectomy) and Other (Left arm cyst, Port)
Social History
Tobacco: Former smoker
Alcohol: Former
Drug: None
Personal:
Living: alone
Review of Systems
Review of Systems
Allergies reviewed?: Yes
All Other Systems: ROS reviewed and negative except as documented in HPI and ROS
Constitutional: Reports no symptoms
Musculoskeletal: Reports no symptoms
Skin: Reports other (Contusion)
Neurological: Reports headache
Phy Exam
Physical Exam
Physical Exam:
Physical Exam
General: mild painful distress, not acutely ill. afebrile
Head: ecchymosis w swelling noted over posterior scalp without bleeding
Neck: supple. normal range of motion
Neuro: alert and oriented x 3. no focal neurological deficits
Skin: no rash
Psychiatric: well kept. interactive and cooperative
Extremities: no edema. no calf tenderness.
Course
Orders/Labs/Results
Orders:
Orders
04/21/25 17:53
CT Head W/o Iv Contrast Urgent
Comment:
Reason For Exam: fall on eliquis
Vital Signs
Initial and Last Documented VS:
Initial Vital Signs
Temp Pulse Resp BP Pulse Ox
98.3 F 60 18 145/76 99
04/21/25 17:51 04/21/25 17:51 04/21/25 17:51 04/21/25 17:51 04/21/25 17:51
Last Documented Vital Signs
Temp Pulse Resp BP Pulse Ox
98.3 F 66 18 129/71 98
04/21/25 17:51 04/21/25 19:52 04/21/25 19:52 04/21/25 19:52 04/21/25 21:12
MDM/Problems Addressed
MDM/Problems Addressed:
CT head report reviewed and discussed with patient. Patient otherwise is afebrile, hemodynamically stable, neurologically intact, and appears comfortable at time of discharge. Return precautions provided. Offered Tylenol, but prefers to take it
at home. Recommended continue ice application at home along with PCP follow-up.
*Pulse Oximetry
SaO2: 98
Oxygen Mode of Delivery: Room air
Patient hypoxic: no
*Critical Care Note
Total Time (30-74mins, 75-104mins- exclusive of procedures): Not Applicable
ED Attending Note
-
Portions of this chart may have been created with voice recognition software.� Occasional wrong word or��sound alike� substitutions may have occurred due to the inherent limitations of voice recognition software.
Discharge Plan
Departure
Patient Disposition: Home (Routine Discharge)
Date of Disposition: 04/21/25
Time of Disposition: 21:12
Patient with high blood pressure during this ER visit?: Yes
Condition: Fair
Discharge Problem:
Contusion of scalp
Instructions: Head Injury in Adults (DC)
Prescriptions:
No Action
lamotrigine 100 MG tablet
100 mg PO DAILY
Patient Comments:
09/01/24- patient prescription has bid but patient only taking this once a day
carvedilol 25 mg Tablet
25 mg PO BID
loperamide 2 mg Capsule
4 mg PO QID
Eliquis 5 mg Tablet
5 mg PO BID
acetaminophen 500 mg Tablet
500 mg PO Q6HPRN PRN (Reason: mild pain)
furosemide 40 mg tablet
20 mg PO DAILY
amiodarone 200 mg tablet
200 mg PO DAILY
Patient Comments:
09/01/24- patient med list has bid not daily, did question patient but he stated its always been bid, not sure if that what he is taking at home, no notes in ecw about dose in. all refills have been daily
diphenoxylate-atropine 2.5-0.025 mg tablet
1 tab PO QID
lidocaine-prilocaine 2.5-2.5 % Cream
1 applic TOPICAL DAILYPRN PRN (Reason: port excess)
pantoprazole [Protonix] 40 mg tablet,delayed release (DR/EC)
40 mg PO DAILY Qty: 30 0RF
tramadol 50 mg tablet
50 mg PO Q8H PRN (Reason: Pain) Qty: 14 0RF
Referrals:
UNKNOWN - PT DOES,NOT KNOW [Unknown Provider]
Activity Restrictions/Additional Instructions:
As discussed, please follow-up with your primary care physician with any further concerns. In ED, CT head did not reveal any acute abnormal findings.
Interventions
Interventions:
*General Assessment Last Done: 04/21/25 17:52
*Neglect/Abuse Screening Last Done: 04/21/25 17:52
*ED COVID-19 Vaccine History Last Done: 04/21/25 17:52
*ED Influenza Vaccine History Last Done: 04/21/25 17:52
*Risk Screen - Suicide (C-SSRS) Last Done: 04/21/25 17:52
*Nursing Disposition Last Done: 12/16/25 21:40
ED- Neurological Assessment Last Done: 04/21/25 19:52
ED-Skin Assessment Last Done: 04/21/25 19:52
Discharge Date and Time
Discharge Date/Time: 04/21/25 21:41
Print Language: GUINEAN
== END 2025-04-21 21:41 | disposition home or self-care (01) ==
LOC: EMR 17:44
PROVIDERS: EMERGENCY PHYSICIAN Emergency Medicine; FAMILY PHYSICIAN Hospitalist
DX: S00.03XA Contusion of scalp, initial encounter (principal); W00.2XXA Other fall from one level to another due to ice and snow, initial encounter; I48.91 Unspecified atrial fibrillation; I10 Essential (primary) hypertension; Z79.01 Long term (current) use of anticoagulants; Z87.891 Personal history of nicotine dependence; Z85.038 Personal history of other malignant neoplasm of large intestine
CPT/HCPCS: 99284; 70450

== ENCOUNTER 2025-04-23 14:25 | Outpatient (RCR) | payer MEDICARE, OTHER, SELFPAY | END 2025-04-23 23:59 | disposition home or self-care (01) | LOC: RPT 14:25 | PROVIDERS: ATTENDING PHYSICIAN Surgery; FAMILY PHYSICIAN Hospitalist | DX: R15.9 Full incontinence of feces (principal); M62.89 Other specified disorders of muscle; R15.1 Fecal smearing; Z73.6 Limitation of activities due to disability; C18.9 Malignant neoplasm of colon, unspecified; Z92.21 Personal history of antineoplastic chemotherapy | CPT/HCPCS: 97112; 97530 ==

== ENCOUNTER → 2025-04-27 13:26 | Outpatient (REF) | payer MEDICARE, OTHER, SELFPAY ==
[2025-04-27 14:08] LABS: Hematocrit 36.4 % (39.0-52.0); Hemoglobin 11.8 g/dL (13.0-18.0); Mean Corp Hgb Conc. 32.4 g/dL (33.0-37.0); Mean Corpuscular Volume 105.8 fL (80.0-94.0); Nucleated Red Blood Cells % 0.2 % (-); Platelet Count 263 10^3/uL (130-400); Red Cell Dist. Width 16.2 % (11.5-14.5)
[2025-04-27 14:35] LABS: ALT (SGPT) 17 U/L (0-50); AST (SGOT) 28 U/L (17-59); Albumin 3.8 g/dl (3.5-5.0); Alkaline Phosphatase 184 U/L (38-126); Blood Urea Nitrogen 14 mg/dl (9-20); Calcium 9.0 mg/dl (8.4-10.2); Carbon Dioxide 28 mmol/L (22-30); Chloride 104 mmol/L (98-107); Glucose 89 mg/dl (70-99); Potassium 5.3 mmol/L (3.5-5.1); Sodium 135 mmol/L (135-145); Total Protein 6.3 g/dl (6.3-8.2); eGFR > 60.00
== END ==
LOC: REG 13:26
PROVIDERS: ATTENDING PHYSICIAN Internal Medicine Hematology & Oncology; FAMILY PHYSICIAN Hospitalist
DX: C18.2 Malignant neoplasm of ascending colon (principal); D50.9 Iron deficiency anemia, unspecified; D69.3 Immune thrombocytopenic purpura; K12.31 Oral mucositis (ulcerative) due to antineoplastic therapy; E87.6 Hypokalemia; K21.9 Gastro-esophageal reflux disease without esophagitis; M54.32 Sciatica, left side
CPT/HCPCS: 36415; 80053; 82570; 84156; 85025